=== PATIENT | male | born 1940 | race Caucasian/White ===

== ENCOUNTER 2024-01-15 08:04 | Outpatient (CLI) | payer MEDICARE, SELFPAY ==
--- NOTE | ~2024-01-15 | CT_ITS ---
EXAMINATION: CT abdomen pelvis w con DATE: 01/15/2024 08:12 INDICATION: Weight loss and rectal bleeding TECHNIQUE: Computed tomography (CT) of the abdomen and pelvis was performed without intravenous contr ast. Automated exposure control and iterative reconstruction technique were employed. The dose-length product was 457.35 mGy-cm. COMPARISON: None FINDINGS: Bilateral calcified pleural plaques with peripheral coarse reticular opacities consistent with chroni c interstitial lung disease, likely sequela of chronic asbestos exposure. Mild emphysema at the lung bases. Indeterminate 4 mm nodule at the lingula. Heart size is normal. Atherosclerotic coronary arter y calcification. Aortic valve calcification. No pericardial or pleural effusion. Liver, gallbladder, spleen, pancreas and bilateral adrenal glands are normal. 5.6 cm cyst at the lower pole of the right kidney. Subcentimeter left renal cyst. Bladder is normal. Mild prostatomegaly. Measuring 4.6 x 3.8 cm . Small fat-containing left inguinal hernia. Small bowel and appendix are normal. There is moderate colonic diverticulosis with a sigmoid predomin ance. There is no adjacent inflammatory change to suggest diverticulitis. There is an eccentric int raluminal mass concerning for primary colorectal cancer measuring 5.0 x 3.6 x 4.7 cm along the banquet line cook ior wall of the rectum approximately 4 cm proximal to the anal verge. There are feeding vessels exten ding to the central aspect of the mass where there is associated invagination of the posterior wall o f the rectum and with indistinct peripheral serosal margin suggesting early extra serosal invasion of the perirectal fat. No free intraperitoneal gas or fluid. No pathologically enlarged abdominal or pe lvic lymphadenopathy. Mild degenerative skeletal changes in the spine and pelvis. No suspicious lytic or blastic bone lesions. IMPRESSION: 1. 5.0 x 3.6 x 4.7 cm intraluminal rectal mass concerning for colorectal carcinoma. Recommend proctos copy for further evaluation. Dr. Johns discussed these findings with Dr. Freeman at 9:48 AM. 2. Diverticulosis. 3. Prostatomegaly. 4. Small fat-containing left inguinal hernia. 5. Indeterminate 4 mm nodule at the lingula statistically most likely to represent sequela of old gra nulomatous disease but given the suspected primary colon cancer could consider 3 month follow-up ches t CT as differential would include metastatic disease. Reviewed, dictated and finalized at location A. [facility] IMPRESSION: 1. 5.0 x 3.6 x 4.7 cm intraluminal rectal mass concerning for colorectal carcin meenu. Recommend proctoscopy for further evaluation. Dr. Johns discussed these findings with Dr. Freeman at 9:48 AM. 2. Diverticulosis. 3. Prostatomegaly. 4. Small fat-containing left inguinal hernia. 5. Indeterminate 4 mm nodule at the lingula statistically most likely to repres ent sequela of old granulomatous disease but given the suspected primary colon cancer could consider 3 month follow-up chest CT as differential would include metastatic disease.
[2024-01-15 08:04] LABS: Estimated Glomerular Filt Rate 48
[2024-01-15 09:13] LABS: Basophils Absolute Auto 0.1 K/mm3 (0.0-0.1); Basophils Percent Auto 0.7 % (0.2-1.2); Eosinophils Absolute Auto 0.2 K/mm3 (0-0.3); Eosinophils Percent Auto 1.3 % (0-4.4); Hemoglobin 11.8 g/dL (14.0-18.0); Immature Granulocyte Absolute 0.09 K/mm3 (0.00-0.031); Immature Granulocyte Percent A 0.6 % (0-0.5); Lymphocytes Absolute Auto 2.89 K/mm3 (0.9-3.2); Lymphocytes Percent Auto 19.9 % (18.3-44.2); Mean Corpuscular HGB Conc 31.9 g/dl (32-36); Mean Corpuscular Hemoglobin 31.4 pg (26-34); Mean Corpuscular Volume 98.4 fl (80-100); Mean Platelet Volume 11.1 fl (7.4-10.4); Monocytes Percent Auto 13.7 % (2.6-8.5); Neutrophils Absolute Auto 9.3 K/mm3 (1.3-6.7); Neutrophils Percent Auto 63.8 % (45.5-73.1); Platelet Count Result 324 k/mm3 (150-375); Red Blood Count 3.76 M/mm3 (4.6-6.20); Red Cell Distribution Width 14.5 % (11.5-14.5); White Blood Count 14.5 K/mm3 (4.5-10.0)
[2024-01-15 09:27] LABS: Alanine Aminotransferase 25 U/L (6-50); Albumin Level 3.7 g/dL (3.5-5.1); Alkaline Phosphatase 103 U/L (38-126); Anion Gap 7 mmol/L (4-12); Aspartate Amino Transferase 30 U/L (17-59); Bilirubin,Total 0.6 mg/dL (0.2-1.3); Blood Urea Nitrogen 14 mg/dL (9-20); Calcium 8.9 mg/dL (8.4-10.2); Carbon Dioxide 28 mmol/L (22-30); Chloride 104 mmol/L (98-107); Cholesterol 100 mg/dL (0-200); Estimated Glomerular Filt Rate 58; Glucose 89 mg/dL (65-110); HDL Direct 35 mg/dL; Potassium 4.7 mmol/L (3.4-5.0); Sodium 139 mmol/L (137-145); Triglycerides 112 mg/dL (<150)
[2024-01-15 09:38] LABS: LDL Cholesterol Direct 40 mg/dL
[2024-01-15 10:26] LABS: Creatinine Urine 80.7 mg/dL
[2024-01-15 10:29] LABS: MALB Creatinine Ratio 7.8 mg/g (0-30); Microalbumin Urine Random 6.3 mg/L (0-16.7)
== END 2024-01-15 08:05 | disposition home or self-care (01) ==
PROVIDERS: PCP Family Medicine; Visit Provider Nurse Practitioner Family
DX: K92.1 Melena (principal); R63.4 Abnormal weight loss; E78.5 Hyperlipidemia, unspecified; I10 Essential (primary) hypertension; Z13.1 Encounter for screening for diabetes mellitus
CPT/HCPCS: 36415; 74177; 80053; 80061; 82043; 83036; 85025; Q9967

== ENCOUNTER 2024-01-26 02:02 | Day surgery (SDC) | payer MEDICARE, SELFPAY ==
[2024-01-17 13:17] VITALS: BMI 27.0
--- NOTE | 2024-01-17 13:32 | SUR.PREOP ---
spoke with patient in regards to Eliquis. Pt verbalizes understanding that the last dose is to be taken on 01/23/24 and the Endoscopist will instruct them when to restart after the procedure.
[2024-01-26 11:05] VITALS: BP 120/68; PULSE 102; RESP 20; TEMP 36; O2SAT 99
[2024-01-26] MEDS: LACTATED RINGERS 1,000 ML 150 ML IV CONT (11:21)
[2024-01-26 11:23] VITALS: BP 131/81; PULSE 113
--- NOTE | 2024-01-26 11:26 | P.PNAN_ITS ---
Anes - Initial Pre Proc Eval Procedure: Operation Date: 01/26/24 12:30 Proposed Procedures p Colonoscopy - Carlo Kumar MD Date/Time: 01/26/24 11:26 Surgeon: Carlo Kumar MD Pre Op Diagnosis: acute posthemorrhagic anemia, melena, other spec Patient Data Age: 83 Gender: M Height: 1.75 m Weight: 83 kg Last Vital Signs Temp 96.8 F L 01/26/24 11:05 Pulse 113 H 01/26/24 11:23 Resp 20 01/26/24 11:05 BP 131/81 01/26/24 11:23 Pulse Ox 99 01/26/24 11:05 O2 Del Method Room Air 01/26/24 11:05 Allergies Allergy/AdvReac Type Severity Reaction Status Date / Time No Known Allergies Allergy Verified 01/26/24 11:03 Home Medications Medication Instructions Recorded Confirmed Type atorvastatin 20 mg tablet 20 mg PO DAILY 12/26/23 01/26/24 History metoprolol succinate 50 mg 50 mg PO DAILY 12/26/23 01/26/24 History tablet,extended release 24 hr apixaban 5 mg tablet (Eliquis) 5 mg PO BID 01/01/24 01/26/24 History Patient hx anesthesia problems: none Family hx anesthesia problems: none Results Review: All pre-operative results and documents have been reviewed as part of the pre- operative evaluation. [facility] Family History Family History Mother Patient's mother is , Onset Age: 88 Father Family history of lung cancer, Onset Age: 83 Sibling Family history of malignant neoplasm of ovary Social History Social History Smoking packs per day: 0.75 Smoking cigarettes per day: 15.0 Years smoked: 65 Smoking pack-years: 48.75 Smoking status: Current every day smoker Tobacco type: cigarettes Alcohol intake: current Alcohol use details: Rarely Substance use type: does not use Living arrangements: with family Additional living arrangements comments: With sp Anes - Eval Final PreProcedure Day of Procedure 01/26/24 11:26 Patient weight: overweight Heart: regular rate and rhythm (chr a fib. ) and tachycardia Lungs: clear to auscultation Airway: Mallampati scale class II Neurological: alert and oriented Last oral intake: >/= 8 hours ASA classification: IV Emergent: no Anesthetic plan: proceed Anesthesia type and monitoring: general GIVS and standard monitoring Results Review: All pre-operative results and documents have been reviewed as part of the pre- operative evaluation. Afib by hx and still in a fib, eliquis on hold for 3 days. HTN, hyperlipidemia, PVD. Rectal mass now for eval. Informed Consent: The patient's anesthetic plan and its attendant risks and benefits were discussed with the patient/family/POA. Questions were solicited and answers provided to the satisfaction of the patient/family/POA.
--- NOTE | 2024-01-26 11:31 | WPDHPUPDATE1 ---
History and Physical Update Update Date/Time: 01/26/24 11:31 History and Physical has been reviewed, including an updated exam of the patient. There are NO changes in the patient's condition. Risks, benefits, and alternatives have been discussed and questions answered. Patient agrees to proceed with procedure.
[2024-01-26 11:59] VITALS: BP 120/68; PULSE 107; RESP 25; O2SAT 92
[2024-01-26 12:09] VITALS: BP 129/73; PULSE 106; RESP 23; O2SAT 100
[2024-01-26 12:19] VITALS: BP 158/80; PULSE 108; RESP 22; O2SAT 97
== END 2024-01-26 12:59 | disposition home or self-care (01) ==
PROVIDERS: PCP Family Medicine; Referring Provider Nurse Practitioner Family; Visit Provider Internal Medicine Gastroenterology
PROC: 0DJD8ZZ Inspection of Lower Intestinal Tract, Via Natural or Artificial Opening Endoscopic (ICD-10-PCS; CPT 45378; principal; 2024-01-26 12:30)
DX: R93.3 Abnormal findings on diagnostic imaging of other parts of digestive tract (principal); C18.7 Malignant neoplasm of sigmoid colon; D12.3 Benign neoplasm of transverse colon; K57.30 Diverticulosis of large intestine without perforation or abscess without bleeding; E78.5 Hyperlipidemia, unspecified; I10 Essential (primary) hypertension; I48.91 Unspecified atrial fibrillation; D62 Acute posthemorrhagic anemia; F17.210 Nicotine dependence, cigarettes, uncomplicated; Z79.51 Long term (current) use of inhaled steroids; Z79.01 Long term (current) use of anticoagulants; Z86.79 Personal history of other diseases of the circulatory system; Z80.41 Family history of malignant neoplasm of ovary; Z80.1 Family history of malignant neoplasm of trachea, bronchus and lung
CPT/HCPCS: 45385; 45380; 88305; J2003; J2704; J7120

== ENCOUNTER 2024-02-20 09:41 | Outpatient (CLI) | payer MEDICARE, SELFPAY ==
--- NOTE | ~2024-02-20 | CT_ITS ---
Clinical Indication: Colon cancer CT Scan of the Chest with Contrast: Technique: Contiguous sections were acquired throughout the chest after intravenous administration of 75 cc of Omnipaque 350. Dose reduction technique was used on this scan by utilizing automated exposu re control and iterative reconstruction technique. The dose-length product (DLP) was 191.87 mGy-cm. Findings: There is no evidence of any significant mediastinal, hilar or axillary lymphadenopathy. There is no f illing defect in the pulmonary arterial tree to suggest pulmonary embolus. Probable small saccular an eurysm arising from the inferior aspect of the distal aortic arch (sagittal image [id number]). No aortic d issection. There is no evidence of pleural or pericardial effusion. Bilateral calcified pleural plaques are pres ent. There is a 1 cm smooth nodule in the right middle lobe adjacent to the fissure (axial image 65).. The re is mild to moderate emphysema, probably paraseptal. There is subpleural reticulation and mild klaus pheral interstitial thickening at the lung bases in particular. Images through the upper abdomen reveal no abnormalities. Impression: 1 cm right middle lobe nodule, indeterminate. Consider short-term follow-up exam or PET/CT. Compariso n with any outside prior chest CTs (if available) would be useful to establish chronicity of this les ion. Mild chronic interstitial disease and calcified pleural plaques. [id number] paraseptal emphysema. 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 Reviewed, dictated and finalized at location . [facility] Impression: 1 cm right middle lobe nodule, indeterminate. Consider short-term follow-up exa m or PET/CT. Comparison with any outside prior chest CTs (if available) would b e useful to establish chronicity of this lesion. Mild chronic interstitial disease and calcified pleural plaques. [id number] paraseptal emphysema. 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
[2024-02-20 10:06] LABS: Estimated Glomerular Filt Rate 58
== END 2024-02-20 09:42 | disposition home or self-care (01) ==
PROVIDERS: PCP Family Medicine; Visit Provider Surgery
DX: C19 Malignant neoplasm of rectosigmoid junction (principal)
CPT/HCPCS: 71260; Q9967

== ENCOUNTER 2024-03-19 10:01 | Outpatient (CLI) | payer MEDICARE, SELFPAY ==
--- NOTE | ~2024-03-19 | PE_ITS ---
EXAMINATION: PET skull to mid thigh DATE: 03/19/2024 12:03 INDICATION: Rectal cancer. TECHNIQUE: Blood glucose level was 97 mg/dL. 10.983 mCi of 18-fluorodeoxyglucose (18-FDG) was adminis tered i.v. Low dose computed tomography (CT) images were acquired from the base of the brain to the p roximal thighs for attenuation correction and anatomic localization. Automated exposure control was e mployed. Dose-length product (DLP) was 780 mGy-cm. Positron emission tomography (PET) images were acq uired in the same distribution. COMPARISON: Chest CT 02/20/2024 FINDINGS: Head/neck: There are no pathologically enlarged lymph nodes. Chest: There is mild emphysema. There are calcified pleural plaques bilaterally, which may be seen wi th asbestos exposure. There is a 10 mm nodule in right middle lobe at the minor fissure without incre ased activity. No pleural effusion. There is a long distribution of increased activity in the esophag us, likely esophagitis. There is increased activity in the brachiocephalic trunk, consistent with thr ombosis. Abdomen/pelvis/proximal thighs: The liver, gallbladder, spleen, pancreas, adrenal glands, and left ki dney are normal. There is a 5.6 cm cyst in right kidney. The prostate is mildly enlarged. There is wa ll thickening of the rectosigmoid with maximum SUV of 39.7. There is a left inguinal hernia containin g fat. There are no pathologically enlarged lymph nodes. There is no free intraperitoneal fluid. Ther e is no osseous malignancy. IMPRESSION: 1. 10 mm nodule in right lung middle lobe at the minor fissure without increased activity, probably b enign. Noncontrast low-dose chest CT is recommended in 6 months. 2. Wall thickening of the rectosigmoid with increased activity, consistent with primary malignancy. 3. Increased activity in the esophagus, likely esophagitis. 4. Increased activity in the brachiocephalic trunk, consistent with thrombosis. Reviewed, dictated and finalized at location A. TRONIC COMPONENT PROCESSOR IMPRESSION: 1. 10 mm nodule in right lung middle lobe at the minor fissure without increase d activity, probably benign. Noncontrast low-dose chest CT is recommended in 6 months. 2. Wall thickening of the rectosigmoid with increased activity, consistent with primary malignancy. 3. Increased activity in the esophagus, likely esophagitis. 4. Increased activity in the brachiocephalic trunk, consistent with thrombosis.
[2024-03-19 10:50] LABS: Glucose Point of Care 97 mg/dl (65-105)
--- OUTSIDE RECORDS SUMMARY | 2024-03-19 10:55 | XMS_ITS | Encounter Summary ---
Author Organization [facility] Address Formerly [facility], [facility] [facility] [place] [address] [place] [address] Care Team Providers Care Mold Engraver Name Role Phone Yared Shook MD Primary Care Provider [phone] Ez Rust MD Unavailable [phone] None, Provider Primary Care Provider Unavaila ble Dominique Varghese MD Primary Care Provider [phone] Yared Shook MD Primary Care Provider [phone] Roel Silvestre DO Primary Care Provider [phone] Encounter Details Date Type Department Care Team (Late st Contact Info) Description 03/01/2018 Abstract [facility] CONVERSION [address] [place], [place] [id number] , Generic Conversion, Social History Tobacco Use Types Packs/Day Years Used Date Smoking Tobacco: Every Day Cigarettes Smokeless Tobacco: Never Alcohol Use Standard Drinks/Week Comments Yes 0 (1 standard drink = 0.6 oz pur e alcohol) socially Sex and Gender Information Value Date Recorded Sex Assigned at Not on file Legal Sex Male 10:11 PM CDT Gender Identity Not on file Sexual Orientation Not on file Occupation Industry Job Start Date Job End Date Not on file Not on file Not on file Not on file documented as of this encounter Plan of Treatment Upcoming Encounters Date Type Department Care Team (Late Contact Info) Description 04/24/2024 11:15 AM [employer] Office Visit [facility] [address] [place] [phone] Ez Rust MD [facility] [address] [place] [address] 11/28/2024 12:00 PM CDT Appointment [facility] [address] [place], [place] [id number] Bobby Tiwari MD [facility] [address] [place], [place] [address] 12/04/2024 10:00 AM CDT Office Visit [facility] [address] [place] [phone] Bobby Tiwari MD [facility] [address] [place], [place] [id number] documented as of this encounter Visit Diagnoses Not on filedocumented in this encounter Additional Health Concerns Infection Onset Date Last Indicated Resolved Time COVID-19 Rule Out 05/10/2022 05/10/2022 05/10/2022 11:29 AM CDT documented as of this encounter Care Teams Mold Engraver Relationship Specialty Start Date End Date Yared Shook MD PCP - General INTERNAL MEDICINE 01/20/17 05/04/21 María Iniguez MD PCP - General 05/05/21 10/12/21 [place] [address] [facility] [address] [place], [place] [id number] PCP - General FAMILY PRACTICE 10/13/21 05/23/23 Yared Shook MD [address] [place] [address] PCP - General INTERNAL MEDICINE 05/24/23 12/21/23 Roel Silvestre DO [address] [place] [address] PCP - General FAMILY PRACTICE 12/22/23 Ez Rust MD [facility]. [address] [place] [address] [employer] CARDIOVASCULAR DISEASE 02/20/17 documented as of this encounter
--- OUTSIDE RECORDS SUMMARY | 2024-03-19 10:55 | XMS_ITS | Clinical Summary ---
Author Organization [facility] Address [facility] Formerly [facility] [place] [address] [place] [address] Care Team Providers Care Image Editor Name Role Phone Gianna Rust MD Unavailable [phone] Roel Silvestre DO Primary Care Provider [phone] Allergies No known active allergies Medications albuterol sulfate HFA 108 (90 Base) MCG/ACT inhaler Inhale 2 puffs into the lungs every 4 (four) hours as needed. 7 Active multi vitamin/minera ls tablet Take 1 tablet by mouth daily. Active Multiple Vitamins-Dillingham als (PRESERVISION AREDS 2) CapIndications :Opthalmology Rx's Take 1 tablet by mouth every 12 (twelve) hours. Indications: Opthalmology Rx's Active metoprolol succinate ER (TOPROL-XL) 50 MG 24 hr tabletIndicati ons:Hypertensi on, essential Take 1 tablet (50 mg total) by mouth daily. 90 tablet 3 3 Active Budeson-Glycop yrrol-Formoter ol 160-9-4.8 MCG/ACT Aerosol INHALE 2 PUFFS INHALATION TWICE A DAY DIRECTED FOR COPD (CLEAN INHALER FOLLOWED BY 2 PRIMING PUFFS ONCE WEEKLY) 3 Active apixaban (ELIQUIS) 5 MG tablet Take 1 tablet by mouth twice daily 60 tablet 1 4 Active atorvastatin (LIPITOR) 40 MG tabletIndicati ons:Hypertensi on, essential,Dysl ipidemia,Hyper triglyceridemi a Take 1 tablet (40 mg total) by mouth nightly at bedtime. 90 tablet 5 Active atorvastatin (LIPITOR) 40 MG tabletIndicati ons:Hypertensi on, essential,Dysl ipidemia,Hyper triglyceridemi a take 1 tablet by mouth nightly at bedtime 90 tablet 4 025 Discontin ued(Reord er) Active Problems Problem Noted Date Diagnosed Date Disease of gallbladder, unspecified 11/29/2023 Atrial fibrillation ([facility] [place]) 05/19/2023 Cigarette smoker 05/19/2023 Aortic aneurysm of unspecified site, without rup ture 11/15/2022 Chronic obstructive pulmonar y disease, unspecified ([facility] [place]) 11/15/2022 Contact with and (suspected) exposure to asbesto s 11/15/2022 Helicobacter pylori gastritis 11/15/2022 Tobacco use disorder, continuous 11/15/2022 Age-related incipient cataract of both eyes 10/21 Wears glasses 07/12/2017 Overview (02/28/2018): Description: for reading SOB (shortness of breath) 03/02/2017 PVD (peripheral vascular disease) 03/02/2017 Assessment & Plan (09/05/2018 9:11 AM CDT): Stable at this time, on a daily low-dose aspirin. No change to present treatment. Assessment & Plan (03/05/2018 2:44 PM PROJECTION PRINTER): Stable, on daily aspirin therapy. Continued monitoring by vascular specialist. 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 Continue to monitor. Staunchly declines pneumococcal immunizations. Assessment & Plan (03/05/2018 2:42 PM PROJECTION PRINTER): The current medical regimen is effective; continue present plan and medications. Follow-[facility] and [facility] management per [facility] at [facility]. Hypertriglyceridemia 06/07/2016 Assessment & Plan (09/05/2018 9:11 AM CDT): Continues on moderately dosed atorvastatin without side effects or intolerances. Most recent lipid panel excellent. Repeat in 6 months. No treatment change. Assessment & Plan (03/05/2018 2:45 PM PROJECTION PRINTER): The current medical regimen is effective; continue present plan and medications. Atherosclerosis of right carotid artery 04/27/19 Overview (02/28/2018): Transitioned From: Coronary artery disease Assessment & Plan (03/05/2018 2:44 PM PROJECTION PRINTER): See PVD above. Lung nodules 02/05/2016 Assessment & Plan (09/05/2018 9:09 AM CDT): Most recent PET scan in our records reviewed, with what appears to be a stable nodule, with avidity which does not rule out a low metabolic neoplastic process. The [facility] continues to monitor this. Assessment & Plan (03/05/2018 2:41 PM PROJECTION PRINTER): Stable pulmonary exam. Will order CT scan of the chest for reevaluation of pulmonary nodules on or after 04/14. Encouraged patient to follow-up with the [facility] as scheduled. No change to present therapy. Asbestos exposure 01/21/2016 Calcified pleural plaque on chest x-ray 01/21/20 16 BMI 29.0-29.9,adult 06/05/2015 Medication management 06/05/2015 Overview (02/28/2018): Transitioned From: long term use of drug Assessment & Plan (09/05/2018 9:12 AM CDT): Lab work ordered for next visit, to be drawn prior to visit for review. Assessment & Plan (03/05/2018 2:47 PM PROJECTION PRINTER): Obtain routine lab work at this time for ongoing medication management, including lipid panel, CBC and metabolic profile. PSA for yearly monitoring per patient request. Nicotine dependence 06/05/2015 Assessment & Plan (09/05/2018 9:08 AM CDT): Patient remains pre-contemplative, with no plans to quit in the future. Assessment & Plan (03/05/2018 2:41 PM PROJECTION PRINTER): Pre-contemplative, no desire to stop smoking. Currently smoking approximately 1/2 pack/day, or less. Typically smokes most frequently when driving. Bilateral carotid bruits 02/28/2014 Dyslipidemia Assessment & Plan (03/05/2018 2:45 PM PROJECTION PRINTER): The current medical regimen is effective; continue present plan and medications. Hypertension, essential Assessment & Plan (09/05/2018 9:10 AM CDT): Well controlled. 1. Medication: continue current medication regimen unchanged, encouraged home monitoring, call for persistent elevations at or above 130/85. 2. Maintains a relatively active lifestyle, though no specific schedule exercise. 3. Recheck in 6 months, sooner should new symptoms or problems arise. Assessment & Plan (03/05/2018 2:43 PM PROJECTION PRINTER): For all purposes controlled at this time on current dosing of metoprolol. Continue to monitor. No change to present treatment. Carotid stenosis, asymptomatic, left CAD (coronary artery disease) Assessment & Plan (09/05/2018 9:10 AM CDT): Stable, no chest pain or other anginal equivalent. Continues on metoprolol without difficulty. Yearly follow-up with cardiology. Assessment & Plan (03/05/2018 2:44 PM PROJECTION PRINTER): Stable. Yearly follow-up with cardiology. No signs or symptoms of angina. Continue current treatment. Encounters Date Type Department Care Team Description 03/13/2024 Telephone [facility], [address] [address] Gianna Rust MD Refill Request (ATORVASTATIN) 02/01/2024 Telephone [facility] [address] [address] Kathy Mary, RN Results 01/30/2024 7:44 AM PROJECTION PRINTER - 01/30/2024 11:59 PM PROJECTION PRINTER Hospital Encounter [facility]ound [address] [place] [address] Teagan Cage, LEATHER CURRIER-C Discharge Disposition: Home or Self Care (Routine Discharge) 01/30/2024 Telephone [facility] [address] [address] Kathy Mary RN Results 01/30/2024 Travel 01/17/2024 11:30 AM PROJECTION PRINTER Office Visit [facility] [address] [address] Teagan Cage, LEATHER CURRIER-C Coronary Artery Disease (Follow up); Atrial Fibrillation; Carotid Stenosis 01/17/2024 Abstract [facility] [address] [address] Amy Vera CMA 01/17/2024 Travel 01/10/2024 Telephone [facility] [address] [address] Bri Murillo CMA Prior Authorization (Tier exception) 01/09/2024 Telephone [facility] [address] [address] 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 Medication Information (Eliquis) from Last 3 Months Immunizations Name Administration Dates Next Due Fluzone High Dose - >Age 65 (Prefilled Syringe) 10/02/2019(Deferred: Patient Refused - Per Patient) PFIZER COVID-19 (SHEPPARD CAP), MRNA, LNP-S, PF, 30 MCG/0.3 ML JULISSA-SUCROSE, IM 09/08/2021 PFIZER COVID-19 (ORIGINAL FORMULATION, PURPLE CAP) mRNA, LNP-S, PF, 30 MCG/0.3 ML DOSE 12/09/2020,04/30/2020,04/09/2020 Pneumococcal (Pneumovax 23) 10/07/2021(Deferred: Patient Refused) Td (Generic) 11/05/2011 Td, Adsorbed, Preservative F ree, Adult Use, Lf Unspecified 11/05/2011 Family History Medical History Relation Comments No Known Problems Father No Known Problems Mother no family history of CAD Other Relation Status Comments Father Mother Other Social History Tobacco Use Types Packs/Day Years Used Date Smoking Tobacco: Every Day Cigarettes Smokeless Tobacco: Never Tobacco Cessation:Ready to Q uit: No; Counseling Given: Yes Alcohol Use Standard Drinks/Week Comments Yes 0 (1 standard drink = 0.6 oz pur e alcohol) socially PHQ-2 Answer Date Recorded Patient Health Questionnaire-2 Score 0 05/10/2022 Sex and Gender Information Value Date Recorded Sex Assigned at Not on file Legal Sex Male 10:11 PM CDT Gender Identity Not on file Sexual Orientation Not on file Occupation Industry Job Start Date Job End Date Not on file Not on file Not on file Not on file Last Filed Vital Signs Vital Sign Reading Time Taken Comments Blood Pressure 124/62 01/17/2024 11:21 AM PROJECTION PRINTER Pulse 102 01/17/2024 11:21 AM PROJECTION PRINTER Temperature 36.6 ??C (97.8 ??F) 05/10/2022 11:01 AM C DT Respiratory Rate 12 05/10/2022 11:01 AM CDT Oxygen Saturation 95% 05/30/2023 12:11 PM CDT Inhaled Oxygen Concentration - - Weight 82.6 kg (182 lb) 01/17/2024 11:21 AM PROJECTION PRINTER Height 172.7 cm (5' 8 ) 01/17/2024 11:21 AM PROJECTION PRINTER Body Mass Index 27.67 01/17/2024 11:21 AM PROJECTION PRINTER Plan of Treatment Upcoming Encounters Date Type Department Care Team (Late st Contact Info) Description 04/24/2024 11:15 AM PROJECTION PRINTER Office Visit [facility] [address] [place] [phone] Gianna Rust MD [facility] [address] [place], [place] [address] 11/28/2024 12:00 PM CDT Appointment [facility] [address] [place] [address] Bobby Tiwari MD [facility] [address] [place], [place] [address] 12/04/2024 10:00 AM CDT [facility] [address] [place] [phone] Bobby Tiwari MD [facility] [address], [place] [id number] Health Maintenance Due Date Last Done Comments Pneumococcal Vaccine: 65+ Years (1 of 2 - PCV) 1944 Zoster Vaccines (1 of 2) 1988 Annual Medicare Wellness Visit 12/02/2003 DTaP, Tdap and Td Vaccines (1 - Tdap) 11/06/2011 11/05/2011, 11/05/2011 RSV Immunization or 60+ Years (1 - 1-dose 75+ series) 2013 COVID-19 Vaccine ( season) 2023 09/08/2021, 12/09/2020, 04/30/2020, Additional history exists Influenza Adult (#1) 2023 PHQ-2 (Physician [facility]) 02/21/2024 05/10/2022 Meningococcal B Vaccine Aged Out No l onger eligible based on patient's age to complete this topic Meningococcal Vaccine Aged Out No clemente tahira eligible based on patient's age to complete this topic RSV Immunizations Under 20 Months Aged Out No longer eligible based on patient's age to complete this topic Procedures Procedure Name Priority Date/Time Associated Diagnosis Comments USE ECHOCARDIOGRAM Routine 01/30/2024 8: 31 AM PROJECTION PRINTER SOB (shortness of breath) Nonrheumatic aortic valve insufficiency CBC (OUTSIDE LAB) Routine 01/15/2024 CMP (OUTSIDE LAB) Routine 01/15/2024 HEMOGLOBIN, GLYCOSYLATED Routine 01/15/2024 LIPID PANEL Routine 01/15/2024 from Last 3 Months Results * USE ECHOCARDIOGRAM (01/30/2024 8:31 AM PROJECTION PRINTER) Anatomical Region Laterality Modality Cardiac Ultrasound 01/30/2024 8:02 AM PROJECTION PRINTER Narrative 01/30/2024 6:31 PM PROJECTION PRINTER ?MADHU ? OUTREACH Pat.Name: ??Stephanie Jay ?? Pat.ID: ?[id number] ? St.Date: ?? 01/30/2024 ? Refer.MD: ??Outreach, [facility] Radiology Exam Time: 8:02:00 AM ?Study Type:OUTREACH ? Height: ?69 in ? Weight: ?182 lb ? BSA: ? 1.98 m2 ?Age: ??1940,83Y ? Sex: ? M ? Sonogrphr: Lw ? Pat. Stat.:Outpatient ? Reason for Study:SOB, Aortic Insufficiency Procedures: Study performed at [place], [place] and interpreted by [facility]. 2D, M-mode, Doppler, Color Flow ++++++++++++++++++++++++++++++++++++ SUMMARY: ++++++++++++++++++++++++++++++++++++ The left ventricular size is normal. The left ventricular systolic function is normal. The calculated ejection fraction is 57%. Mild concentric left ventricular hypertrophy. The right ventricular size is normal. Right ventricular systolic function is normal. Right ventricular systolic pressure is 38 mmHg. The peak pulmonary artery systolic pressure is estimated to be approximately 30 mmHg. Moderate aortic regurgitation. Mild mitral regurgitation. Mild tricuspid regurgitation. ++++++++++++++++++++++++++++++++++++ FINDINGS: ++++++++++++++++++++++++++++++++++++ LV: ? The left ventricular size is normal. The left ventricular ?systolic function is normal. The calculated ejection ?fraction is 57%. Mild concentric left ventricular ?hypertrophy. The average E/e' is indeterminate at 9-12 and ?EF is > or equal to 50. RV: ? The right ventricular size is normal. Right ventricular ?systolic function is normal. Right ventricular systolic ?pressure is 38 mmHg. LA: ? The left atrial size is moderately enlarged. RA: ? The right atrial size is normal. AMBERLY: ? No evidence of pericardial effusion. AO: ? Normal aortic root. PA: ? The peak pulmonary artery systolic pressure is estimated to ?be approximately 30 mmHg. SVn: ?Inferior vena cava is normal. AV: ? The aortic valve is trileaflet. No clear spectral or ?echocardiographic evidence of aortic valve stenosis. ?Moderate aortic regurgitation. MV: ? Structurally normal mitral valve. Mild mitral regurgitation. PV: ? Structurally normal pulmonic valve. TV: ? Structurally normal tricuspid valve. Mild tricuspid ?regurgitation. <Electronic Signature> 01/30/2024 06:31 PM Gianna Rust M.D. Procedure Note Gianna Rust MD - 01/30/2024 MADHU GONZALEZ Pat.Name: Stephanie Jay gianna Pat.ID: [id number] .Date: 01/30/2024 Refer.MD: Jayant, [facility] Radiology Exam Time: 8:02:00 AM Study Type:[facility] Height: 69 in Weight: 182 lb BSA: 1.98 m2 Age: 10 1940,83Y Sex: M Sonogrphr: Lw Pat. Stat.:Outpatient Reason for Study:SOB, Aortic Insufficiency Procedures: Study performed at [place], [place] and interpreted by [facility]. 2D, M-mode, Doppler, Color Flow ++++++++++++++++++++++++++++++++++++ SUMMARY: ++++++++++++++++++++++++++++++++++++ The left ventricular size is normal. The left ventricular systolic function is normal. The calculated ejection fraction is 57%. Mild concentric left ventricular hypertrophy. The right ventricular size is normal. Right ventricular systolic function is normal. Right ventricular systolic pressure is 38 mmHg. The peak pulmonary artery systolic pressure is estimated to be approximately 30 mmHg. Moderate aortic regurgitation. Mild mitral regurgitation. Mild tricuspid regurgitation. ++++++++++++++++++++++++++++++++++++ FINDINGS: ++++++++++++++++++++++++++++++++++++ LV: The left ventricular size is normal. The left ventricular systolic function is normal. The calculated ejection fraction is 57%. Mild concentric left ventricular hypertrophy. The average E/e' is indeterminate at 9-12 and EF is > or equal to 50. RV: The right ventricular size is normal. Right ventricular systolic function is normal. Right ventricular systolic pressure is 38 mmHg. LA: The left atrial size is moderately enlarged. RA: The right atrial size is normal. AMBERLY: No evidence of pericardial effusion. AO: Normal aortic root. PA: The peak pulmonary artery systolic pressure is estimated to be approximately 30 mmHg. SVn: Inferior vena cava is normal. AV: The aortic valve is trileaflet. No clear spectral or echocardiographic evidence of aortic valve stenosis. Moderate aortic regurgitation. MV: Structurally normal mitral valve. Mild mitral regurgitation. PV: Structurally normal pulmonic valve. TV: Structurally normal tricuspid valve. Mild tricuspid regurgitation. <Electronic Signature> 01/30/2024 06:31 PM Gianna Rust M.D. Teagan Cage LEATHER CURRIER-C ECHO Final Re sult * (ABNORMAL) CMP (OUTSIDE LAB) (01/15/2024) SODIUM S/P/B 139 137 - 145 POTASSIUM S/P/B 4.7 3.4 - 5.0 CHLORIDE S/P/B 104 98 - 107 CO2 28 22 - 30 BUN 14 9 - 20 CREATININE S/P/B 1.20 0.8 - 1.5 EGFR NON-AFR. AMER. 58(A) 60 - 90 CALCIUM S/P/B 8.9 8.4 - 10.2 GLUCOSE 89 65 - 110 mg/dL TOTAL PROTEIN S/P/B 7.0 6.3 - 8.2 ALBUMIN S/P/B 3.7 3.5 - 5.1 AST 30 17 - 59 ALT 25 6 - 50 ALKALINE PHOSPHATASE S/P/B 103 38 - 126 BILIRUBIN TOTAL S/P/B 0.6 0.2 - 1.3 01/15/2024 us Default History Genericprovider LAB-OUTSIDE/ABST RACTED Final Result * (ABNORMAL) CBC (OUTSIDE LAB) (01/15/2024) WBC 14.5(A) 4.5 - 10.0 HGB 11.8(A) 14.0 - 18.0 HCT 37.0(A) 42.0 - 52.0 PLT 324 150 - 375 RBC 3.76(A) 4.60 - 6.20 01/15/2024 us Default History Genericprovider LAB-OUTSIDE/ABST RACTED Final Result * (ABNORMAL) HEMOGLOBIN, GLYCOSYLATED (01/15/2024) HGB A1C 6.0(A) 4.8 - 5.7 % 01/15/2024 us Default History Genericprovider LABORATORY Final Result * LIPID PANEL (01/15/2024) CHOLESTEROL 100 0 - 200 HDL 35 >40 TRIGLYCERIDES 112 0 - 150 LDL (CALCULATED) 40 0 - 100 01/15/2024 us Default History Genericprovider LABORATORY Final Result from Last 3 Months Insurance [facility] Advance Directives Documents on File Type Date Recorded Patient General Intern Expl anation Advance Directives and Living Will 08/11/2017 1:22 PM 08/09/2017 [place]IVING [place] DECLARATION Advance Directives and Living Will 08/11/2017 1:21 PM 08/09/2017 POA FOR HEALTHCARE * Full Code (Latest Code Status on File) Date Activated Date Inactivated Comments 08/10/2017 10:13 AM 08/10/2017 2:58 PM Care Teams Image Editor Relationship Specialty Start Date End Date Roel Silvestre DO [address] [place] [address] PCP - General FAMILY PRACTICE 12/22/23 Gianna Rust MD [facility]. [address] [place] [address] Ryley Pan Devulcanizer CARDIOVASCULAR DISEASE 02/20/17
--- OUTSIDE RECORDS SUMMARY | 2024-03-19 10:55 | XMS_ITS | Clinical Summary ---
Author Organization [facility] Jaclyn prado Robert Address [address] [place] [address] Care Team Providers Care Assistant Manager/Embalmer Name Role Phone Roel Silvestre DO Primary Care Provider Allergies No known active allergies Medications Eliquis 5 mg tablet Take 5 mg by mouth 2 times daily. 4 Active metoprolol succinate (TOPROL XL) 50 mg Extended Release 24 hour tablet Take 50 mg by mouth daily. 3 Active atorvastatin (LIPITOR) 40 mg tablet TAKE 1 TABLET BY MOUTH NIGHTLY AT BEDTIME 4 Active budesonide 160 mcg-glycopyr 9 mcg-formot 4.8 mcg/actuation HFA inhaler INHALE 2 PUFFS INHALATION TWICE A DAY DIRECTED FOR COPD (CLEAN INHALER FOLLOWED BY 2 PRIMING PUFFS ONCE WEEKLY) 3 Active albuterol sulfate 90 mcg/actuation aero powdr breath act w/sensor Inhale 2 puffs every 4 hours by inhalation route. Active Active Problems No known active problems Encounters Date Type Department Care Team Description 03/14/2024 External Device Data STL ABSTRACTION Provider, Abstract 03/13/2024 External Device Data STL ABSTRACTION Provider, Abstract 03/12/2024 External Device Data STL ABSTRACTION Provider, Abstract 03/12/2024 External Device Data STL ABSTRACTION Provider, Abstract 03/12/2024 Chart Note [facility] Emergency Department - [address] [address] Bob Fletcher MD 03/12/2024 Abstract [facility] Oncology and Hematology - [address] [place] [address] Fred Huizar MD 03/07/2024 10:30 AM ORTHODONTIC TREATMENT COORDINATOR Office Visit [facility] [address] [facility] [address] [place] [address] Fred Huizar MD Rectal cancer (CMS/HCC) (Primary Dx) from Last 3 Months Family History Medical History Relation Name Comments No Known Problems Child No Known Problems Father No Known Problems Mother Ovarian Cancer Sister Relation Name Status Comments Child Alive Father Mother Sister Alive Social History Tobacco Use Types Packs/Day Years Used Date Smoking Tobacco: Every Day Cigarettes 0.5 63 Started: 03/07/1961 Alcohol Use Standard Drinks/Week Comments Yes 0 (1 standard drink = 0.6 oz pur e alcohol) socailly Sex and Gender Information Value Date Recorded Sex Assigned at Not on file Legal Sex Male 8:08 PM ORTHODONTIC TREATMENT COORDINATOR Gender Identity Not on file Sexual Orientation Not on file Last Filed Vital Signs Vital Sign Reading Time Taken Comments Blood Pressure 138/82 03/07/2024 10:35 AM ORTHODONTIC TREATMENT COORDINATOR Pulse 98 03/07/2024 10:32 AM ORTHODONTIC TREATMENT COORDINATOR Temperature 36.7 ??C (98 ??F) 03/07/2024 10:32 AM ORTHODONTIC TREATMENT COORDINATOR Respiratory Rate 16 03/07/2024 10:32 AM ORTHODONTIC TREATMENT COORDINATOR Oxygen Saturation 94% 03/07/2024 10:32 AM ORTHODONTIC TREATMENT COORDINATOR Inhaled Oxygen Concentration - - Weight 83.5 kg (184 lb) 03/07/2024 10:32 AM ORTHODONTIC TREATMENT COORDINATOR Height 175.3 cm (5' 9 ) 03/07/2024 10:32 AM ORTHODONTIC TREATMENT COORDINATOR Body Mass Index 27.17 03/07/2024 10:32 AM ORTHODONTIC TREATMENT COORDINATOR Plan of Treatment Upcoming Encounters Date Type Department Care Team (Late st Contact Info) Description 03/28/2024 11:00 AM ORTHODONTIC TREATMENT COORDINATOR Office Visit [facility]cology [facility] H[facility]ology - [address] [place] [address] Fred Huizar MD [address] [facility] [address] [place] [address] Health Maintenance Due Date Last Done Comments PNEUMOCOCCAL VACCINE 65+ YEA RS (1 of 2 - PCV) 1957 ZOSTER VACCINE (1 of 2) 1988 DTAP/TDAP/TD VACCINES (1 - Tdap) 11/06/2011 11/05/19 12 RSV VACCINE (60+ or ) (1 - 1-dose 75+ series) 2013 INFLUENZA VACCINE (#1) 2023 COVID-19 Vaccine (5 - 2023-2 5 season) 2023 09/08/2021, 12/09/2020, 04/30/2020, Additional history exists Insurance [facility] [id number] Care Teams Assistant Manager/Embalmer Relationship Specialty Start Date End Date Roel Silvestre DO [address] [place] [address] PCP - General Family Practice 03/05/24
--- OUTSIDE RECORDS SUMMARY | 2024-03-19 10:55 | XMS_ITS | Clinical Summary ---
Author Organization [facility] Address [address] [place] [address] Care Team Providers Care Hospital Medical Assistant Name Role Phone Roel Silvestre Primary Care Provider [phone] Source Comments [facility],non-owned Affiliates and Associated Physician Practices is amultiple site organization consisting of ambulatory clinics and hospital sitesin [place], [place], [place] and [place]. This disclosure is being madepursuant to the Care Everywhere program and may not contain all information available regarding this patient. Last updated 17.[facility] Allergies No known active allergies Medications * Be aware that medications may not be up to date on this document. Alwaysverify current medications with the patient. Medication Sig Dispensed Refills Start Date End Date Status metoprolol succinate XL 24hr (Toprol XL) 50 MG tablet Take 1 tablet every day by oral route. 05/19/2023 Active atorvastatin (Lipitor) 40 MG tablet TAKE 1 TABLET BY MOUTH NIGHTLY AT BEDTIME 11/27/2023 Active Eliquis 5 MG tablet Take 1 (one) tablet by mouth 2 times daily 11/16/2023 Active Albuterol Sulfate, sensor, 108 (90 Base) MCG/ACT AEPB Inhale 2 puffs every 4 hours by inhalation route. Active budeson-glycopyrrol- formoterol (Breztri) 160-9-4.8 MCG/ACT inhaler INHALE 2 PUFFS INHALATION TWICE A DAY DIRECTED FOR COPD (CLEAN INHALER FOLLOWED BY 2 PRIMING PUFFS ONCE WEEKLY) 07/01/2023 Active Multiple Vitamins-Minerals (PreserVision AREDS 2) capsule Take 1 (one) capsule by mouth every 12 hours Active Encounters Date Type Department Care Team Description 02/22/2024 8:00 AM INTERNATIONAL MARKETING EXECUTIVE Office Visit [facility] - General Surgery [address] [place] [address], [facility] [place] [address] Michaela Cutler MD Rectal cancer (HCC) (Primary Dx) 02/22/2024 Travel 02/19/2024 2:02 PM INTERNATIONAL MARKETING EXECUTIVE - 02/19/2024 11:59 PM INTERNATIONAL MARKETING EXECUTIVE Hospital Encounter [facility] MRI [address] [place] [address] Michaela Cutler MD Discharge Disposition: Home or Self Care 02/19/2024 Travel 02/06/2024 Orders Only [facility] - General Surgery [address] [place] [address], [place] [address] Michaela Cutler MD Rectal cancer (HCC) from Last 3 Months Social History Tobacco Use Types Packs/Day Years Used Date Smoking Tobacco: Every Day Tobacco Cessation:Ready to Q uit: No; Counseling Given: No Alcohol Use Standard Drinks/Week Comments Yes 0 (1 standard drink = 0.6 oz pur e alcohol) Sex and Gender Information Value Date Recorded Sex Assigned at Not on file Gender Identity Not on file Sexual Orientation Not on file Last Filed Vital Signs Vital Sign Reading Time Taken Comments Blood Pressure 136/75 02/22/2024 8:07 AM INTERNATIONAL MARKETING EXECUTIVE Pulse 113 02/22/2024 8:07 AM INTERNATIONAL MARKETING EXECUTIVE Temperature 36.4 ??C (97.5 ??F) 02/22/2024 8:07 AM CS T Respiratory Rate 18 02/22/2024 8:07 AM INTERNATIONAL MARKETING EXECUTIVE Oxygen Saturation 98% 02/22/2024 8:07 AM INTERNATIONAL MARKETING EXECUTIVE Inhaled Oxygen Concentration - - Weight 83.1 kg (183 lb 3.2 oz) 02/22/2024 8:07 A M INTERNATIONAL MARKETING EXECUTIVE Height 175.3 cm (5' 9 ) 02/22/2024 8:07 AM INTERNATIONAL MARKETING EXECUTIVE Body Mass Index 27.05 02/22/2024 8:07 AM INTERNATIONAL MARKETING EXECUTIVE Plan of Treatment Health Maintenance Due Date Last Done Comments DTAP/TDAP/TD VACCINES (1 - Tdap) 1957 PNEUMOCOCCAL VACCINE 50+ (1 of 2 - PCV) 1957 ZOSTER VACCINE (1 of 2) 1988 Respiratory Syncytial Virus (RSV) Vaccine Pt: or over 60 yrs (1 - 1-dose 75+ series) 2013 COVID-19 VACCINE ( season) 2023 09/08/2021, 12/09/2020, 04/30/2020, Additional history exists INFLUENZA VACCINE (#1) 2023 DEPRESSION SCREENING 02/21/2024 MEDICARE AWV ? CALENDAR YEAR 2024 HEPATITIS B VACCINE Aged Out No longe r eligible based on patient's age to complete this topic HIB VACCINE Aged Out No longer eligi ble based on patient's age to complete this topic HPV VACCINE Aged Out No longer eligi ble based on patient's age to complete this topic MENINGOCOCCAL (Group B) VACCINE Aged Out No longer eligible based on patient's age to complete this topic MENINGOCOCCAL VACCINE Aged Out No clemente tahira eligible based on patient's age to complete this topic Procedures Procedure Name Priority Date/Time Associated Diagnosis Comments LAB RESULTS ORDER 02/22/2024 LAB RESULTS ORDER 02/22/2024 MRI PELVIS WWO CONTRAST Routine 02/19/2024 3:38 PM INTERNATIONAL MARKETING EXECUTIVE Rectal cancer (HCC) from Last 3 Months Results * LAB RESULTS ORDER (02/22/2024) Only the most recent of2 resultswithin the time period is included. 02/22/2024 Narrative 02/22/2024 Ordered by an unspecified provider. Scanned Document LAB - THERAPEUTIC DR HAMMOND MONITORING ORDERABLES * MRI Pelvis Wwo Contrast (02/19/2024 3:38 PM INTERNATIONAL MARKETING EXECUTIVE) Anatomical Region Laterality Modality Pelvis Magnetic Resonan ce 02/19/2024 3:45 PM INTERNATIONAL MARKETING EXECUTIVE Addenda Addendum by Ryanne Kuhn MD on 03/01/2024 11:54 AM INTERNATIONAL MARKETING EXECUTIVE Consider this addendum as the report for the pelvis MRI dated 02/19/2024. PROCEDURE: ??MRI PELVIS WWO CONTRAST, DATE/TIME OF EXAM: ??02/19/2024 3:39 PM, LOCATION ??[facility] INDICATION: C20: Rectal cancer (HCC) COMPARISON: None. Technique: Multiplanar MRI of the pelvis performed without and with intravenous contrast according to the rectal cancer staging protocol. Contrast: GADOBENATE DIMEGLUMINE 529 MG/ML IV SOLN:16 mL Findings: PRIMARY TUMOR: MORPHOLOGY, LOCATION, AND CHARACTERISTICS: Distance to the anal verge: 5 cm Distance to the top of sphincter complex/anorectal junction: 2 cm Tumor location: Mid (5-10 cm) Craniocaudal length: 6 cm Relationship to anterior peritoneal reflection: Straddles Circumferential location:5 o'clock to 10 o'clock. Morphology: Polypoid Mucinous composition: No mucin MR-T CATEGORY: *T3b (tumor penetrates 1- 5 mm beyond muscularis propria) (series 8 image 14, series 10 image 20) EMVI: No LYMPH NODES: Mesorectal/superior rectal suspicious lymph nodes and/or tumor deposits: *N0 (no suspicious regional lymph nodes) Suspicious extra mesorectal lymph nodes: *No There are multiple (9) round shaped mesorectal lymph nodes measuring up to 5 mm at least 5 mm apart from the mesorectal fascia. Left internal iliac lymph node with short axis measuring 6 mm (series 8 image 9) Distant extra mesorectal LN involvement: None. OTHER: Benign prostatic hyperplasia. IMPRESSION: 1.Primary Tumor location: Mid (5-10 cm) 2.MRI Stage: T3B N0 3.MRF Status: Clear (tumor margin >2 mm from MRF) 4.Suspicious node and /or EMVI near CRM: no 5.Sphincter involvement: Absent 6.Suspicious extra mesorectal lymph node:No 7.Benign prostatic hyperplasia. Report dictated by Cristina Elaine MD Primary tumor staging (T) Tx: primary tumor cannot be assessed T0: no evidence of primary tumor Tis: carcinoma in situ: intraepithelial or invasion of lamina propria T1: Tumor invades submucosa T2: Tumor invades muscularis propria T3: Tumor invades through the muscularis propria into the subserosa or into nonperitonealised klaus-rectal tissues ?T3a: Tumor extends <1 mm beyond muscularis propria ?T3b: Tumor extends 1-5 mm beyond muscularis propria ?T3c: Tumor extends 5-15 mm beyond muscularis propria ?T3d: Tumor extends 15 mm beyond muscularis propria ??T4: Tumor invades directly into other organs or structures and/or perforates visceral peritoneum ?T4a: Tumor penetrates to the surface of the visceral peritoneum ?T4b: Tumor directly invades or is adherent to other organs or structures Regional lymph nodes (N) N+ (short axis >= 9 mm)/N+ (short axis 5 - 8.9 mm AND at least 2 suspicious morphologic criteria)/N+ (short axis <5 mm AND all 3 suspicious morphologic criteria) Nx: regional nodes not assessed N0: no regional lymph nodes N1: metastasis in 1-3 regional (klaus-rectal) lymph nodes ?N1a: metastasis in one regional lymph node ?N1b: metastasis in 2-3 regional lymph nodes ?N1c: tumor deposit(s) in the subserosa, mesentery, or nonperitonealized pericolic or perirectal tissues without regional josé metastasis N2: metastasis in 4 or more regional lymph nodes ?N2a: metastasis in 4-6 regional lymph nodes ?N2b: metastasis in 7 or more regional lymph nodes Stage groupings stage 0: Tis N0 M0 stage I: T1-2, N0 M0 stage II ?IIa: T3, N0, M0 ?IIb: T4a, N0, M0 ?IIc: T4b, No, Mo stage III ?IIIa: T1-2, N1, M0 ?IIIb: T3-4, N1, M0 ?IIIc: T3-4b, N2, M0 I, Ryanne Kuhn MD have personally reviewed and interpreted this examination/study. > Interpreting Provider: Ryanne Kuhn MD on 03/01/2024 11:52 AM Impressions 02/22/2024 10:52 AM INTERNATIONAL MARKETING EXECUTIVE IMPRESSION: 1.T1/T2 sessile tumor limited to the anterolateral mid rectum measuring 2 cm in thickness and located 2 cm above the anorectal junction. Few prominent mesorectal lymph nodes measuring up to 7 mm, at least 5 mm apart from the mesorectal fascia. 2.Benign prostatic hyperplasia. Report dictated by Cristina Elaine MD I, Ryanne Kuhn MD have personally reviewed and interpreted this examination/study. > Interpreting Provider: Ryanne Kuhn MD on 02/22/2024 10:52 AM Narrative 02/22/2024 10:52 AM INTERNATIONAL MARKETING EXECUTIVE PROCEDURE: ??MRI PELVIS WWO CONTRAST, DATE/TIME OF EXAM: ??02/19/2024 3:39 PM, LOCATION ??[facility] INDICATION:C20: Rectal cancer (HCC) COMPARISON: None. TECHNIQUE: MRI of the pelvis was performed prior to and following intravenous administration of gadolinium contrast. Glucagon 1 mg intravenous injection was performed prior to imaging. Protocol: Rectal Cancer Staging Pelvis Contrast: MultiHance 16 mL COMPARISON: No prior magnetic resonance imaging is available for comparison. FINDINGS: Rectal Cancer Staging Information: Tumor: Anterolateral wall thickening of the mid rectum involving a solid mass measuring 2 cm in thickness and located 2 cm above the anorectal junction with enhancement and diffusion restriction. T Stage: Tumor limited to the bowel wall. Nodes: Few prominent mesorectal lymph nodes measuring up to 7 mm, at least 5 mm apart from the mesorectal fascia. Bladder: Mild increased trabeculation of the posterior wall. Otherwise normal Reproductive organs: Benign prostatic hyperplasia Other Findings: Fat-containing small left inguinal hernia. Procedure Note Ryanne Kuhn MD - 02/22/2024 PROCEDURE: MRI PELVIS WWO CONTRAST, DATE/TIME OF EXAM: 02/19/2024 3:39 PM, LOCATION [facility] INDICATION:C20: Rectal cancer (HCC) COMPARISON: None. TECHNIQUE: MRI of the pelvis was performed prior to and following intravenous administration of gadolinium contrast. Glucagon 1 mg intravenous injection was performed prior to imaging. Protocol: Rectal Cancer Staging Pelvis Contrast: MultiHance 16 mL COMPARISON: No prior magnetic resonance imaging is available for comparison. FINDINGS: Rectal Cancer Staging Information: Tumor: Anterolateral wall thickening of the mid rectum involving a solid mass measuring 2 cm in thickness and located 2 cm above the anorectal junction with enhancement and diffusion restriction. T Stage: Tumor limited to the bowel wall. Nodes: Few prominent mesorectal lymph nodes measuring up to 7 mm, atleast 5 mm apart from the mesorectal fascia. Bladder: Mild increased trabeculation of the posterior wall. Otherwise normal Reproductive organs: Benign prostatic hyperplasia Other Findings: Fat-containing small left inguinal hernia. IMPRESSION: 1.T1/T2 sessile tumor limited to the anterolateral mid rectum measuring2 cm in thickness and located 2 cm above the anorectal junction. Few prominent mesorectal lymph nodes measuring up to 7 mm, at least 5 mmapart from the mesorectal fascia. 2.Benign prostatic hyperplasia. Report dictated by Cristina Elaine MD I, Ryanne Kuhn MD have personally reviewed and interpreted this examination/study. > Interpreting Provider: Ryanne Kuhn MD on 02/22/2024 10:52 AM Michaela Cutler MD MR ORDERABLES from Last 3 Months Care Teams Hospital Medical Assistant Relationship Specialty Start Date End Date Roel Silvestre DO [address] [place] [phone] PCP - General Family Medicine 02/22/24
--- OUTSIDE RECORDS SUMMARY | 2024-03-19 10:55 | XMS_ITS | Encounter Summary ---
Author Organization [facility] Address [facility] [facility] [place] [address] [place] [address] Care Team Providers Care Bottle Carrier Name Role Phone Yared Shook MD Primary Care Provider [phone] Ez Rust MD Unavailable [phone] None, Provider Primary Care Provider Unavaila ble Dominique Varghese MD Primary Care Provider [phone] Yared Shook MD Primary Care Provider [phone] Roel Silvestre DO Primary Care Provider [phone] Encounter Details Date Type Department Care Team (Late st Contact Info) Description 08/09/2017 Hospital Orders Only [facility], [address] [phone] Ez Rust MD [facility]. [facility] [address] [place], [place] [address] Social History Tobacco Use Types Packs/Day Years Used Date Smoking Tobacco: Every Day Cigarettes Smokeless Tobacco: Never Alcohol Use Standard Drinks/Week Comments Yes 0 (1 standard drink = 0.6 oz pur e alcohol) socially Sex and Gender Information Value Date Recorded Sex Assigned at Not on file Legal Sex Male 10:11 PM CDT Gender Identity Not on file Sexual Orientation Not on file documented as of this encounter Plan of Treatment Upcoming Encounters Date Type Department Care Team (Late st Contact Info) Description 04/24/2024 11:15 AM PANEL MACHINE TENDER Office Visit [facility] [address] [place] [phone] Ez Rust MD [facility] [address] [place], [place] [address] 11/28/2024 12:00 PM CDT Appointment [facility] [address] [place], [place] [phone] Bobby Tiwari MD [facility] [address] [place], [place] [address] 12/04/2024 10:00 AM CDT Office Visit [facility] [address] [place] [phone] Bobby Tiwari MD [facility] [address] [place], [place] [phone] documented as of this encounter Visit Diagnoses Not on filedocumented in this encounter Additional Health Concerns Infection Onset Date Last Indicated Resolved Time COVID-19 Rule Out 05/10/2022 05/10/2022 05/10/2022 11:29 AM CDT documented as of this encounter Care Teams Bottle Carrier Relationship Specialty Start Date End Date Yared Shook MD PCP - General INTERNAL MEDICINE 01/20/17 05/04/21 María Iniguez MD PCP - General 05/05/21 10/12/21 [place] [address] [facility] [address] [place], [place] [id number] PCP - General FAMILY PRACTICE 10/13/21 05/23/23 Yared Shook MD [address] [address] PCP - General INTERNAL MEDICINE 05/24/23 12/21/23 Roel Silvestre DO [address] [place] [address] PCP - General FAMILY PRACTICE 12/22/23 Ez Rust MD [facility]. [address] [address] Ryley Conference Manager CARDIOVASCULAR DISEASE 02/20/17 documented as of this encounter
--- OUTSIDE RECORDS SUMMARY | 2024-03-19 10:55 | XMS_ITS | Patient Health Summary ---
Author Organization [facility] Address [address] [place] [address] Care Team Providers Care Employment Representative Name Role Phone Roel Silvestre Primary Care Provider [phone] Note from [facility],non-owned Affiliates and Associated Physician Practices is amultiple site organization consisting of ambulatory clinics and hospital sitesin [place], [place], [place] and [place]. This disclosure is being madepursuant to the Care Everywhere program and may not contain all information available regarding this patient. Last updated 17.[facility] Allergies No known active allergies Medications * Be aware that medications may not be up to date on this document. Alwaysverify current medications with the patient. * metoprolol succinate XL 24hr (Toprol XL) 50 MG tablet(Started 05/19/2023) Take 1 tablet every day by oral route. * atorvastatin (Lipitor) 40 MG tablet(Started 11/27/2023) TAKE 1 TABLET BY MOUTH NIGHTLY AT BEDTIME * Eliquis 5 MG tablet(Started 11/16/2023) Take 1 (one) tablet by mouth 2 times daily * Albuterol Sulfate, sensor, 108 (90 Base) MCG/ACT AEPB Inhale 2 puffs every 4 hours by inhalation route. * pkpkevf-czflxjoirrh-dcdotshzgg (Breztri) 160-9-4.8 MCG/ACT inhaler(Started 07/01/2023) INHALE 2 PUFFS INHALATION TWICE A DAY DIRECTED FOR COPD (CLEAN INHALER FOLLOWED BY 2 PRIMING PUFFS ONCE WEEKLY) * Multiple Vitamins-Minerals (PreserVision AREDS 2) capsule Take 1 (one) capsule by mouth every 12 hours Social History Tobacco Use Types Packs/Day Years [...] Comments Blood Pressure 136/75 02/22/2024 8:07 AM RECOVERY ADVOCATE Pulse 113 02/22/2024 8:07 AM RECOVERY ADVOCATE Temperature 36.4 ??C (97.5 ??F) 02/22/2024 8:07 AM CS T Respiratory Rate 18 02/22/2024 8:07 AM RECOVERY ADVOCATE Oxygen Saturation 98% 02/22/2024 8:07 AM RECOVERY ADVOCATE Inhaled Oxygen Concentration - - Weight 83.1 kg (183 lb 3.2 oz) 02/22/2024 8:07 A M RECOVERY ADVOCATE Height 175.3 cm (5' 9 ) 02/22/2024 8:07 AM RECOVERY ADVOCATE Body Mass Index 27.05 02/22/2024 8:07 AM RECOVERY ADVOCATE Procedures * LAB RESULTS ORDER(Performed 02/22/2024) * LAB RESULTS ORDER(Performed 02/22/2024) * MRI PELVIS WWO CONTRAST(Performed 02/19/2024) Performed for Rectal cancer (HCC) Results * LAB RESULTS ORDER (02/22/2024) Only the most recent of2 resultswithin the time period is included. 02/22/2024 Narrative 02/22/2024 Ordered by an unspecified provider. Scanned Document LAB - THERAPEUTIC DR HAMMOND MONITORING ORDERABLES * MRI Pelvis Wwo Contrast (02/19/2024 3:38 PM RECOVERY ADVOCATE) Anatomical Region Laterality Modality Pelvis Magnetic Resonan ce 02/19/2024 3:45 PM RECOVERY ADVOCATE Addenda Addendum by Ryanne Kuhn MD on 03/01/2024 11:54 AM RECOVERY ADVOCATE Consider this addendum as the report for the pelvis MRI dated 02/19/2024. PROCEDURE: ??MRI PELVIS WWO CONTRAST, DATE/TIME OF EXAM: ??02/19/2024 3:39 PM, LOCATION ??[facility] INDICATION: C20: Rectal cancer (HCC) COMPARISON: None. [...] 03/01/2024 11:52 AM Impressions 02/22/2024 10:52 AM RECOVERY ADVOCATE IMPRESSION: 1.T1/T2 sessile tumor limited to the [...] 02/22/2024 10:52 AM Narrative 02/22/2024 10:52 AM RECOVERY ADVOCATE PROCEDURE: ??MRI PELVIS WWO CONTRAST, DATE/TIME OF EXAM: ??02/19/2024 3:39 PM, LOCATION ??[facility] INDICATION:C20: Rectal cancer (HCC) COMPARISON: None. TECHNIQUE: [...] DATE/TIME OF EXAM: 02/19/2024 3:39 PM, LOCATION [facility] INDICATION:C20: Rectal cancer (HCC) COMPARISON: None. TECHNIQUE: [...] 10:52 AM Michaela Cutler MD MR ORDERABLES Care Teams Employment Representative Relationship Specialty Start Date End Date Roel Silvestre DO [address] [place] [address] PCP - General Family Medicine 02/22/24
--- OUTSIDE RECORDS SUMMARY | 2024-03-19 10:55 | XMS_ITS | Referral Summary ---
Author Organization [facility] Address [address] [facility] [place] [address] Care Team Providers Care Marketing Senior Recruiter Name Role Phone Roel Silvestre Primary Care Provider [phone] [facility],non-owned Affiliates and Associated Physician Practices is amultiple site organization consisting of ambulatory clinics and hospital sitesin [place], [place], [place] and [place]. This disclosure is being madepursuant to the Care Everywhere program and may not contain all information available regarding this patient. Last updated 17.[facility] Encounters Date Type Department Care Team Description 02/22/2024 Travel 02/22/2024 8:00 AM ELECTRONIC TRANSACTION IMPLEMENTER Office Visit [facility] General [facility] [address] [place] [phone] Michaela Cutler MD Rectal cancer (HCC) (Primary Dx) 02/19/2024 Travel 02/19/2024 2:02 PM ELECTRONIC TRANSACTION IMPLEMENTER - 02/19/2024 11:59 PM [facility] Hospital Encounter [facility] MRI [address] [place] [address] Michaela Cutler MD Discharge Disposition: Home or Self Care 02/06/2024 Orders Only [facility] - General Surgery [address] [place] [phone] Michaela Cutler MD Rectal cancer (HCC) from Last 3 Months Allergies No known active allergies Medications * [...] capsule by mouth every 12 hours Active Social History Tobacco Use Types Packs/Day Years [...] Comments Blood Pressure 136/75 02/22/2024 8:07 AM ELECTRONIC TRANSACTION IMPLEMENTER Pulse 113 02/22/2024 8:07 AM ELECTRONIC TRANSACTION IMPLEMENTER Temperature 36.4 ??C (97.5 ??F) 02/22/2024 8:07 AM CS T Respiratory Rate 18 02/22/2024 8:07 AM ELECTRONIC TRANSACTION IMPLEMENTER Oxygen Saturation 98% 02/22/2024 8:07 AM ELECTRONIC TRANSACTION IMPLEMENTER Inhaled Oxygen Concentration - - Weight 83.1 kg (183 lb 3.2 oz) 02/22/2024 8:07 A M ELECTRONIC TRANSACTION IMPLEMENTER Height 175.3 cm (5' 9 ) 02/22/2024 8:07 AM ELECTRONIC TRANSACTION IMPLEMENTER Body Mass Index 27.05 02/22/2024 8:07 AM ELECTRONIC TRANSACTION IMPLEMENTER Plan of Treatment Not on file Procedures Procedure Name Priority Date/Time Associated Diagnosis Comments LAB RESULTS ORDER 02/22/2024 LAB RESULTS ORDER 02/22/2024 MRI PELVIS WWO CONTRAST Routine 02/19/2024 3:38 PM ELECTRONIC TRANSACTION IMPLEMENTER Rectal cancer (HCC) from Last 3 Months Results * LAB RESULTS ORDER (02/22/2024) Only the most recent of2 resultswithin the time period is included. 02/22/2024 Narrative 02/22/2024 Ordered by an unspecified provider. Scanned Document LAB - THERAPEUTIC DR HAMMOND MONITORING ORDERABLES * MRI Pelvis Wwo Contrast (02/19/2024 3:38 PM ELECTRONIC TRANSACTION IMPLEMENTER) Anatomical Region Laterality Modality Pelvis Magnetic Resonan ce 02/19/2024 3:45 PM ELECTRONIC TRANSACTION IMPLEMENTER Addenda Addendum by Ryanne Kuhn MD on 03/01/2024 11:54 AM ELECTRONIC TRANSACTION IMPLEMENTER Consider this addendum as the report for the pelvis MRI dated 02/19/2024. PROCEDURE: ??MRI PELVIS WWO CONTRAST, DATE/TIME OF EXAM: ??02/19/2024 3:39 PM, LOCATION ??[facility] INDICATION: C20: Rectal cancer (HCC) COMPARISON: None. [...] 03/01/2024 11:52 AM Impressions 02/22/2024 10:52 AM ELECTRONIC TRANSACTION IMPLEMENTER IMPRESSION: 1.T1/T2 sessile tumor limited to the [...] 02/22/2024 10:52 AM Narrative 02/22/2024 10:52 AM ELECTRONIC TRANSACTION IMPLEMENTER PROCEDURE: ??MRI PELVIS WWO CONTRAST, DATE/TIME OF EXAM: ??02/19/2024 3:39 PM, LOCATION ??[facility] INDICATION:C20: Rectal cancer (HCC) COMPARISON: None. TECHNIQUE: [...] DATE/TIME OF EXAM: 02/19/2024 3:39 PM, LOCATION [facility] INDICATION:C20: Rectal cancer (HCC) COMPARISON: None. TECHNIQUE: [...] ORDERABLES from Last 3 Months Care Teams Marketing Senior Recruiter Relationship Specialty Start Date End Date Roel Silvestre DO [address] [place] [address] PCP - General Family Medicine 02/22/24
--- OUTSIDE RECORDS SUMMARY | 2024-03-19 10:55 | XMS_ITS | Encounter Summary ---
Author Organization [facility] Address [facility]6 [facility] [place] [address] [place] [address] Care Team Providers Care Car Chaser Name Role Phone Yared Shook MD Primary Care Provider [phone] Ez Rust MD Unavailable None, Provider Primary Care Provider Unavaila ble Dominique Varghese MD Primary Care Provider [phone] Yared Shook MD Primary Care Provider [phone] Roel Silvestre DO Primary Care Provider [phone] Encounter Details Date Type Department Care Team (Late st Contact Info) Description 02/28/2017 Abstract [facility], [facility] [address] [place], [place] [id number] Patrick Walker MA Social History Tobacco Use Types Packs/Day Years [...] st Contact Info) Description 04/24/2024 11:15 AM 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 [address] [place] [address] 11/28/2024 12:00 PM CDT Appointment [facility] [address] [place] [address] Bobby Tiwari MD [facility]. [address] [place] [address] 12/04/2024 10:00 AM CDT [place] [facility] [address] [place] [address] Bobby Tiwari MD [facility]. [address] [place] [address] documented as of this encounter Procedures Procedure Name Priority Date/Time Associated Diagnosis Comments CBC (OUTSIDE LAB) Routine 07/12/2017 COMPREHENSIVE METABOLIC PANEL Routine 07/12/2017 CBC (OUTSIDE LAB) Routine 01/16/2017 PROSTATE SPECIFIC ANTIGEN,TOTAL Routine 01/16/2017 COMPREHENSIVE METABOLIC PANEL Routine 01/16/2017 LIPID PANEL Routine 01/16/2017 CBC (OUTSIDE LAB) Routine 06/07/2016 COMPREHENSIVE METABOLIC PANEL Routine 06/07/2016 documented in this encounter Results * COMPREHENSIVE METABOLIC PANEL (07/12/2017) SODIUM S/P/B 140 POTASSIUM S/P/B 4.6 CO2 25 CHLORIDE S/P/B 105 GLUCOSE 98 mg/dL CALCIUM S/P/B 9.0 BUN 14 CREATININE S/P/B 1.21 0.7 - 1.3 EGFR AFR. AMER. 66 EGFR NON-AFR. AMER. 57 <=90 ALKALINE PHOSPHATASE S/P/B 59 ALT 16 AST 19 BILIRUBIN TOTAL S/P/B 0.6 ALBUMIN S/P/B 3.9 3.5 - 5.0 TOTAL PROTEIN S/P/B 6.7 GLOBULIN 2.8 07/12/2017 [facility]AT[facility] Final Result * CBC (OUTSIDE LAB) (07/12/2017) WBC 9.4 HGB 14.5 HCT 41.9 PLT 264 07/12/2017 [facility] Abstract LAB-OUTSIDE/ABSTRACTED Final Result * LIPID PANEL (01/16/2017) CHOLESTEROL 162 HDL 36 TRIGLYCERIDES 292 NON HDL CHOLESTEROL 126 LDL (CALCULATED) 88 01/16/2017 [facility] Final Result * PROSTATE SPECIFIC ANTIGEN,TOTAL (01/16/2017) PSA 0.5 01/16/2017 [facility]AT[facility] Final Result * CBC (OUTSIDE LAB) (01/16/2017) WBC 8.4 HGB 15.1 HCT 44.1 PLT 256 01/16/2017 us [facility] Abstract LAB-OUTSIDE/ABSTRACTED Edite d Result - Final * COMPREHENSIVE METABOLIC PANEL (01/16/2017) SODIUM S/P/B 139 POTASSIUM S/P/B 4.9 CO2 26 CHLORIDE S/P/B 105 GLUCOSE 99 mg/dL CALCIUM S/P/B 9.4 BUN 15 CREATININE S/P/B 1.16 0.7 - 1.3 EGFR AFR. AMER. 70 EGFR NON-AFR. AMER. 60 <=90 ALKALINE PHOSPHATASE S/P/B 67 ALT 16 AST 18 BILIRUBIN TOTAL S/P/B 0.6 ALBUMIN S/P/B 4.0 3.5 - 5.0 TOTAL PROTEIN S/P/B 6.8 GLOBULIN 2.8 01/16/2017 us [facility] LABORAT[facility] Edited Resul t - Final * CBC (OUTSIDE LAB) (06/07/2016) WBC 8.6 HGB 14.2 HCT 42.4 PLT 230 06/07/2016 us Doc [facility] Abstract LAB-OUTSIDE/ABSTRACTED Final Result * COMPREHENSIVE METABOLIC PANEL (06/07/2016) SODIUM S/P/B 136 POTASSIUM S/P/B 4.2 CO2 24 CHLORIDE S/P/B 104 GLUCOSE 128 mg/dL CALCIUM S/P/B 9.2 BUN 11 CREATININE S/P/B 1.10 0.7 - 1.3 EGFR AFR. AMER. 75 EGFR NON-AFR. AMER. 64 <=90 ALKALINE PHOSPHATASE S/P/B 68 ALT 20 AST 20 BILIRUBIN TOTAL S/P/B 0.8 ALBUMIN S/P/B 4.0 3.5 - 5.0 TOTAL PROTEIN S/P/B 6.6 GLOBULIN 2.6 06/07/2016 us Doc [facility] LABORAT[facility] Final Result documented in this encounter Visit Diagnoses Not on filedocumented in this encounter Additional Health Concerns Infection Onset Date Last Indicated Resolved Time COVID-19 Rule Out 05/10/2022 05/10/2022 05/10/2022 11:29 AM CDT documented as of this encounter Care Teams Car Chaser Relationship Specialty Start Date End Date Yared Shook MD PCP - General INTERNAL MEDICINE 01/20/17 05/04/21 María Iniguez MD PCP - General 05/05/21 10/12/21 [place] [address] [place], [place] [id number] PCP - General FAMILY PRACTICE 10/13/21 05/23/23 Yared Shook MD [address] [phone] PCP - General INTERNAL MEDICINE 05/24/23 12/21/23 Roel Silvestre DO [address] [place] [address] PCP - General FAMILY PRACTICE 12/22/23 Ez Rust MD Three [facility]. [address] [address] Ryley Rhythmic Gymnastics Coach CARDIOVASCULAR DISEASE 02/20/17 documented as of this encounter
--- OUTSIDE RECORDS SUMMARY | 2024-03-19 10:55 | XMS_ITS | Encounter Summary ---
Author Organization [facility] Address [facility]6 [facility] [place] [address] [place] [address] Care Team Providers Care Appeals Reviewer Veteran Name Role Phone Yared Shook MD Primary Care Provider [phone] Ez Rust MD Unavailable [phone] None, Provider Primary Care Provider Unavaila ble Dominique Varghese MD Primary Care Provider [phone] Yared Shook MD Primary Care Provider [phone] Roel Silvestre DO Primary Care Provider [phone] Encounter Details Date Type Department Care Team (Late st Contact Info) Description 05/20/2015 Abstract [facility] CONVERSION [address] [facility] [place] [id number] , Generic Conversion, Social History Tobacco Use Types Packs/Day Years Used Date Smoking Tobacco: Smoker, Current Status Unknown Sex and Gender Information Value Date Recorded Sex Assigned at Not on file Legal Sex Male 10:11 PM CDT Gender Identity Not on file Sexual Orientation Not on file documented as of this encounter Plan of Treatment Upcoming Encounters Date Type Department Care Team (Late st Contact Info) Description 04/24/2024 11:15 AM 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 [address] [place] [address] 11/28/2024 12:00 PM CDT Appointment [facility] [address] [place] [address] Bobby Tiwari MD Three [facility]. [address] [place], [place] [address] 12/04/2024 10:00 AM CDT [facility] [address] [place] [address] Bobby Tiwari MD Three [facility]. [facility] [address] [place], [place] [address] documented as of this encounter Visit Diagnoses Not on filedocumented in this encounter Additional Health Concerns Infection Onset Date Last Indicated Resolved Time COVID-19 Rule Out 05/10/2022 05/10/2022 05/10/2022 11:29 AM CDT documented as of this encounter Care Teams Appeals Reviewer Veteran Relationship Specialty Start Date End Date Yared Shook MD PCP - General INTERNAL MEDICINE 01/20/17 05/04/21 María Iniguez MD PCP - General 05/05/21 10/12/21 [place] [address] [facility] [place] [address] PCP - General FAMILY PRACTICE 10/13/21 05/23/23 Yared Shook MD [address] [facility] [address] [place] [phone] PCP - General INTERNAL MEDICINE 05/24/23 12/21/23 Roel Silvestre DO [address] [place] [address] PCP - General FAMILY PRACTICE 12/22/23 Ez Rust MD Three [facility]. [address] [address] Winfred Channeler Outsole CARDIOVASCULAR DISEASE 02/20/17 documented as of this encounter
--- OUTSIDE RECORDS SUMMARY | 2024-03-19 10:55 | XMS_ITS ---
Author Organization [facility] Address [address] [place], [place] [id number] Care Team Providers Care Coating Mixer Name Role Phone Answer, Declined Unavailable Unavailable MELINDA VIRK Unavailable [phone] Allergies No Known Allergies REASON FOR VISIT After Thanksgi, the patient developed a red, painful, and swollen left great toe joint. He mad an appointment to be seen. After 4 days, the redness and pain went away like it never happened. He denies any kidney issues, history of gout, accident/injury, or nausea, vomiting, fever, or chills. 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 I stressed the importance of staying hydrated and avoiding food rich in purines. I provided the patient with gout information education sheet and a purine restricted diet. Water: Advised patient to drink plenty of water and stay hydrated. 01/23/2023 Left foot pain (ICD-10 - M79.672) Plan Of Treatment Treatment Notes Assessment Notes Idiopathic gout, left ankle and foot Gout: I educated the patient on the nature and cause of gout. I stressed the importance of staying hydrated and avoiding food rich in purines. I provided the patient with gout information education sheet and a purine restricted diet. Water: Advised patient to drink plenty of water and stay hydrated. Next Appt Details Follow Up: prn, Reason: Progress Notes * Stephanie VLEAS[birth year]DOB:[birth year] (82 yo M)Acc No.[id number]:01/23/2023 Progress Notes Patient:?Stephanie VELASQUEZ Provider:?Melinda Virk DPM :1940???Age:82 Y???Sex:Male Norman e:01/23/2023 Address:[address] [place] [address] Subjective: * Chief Complaints: * ???1. After , th e patient developed a red, painful, and swollen left great toe joint. He mad an appointment to be seen. After 4 days, the redness and pain went away like it never happened. He denies any kidney issues, history of gout, accident/injury, or nausea, vomiting, fever, or chills. He feels fine now. * HPI: ???HPI:?New Complaint?Patient presents for a new patient consultation. ?Patient complains of an issue to left great toe patient states pain stopped 4 days ago, but he is having a tingling sensation ?Patient denies any injury.,, ?MA: MJ, .? * ROS:?General / Constitutional:?Patient denies?chills, fever, weakness, night sweats.?Musculoskeletal:?Patient denies?childhood foot problems, weakness.?Patient complains of?joint pain.?Peripheral Vascular:?Patient denies?ulceration of feet, cold extremities.?Skin:?Patient denies?ulcerations, discoloration.?Neurologic:?Patient denies?balance difficulty, confusion, difficulty speaking, dizziness.? * Medical History:? * Allergies:?N.K.D.A. Objective: * Vitals:?Shoe Size: 9.5, Wt: 190 lbs, Wt-k.18 kg, Ht: 69 in, Ht-cm: 175.26 cm, BMI: 28.06 Index, Body Surface Area: 2.05. * Examination: ???Constitutional: ?Constitutional?The patient is awake, alert, well developed, well groomed and well nourished..?Dermatologic: ?Skin findings:?Skin is warm, dry, supple with no breaks in the skin..?Vascular: ?Dorsalis pedis pulse:?/4, , bilateral.?Posterior tibial pulse:?/4, , bilaterally.?Capillary refill:?less than 3 seconds.?Edema:?No edema, bilateral.?Neurologic: ?Gross sensation?Gross sensation is intact to light touch..?Musculoskeletal: ?Muscle Strength?Muscle strength is 5/5 in regards to dorsiflexion, plantarflexion, inversion, and eversion in bilateral lower extremities..? Assessment: * Assessment: 1.?Idiopathic gout, left ank le and foot - M10.072 (Primary)?2.?Left foot pain - M79.672? Plan: * Treatment: * Follow Up:?prn * Billing Information: * Visit Code:? 65156 Office Visit, New Pt., Level 3. * Procedure Codes:? * R POLLUTION SCIENTIST Sign off status: Completed true * Provider:?Melinda Virk DPM Date:?01/24/20 23 Generated for Venkata finch/Oskar/Alisaitting on:?03/19/2024 10:55 AM WATER POLLUTION SCIENTIST History and Physical Notes * HPI (History of Present Illness) Category Sub-Category Detail Notes Category Not es HPI New Complaint Patient presents for a new patient consultation. Patient complains of an issue to left great toe patient states pain stopped 4 days ago, but he is having a tingling sensation Patient denies any injury.,, MA: MARY, Examination Category Sub-Category Detail Notes Category Not es Dermatologic Skin findings: Skin is warm, dr y, supple with no breaks in the skin. Neurologic Gross sensation Gross sensation is intact to light touch. Vascular Dorsalis pedis pulse: 1/4, , bilateral Edema: No edema, bilateral Capillary refill: less than 3 seconds Posterior tibial pulse: 1/4, , bilateral ly Musculoskeletal Muscle Strength Muscle strength is 5/5 in regards to dorsiflexion, plantarflexion, inversion, and eversion in bilateral lower extremities. Constitutional Constitutional The patient is a wake, alert, well developed, well groomed and well nourished.
--- OUTSIDE RECORDS SUMMARY | 2024-03-19 10:55 | XMS_ITS | Patient Health Record ---
Author Organization [facility] Address [address] [place], [place] [id number] Care Team Providers Care Shaper Set Up Operator Name Role Phone Answer, Declined Unavailable Unavailable Allergies No Known Allergies Reason For Referral No Information Plan Of Treatment No Information Insurance Providers Payer Name Payer Address Payer Phone Subscriber Number Group Number Insured Name Patient Relationship to Insured Coverage Start Date Coverage End Date [facility] [address] [address] [place], [place] [id number] Stephanie Jay Self - patient is the insured
== END 2024-03-19 10:02 | disposition home or self-care (01) ==
PROVIDERS: PCP Family Medicine; Visit Provider Internal Medicine Hematology & Oncology
DX: C20 Malignant neoplasm of rectum (principal); R91.1 Solitary pulmonary nodule
CPT/HCPCS: 78815; A9552

== ENCOUNTER 2024-10-01 08:16 | Inpatient (IN) | payer OTHER, MEDICARE, SELFPAY ==
[2024-10-01] VITALS (7 sets, daily range): BP systolic 104–122; BP diastolic 41–56; PULSE 56–89; RESP 17–20; TEMP 36.4–36.8; O2SAT 95–100; BMI 24.3
--- NOTE | ~2024-10-01 | CT_ITS ---
History: Seizures. Personal history of colon cancer, post XRT now receiving chemotherapy PROCEDURE: CT head without contrast. COMPARISON: None TECHNIQUE: Axial imaging of the head performed from the skull base to the vertex without IV contrast. Sagittal a nd coronal reformations obtained. DLP: 605 mGy-cm FINDINGS: The ventricles are enlarged. The dilatation of the ventricles is proportional to the degree of sulcal prominence, not uncommon in the senescent brain. Decreased attenuation is identified diffusely within the periventricular white matter, likely seconda ry to microvascular ischemic disease, in a patient of this age. There is no mass, mass effect or midline shift. There is no abnormal extra-axial fluid collection or intracranial hemorrhage. Visualized paranasal sinuses are clear. The mastoid air cells are well aerated. No acute displaced fractures within the overlying cranium. Impression: No acute intracranial hemorrhage or suspicious mass effect. Given patient's history, although metastatic disease to the brain is rare with colon cancer, it does occur in up to 5% of cases for which follow-up with contrast-enhanced MRI is recommended, if the richie ent is clinically able. Reviewed, dictated and finalized at location A. Impression: No acute intracranial hemorrhage or suspicious mass effect. Given patient's history, although metastatic disease to the brain is rare with colon cancer, it does occur in up to 5% of cases for which follow-up with contr ast-enhanced MRI is recommended, if the patient is clinically able.
--- NOTE | ~2024-10-01 | XR_ITS ---
Exam: Abdomen 1V HISTORY: ng insertion COMPARISON: None. TECHNIQUE: Supine images of the lower chest and upper abdomen FINDINGS: Nasogastric tube extends into the left upper quadrant, presumably within the stomach. IMPRESSION: Nasogastric tube in good position and ready for immediate use. Reviewed, dictated and finalized at location A.
--- NOTE | ~2024-10-01 | XR_ITS ---
XR chest 1V portable 10/01/2024 08:42 Indication: STEMI Procedure: AP portable chest Comparison: No prior studies for comparison. Findings: Status post median sternotomy. Heart size normal. There is a healed left third rib fracture . Calcified granuloma right midlung. No focal pneumonia, pleural effusion or pneumothorax. Impression: 1: No acute cardiopulmonary disease. Reviewed, dictated and finalized at location A. Impression: 1: No acute cardiopulmonary disease.
--- NOTE | ~2024-10-01 | XR_ITS ---
EXAMINATION: XR chest 1V portable Exam Date/Time: 10/03/2024 17:50 CDT HISTORY: sustained sinus tachycardia, vomiting Comparison: 10/01/2024. RESULT: Lines, tubes, and devices: Sternotomy wires. Fractured inferior sternotomy wire, in stable position. Lungs and pleura: Clear. Cardiomediastinal silhouette: Stable. Other: No acute osseous or upper abdominal finding. IMPRESSION: No acute cardiopulmonary process. Reviewed, dictated and finalized at location K.
--- NOTE | ~2024-10-01 | CT_ITS ---
CLINICAL INDICATION: Epigastric pain with diarrhea. Personal history of colorectal cancer post XRT no w undergoing chemotherapy. COMPARISON: Reference is made to a CT examination of the chest abdomen and pelvis dated 10/04/2024 (ap proximately 3 days earlier) which demonstrated fluid distended colon with mural thickening suggesting enteritis. Reference is also made to CT examination of the chest performed 02/20/[address] examina tion of the abdomen and pelvis performed 01/15/2024. TECHNIQUE: Multiple contiguous axial images of the abdomen and pelvis were performed without the admi nistration of intravenous contrast The dose-length product (DLP) was 733.05 mGy-cm. Automated exposure control and iterative reconstruction technique were employed. FINDINGS/OBSERVATIONS: Visualized lower thorax: Pleural thickening with multiple calcified pleural plaques are identified bilaterally. Redemonstration of a well-circumscribed nodule within the right middle lobe, decreased in size when c ompared to 02/20/2024. The heart is borderline enlarged, without pericardial effusion. Liver: The liver demonstrates homogeneous attenuation and is not enlarged. Gallbladder and biliary system: The gallbladder is distended, without surrounding inflammatory change or calcified stones identified. Pancreas: Limited evaluation of the pancreas secondary to the lack of intravenous contrast. Spleen: The spleen demonstrates homogeneous attenuation and is not enlarged. Kidneys: Redemonstration of a well-circumscribed focus of mixed attenuation within the lower pole of the right kidney. Previous contrast enhanced examination in December 2023 demonstrated simple fluid within this cystic focus. Noncontrast enhanced CT performed approximately 3 days earlier demonstrated a well-circumscribed focu s of mixed attenuation, centrally hyperattenuating suggesting blood products, and measures 33 x 37 x 28 mm (anterior to posterior x medial to lateral x cranial to caudal dimension). On today's study, this focus measures 47 x 42 x 37 mm (anterior to posterior x medial to lateral x cr anial to caudal dimension). Central hyperattenuation persists, and is larger on the current examinati on than on previous study, likely representing blood products. The remainder of the bilateral kidneys are otherwise unremarkable, without hydronephrosis or renal ca lculi. Adrenal glands: Unremarkable. Gastrointestinal tract: Multiple loops of fluid-filled small bowel are identified, an interval change from previous examinati on. Interval decompression of the fluid-filled cecum. Interval removal of the rectal bag, suggesting improved diarrhea. Appendix: The appendix is of normal caliber (axial series, images 113 - 123) Vasculature: Calcified atherosclerotic disease within the abdominal aorta, without aneurysmal dilatation. The inferior vena cava is slit like suggesting hypovolemia. Lymph nodes: Limited evaluation without IV contrast. Pelvic structures: The bladder is decompressed with a Flores catheter. Air is also identified within the bladder, possibly iatrogenic, with surrounding inflammatory change for which cystitis is suspected. Increased attenuation is also noted, to the right of midline, possibly representing blood products fo r which clinical correlation is needed. The prostate gland is not enlarged. Body wall and musculoskeletal: Age-appropriate degenerative disease within the lower thoracic and lumbosacral spine. IMPRESSION: Interval development of multiple loops of fluid-filled prominent small bowel. The cecum is now decompressed. Interval increase in size of the focus of mixed attenuation within the lower pole of the right kidney , for which blood products are suspected. The bladder is decompressed with a Flores catheter with mixed attenuation and air within the lumen of the bladder. Surrounding inflammatory change is also noted for which cystitis is suspected. Reviewed, dictated and finalized at location A. IMPRESSION: Interval development of multiple loops of fluid-filled prominent small bowel. The cecum is now decompressed. Interval increase in size of the focus of mixed attenuation within the lower po le of the right kidney, for which blood products are suspected. The bladder is decompressed with a Flores catheter with mixed attenuation and ai r within the lumen of the bladder. Surrounding inflammatory change is also note d for which cystitis is suspected.
--- NOTE | ~2024-10-01 | US_ITS ---
EXAM: RENAL ULTRASOUND HISTORY: BRITTANIE COMPARISON: None FINDINGS: RIGHT KIDNEY: 10.3 x 5.4 x 4.4 cm. The parenchyma of the right kidney is increased in echogenicity and decreased in caliber. No hydronephrosis or bulky renal calculi. LEFT KIDNEY: 9.9 x 5.3 x 4.6 cm No hydronephrosis or renal calculi. The parenchyma of the left kidney is increased in echogenicity and decreased in caliber. BLADDER: Minimally distended, and otherwise unremarkable.. IMPRESSION: No hydronephrosis or renal calculi. Findings suggesting medical renal disease. Reviewed, dictated and finalized at location A.
--- NOTE | ~2024-10-01 | CT_ITS ---
EXAMINATION: CT chest abdomen pelvis wo con DATE: 10/04/2024 08:13 INDICATION: Diarrhea and vomiting TECHNIQUE: Computed tomography (CT) of the chest, abdomen, and pelvis was performed without intraveno us contrast. Automated exposure control and iterative reconstruction technique were employed. The dos e-length product was 1124.15 mGy-cm. COMPARISON: PET/CT dated 03/19/2024 FINDINGS: CHEST CT: Mild emphysema with scattered bilateral calcified pleural plaques consistent with prior asbestos expo sure. Mild respiratory motion and dependent atelectasis at the bilateral lung bases. Unchanged 9 mm n odule along the minor fissure which was without FDG activity on prior PET CT most likely representing an intrafissural lymph node. No pneumonia, pulmonary edema or pleural effusion. Heart size is normal . Atherosclerotic coronary artery and aortic valve calcifications. Postoperative change of prior medi an sternotomy and coronary artery bypass grafting. No pericardial effusion. There is decreased attenu ation the blood pool consistent with anemia. Thoracic aorta is normal in caliber. No pathologically e nlarged thoracic lymphadenopathy. Moderate lower cervical and mild thoracic spondylosis with minimal likely physiologic anterior wedging at a few lower thoracic vertebral bodies. ABDOMEN/PELVIS CT: Liver, decompressed gallbladder, spleen, pancreas, bilateral adrenal glands and left kidney are paulette l. A prior 5.5 cm exophytic cyst arising from the lower pole the left kidney has decreased in size no w measuring 3.5 cm with an undulating peripheral margin consistent with partial collapse of the cyst. There are new small regions of increased density within the previously simple appearing cyst, both c entrally and layering dependently suggesting some internal hemorrhage. Distended bladder is unremarka ble. Mild prostatomegaly measuring 4.0 x 3.1 cm. A rectal tube is in place. Fluid in the colon most p rominent proximally consistent with nonspecific diarrhea. There are few diverticula along the descend ing and sigmoid colon without adjacent inflammatory stranding to suggest diverticulitis. There is wal l thickening of several loops of ileum in the right abdomen consistent with nonspecific enteritis. No dilated bowel to suggest obstruction. No free intraperitoneal gas or fluid. No pathologically enlarg ed abdominal or pelvic lymphadenopathy. There is calcified atherosclerosis of the aorta and many of t he other arteries. Small fat-containing left inguinal hernia. Mild degenerative skeletal changes in t he lumbar spine and pelvis. IMPRESSION: 1. Fluid in the colon consistent with nonspecific diarrhea with wall thickening of multiple loops of distal ileum consistent with enteritis which could be infectious or inflammatory in etiology. 2. Small region of increased density within a now partially collapsed extremity cyst at the lower ling e the right kidney likely representing some internal hemorrhage. Consider follow-up ultrasound versus pre and postcontrast MRI or CT in a few weeks to document resolution and exclude significantly less likely solid neoplastic component. 3. Mild emphysema and scattered bilateral calcified pleural plaques consistent with prior asbestos ex posure. 4. Unchanged 9 mm nodule along the right intrafissural lymph node without FDG uptake on prior PET/CT most consistent with a benign intrafissural lymph node. 5. Prostatomegaly. 6. Small fat-containing left inguinal hernia. Reviewed, dictated and finalized at location A. IMPRESSION: 1. Fluid in the colon consistent with nonspecific diarrhea with wall thickening of multiple loops of distal ileum consistent with enteritis which could be inf ectious or inflammatory in etiology. 2. Small region of increased density within a now partially collapsed extremity cyst at the lower pole the right kidney likely representing some internal hemo rrhage. Consider follow-up ultrasound versus pre and postcontrast MRI or CT in a few weeks to document resolution and exclude significantly less likely solid neoplastic component. 3. Mild emphysema and scattered bilateral calcified pleural plaques consistent with prior asbestos exposure. 4. Unchanged 9 mm nodule along the right intrafissural lymph node without FDG u ptake on prior PET/CT most consistent with a benign intrafissural lymph node. 5. Prostatomegaly. 6. Small fat-containing left inguinal hernia.
--- NOTE | 2024-10-01 08:20 | ECG_ITS ---
Test Date: 2024-10-01 08:22:36 Measurements Intervals [place] Rate: 73 P: 73 AL: 164 QRS: 27 QRSD: 144 T: 5 QT: 429 QTc: 474 Interpretive Statements SINUS RHYTHM WITH OCCASIONAL VENTRICULAR PREMATURE COMPLEXES RIGHT BUNDLE BRANCH BLOCK BASELINE ARTIFACT- I, II, III, AVR, AVL, AVF ABNORMAL ECG No previous ECG available for comparison Electronically Signed On 10-01-2024 08:37:39 CDT by Cornelio Barnett D.O.
--- OUTSIDE RECORDS SUMMARY | 2024-10-01 08:31 | XMS_ITS | Clinical Summary ---
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 Active Eliquis 5 mg tablet Take 1 tablet (5 mg total) by mouth 2 (two) times a day 4 Active atorvastatin (LIPITOR) 40 mg tablet Take 1 tablet (40 mg total) by mouth nightly 4 Active budesonide-gly copyr-formoter ol (BREZTRI) 160-9-4.8 mcg/actuation inhaler Inhale 2 puffs twice a day by inhalation route. Active metoprolol XL (TOPROL-XL) 50 mg extended release tablet Take 1 tablet every day by oral route. 3 Active ondansetron (ZOFRAN) 4 mg tabletIndicati ons:Cancer Chemotherapy-I nduced Nausea and Vomiting Take 1 tablet (4 mg total) by mouth every 6 (six) hours as needed for nausea 30 tablet [address] (PROTONIX) 40 mg EC tabletIndicati ons:Cancer Chemotherapy-I nduced Nausea and Vomiting Take 1 tablet (40 mg total) by mouth daily 30 tablet 3 5 12/11/19 25 Active capecitabine (XELODA) 500 mg tabletIndicati ons:Rectal cancer (HCC) Take 4 tablets (2,000 mg) by mouth 2 (two) times a day. Take for 14 days on 7 days off, then repeat cycle every 21 days 112 tablet 4 5 Active al & mag hydroxide with simethicone-di phenhydramine- lidocaine (MAGIC MOUTHWASH) suspension [id number] ns:Chemotherap y-Induced Mucositis Swish and swallow 10 mL every 4 (four) hours as needed (mucositis-jorge th sores) 300 mL 2 5 Active sucralfate (CARAFATE) suspension 1 gram/10 mL Take 10 mL (1 g total) by mouth 4 (four) times a day 1200 mL 2 5 Active sucralfate (CARAFATE) 1 gram tablet Take 1 tablet (1 g total) by mouth 4 (four) times a day Dissolve tablet in 30 ml warm water to make slurry mixture then swallow 120 tablet 2 5 10/01/19 25 Discontinu ed(Alterna te therapy) Active Problems Problem Noted Date Diagnosed Date Encounter for person encountering health service s 10/01/2024 Dehydration 09/24/2024 Personal history of radiation therapy 09/16/2024 Rectal cancer 05/23/2024 Cancer Staging:Clinical stage from 05/23/2024:Stage IIA(cT3, cN0, cM0) - Signed by Boris Rowan MD on 05/23/2024 Encounters Date Type Department Care Team Description 09/30/2024 Telephone [facility] Oncology [address] [place] [address] [address] [place] [address] Sil Tripathi CMA 09/27/2024 Telephone [facility] Oncology [facility] [address] [place] [address] Tisha Goldsmith, HOLLI 09/26/2024 Telephone [facility] 2 Radiation Oncology [address] [place] [address] Shahrzad Balderrama PA 09/24/2024 10:45 AM CDT Infusion [address] [place] [address] Rectal cancer (HCC) (Primary Dx); Dehydration 09/24/2024 10:30 AM CDT Office Visit [facility] 2 Radiation Oncology [address] [place] [address] Shahrzad Balderrama, PA Rectal cancer (HCC) (Primary Dx); Personal history of radiation therapy 09/24/2024 10:15 AM CDT Lab [address] [address] Dehydration 09/24/2024 Orders Only [facility] Oncology [address] [place] [phone] Ez Perea, Dehydration (Primary Dx) 09/24/2024 Orders Only [facility] 2 Radiation Oncology [address] [place] [address] Linh Patel, VENUS Rectal cancer (HCC) (Primary Dx) 09/18/2024 Telephone [facility] Oncology [address] [place] [phone] Tisha Goldsmith, [employer] DRIER 09/11/2024 10:30 AM CDT Clinical Support [facility] 2 Radiation Oncology [address] [place] [address] Rectal cancer (HCC) (Primary Dx) 09/11/2024 10:00 AM CDT Infusion [address] [address] Rectal cancer (HCC) (Primary Dx) 09/11/2024 9:30 AM CDT Lab [facility] at [address] [address] Rectal cancer (HCC) 09/06/2024 Orders Only [facility] Oncology [address] [place] [address] [address] [place] [address] Ez Perea DO 09/06/2024 Telephone [facility] Oncology [address] [place] [address] [address] [place] [address] Tisha Goldsmith CMA 08/12/2024 1:00 PM CDT Office Visit [facility] Oncology [address] [place] [address] [address] [place] [address] Ez Perea DO Rectal cancer (HCC) (Primary Dx) 08/09/2024 10:00 AM CDT Treatment [facility] 2 Radiation Oncology [address] [place] [address] Boris Rowan MD 08/09/2024 Completion of Therapy [facility] 2 Radiation Oncology [address] [place] [address] Boris Rowan MD 08/09/2024 OTV [facility] Building 2 Radiation Oncology [address] [place] [address] Boris Rowan MD 08/09/2024 Orders Only RAD ONC TREATMENTS Miscellaneous, Not In File 08/08/2024 10:15 AM CDT Treatment [facility] Building 2 Radiation Oncology [address] [place] [address] 08/08/2024 Orders Only RAD ONC TREATMENTS Miscellaneous, Not In File 08/07/2024 11:30 AM CDT Treatment [facility] Building 2 Radiation Oncology [address] [place] [address] 08/07/2024 Orders Only RAD ONC TREATMENTS Miscellaneous, Not In File 08/06/2024 11:00 AM CDT Treatment [facility] Building 2 Radiation Oncology [address] [place] [address] 08/06/2024 Orders Only RAD ONC TREATMENTS Miscellaneous, Not In File 08/05/2024 2:30 PM CDT Treatment [facility] 2 Radiation Oncology [address] [place] [address] Boris Rowan MD 08/05/2024 2:15 PM CDT Treatment [facility] 2 Radiation Oncology [address] [place] [address] Boris Rowan MD 08/05/2024 Orders Only RAD ONC TREATMENTS Miscellaneous, Not In File 07/29/2024 7:10 PM CDT Treatment [facility] Building 2 Radiation Oncology [address] [place] [address] 07/26/2024 10:30 AM CDT Treatment [facility] Medical Office [facility] 2 Radiation Oncology [address] [place] [address] Boris Rowan MD 07/26/2024 10:00 AM CDT Office Visit [facility] 2 Radiation Oncology [address] [place] [address] Boris Rowan MD Rectal cancer (HCC) (Primary Dx) 07/24/2024 8:30 AM CDT - 07/24/2024 9:00 AM CDT Surgery [facility] [address] [place] [address] Martine López MD SIGMOID BIOPSY 07/24/2024 8:19 AM CDT Anesthesia Event [facility] [address] [place] [address] Alisson Kim MD Becker, Marcia A., CRNA 07/24/2024 6:52 AM CDT - 07/24/2024 10:06 AM CDT Hospital Encounter [facility] [address] [place] [address] Martine López MD Rectal mass Discharge Disposition: Discharge to home or self care 07/24/2024 Orders Only [facility] Oncology [address] [facility] [address] [place] [phone] Zena Jean Rectal cancer (HCC) (Primary Dx) 07/18/2024 1:00 PM CDT Office Visit [facility] Building 2 Radiation Oncology [address] [place] [address] Boris Rowan MD Rectal cancer (HCC) (Primary Dx) 07/18/2024 Telephone [facility] Oncology [address] [place] [address] [address] [place] [address] Sofia Morrissey CMA 07/18/2024 Orders Only [facility]cology [address] [place] [address] [address] [place] [address] Nataliya Lopez RN Rectal cancer (HCC) (Primary Dx) 07/03/2024 Orders Only [facility] Oncology [address] [place] [address] [address] [place] [address] Karen Aquino MD Rectal cancer (HCC) (Primary Dx) 07/02/2024 6:39 PM CDT - 07/02/2024 11:59 PM CDT Hospital Encounter [facility] [address] [place] [address] Diagnosis unknown Discharge Disposition: Discharge to home or self care 07/02/2024 8:30 AM CDT Office Visit [facility] Oncology [address] [place] [address] [address] [place] [address] Karen Aquino MD Rectal cancer (HCC) (Primary Dx) from Last 3 Months Surgical History Surgery Date Site/Laterality Comments [facility] SIGMOIDOS[facility] Medical History Medical History Date Comments Hypercholesteremia Hypertension Macular degeneration bilateral e yes A-fib (HCC) Family History Medical History Relation Name Comments Ovarian cancer Sister Relation Name Status Comments Sister Social History Tobacco Use Types Packs/Day Years Used Date Smoking Tobacco: Every Day Cigarettes 0.3 71.6 Started: 1955 Smokeless Tobacco: Never Tobacco Cessation:Ready to Q uit: Not Asked; Counseling Given: Not Answered AUDIT-C Answer Date Recorded Q1: How often do you have a drink containing alc ohol? Monthly or less 07/24/2024 Q2: How many drinks containi ng alcohol do you have on a typical day when you are drinking? 1 or 2 07/24/2024 Q3: How often do you have si x or more drinks on one occasion? Never 07/24/2024 Personal Safety Answer Date Recorded Have you ever been in or are you currently in a harmful physical or emotional relationship or is someone making you feel afraid or unsafe? Denies 07/24/2024 Sex and Gender Information Value Date Recorded Sex Assigned at Not on file Legal Sex Male 12:46 PM [employer] Gender Identity Not on file Sexual Orientation Not on file Obstetrics History Last Filed Vital Signs Vital Sign Reading Time Taken Comments Blood Pressure 149/67 09/24/2024 11:00 AM CDT Pulse 74 09/24/2024 10:45 AM CDT Temperature 36.6 C (97.8 F) 09/24/2024 10:45 AM CDT Respiratory Rate 16 09/24/2024 10:45 AM CDT Oxygen Saturation 93% 09/24/2024 10:45 AM CDT Inhaled Oxygen Concentration - - Weight 81 kg (178 lb 9.6 oz) 09/24/2024 10:45 AM CDT w/ shoes Height 169.2 cm (5' 6.61) 09/11/2024 10:02 AM C DT Body Mass Index 28.3 09/11/2024 10:02 AM CDT Plan of Treatment Health Maintenance Due Date Last Done Comments Depression Screening 1938 Hepatitis B Screening 1958 Pneumococcal vaccine 65+ (1 of 2 - PCV) 1957 Zoster Vaccine (1 of 2) 1959 Well Visit 65+ 12/02/2003 DTaP/Tdap/Td Vaccine (1 - Tdap) 11/06/2011 2 Covid-19 Vaccine (5 - 2023-2 5 season) 2023 09/08/2021, 12/09/2020, 04/30/2020, Additional history exists Influenza Vaccine (#1) 2024 Fall Risk Assessment 05/23/2025 05/23/2024 Procedures Procedure Name Priority Date/Time Associated Diagnosis Comments EGFR Routine 09/24/2024 10:44 AM CDT Dehydration DIFFERENTIAL AUTO Routine 09/24/2024 10: 44 AM CDT Dehydration CBC WITH AUTO DIFFERENTIAL Routine 09/24/2024 10:44 AM CDT Dehydration COMPREHENSIVE METABOLIC PANEL Routine 09/24/2024 10:44 AM CDT Dehydration EGFR STAT 09/11/2024 9:18 AM CDT Rectal cancer (HCC) DIFFERENTIAL AUTO STAT 09/11/2024 9:1 8 AM CDT Rectal cancer (HCC) CBC WITH AUTO DIFFERENTIAL STAT 09/11/2024 9:18 AM CDT Rectal cancer (HCC) COMPREHENSIVE METABOLIC PANEL STAT 09/11/2024 9:18 AM CDT Rectal cancer (HCC) RAD ONC ARIA SESSION SUMMARY 08/09/2024 10:14 AM CDT RAD ONC ARIA SESSION SUMMARY 08/08/2024 10:23 AM CDT RAD ONC ARIA SESSION SUMMARY 08/07/2024 11:35 AM CDT RAD ONC ARIA SESSION SUMMARY 08/06/2024 11:10 AM CDT RAD ONC ARIA SESSION SUMMARY 08/05/2024 2:20 PM CDT SURGICAL PATHOLOGY Routine 07/24/2024 8: 34 AM CDT Rectal mass FLEXIBLE SIGMOIDOSCOPY 8:20 AM CDT SIGMOID BIOPSY 07/24/2024 8:18 AM CDT rectal mass MR BODY OUTSIDE CONSULT Routine 07/02/2024 6:39 PM CDT Diagnosis unknown from Last 3 Months Results * (ABNORMAL) eGFR (09/24/2024 10:44 AM CDT) eGFR 59(L) >=60 mL/min/1. 73 m2 Comment: Interpretive Data Reference Interval Normal >/= 90 mL/min/1.73m2 Mildly decreased* 60 - 89 mL/min/1.73m2 Mildly to moderately decreased 45 - 59 mL/min/1.73m2 Moderately to severely decreased 30 - 44 mL/min/1.73m2 Severely decreased 15 - 29 mL/min/1.73m2 Kidney Failure < 15 mL/min/1.73m2 *Relative to young adult level Estimated glomerular filtration rate is determined by the 2020 CKD-EPI equation recommended by the National Kidney Foundation (A Unifying Approach to GFR Estimation: Recommendations of the NKF-ASK Task Force on Reassessing the Inclusion of Race in Diagnosing Kidney Disease, JASN 2020). The CKD-EPI equation should not be used for patients with unstable renal function and has not been validated in children and those over 70. Current interpretive data was last reviewed 2020. Testing performed by: [address] [address] Blood 09/24/2024 10:4 4 AM CDT 09/24/2024 10:48 AM CDT us Ez Perea DO LAB BLOOD ORDERABLES Final [facility]ult [facility] [address] [facility] Department of [place] [address] * (ABNORMAL) Differential, auto (09/24/2024 10:44 AM CDT) Neutrophil abs 10.21(H) 1.50 - 6.50 K/cumm Comment:Testing performed by : [address] [address] Imm gran abs 0.05 0.00 - 0.10 K/cumm [facility] Comment:Testing performed by : [address] [address] Lymphocyte abs 1.33 0.80 - 3.30 K/cumm [facility] Comment:Testing performed by : [address] [address] Monocyte abs 0.60 0.20 - 0.80 K/cumm [facility] Comment:Testing performed by : [address] [address] Eosinophil abs 0.08 0.00 - 0.50 K/cumm [facility] Comment:Testing performed by : [address], [place]., [address] Basophil abs 0.02 0.00 - 0.10 K/cumm [facility] Comment:Testing performed by : [address] [address] Neutrophil pct 83.0 % [facility] Comment: Interpretive Data Percent cell count reference ranges are not reported, since discordance with absolute values may lead to misinterpretation of CBC data. Current Interpretive Data was last revised on 2017. Testing performed by: [address] [address] Imm gran pct 0.4 % [facility] Comment: Interpretive Data Percent cell count reference ranges are not reported, since discordance with absolute values may lead to misinterpretation of CBC data. Current Interpretive Data was last revised on 2017. Testing performed by: [address] [address] Lymphocyte pct 10.8 % [facility] Comment: Interpretive Data Percent cell count reference ranges are not reported, since discordance with absolute values may lead to misinterpretation of CBC data. Current Interpretive Data was last revised on 2017. Testing performed by: [address] [address] Monocyte pct 4.9 % [facility] Comment: Interpretive Data Percent cell count reference ranges are not reported, since discordance with absolute values may lead to misinterpretation of CBC data. Current Interpretive Data was last revised on 2017. Testing performed by: [address] [address] Eosinophil pct 0.7 % [facility] Comment: Interpretive Data Percent cell count reference ranges are not reported, since discordance with absolute values may lead to misinterpretation of CBC data. Current Interpretive Data was last revised on 2017. Testing performed by: [address] [address] Basophil pct 0.2 % [facility] Comment: Interpretive Data Percent cell count reference ranges are not reported, since discordance with absolute values may lead to misinterpretation of CBC data. Current Interpretive Data was last revised on 2017. Testing performed by: [address] [address] Blood 09/24/2024 10:4 4 AM CDT 09/24/2024 10:48 AM CDT us Ez Perea DO LAB BLOOD ORDERABLES Final R esult [facility] Department of [place] [address] * (ABNORMAL) CBC with auto differential (09/24/2024 10:44 AM CDT) WBC 12.29(H) 3.80 - 9.90 K/cumm Comment:Testing performed by : [address] [address] Hgb 9.9(L) 13.0 - 17.5 g/dL [facility] Comment:Testing performed by : [address] [address] Hct 30.5(L) 38.9 - 50.3 % [facility] Comment:Testing performed by : [address] [address] Plt 303 150 - 400 K/cumm [facility] Comment:Testing performed by : [address] [address] MPV 9.8 9.1 - 12.3 fL [facility] Comment:Testing performed by : [address] [address] RBC 3.75(L) 4.30 - 5.80 M/cumm [facility] Comment:Testing performed by : [address] [address] MCV 81.3 81.3 - 96.4 fL [facility] Comment:Testing performed by : [address] [address] MCH 26.4(L) 27.1 - 33.3 pg [facility] Comment:Testing performed by : [address] [address] MCHC 32.5 32.3 - 35.7 g/dL [facility] Comment:Testing performed by : [address] [address] RDW CV 18.1(H) 11.1 - 14.9 % [facility] Comment:Testing performed by : [address] [address] RDW SD 52.6(H) 35.7 - 48.1 fL [facility] Comment:Testing performed by : [address] [address] NRBC abs 0.00 0.00 - 0.01 K/cumm [facility] Comment:Testing performed by : [address] [address] ANC Prelim 10.21(H) 1.50 - 6.50 K/cumm [facility] Comment: Interpretive Data The rapid ANC is a preliminary automated count and may vary from the final ANC (Neut Abs) reported in the WBC differential that follows. Current interpretive data was last revised 2024. Testing performed by: [address] [address] Blood 09/24/2024 10:4 4 AM CDT 09/24/2024 10:48 AM CDT us Ez Perea DO LAB BLOOD ORDERABLES Final R esult [facility] [address] [facility] Department of Laboratories [place], [place] [id number] * Comprehensive metabolic panel (09/24/2024 10:44 AM CDT) Sodium 138 135 - 145 mmol/L Comment:Testing performed by : [address] [address] Potassium, pl 4.4 3.3 - 4.9 mmol/L [facility] Comment:Testing performed by : [address], [place]., [address] Chloride 103 97 - 110 mmol/L [facility] Comment:Testing performed by : [address], [place]., [address] CO2 22 22 - 32 mmol/L [facility] Comment:Testing performed by : [address] [address] Anion gap 13 2 - 15 mmol/L [facility] Comment:Testing performed by : [address] [address] BUN 14 6 - 25 mg/dL [facility] Comment:Testing performed by : [address] [address] Creatinine 1.20 0.80 - 1.30 mg/dL [facility] Comment:Testing performed by : [address] [address] Glucose 133 70 - 199 mg/dL [facility] Comment: Interpretive Data Fasting glucose >/= 126 mg/dl is diagnostic for diabetes. Fasting is defined as no caloric intake for at least 8 hours. Fasting glucose between 100 mg/dl to 125 mg/dl is diagnostic of prediabetes. In a patient with classic symptoms of hyperglycemia or hyperglycemic crisis, a random glucose >/= 200 mg/dl is diagnostic for diabetes. In the absence of unequivocal hyperglycemia, results should be confirmed by repeat testing. The classification and Diagnosis of Diabetes Diabetes Care 2021; 46: S19-S40. Current interpretive data was last revised 2022. Testing performed by: [address] [address] Calcium 8.5 8.5 - 10.3 mg/dL [facility] Comment:Testing performed by : [address] [address] Bilirubin, total 0.5 0.1 - 1.2 mg/dL [facility] Comment:Testing performed by : [facility], [address] [place] [address]., [address] Protein, pl 6.7 6.5 - 8.5 g/dL [facility] Comment:Testing performed by : [address] [address] Albumin 3.8 3.5 - 5.0 g/dL [facility] Comment:Testing performed by : [address] [address] Alk phos 62 40 - 130 Units/L [facility] Comment:Testing performed by : [address], [place]., [address] ALT 13 7 - 55 Units/L [facility] Comment:Testing performed by : [address] [address] AST 17 10 - 50 Units/L [facility] Comment:Testing performed by : [address] [address] Blood 09/24/2024 10:4 4 AM CDT 09/24/2024 10:48 AM CDT us Ez Perea DO LAB BLOOD ORDERABLES Final R esult [facility] [address] [facility] Department of Laboratories [place], [place] [id number] * eGFR (09/11/2024 9:18 AM CDT) eGFR 66 >=60 mL/min/1. 73 m2 Comment: Interpretive Data Reference Interval Normal >/= 90 mL/min/1.73m2 Mildly decreased* 60 - 89 mL/min/1.73m2 Mildly to moderately decreased 45 - 59 mL/min/1.73m2 Moderately to severely decreased 30 - 44 mL/min/1.73m2 Severely decreased 15 - 29 mL/min/1.73m2 Kidney Failure < 15 mL/min/1.73m2 *Relative to young adult level Estimated glomerular filtration rate is determined by the 2020 CKD-EPI equation recommended by the National Kidney Foundation (A Unifying Approach to GFR Estimation: Recommendations of the NKF-ASK Task Force on Reassessing the Inclusion of Race in Diagnosing Kidney Disease, JASN 202). The CKD-EPI equation should not be used for patients with unstable renal function and has not been validated in children and those over 70. Current interpretive data was last reviewed 2020. Testing performed by: [facility], [address] [place] [address]., [address] Blood 09/11/2024 9:18 AM CDT 09/11/2024 9:20 AM CDT us Ez Perea DO LAB BLOOD ORDERABLES Final R esult [facility] [address] [facility] Department of Laboratories [place], [place] [id number] * (ABNORMAL) Differential, auto (09/11/2024 9:18 AM CDT) Neutrophil abs 8.12(H) 1.50 - 6.50 K/cumm Comment:Testing performed by : [address] [address] Imm gran abs 0.09 0.00 - 0.10 K/cumm [facility] Comment:Testing performed by : [address] [address] Lymphocyte abs 1.75 0.80 - 3.30 K/cumm [facility] Comment:Testing performed by : [address] [address] Monocyte abs 1.69(H) 0.20 - 0.80 K/cumm [facility] Comment:Testing performed by : [address] [address] Eosinophil abs 0.16 0.00 - 0.50 K/cumm [facility] Comment:Testing performed by : [address] [address] Basophil abs 0.08 0.00 - 0.10 K/cumm [facility] Comment:Testing performed by : [address] [address] Neutrophil pct 68.3 % [facility] Comment: Interpretive Data Percent cell count reference ranges are not reported, since discordance with absolute values may lead to misinterpretation of CBC data. Current Interpretive Data was last revised on 2017. Testing performed by: [address] [address] Imm gran pct 0.8 % [facility] Comment: Interpretive Data Percent cell count reference ranges are not reported, since discordance with absolute values may lead to misinterpretation of CBC data. Current Interpretive Data was last revised on 2017. Testing performed by: [address] [address] Lymphocyte pct 14.7 % [facility] Comment: Interpretive Data Percent cell count reference ranges are not reported, since discordance with absolute values may lead to misinterpretation of CBC data. Current Interpretive Data was last revised on 2017. Testing performed by: [address] [address] Monocyte pct 14.2 % [facility] Comment: Interpretive Data Percent cell count reference ranges are not reported, since discordance with absolute values may lead to misinterpretation of CBC data. Current Interpretive Data was last revised on 2017. Testing performed by: [address] [address] Eosinophil pct 1.3 % [facility] Comment: Interpretive Data Percent cell count reference ranges are not reported, since discordance with absolute values may lead to misinterpretation of CBC data. Current Interpretive Data was last revised on 2017. Testing performed by: [address] [address] Basophil pct 0.7 % [facility] Comment: Interpretive Data Percent cell count reference ranges are not reported, since discordance with absolute values may lead to misinterpretation of CBC data. Current Interpretive Data was last revised on 2017. Testing performed by: [address] [address] Blood 09/11/2024 9:18 AM CDT 09/11/2024 9:20 AM CDT Ez L. Eliazar DO LAB BLOOD ORDERABLES Final R esult [facility] [address] [facility] Department [place] [address] * (ABNORMAL) CBC with auto differential (09/11/2024 9:18 AM CDT) [facility] Signature WBC 11.89(H) 3.80 - 9.90 K/cumm Comment:Testing performed by : [address] [address] Hgb 9.7(L) 13.0 - 17.5 g/dL [facility] Comment:Testing performed by : [address] [address] Hct 30.3(L) 38.9 - 50.3 % [facility]AR Comment:Testing performed by : [address] [address] Plt 270 150 - 400 K/cumm [facility] Comment:Testing performed by : [address] [address] MPV 10.1 9.1 - 12.3 fL [facility] Comment:Testing performed by : [address] [address] RBC 3.68(L) 4.30 - 5.80 M/cumm [facility] Comment:Testing performed by : [address] [address] MCV 82.3 81.3 - 96.4 fL [facility] Comment:Testing performed by : [address] [address] MCH 26.4(L) 27.1 - 33.3 pg [facility] Comment:Testing performed by : [address] [address] MCHC 32.0(L) 32.3 - 35.7 g/dL [facility] Comment:Testing performed by : [address] [address] RDW CV 19.2(H) 11.1 - 14.9 % [facility] Comment:Testing performed by : [address] [address] RDW SD 57.4(H) 35.7 - 48.1 fL [facility] Comment:Testing performed by : [address] [address] NRBC abs 0.00 0.00 - 0.01 K/cumm [facility] AVENDANO Comment:Testing performed by : [address] [address] ANC Prelim 8.12(H) 1.50 - 6.50 K/cumm [facility] Comment: Interpretive Data The rapid ANC is a preliminary automated count and may vary from the final ANC (Neut Abs) reported in the WBC differential that follows. Current interpretive data was last revised 2024. Testing performed by: [address] [address] Blood 09/11/2024 9:18 AM CDT 09/11/2024 9:20 AM CDT Ez Perea DO LAB BLOOD ORDERABLES Final R esult [facility] [address] [facility] Department [place] [address] * Comprehensive metabolic panel (09/11/2024 9:18 AM CDT) Sodium 140 135 - 145 mmol/L Comment:Testing performed by : [address] [address] Potassium, pl 4.9 3.3 - 4.9 mmol/L [facility] Comment:Testing performed by : [address] [address] Chloride 104 97 - 110 mmol/L [facility] Comment:Testing performed by : [address] [address] CO2 25 22 - 32 mmol/L [facility] Comment:Testing performed by : [address] [address] Anion gap 11 2 - 15 mmol/L [facility] Comment:Testing performed by : [address] [address] BUN 10 6 - 25 mg/dL [facility] Comment:Testing performed by : [address] [address] Creatinine 1.10 0.80 - 1.30 mg/dL [facility] Comment:Testing performed by : [address] [address] Glucose 105 70 - 199 mg/dL [facility] Comment: Interpretive Data Fasting glucose >/= 126 mg/dl is diagnostic for diabetes. Fasting is defined as no caloric intake for at least 8 hours. Fasting glucose between 100 mg/dl to 125 mg/dl is diagnostic of prediabetes. In a patient with classic symptoms of hyperglycemia or hyperglycemic crisis, a random glucose >/= 200 mg/dl is diagnostic for diabetes. In the absence of unequivocal hyperglycemia, results should be confirmed by repeat testing. The classification and Diagnosis of Diabetes Diabetes Care 202; 46: S19-S40. Current interpretive data was last revised 2022. Testing performed by: [address] [address] Calcium 9.0 8.5 - 10.3 mg/dL [facility] Comment:Testing performed by : [address] [address] Bilirubin, total 0.3 0.1 - 1.2 mg/dL [facility] Comment:Testing performed by : [address] [address] Protein, pl 6.8 6.5 - 8.5 g/dL [facility] Comment:Testing performed by : [address] [address] Albumin 3.7 3.5 - 5.0 g/dL [facility] Comment:Testing performed by : [address] [address] Alk phos 108 40 - 130 Units/L [facility] Comment:Testing performed by : [address] [address] ALT 20 7 - 55 Units/L [facility] Comment:Testing performed by : [address] [address] AST 22 10 - 50 Units/L [facility] AVENDANO Comment:Testing performed by : [facility], [address] [place] [address], [place]., [address] Blood 09/11/2024 9:18 AM CDT 09/11/2024 9:20 AM CDT us Ez Perea DO LAB BLOOD ORDERABLES Final R esult [facility] [address] [facility] Department of [place] [address] * RAD ONC ARIA SESSION SUMMARY (08/09/2024 10:14 AM CDT) Course Name [id number] 025 ARIA Course Plan Date 07/26/2024 11:00 AM ARIA Elapsed Days 4 ARIA Treatment Start Date 08/05/2024 ARIA Treatment Site PTV_2500 ARIA Dose Given To Date (cGy) 2,500 ARIA Session Dosage Given (cGy) 500 ARIA Plan ID RECTUM ARIA Fractions Treated 5 ARIA Prescribed Dose Per Fraction (cGy) 500 ARIA Prescribed Total Dose (cGy) 2,500 ARIA 08/09/2024 10:1 4 AM CDT us Not In File Miscellaneous RADIATION ONCOLOGY ORD ERABLES Final Result ARIA * RAD ONC ARIA SESSION SUMMARY (08/08/2024 10:23 AM CDT) Course Name [id number]_2 025 ARIA Course Plan Date 07/26/2024 11:00 AM ARIA Elapsed Days 3 ARIA Treatment Start Date 08/05/2024 ARIA Treatment Site PTV_2500 ARIA Dose Given To Date (cGy) 2,000 ARIA Session Dosage Given (cGy) 500 ARIA Plan ID RECTUM ARIA Fractions Treated 4 ARIA Prescribed Dose Per Fraction (cGy) 500 ARIA Prescribed Total Dose (cGy) 2,500 ARIA 08/08/2024 10:2 3 AM CDT us Not In File Miscellaneous RADIATION ONCOLOGY ORD ERABLES Final Result KACY * RAD ONC ARIA SESSION SUMMARY (08/07/2024 11:35 AM CDT) Course Name [id number]_2 025 ARIA Course Plan Date 07/26/2024 11:00 AM ARIA Elapsed Days 2 ARIA Treatment Start Date 08/05/2024 ARIA Treatment Site PTV_2500 ARIA Dose Given To Date (cGy) 1,500 ARIA Session Dosage Given (cGy) 500 ARIA Plan ID RECTUM ARIA Fractions Treated 3 ARIA Prescribed Dose Per Fraction (cGy) 500 ARIA Prescribed Total Dose (cGy) 2,500 ARIA 08/07/2024 11:3 5 AM CDT us Not In File Miscellaneous RADIATION ONCOLOGY ORD ERABLES Final Result Performing Organization Address [facility] Co de Phone Number KACY * RAD ONC ARIA SESSION SUMMARY (08/06/2024 11:10 AM CDT) Course Name [id number]_2 025 ARIA Course Plan Date 07/26/2024 11:00 AM ARIA Elapsed Days 1 ARIA Treatment Start Date 08/05/2024 ARIA Treatment Site PTV_2500 ARIA Dose Given To Date (cGy) 1,000 ARIA Session Dosage Given (cGy) 500 ARIA Plan ID RECTUM ARIA Fractions Treated 2 ARIA Prescribed Dose Per Fraction (cGy) 500 ARIA Prescribed Total Dose (cGy) 2,500 ARIA 08/06/2024 11:1 0 AM CDT us Not In File Miscellaneous RADIATION ONCOLOGY ORD ERABLES Final Result KACY * RAD ONC ARIA SESSION SUMMARY (08/05/2024 2:20 PM CDT) Course Name C1_Rectum_2 025 ARIA Course Plan Date 07/26/2024 11:00 AM ARIA Elapsed Days 0 ARIA Treatment Start Date 08/05/2024 ARIA Treatment Site PTV_2500 ARIA Dose Given To Date (cGy) 500 ARIA Session Dosage Given (cGy) 500 ARIA Plan ID RECTUM ARIA Fractions Treated 1 ARIA Prescribed Dose Per Fraction (cGy) 500 ARIA Prescribed Total Dose (cGy) 2,500 ARIA 08/05/2024 2:20 PM CDT us Not In File Miscellaneous RADIATION ONCOLOGY ORD ERABLES Final Result ARIA * Surgical pathology (07/24/2024 8:34 AM CDT) Tissue (Colon, Biopsy) 07/24/2024 8:34 AM CDT Comment:Cold biopsy Narrative PATHOLOGY [facility] - 07/25/2024 2:11 PM CDT [facility] Department of Pathology [address] [place] [address] Note to Patients: This report may contain a detailed description of human tissue sent by a health care provider to the laboratory for pathologic evaluation. The content of this report is essential for diagnosis and may provide important critical findings. This information may be unfamiliar to patients to review without a medical professional present. It is advised that the patient review this report in the presence of a health care provider who can answer questions and explain the details. Final Report Patient Name: STEPHANIE VELASQUEZ : 1940 (Age: 83) Gender: M Address: [address] [place] [address] [facility] #: [id number] Service: Surgery Location: Patient Type: [facility] OUTPATIENT Taken: 07/24/2024 Received: 07/24/2024 Accessioned: 07/24/2024 Reported: 07/25/2024 Physician(s): Martine López M.D. Diagnosis: Large bowel, rectum, biopsy - Adenocarcinoma, moderately differentiated, in background of high dysplasia Santy Stout M.D. Report Electronically Reviewed and Signed Out By Santy Stout M.D. 07/25/2024 14:11:40 Specimen(s) Received: A: rectal mass biopsy Microscopic Description: Microscopic examination substantiates the above cited diagnosis. Microscopic examination substantiates the above cited diagnosis. Clinical History: The patient is an 83-year-old man with a rectal mass. Operative procedure : Sigmoidoscopy with biopsy. Gross Description Received in formalin, labeled with the patient s identifiers and rectal mass biopsy consists of a steele-pink aggregate of tissue measuring 1.8 x 1.8 x 0.5 cm. Submitted entirely. Labeled A1 to A3. Jar 0. [facility]/07/24/2024 13:33 ALLYN Ramírez, PA (ASCP) Microscopic slide review and interpretation for this case was performed at [facility], Department of Surgical Pathology, [address] [facility] [place], [place] [id number], [place] [address] CLIA # [id number] Martine López MD LAB PATHOLOGY ORDERABLES Final R esult PATHOLOGY [facility] * Flexible Sigmoidoscopy (07/24/2024 8:20 AM CDT) Anatomical Region Laterality Modality Other Narrative Procedure Note Martine López MD - 07/24/2024 8:20 AM CDT [facility] GI ENDOSCOPY Patient Name: Stephanie Velasquez Procedure Date: 07/24/2024 8:20 AM Date of : 1940 Admit Type: Outpatient Age: 83 Gender: Male Attending MD: Martine López M.D. Room: [facility] ENDOSCOPY ROOM 04 Note Status: Finalized Procedure: Flexible Sigmoidoscopy Indications: Rectal mass Referring MD: Providers: Martine López M.D. Medicines: See the Anesthesia note for documentation of the administered medications Complications: No immediate complications. Estimated Blood Loss: Estimated blood loss was minimal. Procedure: The benefits, risks, and alternatives to theprocedure and sedation were discussed and informed consentwas obtained. The CF-H180AL colonoscope was introduced through the anus and advanced to the the rectum.The flexible sigmoidoscopy was accomplished without difficulty. The patient tolerated the procedurewell. The quality of the bowel preparation wasadequate. Findings: The digital rectal exam revealed a rectal mass. It was posteriorbased at 2 cm. Finger could not reach above or around. A mass was found in the rectum. Biopsies were taken with a coldforceps for histology. It was firm, friable, oozing. It was malignantappearing. Multiple biopsies were taken in the same location to try to getdeeper pieces. Despite multiple attempts pediatric colonoscope was unable to pass. Impression: - Rectal mass. - Tumor in the rectum. Biopsied. Recommendation: - Resume Eliquis (apixaban) at prior dose in 2days. Martine López M.D. Martine López M.D. 07/24/2024 8:44:57 AM . Number of Addenda: 0 Note Initiated On: 07/24/2024 8:20 AM Recognized by the [employer] for promoting quality in endoscopy us Martine López MD ENDOSCOPY PROCEDURES Final Resul t * MR Body Outside Consult (07/02/2024 6:39 PM CDT) Anatomical Region Laterality Modality Body N/A Magnetic Resonan ce 07/03/2024 9:32 AM CDT Addenda Addendum by Adithya Toney MD on 09/17/2024 1:08 PM CDT ADDENDUM ISSUED 09/17/2024 The purpose of this addendum is to clarify the type of study: TYPE OF STUDY: Multiple MR images of the pelvis with and without intravenous contrast are provided at the time of this interpretation. Electronically signed by: Adithya Toney M.D. Impressions 07/03/2024 9:32 AM CDT Mid rectal mass best characterized as at least stage T2, with indeterminate, small mesorectal lymph nodes. The findings, conclusions and recommendations within this report do not replace the initial findings, conclusions and recommendations made at the facility where the study was performed based upon the imaging and clinical condition at that time. Comparison with the prior report and clinical history is necessary. The provided images may or may not represent the [place] source data set and thus may contain changes that may lower the accuracy of this second-opinion interpretation. Electronically signed by: Adithya Toney M.D. Narrative 07/03/2024 9:32 AM CDT EXAMINATION: RADIOLOGY CONSULTATION ON OUTSIDE IMAGING STUDY STUDY INITIALLY PERFORMED: 02/19/2024 at [facility]. TYPE OF STUDY: Multiple exam type (CT, MR) images of the pelvis with and without intravenous contrast are provided at the time of this interpretation. CONTRAST ROUTE: Contrast was administered via the intravenous route. The protocol was adequate to address the clinical question. The outside final report was available at the time of this second opinion interpretation. TYPE OF CONSULTATION: Consult on outside imaging study with images submitted through Outside Image Sharing Service DATE OF CONSULTATION: 07/03/2024 9:16 AM HISTORY: Rectal cancer staging COMPARISON: CT 01/15/2024; PET/CT 03/19/2024 FINDINGS: Rectal Cancer Staging Information: Tumor: Approximately 7 cm proximal to the anal verge, a T2 intermediate signal intensity, diffusion restricting, solidly enhancing ulcerated mass spans a maximum craniocaudal length of approximately 4 cm (series 6 image 30). T Stage: T2. There is extension into at least the muscularis propria without definite extra rectal extension, for example on series 8 image 19). Although there is suggestion of extra rectal extension on axial image 8 series 14, this is likely due to out of plane imaging as no extra rectal extension is confirmed on coronal imaging at the same level. Circumferential Resection Margin: No involvement of the mesorectal fascia or anterior peritoneal reflection. Nodes: There are greater than 4 mesorectal/inferior mesenteric chain lymph nodes measuring up to 5 mm in diameter, on series 18, images 2, 6, 13, and 20. These are indeterminate by imaging. No lateral pelvic lymphadenopathy. Bladder: Trabeculated likely due to chronic bladder outlet obstruction from an enlarged prostate gland. Reproductive organs: Prostatomegaly. No suspicious prostate lesions. Other Findings: No suspicious bone lesions. Normal vascularity. No ascites. Procedure Note Adithya Toney MD - 07/03/2024 EXAMINATION: RADIOLOGY CONSULTATION ON OUTSIDE IMAGING STUDY STUDY INITIALLY PERFORMED: 02/19/2024 at [facility]. TYPE OF STUDY: Multiple exam type (CT, MR) images of the pelvis with and without intravenous contrast are provided at the time of this interpretation. CONTRAST ROUTE: Contrast was administered via the intravenous route. The protocol was adequate to address the clinical question. The outside final report was available at the time of this second opinion interpretation. TYPE OF CONSULTATION: Consult on outside imaging study with images submitted through Outside Image Sharing Service DATE OF CONSULTATION: 07/03/2024 9:16 AM HISTORY: Rectal cancer staging COMPARISON: CT 01/15/2024; PET/CT 03/19/2024 FINDINGS: Rectal Cancer Staging Information: Tumor: Approximately 7 cm proximal to the anal verge, a T2 intermediate signal intensity, diffusion restricting, solidly enhancing ulcerated mass spans a maximum craniocaudal length of approximately 4 cm (series 6 image 30). T Stage: T2. There is extension into at least the muscularis propria without definite extra rectal extension, for example on series 8 image 19). Although there is suggestion of extra rectal extension on axial image 8 series 14, this is likely due to out of plane imaging as no extra rectal extension is confirmed on coronal imaging at the same level. Circumferential Resection Margin: No involvement of the mesorectal fascia or anterior peritoneal reflection. Nodes: There are greater than 4 mesorectal/inferior mesenteric chain lymph nodes measuring up to 5 mm in diameter, on series 18, images 2, 6, 13, and 20. These are indeterminate by imaging. No lateral pelvic lymphadenopathy. Bladder: Trabeculated likely due to chronic bladder outlet obstruction from an enlarged prostate gland. Reproductive organs: Prostatomegaly. No suspicious prostate lesions. Other Findings: No suspicious bone lesions. Normal vascularity. No ascites. IMPRESSION: Mid rectal mass best characterized as at least stage T2, with indeterminate, small mesorectal lymph nodes. The findings, conclusions and recommendations within this report do not replace the initial findings, conclusions and recommendations made at the facility where the study was performed based upon the imaging and clinical condition at that time. Comparison with the prior report and clinical history is necessary. The provided images may or may not represent the [place] source data set and thus may contain changes that may lower the accuracy of this second-opinion interpretation. Electronically signed by: Adithya Toney M.D. Karen Aquino MD IMG MRI PROCEDURES E dited Result - Final from Last 3 Months Insurance [employer] MEDICARE ADVANTAGE Care Teams Bicycle Rental Clerk Relationship Specialty Start Date End Date Roel Silvestre DO [address] [place] [address] PCP - General Family Medicine 05/23/24 Martine López MD [address] [place] [address] [phone] Consulting Physician General Surgery 05/17/24 Boris Rowan MD [address] [place] [address] [id number] Radiation Oncologist Radiation Oncology 05/17/24 Ez Rust MD [address] [id number] Referring Physician Internal Medicine 05/23/24 Martine López MD [address] [place] [address] [id number] Surgeon General Surgery 05/23/24 Ez Perea DO [address] [place] [address] [id number] Medical Oncologist/Cpo Hematology and Oncology 07/18/24
--- OUTSIDE RECORDS SUMMARY | 2024-10-01 08:31 | XMS_ITS | Encounter Summary ---
Author Organization [facility] Address [address] [place] [address] Phone Care Team Providers Care Society Reporter Name Role Phone Martine López MD Unavailable Boris Rowan MD Unavailable [phone] Roel Silvestre DO Primary Care Provider [phone] Ez Rust MD Unavailable [phone] Martine López MD Unavailable Ez Perea DO Unavailable [phone] Encounter Details Date Type Department Care Team (Late st Contact Info) Description 09/30/2024 Telephone [facility] Oncology [facility] [facility] [address] [place] [address] Sil Tripathi CMA Social History Tobacco Use Types Packs/Day Years Used Date Smoking Tobacco: Every Day Cigarettes 0.3 71.6 Started: 1955 Smokeless Tobacco: Never AUDIT-C Answer Date Recorded Q1: How often [...] on file 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 Gender Identity Not on file Sexual Orientation Not on file documented as of this encounter Ordered Prescriptions Prescription Sig Dispense Quantity Refills Last Filled Start Date End Date sucralfate (CARAFATE) suspension 1 gram/10 mL Take 10 mL (1 g total) by mouth 4 (four) times a day 1200 mL 2 09/30/2024 documented in this encounter Miscellaneous Notes * Telephone Encounter - Sil Tripathi CMA - 09/30/2024 3:44 PM CDT Called patient spouse, Jacque; informed that if there is need to be evaluated after the fall this morning, patient would need to go to ER or urgent care Informed her that patient needs to increase his fluids, this will help increase his blood pressure;we had a long discuss on encouraging patient to eat and drink; patient doesn't like Ensure but doeslike ice cream so suggested she ask patient if could try to add some Ensure to his ice cream to make a shake; Jacque would like a prescription of carafate liquid send to pharmacy, she has been made aware that his will cost more, advised her to check with pharmacy on the cost Advised patient will be evaluated on Monday and if needs fluids, can administer at that time; advised her again to encourage patient to drink more fluids but it sounds like spouse and daughter aretrying to help patient increase fluids by offering a variety of choices * Telephone Encounter - Diana Meza RN - 09/30/2024 2:41 PM CDT If patient needs to be evaluated by a physician due to fall he should present to ER or urgent care.Carafate can be ordered as a liquid but it will be more expensive on their medication plan it is a tier 4 instead of tier 2. Encourage patient to increase hydration to increase B/P.which may be the cause of his dizziness He has an appointment Monday with Dr. Perea and can be assessed to see if additional IVF are needed. * Telephone Encounter - Sil Tripathi CMA - 09/30/2024 2:13 PM CDT Received call this morning from family member that is not listed on patient communications form; later spoke to spouse, Jacque, regarding patient Patient is not eating or drinking much; per Jacque, patient feels full after eating or drinking very little; he does feel nauseous, ondansetron helps; Jacque had tried to give the patient carafate but hewill not take it; he is taking pantoprazole daily Per Jacque, the mouth sores are much better since patient started taking the Magic mouth wash He fell early this morning while ambulating to the bathroom; Jacque states patient did not get dizzy or lightheaded, family had brought the patient his walker to use and Jacque believes his feet got tangled together Jacque just called back with patient bp as I requested; her granddaughter is a nurse and took the blood pressure which was 102/54 and heartrate 71 documented in this encounter Plan of Treatment Not on file documented as of this encounter Visit Diagnoses Not on filedocumented in this encounter Discontinued Medications Medication Sig Discontinue Reason Start Date End Da te sucralfate (CARAFATE) 1 gram tablet Take 1 tablet (1 g total) by mouth 4 (four) times a day Dissolve tablet in 30 ml warm water to make slurry mixture then swallow Alternate therapy 09/27/2024 09/30/2024 documented as of this encounter Care Teams Society Reporter Relationship Specialty Start Date End Date Roel Silvestre DO [address] [place] [id number] PCP - General Family Medicine 05/23/24 Martine López MD [address] [place] [address] [address] [place] [address] Consulting Physician General Surgery 05/17/24 Boris Rowan MD [address] [place] [address] [address] [place], [place] [phone] Radiation Oncologist Radiation Oncology 05/17/24 Ez Rust MD [address] [address] Referring Physician Internal Medicine 05/23/24 Martine López MD [address] [place] [id number] Surgeon General Surgery 05/23/24 Ez Perea DO [address] [place] [address] [id number] Medical Oncologist/Handhole Machine Operator Hematology and Oncology 07/18/24 documented as of this encounter
--- OUTSIDE RECORDS SUMMARY | 2024-10-01 08:31 | XMS_ITS | Encounter Summary ---
Author Organization [facility] Address [facility] [place] [address] Care Team Providers Care Headliner Installer Name Role Phone Yared Shook MD Primary Care Provider [phone] Ez Rust MD Unavailable [phone] None, Provider Primary Care Provider Unavaila ble Dominique Varghese MD Primary Care Provider [phone] Yared Shook MD Primary Care Provider [phone] Roel Silvestre DO Primary Care Provider [phone] Encounter Details Date Type Department Care Team (Late Contact Info) Description 03/01/2018 Abstract [facility] CONVERSION [address] [place], [place] [id number] , Generic Conversion, Social History Tobacco Use Types Packs/Day Years Used Date Smoking Tobacco: Every Day Cigarettes Smokeless Tobacco: Never Alcohol Use Standard Drinks/Week Comments Yes 0 (1 standard drink = 0.6 oz pur e alcohol) socially Sex and Gender Information Value Date Recorded Sex Assigned at Male 05/03/2024 10:36 AM CDT Legal Sex Male 10:11 PM CDT Gender Identity Not on file Sexual Orientation Not on file Occupation Industry Job Start Date Job End Date Not on file Not on file Not on file Not on file documented as of this encounter Plan of Treatment Upcoming Encounters Date Type Department Care Team (Late Contact Info) Description 10/23/2024 9:15 AM CDT Office Visit [facility] [address] [place] [phone] Teagan Cage, CONCRETE ROD BUSTER-C [facility] [address] [place] [address] 11/28/2024 12:00 PM CDT Appointment [facility] [address] [place] [address] Bobby Tiwari MD [facility] [address] [place], [place] [address] 12/04/2024 10:00 AM CDT Office Visit [facility] [address] [place] [phone] Bobby Tiwari MD [facility] [address] [place], [place] [address] documented as of this encounter Visit Diagnoses Not on filedocumented in this encounter Additional Health Concerns Infection Onset Date Last Indicated Resolved Time COVID-19 Rule Out 05/10/2022 05/10/2022 05/10/2022 11:29 AM CDT documented as of this encounter Care Teams Headliner Installer Relationship Specialty Start Date End Date Yared Shook MD PCP - General INTERNAL MEDICINE 01/20/17 05/04/21 María Iniguez MD PCP - General 05/05/21 10/12/21 [place] [address] [facility] [address] [place] [address] PCP - General FAMILY PRACTICE 10/13/21 05/23/23 Yared Shook MD [address] [place] [address] PCP - General INTERNAL MEDICINE 05/24/23 12/21/23 Roel Silvestre DO [address] [place] [address] PCP - General FAMILY PRACTICE 12/22/23 Ez Rust MD [facility]. [facility] [address] [place] [address] Ryley Chief Minister CARDIOVASCULAR DISEASE 02/20/17 documented as of this encounter
--- OUTSIDE RECORDS SUMMARY | 2024-10-01 08:31 | XMS_ITS | Encounter Summary ---
Author Organization [facility] Address Critical access hospital[address] [place] [address] Care Team Providers Care Sports Management Internship Name Role Phone Yared Shook MD Primary Care Provider [phone] Ez Rust MD Unavailable [phone] None, Provider Primary Care Provider Unavaila [facility] Dominique Varghese MD Primary Care Provider [phone] Yared Shook MD Primary Care Provider [phone] Roel Silvestre DO Primary Care Provider [phone] Encounter Details Date Type Department Care Team (Late st Contact Info) Description 08/09/2017 Hospital Orders Only [facility] at [address] [phone] Ez Rust MD [facility]. [address] [id number] Social History Tobacco Use Types Packs/Day Years [...] Care Team (Late st Contact Info) Description 10/23/2024 9:15 AM CDT Office Visit [facility] [address] [place] [address] Teagan Cage, SUPERVISOR LABORATORY-C [facility] [address] [place], [place] [address] 11/28/2024 12:00 PM CDT Appointment [facility] [address] [place] [address] Bobby Tiwari MD [address] [address] 12/04/2024 10:00 AM CDT Office Visit [facility] [address] [place] [address] Bobby Tiwari MD [address] [address] documented as of this encounter Visit Diagnoses Not on filedocumented in this encounter Additional Health Concerns Infection Onset Date Last Indicated Resolved Time COVID-19 Rule Out 05/10/2022 05/10/2022 05/10/2022 11:29 AM CDT documented as of this encounter Care Teams Sports Management Internship Relationship Specialty Start Date End Date Yared Shook MD PCP - General INTERNAL MEDICINE 01/20/17 05/04/21 María Iniguez MD PCP - General 05/05/21 10/12/21 [place] [address] [facility] [address] [place] [address] PCP - General FAMILY PRACTICE 10/13/21 05/23/23 Yared Shook MD [address] [address] PCP - General INTERNAL MEDICINE 05/24/23 12/21/23 Roel Silvestre DO [address] [place] [address] PCP - General FAMILY PRACTICE 12/22/23 Ez Rust MD Three [facility]. [address] [address] Ryley Bead Wire Insulator CARDIOVASCULAR DISEASE 02/20/17 documented as of this encounter
--- OUTSIDE RECORDS SUMMARY | 2024-10-01 08:31 | XMS_ITS ---
Author Organization [facility] Medical Office Building [address] [place] [address] Care Team Providers Care Fruit Stuffer Name Role Phone Martine López MD Unavailable Boris Rowan MD Unavailable [phone] Roel Silvestre DO Primary Care Provider [phone] Ez Rust MD Unavailable [phone] Martine López MD Unavailable Ez Perea DO Unavailable [phone] Active Problems Problem Noted Date Diagnosed Date Encounter for person encountering health service s 10/01/2024 Dehydration 09/24/2024 Personal history of radiation therapy 09/16/2024 Rectal cancer 05/23/2024 Cancer Staging:Clinical stage from 05/23/2024:Stage IIA(cT3, cN0, cM0) - Signed by Boris Rowan MD on 05/23/2024 Current Treatment and Therapy Plans XELOX: (Capecitabine / OXALIplatin) 21 Day Cycles - Colon/Rectal* Plan Start Date:08/12/2024 Plan Provider:Ez Perea DO Linked Problems Rectal cancer (HCC) Treatment Medications Current Day (Day 1 , Cycle 2 - Planned for 10/02/2024) Next Day (Day 1, Cycle 3 - Planned for 10/23/2024) capecitabine (XELODA)dexAMETHasone (DECADRON)oxaliplatin (ELOXATIN)oxaliplatin (ELOXATIN) IVPB capecitabine (XELODA) 500 mg tabletoxaliplatin (ELOXATIN) 260 mg in dextrose 5% 250 mL IVPB capecitabine (XELODA) 500 mg tabletoxaliplatin (ELOXATIN) 260 mg in dextrose 5% 250 mL IVPB Other Current Plans IV Maintenance Therapy Plan* Plan Start Date:10/01/2024 Plan Provider:Ez Perea DO Linked Problems Encounter for person [facility] Treatment Medications No medications scheduled. Past Treatment and Therapy Plans Oncology Supportive Care Therapy Plan Plan Name Start Date Discontinue Date Treatment Medications Discontinue Reason Plan Provider Hydration Therapy Plan 09/24/2024 10/01/2024 No medications scheduled. Therapy Complete Ez Perea DO Current Radiation Episodes * Radiation Oncology - Radiation Therapy - July 2024Overview* First Treatment Date Latest Treatment Date Treatment Site Technique Goal Episode Provider 08/05/2024 08/09/2024 Treatment Courses* Course [id number]_202408/05/2024 - 08/09/2024 Treatment Period Fraction Dose Fractions Total Dose Plans Planned RECTUM 08/05/2024 - 08/09/2024 500 5 / 2 ,500 Reference Points Delivered PTV_2500 08/05/2024 - 08/09/2024 2,500
--- OUTSIDE RECORDS SUMMARY | 2024-10-01 08:31 | XMS_ITS | Encounter Summary ---
Author Organization [facility] Address [facility] [place] [address] Care Team Providers Care Sales Agent Pest Control Service Name Role Phone Yared Shook MD Primary Care Provider [phone] Ez Rust MD Unavailable [phone] None, Provider Primary Care Provider Unavaila ble Dominique Varghese MD Primary Care Provider [phone] Yared Shook MD Primary Care Provider [phone] Roel Silvestre DO Primary Care Provider [phone] Encounter Details Date Type Department Care Team (Late st Contact Info) Description 02/28/2017 Abstract [facility] at [facility], [address] [address] Patrick Walker MA Social History Tobacco Use [...] Description 10/23/2024 9:15 AM CDT Office Visit [facility] [address] [place] [address] Teagan Cage, RADAR TESTER-C [facility]. [address] [place] [address] 11/28/2024 12:00 PM CDT Appointment [facility] [address] [place] [address] Bobby Tiwari MD [facility]. [address] [place], [place] [address] 12/04/2024 10:00 AM CDT Office Visit [facility] [address] [place] [address] Bobby Tiwari MD [facility]. [facility] [address] [place], [place] [phone] documented as of this encounter Procedures Procedure [...] CHOLESTEROL 126 LDL (CALCULATED) 88 01/16/2017 us [employer] [facility] LABORATORY Final Result * PROSTATE [...] documented as of this encounter Care Teams Sales Agent Pest Control Service Relationship Specialty Start Date End Date Yared Shook MD PCP - General INTERNAL MEDICINE 01/20/17 05/04/21 María Iniguez MD PCP - General 05/05/21 10/12/21 [place] [address] [address] [place] [id number] PCP - General FAMILY PRACTICE 10/13/21 05/23/23 Yared Shook MD [address] [facility] [address] [phone] PCP - General INTERNAL MEDICINE 05/24/23 12/21/23 Roel Silvesrte DO [address] [place] [address] PCP - General FAMILY PRACTICE 12/22/23 Ez Rust MD Three [facility]. [address] [address] Ryley Mud Logger CARDIOVASCULAR DISEASE 02/20/17 documented as of this encounter
--- OUTSIDE RECORDS SUMMARY | 2024-10-01 08:31 | XMS_ITS | Clinical Summary ---
Author Organization [facility] Jaclyn prado [place] Address [address] [address] Care Team Providers Care Neon Electrician Name Role Phone Roel Silvestre DO Primary [...] Encounters Date Type Department Care Team Description 09/25/2024 External Device Data ST[facility] ABSTRACTION Provider, Abstract 09/04/2024 External Device Data [place] ABSTRACTION Provider, Abstract 09/03/2024 External Device Data [place] ABSTRACTION Provider, Abstract 08/06/2024 External Device Data [place] ABSTRACTION Provider, Abstract 07/11/2024 External Device Data [place] ABSTRACTION Provider, Abstract 07/09/2024 External Device Data [place] ABSTRACTION Provider, Abstract from Last 3 Months Family History Medical History Relation Name Comments No Known Problems Child No Known Problems Father No Known Problems Mother Ovarian Cancer Sister Colon Cancer Neg Hx Relation Name Status Comments Child Alive Father Mother Sister Alive Social History Tobacco Use Types Packs/Day Years Used Date Smoking Tobacco: Every Day Cigarettes 0.5 65.6 Started: 03/07/1961 Alcohol Use Standard Drinks/Week Comments Yes 0 (1 standard drink = 0.6 oz pur e alcohol) socailly Sex and Gender Information Value Date Recorded Sex Assigned at Not on file Legal Sex Male 8:08 PM BATTERY HAND Gender Identity Not on file Sexual Orientation Not on file Last Filed Vital Signs Vital Sign Reading Time Taken Comments Blood Pressure 115/64 03/26/2024 12:18 PM BATTERY HAND Pulse 106 03/26/2024 12:18 PM BATTERY HAND Temperature 36.7 C (98 F) 03/26/2024 12:00 PM BATTERY HAND Respiratory Rate 17 03/26/2024 12:18 PM BATTERY HAND Oxygen Saturation 98% 03/26/2024 12:18 PM BATTERY HAND Inhaled Oxygen Concentration - - Weight 83.6 kg (184 lb 6.4 oz) 03/26/2024 11:22 AM BATTERY HAND Height 175.3 cm (5' 9) 03/26/2024 11:22 AM BATTERY HAND Body Mass Index 27.23 03/26/2024 11:22 AM BATTERY HAND Plan of Treatment Health Maintenance Due Date Last Done Comments PNEUMOCOCCAL VACCINE 50+ YEA RS (1 of 2 - PCV) 1957 ZOSTER VACCINE (1 of 2) 1988 DTAP/TDAP/TD VACCINES (1 - Tdap) 11/06/2011 11/05/19 12 RSV VACCINE (60+ or ) (1 - 1-dose 75+ series) 2013 COVID-19 Vaccine (5 - 2023-2 5 season) 2023 09/08/2021, 12/09/2020, 04/30/2020, Additional history exists INFLUENZA VACCINE (#1) 2024 Insurance [facility] [id number] [facility] [id number] Advance Directives For more information, please contact: [phone] * Full Code (Latest Code Status on File) Date Activated Date Inactivated Comments 03/26/2024 11:22 AM 03/26/2024 2:44 PM Care Teams Neon Electrician Relationship Specialty Start Date End Date Roel Silvestre DO [address] [place] [address] PCP - General Family Practice 03/05/24
--- OUTSIDE RECORDS SUMMARY | 2024-10-01 08:32 | XMS_ITS | Encounter Summary ---
Author Organization [facility] Address Counts include 234 beds at the [facility] [place] [address] Care Team Providers Care Pilates Coordinator Name Role Phone Yared Shook MD Primary Care Provider [phone] Ez Rust MD Unavailable [phone] None, Provider Primary Care Provider Unavaila ble Dominique aVrghese MD Primary Care Provider [phone] Yared Shook MD Primary Care Provider [phone] Roel Silvestre DO Primary Care Provider [phone] Encounter Details Date Type Department Care Team (Late st Contact Info) Description 05/20/2015 Abstract [facility] CONVERSION [address] [place], [place] [id number] , Generic Conversion, Social History Tobacco Use [...] Description 10/23/2024 9:15 AM CDT Office Visit [facility] [address] [place] [phone] Teagan Cage DESIGN SALES CONSULTANT-C [facility]. [address] [place] [address] 11/28/2024 12:00 PM CDT Appointment [facility] [address] [facility] [place] [address] Bobby Tiwari MD [facility]. [address] [place] [address] 12/04/2024 10:00 AM CDT [facility] [address] [place] [address] Bobby Tiwari MD [facility]. [address] [place], [place] [address] documented as of this encounter Visit Diagnoses Not on filedocumented in this encounter Additional Health Concerns Infection Onset Date Last Indicated Resolved Time COVID-19 Rule Out 05/10/2022 05/10/2022 05/10/2022 11:29 AM CDT documented as of this encounter Care Teams Pilates Coordinator Relationship Specialty Start Date End Date Yared Shook MD PCP - General INTERNAL MEDICINE 01/20/17 05/04/21 María Iniguez MD PCP - General 05/05/21 10/12/21 [place] [address] [facility]. [address] [place] [address] PCP - General FAMILY PRACTICE 10/13/21 05/23/23 Yared Shook MD [address] [facility] [address] [place] [address] PCP - General INTERNAL MEDICINE 05/24/23 12/21/23 Roel Silvestre DO [address] [place] [address] PCP - General FAMILY PRACTICE 12/22/23 Ez Rust MD [facility]. [address] [address] [place] Filter Tank Tender CARDIOVASCULAR DISEASE 02/20/17 documented as of this encounter
--- OUTSIDE RECORDS SUMMARY | 2024-10-01 08:32 | XMS_ITS | Clinical Summary ---
Author Organization [facility] Address [address] [place] [address] Care Team Providers Care Pet Sitter Name Role Phone Roel Silvestre Primary Care Provider [phone] Source Comments [facility],non-owned Affiliates and Associated Physician Practices is amultiple site organization consisting of ambulatory clinics and hospital sitesin [place], [place], [place] and [place]. This disclosure is being madepursuant to the Care Everywhere program and may not contain all information available regarding this patient. Last updated 17.[facility] Allergies No known active allergies Medications * Be aware that medications may not be up to date on this document. Alwaysverify current medications with the patient. metoprolol succinate XL 24hr (Toprol XL) 50 MG tablet Take 1 tablet every day by oral route. 4 Active atorvastatin (Lipitor) 40 MG tablet TAKE 1 TABLET BY MOUTH NIGHTLY AT BEDTIME 4 Active Eliquis 5 MG tablet Take 1 (one) tablet by mouth 2 times daily 4 Active Albuterol Sulfate, sensor, 108 (90 Base) MCG/ACT AEPB Inhale 2 puffs every 4 hours by inhalation route. Active budeson-glycopy rrol-formoterol (Breztri) 160-9-4.8 MCG/ACT inhaler INHALE 2 PUFFS INHALATION TWICE A DAY DIRECTED FOR COPD (CLEAN INHALER FOLLOWED BY 2 PRIMING PUFFS ONCE WEEKLY) 4 Active Multiple Vitamins-Minera ls (PreserVision AREDS 2) capsule Take 1 (one) [...] at Not on file Legal Sex Male 6:58 PM SKIP PIT WORKER Gender Identity Not on file Sexual Orientation Not on file Last Filed Vital Signs Vital Sign Reading Time Taken Comments Blood Pressure 136/75 02/22/2024 8:07 AM SKIP PIT WORKER Pulse 113 02/22/2024 8:07 AM SKIP PIT WORKER Temperature 36.4 C (97.5 F) 02/22/2024 8:07 AM SKIP PIT WORKER Respiratory Rate 18 02/22/2024 8:07 AM SKIP PIT WORKER Oxygen Saturation 98% 02/22/2024 8:07 AM SKIP PIT WORKER Inhaled Oxygen Concentration - - Weight 83.1 kg (183 lb 3.2 oz) 02/22/2024 8:07 A M SKIP PIT WORKER Height 175.3 cm (5' 9) 02/22/2024 8:07 AM SKIP PIT WORKER Body Mass Index 27.05 02/22/2024 8:07 AM SKIP PIT WORKER Plan of Treatment Health Maintenance Due Date Last Done Comments DTAP/TDAP/TD VACCINES (1 - Tdap) 1957 PNEUMOCOCCAL VACCINE 50+ (1 of 2 - PCV) 1957 ZOSTER VACCINE (1 of 2) 1988 Respiratory Syncytial Virus (RSV) Vaccine Pt: or over 60 yrs (1 - 1-dose 75+ series) 2013 COVID-19 VACCINE ( season) 2023 09/08/2021, 12/09/2020, 04/30/2020, Additional history exists DEPRESSION SCREENING 02/21/2024 MEDICARE AWV CALENDAR YEAR 2024 INFLUENZA VACCINE (#1) 2024 HEPATITIS B VACCINE Aged Out No longe r eligible based on patient's age to complete this topic HIB VACCINE Aged Out No longer eligi ble based on patient's age to complete this topic HPV VACCINE Aged Out No longer eligi ble based on patient's age to complete this topic MENINGOCOCCAL (Group B) VACCINE SHARED DECISION-MAKING Aged Out No longer eligible based on patient's age to complete this topic MENINGOCOCCAL GROUPS A/C/Y/W VACCINE Aged Out No longer eligible based on patient's age to complete this topic Insurance SELF PAY NO INSURANCE Member Subscriber Plan / Payer (Ef fective for All Dates) Name:Julius Velasquez Member ID:Not on file Relation to Subscriber:Not on file Name:JULIUS VELASQUEZ Subscriber ID:Not on file (Home) Address: [address] [place] [address] Payer ID:Not on file Group ID:Not on file Type:Self Pay Address: [place], [place] UHC MANAGED MEDICARE ADV Care Teams Pet Sitter Relationship Specialty Start Date End Date Roel Silvestre DO [address] [place] [phone] PCP - General Family Medicine 02/22/24
--- OUTSIDE RECORDS SUMMARY | 2024-10-01 08:32 | XMS_ITS | Encounter Summary ---
Author Organization [facility] Healthcare Address [address] [place] [address] Care Team Providers Care Leisure Studies Professor Name Role Phone Martine López MD Unavailable Boris Rowan MD Unavailable [phone] Roel Silvestre DO Primary Care Provider [phone] Ez Rust MD Unavailable [phone] Martine López MD Unavailable Karen Aquino MD Unavailable [phone] Ez Perea DO Unavailable [phone] Reason for Visit * Reason Comments Follow-up states pt does not drink water, has been dizzy Encounter Details Date Type Department Care Team (Late st Contact Info) Description 09/24/2024 10:30 AM CDT Office Visit [facility] Medical Office Building 2 Radiation Oncology [address] [place] [address] Shahrzad Balderrama, PA [address] [place] [address] [phone] Rectal cancer (HCC) (Primary Dx); Personal history of radiation therapy Social History Tobacco Use Types Packs/Day Years [...] on file 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 Gender Identity Not on file Sexual Orientation Not on file documented as of this encounter Last Filed Vital Signs Vital Sign Reading Time Taken Comments Blood Pressure 65/43 09/24/2024 9:48 AM CDT Pulse 98 09/24/2024 9:48 AM CDT Temperature - - Respiratory Rate - - Oxygen Saturation 99% 09/24/2024 9:48 AM CDT Inhaled Oxygen Concentration - - Weight 81.6 kg (180 lb) 09/24/2024 9:48 AM CDT Height - - Body Mass Index 28.52 09/11/2024 10:02 AM CDT documented in this encounter Progress Notes * Shahrzad Balderrama PA - 09/24/2024 10:30 AM CDT Radiation Oncologist: Boris Rowan MD Dictating provider: DAO Melara Primary Care Physician: Roel Silvestre DO Medical Oncologist: Karen Aquino MD Visconti, John L., DO Surgeon: Martine López MD Date of Service: 09/24/2024 RADIATION ONCOLOGY FOLLOW UP NOTE IDENTIFYING DATA: Cancer Staging Rectal cancer (HCC) Staging form: Colon and Rectum, AJCC 8th Edition - Clinical stage from 05/23/2024: Stage IIA (cT3, cN0, cM0) - Signed by Boris Rowan MD on 05/23/2024 Diagnosis Plan 1. Rectal cancer (HCC) 2. Personal history of radiation therapy IDENTIFYING DATA: 83 y.o. with history of cT3N0 rectal adenoca 25 Gy in 5 fx, completed 08/09/2024. Currently on CAPOX. Patient returns to the office today for routine follow-up evaluation. HISTORY OF PRESENT ILLNESS: Stephanie Jay is a very nice gentleman who returns accompanied by his for routine follow-up post radiation to rectum. Patient was last seen at completion of his radiation therapy treatments on 08/09/2024. Since completion of radiation therapy treatments patient is started on systemic therapy, tolerating. Patient and 's main complaint today is worsening dizziness and weakness. Patient admits to drinking coffee throughout the day with very little water. Patient has been trying to monitor his nutritional intake closely due to changes with bowel movements.Continues to have fatigue. Denies new lumps or bumps, new arthritic aches or pains, headaches, cough, shortness of breath, or fever/chills. Denies hematuria, dysuria, urinary frequency, urinary urgency, or incontinence. Deniesdark or bloody stools. Patient reports bowel movements are loose, improving. Patient is able to tole rate most foods with no issues. CURRENT MEDICATIONS: Current Outpatient Medications: albuterol (PROAIR DIGIHALER) 90 mcg/actuation inhaler, Inhale 2 puffs every 4 hours by inhalation route., Disp: , Rfl: atorvastatin (LIPITOR) 40 mg tablet, Take 1 tablet (40 mg total) by mouth nightly, Disp: , Rfl: gowhjzjwfu-rebqdsrw-kzxprowfad (BREZTRI) 160-9-4.8 mcg/actuation inhaler, Inhale 2 puffs twice a day by inhalation route., Disp: , Rfl: capecitabine (XELODA) 500 mg tablet, Take 4 tablets (2,000 mg) by mouth 2 (two) times a day. Take for 14 days on 7 days off, then repeat cycle every 21 days, Disp: 112 tablet, Rfl: 4 Eliquis 5 mg tablet, Take 1 tablet (5 mg total) by mouth 2 (two) times a day, Disp: , Rfl: metoprolol XL (TOPROL-XL) 50 mg extended release tablet, Take 1 tablet every day by oral route., Disp: , Rfl: multivitamin with minerals (Multiple Vitamin-Minerals) tablet, Take 1 tablet by mouth daily, Disp: , Rfl: ondansetron (ZOFRAN) 4 mg tablet, Take 1 tablet (4 mg total) by mouth every 6 (six) hours as neededfor nausea, Disp: 30 tablet, Rfl: [address] (PROTONIX) 40 mg EC tablet, Take 1 tablet (40 mg total) by mouth daily, Disp: 30 tablet, Rfl: 3 No current facility-administered medications for this visit. Facility-Administered Medications Ordered in Other Visits: sodium chloride 0.9% bolus 1,000 mL, 1,000 mL, intravenous, Once, Ez Perea DO, Last Rate:667 mL/hr at 09/24/24 1139, 1,000 mL at 09/24/24 1139 ALLERGIES: No Known Allergies REVIEW OF SYSTEMS: Except for the symptoms described above, the remainder of the review of systems is negative. Specifically, except as noted, when asked the patient expressed no complaints relative to constitutional (fever, weight loss), eyes, ears, nose, mouth, throat, neurologic, cardiovascular,pulmonary, breast, GI, , skin, musculoskeletal, endocrine, hematologic/lymphatic, or immunologic systems. All other systems negative. PHYSICAL EXAMINATION: Healthy appearing 83 y.o. White female in no distress. BP (!) 65/43 Pulse 98 Wt 81.6 kg (180 lb) SpO2 99% BMI 28.52 kg/m?? Wt Readings from Last 3 Encounters: 09/24/24 81 kg (178 lb 9.6 oz) 09/24/24 81.6 kg (180 lb) 09/11/24 83.9 kg (185 lb) There were no vitals filed for this visit. Physical Exam Vitals and nursing note reviewed. Exam conducted with a powder blender and pourer present. Constitutional: Appearance: Normal appearance. Cardiovascular: Rate and Rhythm: Normal rate and regular rhythm. Pulses: Normal pulses. Heart sounds: Normal heart sounds. Pulmonary: Effort: Pulmonary effort is normal. Breath sounds: Normal breath sounds. No wheezing, rhonchi or rales. Genitourinary: Rectum: No tenderness. Normal anal tone. Comments: No evidence of open sores Musculoskeletal: General: Normal range of motion. Cervical back: Normal range of motion and neck supple. Skin: General: Skin is warm and dry. Neurological: General: No focal deficit present. Mental Status: He is alert and oriented to person, place, and time. Motor: Weakness present. Gait: Gait abnormal. Psychiatric: Mood and Affect: Mood normal. Judgment: Judgment normal. Core Winder Machine Operator Present - Tamica Monique/medical appointment clerk Karnofsky Score: Normal activity with effort ECOG Score: 1 The Karnofsky performance scale today is 80, Normal activity with effort; some signs or symptoms ofdisease (ECOG equivalent 1). RADIOGRAPHIC DATA REVIEW: No recent imaging. ASSESSMENT: 1. 83 y.o.male 6 week(s) following completion of radiation therapy is stable with no evidence of disease progression. 2. RAD ONC PAIN PLAN: The patient is not currently having any pain that requires changes in pain management. 3. Dehydration PLAN: IV fluids ordered and patient sent to Medical Oncology due to dehydration. Discussed 2-3 days of IVfluids however patient would like to get fluids today and see how he feels. Patient has scheduled follow with Medical Oncology next week. Will contact patient later this week to check on his status and I did encourage patient to monitor his blood pressure at home along with drink fluids. Follow up in this office in 6 month(s) as arranged. Follow-up with imaging as arranged by Medical Oncology. Follow up with Martine López MD and Karen Aquino MD Visconti, John L., DO as previously arranged. Patient and were educated on concerning signs and symptoms and ER precautions. Patient was provided with copy of the After Visit Summary reviewing the recommendations for continued surveillance. Encouraged patient to contact our office with any questions, concerns, or problems that should arise prior to her next appointment. Total encounter time on 09/24/2024 was 32 minutes to include activities documented in note, time spent prior to visit reviewing chart and time in direct contact with patient. This time does not includetime spent in any separate reportable services. Shahrzad Balderrama PA-C Physician Engraver Letter Department of Radiation Oncology Floor Sanding Machine Operator completed using M*Modal Fluency Direct speaking software, therefore, anode adjuster variances may occur. The patient was seen in collaboration with MD Boris Modi MD Radiation Oncologist Department of Radiation Oncology [facility] [place] [employer] Cosigned by Boris Rowan MD at 09/30/2024 12:50 PM CDT documented in this encounter Plan of Treatment Not on file documented as of this encounter Visit Diagnoses Diagnosis Rectal cancer (HCC)- Primary Malignant neoplasm of rectum Personal history of radiation therapy Personal history of irradiation, presenting hazards to health documented in this encounter Care Teams Leisure Studies Professor Relationship Specialty Start Date End Date Roel Silvestre DO [address] [place] [id number] PCP - General Family Medicine 05/23/24 Martine López MD [address] [place] [address] [phone] Consulting Physician General Surgery 05/17/24 Boris Rowan MD [address] [place] [address] [phone] Radiation Oncologist Radiation Oncology 05/17/24 Ez Rust MD [address] [phone] Referring Physician Internal Medicine 05/23/24 Martine López MD [address] [place] [address] [phone] Surgeon General Surgery 05/23/24 Karen Aquino MD [address] [phone] Medical Oncologist/Veterinary Attendant Medical Oncology 05/31/24 09/29/24 Ez Perea DO [address] [place] [address] Medical Oncologist/Veterinary Attendant Hematology and Oncology 07/18/24 documented as of this encounter
--- OUTSIDE RECORDS SUMMARY | 2024-10-01 08:32 | XMS_ITS | Patient Health Record ---
Author Organization [facility] Address [address] [place], [place] [address] Care Team Providers Care Stave Hewer Name Role Phone Answer, Declined Unavailable Unavailable Allergies No Known Allergies Reason For Referral No Information Plan Of Treatment No Information Insurance Providers Payer Name Payer Address Payer Phone Subscriber Number Group Number Insured Name Patient Relationship to Insured Coverage Start Date Coverage End Date [facility] [address] [address] [place], [place] [id number] Stephanie Jay Self - patient is the insured
--- OUTSIDE RECORDS SUMMARY | 2024-10-01 08:32 | XMS_ITS | Clinical Summary ---
Author Organization [facility] Address [address] [place] [address] Care Team Providers Care Cigarette Maker Name Role Phone Ez Rust MD Unavailable Roel Silvestre DO Primary Care Provider [phone] Allergies No known active allergies Medications albuterol sulfate HFA 108 (90 Base) MCG/ACT inhaler Inhale 2 puffs into the lungs every 4 (four) hours as needed. 7 Active multi vitamin/mineral s tablet Take 1 tablet by mouth daily. Active Multiple Vitamins-Minera ls (PRESERVISION AREDS 2) CapIndications: Opthalmology Rx's Take 1 tablet by mouth every 12 (twelve) hours. Indications: Opthalmology Rx's Active metoprolol succinate ER (TOPROL-XL) 50 MG 24 hr tabletIndicatio ns:Hypertension , essential Take 1 tablet (50 mg total) by mouth daily. 90 tablet 3 3 Active Budeson-Glycopy rrol-Formoterol 160-9-4.8 MCG/ACT Aerosol INHALE 2 PUFFS INHALATION TWICE A DAY DIRECTED FOR COPD (CLEAN INHALER FOLLOWED BY 2 PRIMING PUFFS ONCE WEEKLY) 3 Active apixaban (ELIQUIS) 5 MG tablet Take 1 tablet (5 mg total) by mouth 2 (two) times daily. 60 tablet 5 5 Active atorvastatin (LIPITOR) 40 MG tabletIndicatio ns:Hypertension , essential,Dysli pidemia,Hypertr iglyceridemia TAKE 1 TABLET BY MOUTH NIGHTLY AT BEDTIME 90 tablet 1 5 Active Active Problems Problem Noted Date Diagnosed Date Disease of gallbladder, unspecified 11/29/2023 Atrial fibrillation ([facility]) 05/19/2023 Cigarette smoker 05/19/2023 Aortic aneurysm of unspecified site, without rup ture 11/15/2022 Chronic obstructive pulmonar y disease, unspecified ([facility]) 11/15/2022 Contact with and (suspected) exposure to [...] treatment. Assessment & Plan (03/05/2018 2:44 PM PRIVACY DIRECTOR): Stable, on daily aspirin therapy. Continued monitoring by vascular specialist. 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 Continue to monitor. Staunchly declines pneumococcal immunizations. Assessment & Plan (03/05/2018 2:42 PM PRIVACY DIRECTOR): The current medical regimen is effective; continue present plan and medications. [facility]. Hypertriglyceridemia 06/07/2016 Assessment & Plan (09/05/2018 9:11 AM CDT): Continues on moderately dosed atorvastatin without side effects or intolerances. Most recent lipid panel excellent. Repeat in 6 months. No treatment change. Assessment & Plan (03/05/2018 2:45 PM PRIVACY DIRECTOR): The current medical regimen is effective; continue present plan and medications. Atherosclerosis of right carotid artery 04/27/19 17 Overview (02/28/2018): Transitioned From: Coronary artery disease Assessment & Plan (03/05/2018 2:44 PM PRIVACY DIRECTOR): See PVD above. Lung nodules 02/05/2016 Assessment & Plan (09/05/2018 9:09 AM CDT): Most recent PET scan in our records reviewed, with what appears to be a stable nodule, with avidity which does not rule out a low metabolic neoplastic process. [facility] this. Assessment & Plan (03/05/2018 2:41 PM PRIVACY DIRECTOR): Stable pulmonary exam. Will order CT scan of the chest for reevaluation of pulmonary nodules on or after 04/14. Encouraged patient to [facility] with [facility] as [facility]. No change to present therapy. Asbestos exposure 01/21/2016 Calcified pleural plaque on chest x-ray 01/21/20 16 BMI 29.0-29.9,adult 06/05/2015 Medication management 06/05/2015 Overview (02/28/2018): Transitioned From: retirement use of drug Assessment & Plan (09/05/2018 9:12 AM CDT): Lab work ordered for next visit, to be drawn prior to visit for review. Assessment & Plan (03/05/2018 2:47 PM PRIVACY DIRECTOR): Obtain routine lab work at this time for ongoing medication management, including lipid panel, CBC and metabolic profile. PSA for yearly monitoring per patient request. Nicotine dependence 06/05/2015 Assessment & Plan (09/05/2018 9:08 AM CDT): Patient remains pre-contemplative, with no plans to quit in the future. Assessment & Plan (03/05/2018 2:41 PM PRIVACY DIRECTOR): Pre-contemplative, no desire to stop smoking. Currently smoking approximately 1/2 pack/day, or less. Typically smokes most frequently when driving. Bilateral carotid bruits 02/28/2014 Dyslipidemia Assessment & Plan (03/05/2018 2:45 PM PRIVACY DIRECTOR): The current medical regimen is effective; continue [...] arise. Assessment & Plan (03/05/2018 2:43 PM PRIVACY DIRECTOR): For all purposes controlled at this time on current dosing of metoprolol. Continue to monitor. No change to present treatment. Carotid stenosis, asymptomatic, left CAD (coronary artery disease) Assessment & Plan (09/05/2018 9:10 AM CDT): Stable, no chest pain or other anginal equivalent. Continues on metoprolol without difficulty. Yearly follow-up with cardiology. Assessment & Plan (03/05/2018 2:44 PM PRIVACY DIRECTOR): Stable. Yearly follow-up with cardiology. No signs or symptoms of angina. Continue current treatment. Encounters Date Type Department Care Team Description 07/18/2024 Telephone [facility], [address] [address] Ez Rust MD Surgical Clearance from Last 3 Months Immunizations Immunization Administration Dates Next Due Fluzone High Dose [...] Sign Reading Time Taken Comments Blood Pressure 120/60 04/24/2024 11:01 AM PRIVACY DIRECTOR Pulse 88 04/24/2024 11:01 AM PRIVACY DIRECTOR Temperature 36.6 C (97.8 F) 05/10/2022 11:01 AM CDT Respiratory Rate 12 05/10/2022 11:01 AM CDT Oxygen Saturation 95% 05/30/2023 12:11 PM CDT Inhaled Oxygen Concentration - - Weight 83 kg (183 lb) 04/24/2024 11:01 AM PRIVACY DIRECTOR Height 172.7 cm (5' 8) 04/24/2024 11:01 AM PRIVACY DIRECTOR Body Mass Index 27.83 04/24/2024 11:01 AM PRIVACY DIRECTOR Plan of Treatment Upcoming Encounters Date Type Department Care Team (Late st Contact Info) Description 10/23/2024 9:15 AM CDT Office Visit [facility] [address] [place] [address] Teagan Cage, BRUSH FABRICATION SUPERVISOR-C [address] [phone] 11/28/2024 12:00 PM CDT Appointment [facility] [id number] [place] [address] [phone] Bobby Tiwari MD Three [address] [phone] 12/04/2024 10:00 AM CDT Office Visit [facility] [address] [place] [phone] Bobby Tiwari MD [address] [phone] Health Maintenance Due Date Last Done Comments Pneumococcal Vaccine: 50+ Years (1 of 2 - PCV) 1957 Zoster Vaccines (1 of 2) 1988 Annual Medicare Wellness Visit 12/02/2003 DTaP, Tdap and Td Vaccines (1 - Tdap) 11/06/2011 11/05/2011, 11/05/2011 RSV Immunization or 60+ Years (1 - 1-dose 75+ series) 2013 COVID-19 Vaccine ( - season) 2023 09/08/2021, 12/09/2020, 04/30/2020, Additional history exists PHQ-2 (Physician [place]) 02/21/2024 Meningococcal B Vaccine Aged Out No l onger eligible based on patient's age to complete this topic Meningococcal Vaccine Aged Out No clemente tahira eligible based on patient's age to complete this topic RSV Immunizations Under 20 Months Aged Out No longer eligible based on patient's age to complete this topic Insurance [facility] Advance Directives Documents on File Type Date Recorded Patient 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 [address] [place] [address] Ryley Field Sales Specialist CARDIOVASCULAR DISEASE 02/20/17
--- OUTSIDE RECORDS SUMMARY | 2024-10-01 08:32 | XMS_ITS | Encounter Summary ---
Author Organization [facility] Address [address] [place] [address] Phone Care Team Providers Care Crossing Guard Name Role Phone Martine López MD Unavailable Boris Rowan MD Unavailable [phone] Roel Silvestre DO Primary Care Provider [phone] Ez Rust MD Unavailable [phone] Martine López MD Unavailable Karen Aquino MD Unavailable [phone] Ez Perea DO Unavailable [phone] Encounter Details Date Type Department Care Team (Late st Contact Info) Description 05/20/2024 Telephone [facility] Oncology [facility] Floor [address] [place] [address] Dede Yoon Social History Tobacco Use Types Packs/Day Years Used Date Smoking Tobacco: Never Assessed AUDIT-C Answer Date Recorded Q1: How often do you have a drink containing alc ohol? 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 Gender Identity Not on file Sexual Orientation Not on file documented as of this encounter Functional Status documented as of this encounter Plan of Treatment Not on file documented as of this encounter Visit Diagnoses Not on filedocumented in this encounter Care Teams Crossing Guard Relationship Specialty Start Date End Date Roel Silvestre DO [address] [place] [address] PCP - General Family Medicine 05/23/24 Martine López MD [address] [place] [address] [phone] Consulting Physician General Surgery 05/17/24 Boris Rowan MD [facility] [phone] Radiation Oncologist Radiation Oncology 05/17/24 Ez Rust MD [address] [phone] Referring Physician Internal Medicine 05/23/24 Martine López MD [address] [place] [address] [phone] Surgeon General Surgery 05/23/24 Karen Aquino MD [address] [phone] Medical Oncologist/Medical Secretary Receptionist Medical Oncology 05/31/24 09/29/24 Ez Perea DO [facility] [address] [place], [place] [address] Medical Oncologist/Medical Secretary Receptionist Hematology and Oncology 07/18/24 documented as of this encounter
--- NOTE | 2024-10-01 08:34 | ED.CHESTPAIN ---
HPI - Chest Pain General Chief Complaint: Chest Pain Stated Complaint: STEMI History of Present Illness HPI narrative: Pt receiving chemo and radiation for colorectal cancer at [facility] in [place]. Pt called 911 this morning due to weakness and concerns for dehydration. Pt did admit to CP lasting about 5 minutes this moring now pain free. Pt admits to a few episodes of anterior CP lasting 5 minutes r so and resolving on own. Pt says the pain happens when he is lying still and resolves on own. EMS noted some st elevation in inferior leads and called STEMI. Pt CP has resolved now. Related Data Home Medications ?Medication ?Instructions ?Recorded ?Confirmed ?Last Taken ?Type apixaban 5 mg tablet (Eliquis) 5 mg PO BID 01/01/24 10/01/24 03/12/24 History atorvastatin 40 mg tablet 40 mg PO HS 10/01/24 10/01/24 Unknown History budesonide 160 mcg-glycopyr 9 2 inh inhalation BID 10/01/24 10/01/24 Unknown History mcg-formot 4.8 mcg/actuation HFA inhaler ([employer]) ondansetron HCl 4 mg tablet 4 mg PO Q6H PRN nausea and vomiting 10/01/24 10/01/24 Unknown History pantoprazole 40 mg tablet,delayed 40 mg PO DAILY 10/01/24 10/01/24 Unknown History release sucralfate 1 gram tablet 1 g PO QID 10/01/24 10/01/24 Unknown History vit C 250 mg-vit E 90 mg-zinc 40 1 tablet PO BID 10/01/24 10/01/24 Unknown History mg-copper 1 do-[id number] capsule ([facility] AREDS-2) Allergies Allergy/AdvReac Type Severity Reaction Status Date / Time No Known Allergies Allergy Verified 04/30/24 10:53 Review of Systems Review of Systems: All systems reviewed & are unremarkable except as noted in HPI and below PMFSH Past Medical History Medical History (Updated 10/01/24 @ 13:28 by Nimo Santiago APRN) Colorectal cancer Chronic anticoagulation Hypertension Atrial fibrillation Carotid artery stenosis Hyperlipidemia CAD (coronary artery disease) Surgical History Surgical History Hx of CABG 2004 Family History Family History Mother Patient's mother is , Onset Age: 88 Father Family history of lung cancer, Onset Age: 83 Sibling Family history of malignant neoplasm of ovary Social History Social History Smoking packs per day: 0.25 Smoking cigarettes per day: 5.0 Years smoked: 65 Smoking pack-years: 16.25 Smoking status: Current some day smoker Tobacco type: cigarettes Second hand tobacco smoke exposure: Yes Alcohol intake: never Alcohol use details: Social Substance use: never Substance use type: does not use Lack of Transportation: No Lack of Food: Never True Current Housing: I Have Housing Concerned About Future Housing: No Difficulty Paying Gas/Electric Bills: No Difficulty Paying for Meds: No Currently Unemployed: No Education: High School Diploma/GED Difficulty w/ Childcare or Family Care: No Living arrangements: with family Additional living arrangements comments: With sp Spiritual care concerns: No Exam Const: General: healthy appearing and no acute distress Nutritional Appearance: well nourished Orientation/consciousness: patient oriented x3 Limitations: no limitations Eyes: Pupils: Equal, round and reactive pupils present EOM: EOMs intact bilaterally Neck: Neck: normal visual inspection Chest: Chest palpation & inspection: normal inspection of the chest and no tenderness Resp: Effort & Inspection: normal respiratory effort Auscultation: clear to auscultation bilaterally Cardio: Rate: regular rate Rhythm: regular rhythm GI: Auscultation: normal bowel sounds Back/Spine/Pelvis: Back: no CVA tenderness Skin: General skin exam: normal color Rashes: no rashes Wounds: no wounds Neuro: General: patient oriented x3, moves all extremities, no meningeal signs, no focal motor deficits and CN's II-XI intact bilaterally Cranial nerves: Yes Nystagmus not present Speech: normal speech Extrem: General: normal to inspection and no clubbing, cyanosis or edema Psych: Mental Status: mental status grossly normal Affect: normal affect Attitude: cooperative Course Vital Signs Vital signs: Vital Signs Temperature 97.6 F 10/01/24 08:21 Pulse Rate 79 10/01/24 08:21 Respiratory Rate 17 10/01/24 08:21 Blood Pressure 117/52 L 10/01/24 08:21 Pulse Oximetry 97 10/01/24 08:21 Oxygen Delivery Room Air 10/01/24 08:21 Temperature 97.7 F 10/01/24 12:25 Pulse Rate 64 10/01/24 12:25 Respiratory Rate 17 10/01/24 12:25 Blood Pressure 104/56 L 10/01/24 12:25 Pulse Oximetry 97 10/01/24 12:25 Oxygen Delivery Room Air 10/01/24 12:10 MDM - Chest Pain MDM Narrative Medical decision making narrative: Pt presents with weakness and anterior CP now resolved. some concern with stemi on prehospital 12 lead, unable to send. stemi activated but does not appear like stemi here. sent to Dr Walker who agrees and will cancel stemi. will still rule out acs since pt has had some intermittent Cp but will get labs to rule out infection or dehydration given chemo/radiation. will finish IV f luids as pressure is now 117 but was low per ems. pt trop is neg and no cp so not worried about acs. sodium is 130 and bun and cr elevated so pt is dry. discussed with Dr Valentine and will observe and give fluids slowly to correct dehydration and low sodium Lab Data 10/01/24 08:37 10/01/24 08:37 Labs: Lab Results 10/01/24 10/01/24 Range/Units 08:37 08:50 WBC 7.8 (4.5-10.0) K/mm3 RBC 3.81 L (4.6-6.20) M/mm3 Hgb 10.0 L (14.0-18.0) g/dL Hct 32.4 L (42.0-52.0) % MCV 85.0 (80-100) fl MCH 26.2 (26-34) pg MCHC 30.9 L (32-36) g/dl RDW 19.3 H (11.5-14.5) % Plt Count 398 H (150-375) k/mm3 MPV 10.0 (7.4-10.4) fl Immature Gran % (Auto) Not Reportable Neut % (Auto) Not Reportable Lymph % (Auto) Not Reportable [place] % (Auto) Not Reportable Eos % (Auto) Not Reportable Baso % (Auto) Not Reportable Lymph # (Auto) Not Reportable [place] # (Auto) Not Reportable Eos # (Auto) Not Reportable Baso # (Auto) Not Reportable Abs Immat Gran (auto) Not Reportable Absolute Neuts (auto) Not Reportable Absolute Nucleated RBC Not Reportable Total Counted 100 Neutrophils % (Manual) 52 (46-73) % Band Neutrophils % 12 H (0-6) % Lymphocytes % (Manual) 22 (18-44) % Monocytes % (Manual) 11 H (3-9) % Eosinophils % (Manual) 3 (0-4) % Basophils % (Manual) 0 (0-1) % Nucleated RBC % Not Reportable Abs Neuts (Manual) 4.99 (1.3-6.7) K/mm3 Abs Lymphs (Manual) 1.71 (1.1-4.5) K/mm3 Abs Monocytes (Manual) 0.85 (0.1-0.90) K/mm3 Absolute Eos (Manual) 0.23 (0.02-0.50) K/mm3 Abs Basophils (Manual) 0.00 (0.0-0.1) K/mm3 Nucleated RBCs 4 % Atypical Lymphocytes Present Platelet Estimate Increased (Adequate) Large Platelets Present Giant Platelets Present Polychromasia 1+ Hypochromasia 1+ Anisocytosis 1+ Deonna Cells 1+ Acanthocytes (Spur) 1+ Schistocytes Rare PT 18.0 H (11.1-14.7) Seconds INR 1.5 APTT 37.1 H (22.3-36.8) Seconds Sodium 130 L (137-145) mmol/L Potassium 3.7 (3.4-5.0) mmol/L Chloride 100 (98-107) mmol/L Carbon Dioxide 15 L (22-30) mmol/L Anion Gap 15 H (4-12) mmol/L BUN 45 H D (9-20) mg/dL Creatinine 2.89 H (0.7-1.3) mg/dL Estim Creat Clear Calc 17 ml/min Estimated GFR 21 L (59 - ) Glucose 108 (65-110) mg/dL Calcium 8.3 L (8.4-10.2) mg/dL Total Bilirubin 0.5 (0.2-1.3) mg/dL AST 50 (17-59) U/L ALT 27 (6-50) U/L Alkaline Phosphatase 56 (38-126) U/L Troponin I 0.029 (0.000-0.034) ng/mL Total Protein 5.4 L (6.3-8.2) g/dL Albumin 2.7 L (3.5-5.1) g/dL Triglycerides 204 H (<150) mg/dL Cholesterol 83 (0-200) mg/dL LDL Cholesterol Direct < 30 mg/dL HDL Direct 26 mg/dL Blood Type B Positive Antibody Screen Negative ECG Data EKG #1: Interpretation: nsr with occ pvc's, rbbb no acute st changes Discharge Plan Discharge Clinical Impression: Acute hyponatremia, Acute dehydration Patient Disposition: Still a Patient Condition: Stable
[2024-10-01 08:43] LABS: Hematocrit 32.4 % (42.0-52.0); Hemoglobin 10.0 g/dL (14.0-18.0); Mean Corpuscular HGB Conc 30.9 g/dl (32-36); Mean Corpuscular Hemoglobin 26.2 pg (26-34); Mean Corpuscular Volume 85.0 fl (80-100); Platelet Count Result 398 k/mm3 (150-375); Red Blood Count 3.81 M/mm3 (4.6-6.20); White Blood Count 7.8 K/mm3 (4.5-10.0)
[2024-10-01] MEDS: NITROGLYCERIN OINTMENT 1 INCH DOSE 0.5 INCH TRANSDERM (08:44)
[2024-10-01 08:54] LABS: INR 1.5; Prothrombin Time 18.0 Seconds (11.1-14.7)
[2024-10-01 08:55] LABS: Partial Thromboplastin Time 37.1 Seconds (22.3-36.8)
[2024-10-01 08:58] LABS: Alanine Aminotransferase 27 U/L (6-50); Albumin Level 2.7 g/dL (3.5-5.1); Alkaline Phosphatase 56 U/L (38-126); Anion Gap 15 mmol/L (4-12); Aspartate Amino Transferase 50 U/L (17-59); Bilirubin,Total 0.5 mg/dL (0.2-1.3); Blood Urea Nitrogen 45 mg/dL (9-20); Calcium 8.3 mg/dL (8.4-10.2); Carbon Dioxide 15 mmol/L (22-30); Chloride 100 mmol/L (98-107); Cholesterol 83 mg/dL (0-200); Estimated CRCL calculation 17 ml/min; Estimated Glomerular Filt Rate 21; Glucose 108 mg/dL (65-110); HDL Direct 26 mg/dL; Potassium 3.7 mmol/L (3.4-5.0); Sodium 130 mmol/L (137-145); Total Protein 5.4 g/dL (6.3-8.2); Triglycerides 204 mg/dL (<150)
[2024-10-01 09:05] LABS: Troponin I 0.029 ng/mL (0.000-0.034)
[2024-10-01 09:20] LABS: Band Neutrophils Percent 12 % (0-6); Basophils Absolute Manual 0.00 K/mm3 (0.0-0.1); Basophils Percent Manual 0 % (0-1); Eosinophils Absolute Manual 0.23 K/mm3 (0.02-0.50); Eosinophils Percent Manual 3 % (0-4); Giant Platelets Present; Lymphocytes Absolute Manual 1.71 K/mm3 (1.1-4.5); Lymphocytes Percent Manual 22 % (18-44); Monocytes Absolute Manual 0.85 K/mm3 (0.1-0.90); Monocytes Percent Manual 11 % (3-9); Neutrophils Absolute Manual 4.99 K/mm3 (1.3-6.7); Neutrophils Percent Manual 52 % (46-73); Total Cells Counted 100
[2024-10-01 09:21] LABS: Acanthocytes 1+; Anisocytosis 1+; Burr Cells 1+; Hypochromasia 1+; Schistocytes Rare
[2024-10-01 09:22] LABS: Polychromasia 1+
[2024-10-01] MEDS: PANTOPRAZOLE SODIUM IV 40 MG VIAL IV PUSH (09:52)
[2024-10-01] MEDS: SODIUM CHLORIDE 0.9% IV 1,000 ML 150 ML IV CONT (10:00)
--- NOTE | 2024-10-01 11:46 | ECG_ITS ---
Test Date: 2024-10-01 11:52:23 Measurements Intervals [place] Rate: 70 P: 65 PA: 166 QRS: 4 QRSD: 134 T: 0 QT: 425 QTc: 460 Interpretive Statements SINUS RHYTHM WITH OCCASIONAL VENTRICULAR PREMATURE COMPLEXES RIGHT BUNDLE BRANCH BLOCK BORDERLINE ST-T WAVE ABNORMALITY- ANTEROLATERAL LEADS BASELINE ARTIFACT- I, II, III, AVR, AVL, AVF, V4-V6 ABNORMAL ECG Compared to ECG 10/01/2024 08:22:36 NO SIGNIFICANT CHANGE Electronically Signed On 10-01-2024 12:03:21 CDT by Cornelio Barnett D.O.
[2024-10-01 12:14] LABS: Troponin I 0.026 ng/mL (0.000-0.034)
--- NOTE | 2024-10-01 13:06 | PM.IMHP ---
H&P: HPI History of Present Illness Date/Time: 10/01/24 13:06 Chief Complaint: Falls, Weakness Narrative: 83 y/o M with PMH of colorectal cancer (on chemo and radiation) and CABG presents here with falls and generalized weakness. The patient presents here from home via EMS on 10/01 for further evaluation of generalized weakness and multiple falls. He reports worsening generalized weakness for the past week which has resulted in 6-7 falls. Most recent fall was 2 days ago. He denies head strike or loss of consciousness. He is currently on anticoagulation, last dose yesterday. The patient is also reporting chest pain. Pain has been intermittent for the past couple weeks. Episodes tend to last a couple minutes. He describes the chest pain as across his chest, nonradiating, intermittent, and improves with pain medications. Per EMS report to the emergency department the patient was orthostatic. BP initially 90/40 while the patient was lying down and 60/38 upon standing. He was given a 700 mL bolus and arrived with a blood pressure of 117/52. He reports accompanying poor appetite, shortness of breath (ongoing, has hx of asbestos exposure), and diarrhea (ongoing for the past 2-3 months). Denies nausea, vomiting, fever, chills, and body aches. Initial VS at presentation: 97.6? F, HR 79, RR 17, 117/52, and 97% on RA. ED workup showed: No leukocytosis, hemoglobin 10.0 (11.8 in 2023), INR 1.5, sodium 138, creatinine 2.89 and GFR 21 (1.2 and GFR 58 in 2023). CXR showed no acute cardiopulmonary disease. Initial EKG showed sinus rhythm with occasional ventricular premature complexes, right bundle branch block. Review of Systems Review of Systems: All systems reviewed & are unremarkable except as noted in HPI and below [facility] Past Medical History Medical History (Updated 10/01/24 @ 22:39 by Nimo Santiago APRN) Colorectal cancer Chronic anticoagulation Hypertension No longer on medications Atrial fibrillation Carotid artery stenosis Hyperlipidemia CAD (coronary artery disease) Surgical History Surgical History Hx of CABG 2004 Family History Family History Mother Patient's mother is , Onset Age: 88 Father Family history of lung cancer, Onset Age: 83 Sibling Family history of malignant neoplasm of ovary Social History Social History Smoking packs per day: 0.25 Smoking cigarettes per day: 5.0 Years smoked: 65 Smoking pack-years: 16.25 Smoking status: Current some day smoker Tobacco type: cigarettes Second hand tobacco smoke exposure: Yes Alcohol intake: never Alcohol use details: Social Substance use: never Substance use type: does not use Lack of Transportation: No Lack of Food: Never True Current Housing: I Have Housing Concerned About Future Housing: No Difficulty Paying Gas/Electric Bills: No Difficulty Paying for Meds: No Currently Unemployed: No Education: High School Diploma/GED Difficulty w/ Childcare or Family Care: No Living arrangements: with family Additional living arrangements comments: With sp Spiritual care concerns: No Meds Home Medications and Allergies Home Medications ?Medication ?Instructions ?Recorded ?Confirmed ?Type apixaban 5 mg tablet (Eliquis) 5 mg PO BID 01/01/24 10/01/24 History atorvastatin 40 mg tablet 40 mg PO HS 10/01/24 10/01/24 History budesonide 160 mcg-glycopyr 9 2 inh inhalation BID 10/01/24 10/01/24 History mcg-formot 4.8 mcg/actuation HFA inhaler ([employer]) ondansetron HCl 4 mg tablet 4 mg PO Q6H PRN nausea and vomiting 10/01/24 10/01/24 History pantoprazole 40 mg tablet,delayed 40 mg PO DAILY 10/01/24 10/01/24 History release sucralfate 1 gram tablet 1 g PO QID 10/01/24 10/01/24 History vit C 250 mg-vit E 90 mg-zinc 40 1 tablet PO BID 10/01/24 10/01/24 History mg-copper 1 ik-ynfipi-hztdla capsule ([facility] AREDS-2) Allergies Allergy/AdvReac Type Severity Reaction Status Date / Time No Known Allergies Allergy Verified 04/30/24 10:53 Vital Signs Vital Signs - 24 hr 10/01/24 08:21 10/01/24 08:34 10/01/24 08:34 Temperature 97.6 F Pulse Rate 79 70 Respiratory Rate 17 Blood Pressure 117/52 L Pulse Oximetry 97 95 Oxygen Delivery Room Air Room Air 10/01/24 10:05 10/01/24 11:47 10/01/24 12:25 Temperature 97.7 F Pulse Rate 72 70 64 Respiratory Rate 20 20 17 Blood Pressure 122/50 L 106/56 L 104/56 L Pulse Oximetry 100 100 97 Oxygen Delivery Exam Const: General: comfortable and no acute distress Other: , male, elderly, nontoxic appearance HENMT: Face/Nose/Sinus: Normal nares present Mouth: Yes dry mucous membranes Eyes: General: appearance normal, both eyes and all related structures Sclera: sclerae normal Pupils: Equal, round and reactive pupils present EOM: EOMs intact bilaterally Resp: Effort & Inspection: normal respiratory effort Auscultation: clear to auscultation bilaterally Cardio: Rate: regular rate Rhythm: regular rhythm Other: S1-S2 present without murmur, rub, ectopy GI: Other: Mild epigastric tenderness, normoactive bowel sounds in all quadrants, no distension and abdomen is soft Skin: General skin exam: normal color and no rashes or lesions noted Wounds: no wounds Neuro: Speech: normal speech Motor exam (neuro): 5/5 motor strength present throughout Sensory Exam: normal sensation Other: A&O x4 Extrem: General: normal to inspection Psych: Mental Status: mental status grossly normal Affect: normal affect Other: Good insight and judgment, pleasant H&P: Results Labs Labs: Short CBC 10/01/24 Range/Units 08:37 WBC 7.8 (4.5-10.0) K/mm3 Hgb 10.0 L (14.0-18.0) g/dL Hct 32.4 L (42.0-52.0) % Plt Count 398 H (150-375) k/mm3 BMP 10/01/24 08:37 Sodium 130 L Potassium 3.7 Chloride 100 Carbon Dioxide 15 L BUN 45 H D Creatinine 2.89 H Glucose 108 Calcium 8.3 L Cardiac Enzymes 10/01/24 10/01/24 Range/Units 08:37 11:44 Troponin I 0.029 0.026 (0.000-0.034) ng/mL Liver Function 10/01/24 Range/Units 08:37 Total Bilirubin 0.5 (0.2-1.3) mg/dL AST 50 (17-59) U/L ALT 27 (6-50) U/L Alkaline Phosphatase 56 (38-126) U/L Albumin 2.7 L (3.5-5.1) g/dL Assessment and Plan Assessment and plan (1) Acute dehydration: Code(s): E86.0 - Dehydration Status: Acute Assessment and Plan: Acute dehydration as evidenced by positive orthostatics and BRITTANIE. BP 90/40 lying down and 60/38 standing per EMS. Arrived 117/52 on 10/01. Likely precipitated/brought on by poor appetite and diarrhea. - sodium 130, monitor - IV fluids: NS 125 mL/hr x1L -> LR 100 mL/hr x 1L, +700 mL bolus per EMS - trend renal function - grounds and nursery specialist for assistance with increasing caloric intake (2) BRITTANIE (acute kidney injury): Code(s): N17.9 - Acute kidney failure, unspecified Status: Acute Assessment and Plan: - creatinine 2.89, BUN 45, GFR 21. - baseline creatinine in 2023 appears to be 1.2-1.4 - check renal ultrasound, CK, urine sodium, protein/creatinine, urea, and UA - suspected to be secondary to acute dehydration. If no improvement post fluids consider further workup and nephrology consultation (3) Chest pain: Code(s): R07.9 - Chest pain, unspecified Status: Acute Assessment and Plan: - EKG, initial: Sinus rhythm with occasional ventricular premature complexes, right bundle-branch block - EKG, repeat (1): No significant changes when compared to EKG done earlier same day - CXR: No acute cardiopulmonary disease - Troponin: 0.029 -> 0.026, 6 hour ordered - ASA 324 given by EMS - SL nitro PRN - high suspicion for some level of demand ischemia due to dehydration/positive orthostatic blood pressures. Patient was also endorsing epigastric pain, could be more so GERD related verses cardiac in nature. 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 Consider Cardiology consultation if patient continues to have intermittent chest pain despite rehydration and improved blood pressure. 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 Follows with Oncology at [facility]. Plan Diet: regular GI Prophylaxis: n/a DVT Prophylaxis: Eliquis IV fluids: NS 150 mL/hr x1L and LR at 100 mL/hr Lines/Tubes: peripheral IV Code Status: full code Quality VTE Prophylaxis VTE prophylaxis: pharmacologic ordered Hospitalist MIPS Advance Care Plan I have confirmed that the patient's Advanced Care Plan is present, code status is documented, or surrogate decision maker is listed in patient medical record.: Yes Medication Reconciliation I have utilized all available resources to obtain, update and review the patients current medications (includes all prescriptions, OTC, herbals, cannabis, and nutritional supplements).: Yes
[2024-10-01] MEDS: LACTATED RINGERS 1,000 ML 100 ML IV CONT (17:03)
[2024-10-01 21:20] LABS: Urea Random Urine 442 MG/DL
[2024-10-01 21:22] LABS: Total Protein Urine Random 24 mg/dL
[2024-10-01 21:42] LABS: Ur Ttl Prot Creatinine Ratio 0.05 mg/mg (0-0.20)
[2024-10-01] MEDS: CALCIUM CARBONATE (TUMS) 500 MG (200 MG ELEMENTAL) PO (22:48)
[2024-10-02] VITALS (12 sets, daily range): BP systolic 96–122; BP diastolic 41–76; PULSE 78–119; RESP 16–20; TEMP 36.3–36.6; O2SAT 96–100; BMI 24.3
[2024-10-02 04:04] LABS: Toxigenic C. Diff NEGATIVE (NEGATIVE)
--- NOTE | 2024-10-02 05:32 | PC.NURSE ---
Pt on tele. Denies chest pain/SoB overnight. Pt complained about having intermittent abdominal pain. Having loose bowel movements; negative for C-diff. Pt's telemetry strip shared with provider (similar to previous strips) (looks ST elevation); no new order/pt denies any chest symptoms.
[2024-10-02] MEDS: ACETAMINOPHEN 325 MG TABLET 650 MG PO ×2 (06:56→19:59)
[2024-10-02] MEDS: SUCRALFATE 1 GM TABLET PO ×4 (08:19→20:02)
[2024-10-02] MEDS: PANTOPRAZOLE 40 MG TABLET PO (08:20)
[2024-10-02] MEDS: APIXABAN 5 MG TABLET PO ×2 (08:20→17:08)
[2024-10-02] MEDS: OPTI-GEN TAB 1 TABLET PO ×2 (08:20→17:08)
[2024-10-02] MEDS: ACETAMINOPHEN 500 MG TABLET 1000 MG PO (08:21)
[2024-10-02 09:28] LABS: Hematocrit 33.6 % (42.0-52.0); Hemoglobin 10.8 g/dL (14.0-18.0); Mean Corpuscular HGB Conc 32.1 g/dl (32-36); Mean Corpuscular Hemoglobin 26.7 pg (26-34); Mean Corpuscular Volume 83.0 fl (80-100); Platelet Count Result 401 k/mm3 (150-375); Red Blood Count 4.05 M/mm3 (4.6-6.20); White Blood Count 9.8 K/mm3 (4.5-10.0)
[2024-10-02 09:41] LABS: Alanine Aminotransferase 23 U/L (6-50); Albumin Level 2.7 g/dL (3.5-5.1); Alkaline Phosphatase 61 U/L (38-126); Anion Gap 12 mmol/L (4-12); Aspartate Amino Transferase 38 U/L (17-59); Bilirubin,Total 0.8 mg/dL (0.2-1.3); Blood Urea Nitrogen 60 mg/dL (9-20); Calcium 8.5 mg/dL (8.4-10.2); Carbon Dioxide 17 mmol/L (22-30); Chloride 101 mmol/L (98-107); Estimated CRCL calculation 15 ml/min; Estimated Glomerular Filt Rate 18; Glucose 123 mg/dL (65-110); Magnesium 2.2 mg/dL (1.6-2.3); Potassium 4.2 mmol/L (3.4-5.0); Sodium 130 mmol/L (137-145); Total Protein 5.5 g/dL (6.3-8.2)
[2024-10-02 09:43] LABS: Creatine Kinase 144 U/L (55-170)
[2024-10-02 09:53] LABS: Troponin I 0.023 ng/mL (0.000-0.034)
[2024-10-02 09:54] LABS: Band Neutrophils Percent 50 % (0-6); Lymphocytes Absolute Manual 1.07 K/mm3 (1.1-4.5); Lymphocytes Percent Manual 11 % (18-44); Metamyelocytes Percent 1 %; Monocytes Absolute Manual 0.88 K/mm3 (0.1-0.90); Monocytes Percent Manual 9 % (3-9); Neutrophils Absolute Manual 7.74 K/mm3 (1.3-6.7); Neutrophils Percent Manual 29 % (46-73); Smudge Cells PRESENT; Total Cells Counted 100
[2024-10-02 09:55] LABS: Acanthocytes 1+; Anisocytosis 1+; Burr Cells 1+; Giant Platelets Present; Hypochromasia 1+; Ovalocytes 1+; Schistocytes 1+; Tear Drop Cells 1+; Toxic Granulation Present
--- NOTE | 2024-10-02 10:35 | P.PNIM_ITS ---
Progress Note: A&P Assessment and Plan (1) Acute dehydration: Code(s): E86.0 - Dehydration Status: Acute Assessment and Plan: * IV fluids: NS 125 mL/hr x1L -> LR 100 mL/hr x 1L, +700 mL bolus per EMS. * NS @ 100 ml/hr. * Sodium 130. * Trend renal function. * Webmethods Consultant for assistance increasing caloric intake. (2) Acute hyponatremia: Code(s): E87.1 - Hypo-osmolality and hyponatremia Status: Acute Assessment and Plan: * Sodium 130. * NS @ 100 ml/hr. (3) BRITTANIE (acute kidney injury): Code(s): N17.9 - Acute kidney failure, unspecified Status: Acute Assessment and Plan: * creatinine 2.89, BUN 45, GFR 21 on admission. * Creatinine 3.30, BUN 60, GFR 18 today. * baseline creatinine in 2023 appears to be 1.2-1.4. * check renal ultrasound, CK, urine sodium, protein/creatinine, urea, and UA. * Nephrology consult ordered. (4) Chest pain: Code(s): R07.9 - Chest pain, unspecified Status: Acute Assessment and Plan: * EKG, initial: Sinus rhythm with occasional ventricular premature complexes, right bundle-branch block * EKG, repeat (1): No significant changes when compared to EKG done earlier same day * CXR: No acute cardiopulmonary disease * Troponin: 0.029 -> 0.026, 6 hour ordered * ASA 324 given by EMS * SL nitro PRN * high suspicion for some level of demand ischemia due to dehydration/positive orthostatic blood pressures. Patient was also endorsing epigastric pain, could be more so GERD related verses cardiac in nature. 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 Consider Cardiology consultation if patient continues to have intermittent chest pain despite rehydration and improved blood pressure. * telemetry monitoring- SR 95. (5) Atrial fibrillation: Qualifiers: Atrial fibrillation type: unspecified Qualified Code(s): I48.91 - Unspecified atrial fibrillation Code(s): I48.91 - Unspecified atrial fibrillation Status: Chronic Assessment and Plan: * continue home medications: Eliquis * initial EKG showed sinus rhythm with occasional ventricular premature complexes and right bundle branch block. 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 * Follows with Oncology at [facility]. (7) Protein-calorie malnutrition, moderate: Code(s): E44.0 - Moderate protein-calorie malnutrition Status: Acute Assessment and Plan: * Per EMR loss of 21 pounds in 6 months. * Webmethods Consultant consult. * Add Ensure plus High Protein BID. Regular diet. * Add Mirtazapine 15 mg PO QHS. * Encourage oral intake. (8) Diarrhea: Code(s): R19.7 - Diarrhea, unspecified Status: Acute Assessment and Plan: * Stool negative for c diff. * Stool cultures obtained. * Ns@ 100 ml/hr. Subjective Date/time seen: 10/02/24 10:35 Interval history: Patient sitting up on bedside commode with family at bedside. Patient having diarrhea this past week and decreased appetite. Patient denies palpitations, headache, nausea, or vomiting. Reports chest pain for 3-4 months. Family asking for an appetite stimulant. Patient reports feeling a little dizzy when he gets up and down. Review of Systems Review of Systems: All systems reviewed & are unremarkable except as noted in HPI and below Exam Const: General: comfortable and no acute distress Other: , male, elderly, nontoxic appearance Resp: Effort & Inspection: normal respiratory effort Auscultation: clear to auscultation bilaterally Cardio: Rate: regular rate Rhythm: regular rhythm Other: S1-S2 present without murmur, rub, ectopy GI: Other: Mild epigastric tenderness, normoactive bowel sounds in all quadrants, no distension and abdomen is soft Skin: General skin exam: normal color Other: Skin tears bilateral knees and right elbow. No drainage. Areas are dry. Neuro: Speech: normal speech Motor exam (neuro): 5/5 motor strength present throughout Sensory Exam: normal sensation Other: A&O x4 Extrem: General: normal to inspection Psych: Mental Status: mental status grossly normal Affect: normal affect Other: Good insight and judgment, pleasant Objective Data Vital Signs Vital Signs: Vital Signs - 24 hr 10/01/24 11:47 10/01/24 12:10 10/01/24 12:25 Temperature 97.7 F Pulse Rate 70 64 Respiratory Rate 20 17 Blood Pressure 106/56 L 104/56 L Pulse Oximetry 100 97 Oxygen Delivery Room Air 10/01/24 20:10 10/01/24 22:31 10/02/24 00:00 Temperature 98.3 F Pulse Rate 56 L 89 78 Respiratory Rate 18 Blood Pressure 113/41 L Pulse Oximetry 97 Oxygen Delivery 10/02/24 04:00 10/02/24 04:30 Temperature 97.8 F Pulse Rate 83 79 Respiratory Rate 16 Blood Pressure 105/41 L Pulse Oximetry 100 Oxygen Delivery Intake/Output Intake/Output: Intake & Output 09/29/24 09/30/24 10/01/24 10/02/24 23:59 23:59 23:59 23:59 Intake Total 480 475 Balance 480 475 Meds/Results Medications: Active Medications Generic Name Dose Route Start Last Admin Trade Name Freq PRN Reason Stop Dose Admin Acetaminophen 650 mg 10/02/24 06:52 10/02/24 06:56 Acetaminophen 325 Mg Tablet PO 650 mg Q4H PRN Administration Pain or Fever Apixaban 5 mg 10/02/24 09:00 10/02/24 08:20 Apixaban 5 Mg Tablet PO 5 mg BID [facility] Administration Atorvastatin Calcium 40 mg 10/02/24 21:00 Atorvastatin 40 Mg Tablet PO [facility] Calcium Carbonate 200 mg 10/01/24 22:19 10/01/24 22:48 Calcium Carbonate (Tums) 500 Mg (200 Mg Elemental) PO 200 mg Q6H PRN Administration Indigestion Fluticasone/Umeclidinium/Vilanterol 1 puff 10/02/24 08:00 10/02/24 08:00 Fluticasone/Umeclidin/Vilanter 100-62.5-25 Mcg Ellipta INHALATION Not Given DAILYRT [facility] Sodium Chloride 1,000 mls @ 100 mls/hr 10/02/24 09:55 Normal Saline Iv IV CONT .Q10H [facility] Multivitamins/Minerals 1 tablet 10/02/24 09:00 10/02/24 08:20 Opti-Gen Tab PO 1 tablet BID SH[facility]LEY Administration Nitroglycerin 0.4 mg 10/01/24 13:30 Nitroglycerin Sl 0.4 Mg Tablet SUBLINGUAL Q5MIN PRN Chest Pain Ondansetron HCl 4 mg 10/01/24 22:38 Ondansetron Hcl Odt 4 Mg Tablet PO Q6H PRN nausea and vomiting Pantoprazole Sodium 40 mg 10/02/24 09:00 10/02/24 08:20 Pantoprazole 40 Mg Tablet PO 40 mg DAILY [facility] Administration Sucralfate 1 gm 10/02/24 09:00 10/02/24 08:19 Sucralfate 1 Gm Tablet PO 1 gm QID [facility] Administration Radiology Results: ITS Impressions Chest X-Ray 10/01/24 08:49 Impression: 1: No acute cardiopulmonary disease. Renal Ultrasound 10/02/24 00:30 IMPRESSION: No hydronephrosis or renal calculi. Findings suggesting medical renal disease. Labs Labs: Laboratory Results - last 24 hr 10/01/24 10/01/24 10/01/24 09:23 11:44 15:37 WBC RBC Hgb Hct MCV MCH MCHC RDW Plt Count MPV Immature Gran % (Auto) Neut % (Auto) Lymph % (Auto) [place] % (Auto) Eos % (Auto) Baso % (Auto) Lymph # (Auto) [place] # (Auto) Eos # (Auto) Baso # (Auto) Abs Immat Gran (auto) Absolute Neuts (auto) Absolute Nucleated RBC Total Counted Neutrophils % (Manual) Band Neutrophils % Lymphocytes % (Manual) Monocytes % (Manual) Metamyelocytes % Nucleated RBC % Abs Neuts (Manual) Abs Lymphs (Manual) Abs Monocytes (Manual) Nucleated RBCs Atypical Lymphocytes Smudge Cells Toxic Granulation Platelet Estimate Large Platelets Giant Platelets Hypochromasia Anisocytosis Tear Drop Cells Ovalocytes [place] Cells Acanthocytes (Spur) Schistocytes Sodium Potassium Chloride Carbon Dioxide Anion Gap BUN Creatinine Estim Creat Clear Calc Estimated GFR Glucose Calcium Magnesium Total Bilirubin AST ALT Alkaline Phosphatase Total Creatine Kinase 144 Cancelled Troponin I 0.023 D 0.026 Total Protein Albumin U Random Total Protein Ur Random Sodium Ur Random Urea Urine Creatinine Protein/Creat Ratio 2 C. difficile (PCR) 10/01/24 10/02/24 10/02/24 20:24 03:01 09:23 WBC 9.8 RBC 4.05 L Hgb 10.8 L Hct 33.6 L MCV 83.0 MCH 26.7 MCHC 32.1 RDW 19.6 H Plt Count 401 H MPV 9.9 Immature Gran % (Auto) Not Reportable Neut % (Auto) Not Reportable Lymph % (Auto) Not Reportable [place] % (Auto) Not Reportable Eos % (Auto) Not Reportable Baso % (Auto) Not Reportable Lymph # (Auto) Not Reportable [place] # (Auto) Not Reportable Eos # (Auto) Not Reportable Baso # (Auto) Not Reportable Abs Immat Gran (auto) Not Reportable Absolute Neuts (auto) Not Reportable Absolute Nucleated RBC Not Reportable Total Counted 100 Neutrophils % (Manual) 29 L Band Neutrophils % 50 H Lymphocytes % (Manual) 11 L Monocytes % (Manual) 9 Metamyelocytes % 1 Nucleated RBC % Not Reportable Abs Neuts (Manual) 7.74 H Abs Lymphs (Manual) 1.07 L Abs Monocytes (Manual) 0.88 Nucleated RBCs 1 Atypical Lymphocytes Present Smudge Cells Present Toxic Granulation Present Platelet Estimate Increased Large Platelets Present Giant Platelets Present Hypochromasia 1+ Anisocytosis 1+ Tear Drop Cells 1+ Ovalocytes 1+ [place] Cells 1+ Acanthocytes (Spur) 1+ Schistocytes 1+ Sodium 130 L Potassium 4.2 Chloride 101 Carbon Dioxide 17 L Anion Gap 12 BUN 60 H D Creatinine 3.30 H Estim Creat Clear Calc 15 Estimated GFR 18 L Glucose 123 H Calcium 8.5 Magnesium 2.2 Total Bilirubin 0.8 AST 38 ALT 23 Alkaline Phosphatase 61 Total Creatine Kinase Troponin I Total Protein 5.5 L Albumin 2.7 L U Random Total Protein 24 Ur Random Sodium < 5 Ur Random Urea 442 Urine Creatinine 439.5 Protein/Creat Ratio 2 0.05 C. difficile (PCR) Negative Quality VTE Prophylaxis VTE prophylaxis: pharmacologic ordered
[2024-10-02] MEDS: LOPERAMIDE HCL 2 MG CAPSULE 4 MG PO ×2 (10:51→22:46)
[2024-10-02] MEDS: SODIUM CHLORIDE 0.9% IV 1,000 ML 100 ML IV CONT ×2 (10:52→20:03)
--- NOTE | 2024-10-02 15:20 | P.CONNP_ITS ---
Assessment and Plan Assessment and plan (1) Acute kidney injury: Code(s): N17.9 - Acute kidney failure, unspecified Status: Acute Assessment and Plan: * as noted on admission * admission creatinine 2.89mg/dl * suspect multifactorial etiology: * prerenal factors (poor oral intake and diarrhea) * hypotension * chemotherapy * renal hypoperfusion/mild ATN... * failure to thrive(?) * evaluation to date noted: * renal ultrasound with findings of medical renal disease but no obstruction * urine electrolytes prenenal * no proteinuria * urine eosinophils pending * CPK normal * UA pending * agree with IVF hydration * follow trend of repeat labs and UOP (2) Stage 3a chronic kidney disease: Code(s): N18.31 - Chronic kidney disease, stage 3a Status: Chronic Assessment and Plan: * baseline creatinine runs ~ 1.1 - 1.4mg/d (since 2021) * presumably due to previous hypertension, vascular disease (CAD/CABG + hyperlipidemia + carotid stensis), and age-related change (3) Orthostatic hypotension: Code(s): I95.1 - Orthostatic hypotension Status: Acute Assessment and Plan: * as noted by EMS: * BP 90/40 supine * BP 60/38 standing * BP improved to 117/52 with IVF bolus * follow trend of hemodynamics (4) Hyponatremia: Code(s): E87.1 - Hypo-osmolality and hyponatremia Status: Acute Assessment and Plan: * due to BRITTANIE and hypovolemia; malignancy could be playing a role * urine electrolytes consistent with prerenal azotemia * follow trend with IVFs * check TSH and cortisol level (5) Chest pain: Code(s): R07.9 - Chest pain, unspecified Status: Acute Assessment and Plan: * as noted on presentation * EKGs noted -- no ischemic changes * CXR negative * trend of troponins noted * suspect demand ischemia due to hypotension * continue supportive care (6) Anemia: Code(s): D64.9 - Anemia, unspecified Status: Acute Assessment and Plan: * related to BRITTANIE, CKD, malignancy, and acute illness * follow trend of H/H (7) Atrial fibrillation: Qualifiers: Atrial fibrillation type: unspecified Qualified Code(s): I48.91 - Unspecified atrial fibrillation Code(s): I48.91 - Unspecified atrial fibrillation Status: Chronic Assessment and Plan: * rate controlled without medication * on anticoagulation (Eliquis) (8) Colorectal cancer: Code(s): 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 Perea * s/p radiation therapy * currently undergoing chemotherapy I will continue to follow the patient with you while he remains hospitalized and make further recommendations as deemed necessary. Thank you for allowing me to participate in the care of this patient. L History of Present Illness Reason for Consult Consult date: 10/02/24 Reason for consult: acute renal failure (on chronic kidney disease) Chief Complaint Chief complaint: hyponatremia History of Present Illness Narrative: The patient is an 83 year with a past medical history as outlined presented to [facility] with complaints of generalized weakness and multiple falls. The patient reports worsening generalized weakness for the past week if not longer which has resulted in at least 6 - 7 falls. His most recent fall was 2 days ago prior to presentation. He denies head strike or loss of consciousness. The patient is also reporting chest pain. Pain has been intermittent for the past couple weeks. The episodes of chest discomfort tend to last a couple minutes and describes it as pain across his chest, nonradiating, intermittent, and improves with pain medications. After his most recent fall, EMS was called and he was apparently quite orthostatic. He was given IVFs in route to the ER with improvement in systolic BP by the time of his arrival to the ER. Other associated symptoms include poor appetite, mild shortness of breath and diarrhea (ongoing for the past 2 - 3 months apparently) but denies nausea, vomiting, fever, chills, and body aches. Vital signs in the ER noted -- 7.6? F, HR 79, RR 17, 117/52, and 97% on RA Subsequent testing noted no leukocytosis, hemoglobin 10.0, INR 1.5, sodium 138, and a creatinine 2.89. His CXR showed no acute cardiopulmonary disease. Initial EKG showed sinus rhythm with occasional ventricular premature complexes, right bundle branch block. Given his constellation of symptoms along with evidence of BRITTANIE/ARF, he was started on IVFs and admitted to the hospital for further evaluation and therapy. Since his admission, despite IV fluids, his renal function is not significantly improved and the patient still feels sick. Renal consultation was requested due to his acute kidney injury/ acute renal failure on chronic kidney disease. From review his records, his baseline creatinine runs around 1.1-1.2 mg/dL presumably secondary to his history of hypertension vascular disease and age-related change. It is suspected that his acute kidney injury is probably due to a manifestation of this significant hypotension and orthostatic hypotension as noted in conjunction with poor oral intake/prerenal factors worsened by his issues with chronic diarrhea likely leading to a degree ATN and associated renal hypoperfusion. Unfortunately, he still has no appetite according to his at bedside is not eating very much either. This is further complicated by fact that his urine output has been suboptimal as well. Currently, at the time my visit, the patient does not feel very well but is difficult for him to elaborate much more than that. Review of Systems 2 Review of Systems: As per HPI. [facility] Past Medical History Medical History (Updated 10/04/24 @ 08:45 by Brennen Valentine MD) Colorectal cancer Chronic anticoagulation Carotid artery stenosis Atrial fibrillation CAD (coronary artery disease) Hypertension No longer on medications Hyperlipidemia Surgical History Surgical History Hx of CABG 2004 Family History Family History Mother Patient's mother is , Onset Age: 88 Father Family history of lung cancer, Onset Age: 83 Sibling Family history of malignant neoplasm of ovary Social History Social History Smoking packs per day: 0.25 Smoking cigarettes per day: 5.0 Years smoked: 65 Smoking pack-years: 16.25 Smoking status: Current some day smoker Tobacco type: cigarettes Second hand tobacco smoke exposure: Yes Alcohol intake: never Alcohol use details: Social Substance use: never Substance use type: does not use Lack of Transportation: No Lack of Food: Never True Current Housing: I Have Housing Concerned About Future Housing: No Difficulty Paying Gas/Electric Bills: No Difficulty Paying for Meds: No Currently Unemployed: No Education: High School Diploma/GED Difficulty w/ Childcare or Family Care: No Living arrangements: with family Additional living arrangements comments: With sp Spiritual care concerns: No Meds Home Medications and Allergies Home Medications ?Medication ?Instructions ?Recorded ?Confirmed ?Type apixaban 5 mg tablet (Eliquis) 5 mg PO BID 01/01/24 10/01/24 History atorvastatin 40 mg tablet 40 mg PO HS 10/01/24 10/01/24 History budesonide 160 mcg-glycopyr 9 2 inh inhalation BID 10/01/24 10/01/24 History mcg-formot 4.8 mcg/actuation HFA inhaler (Breztri Aerosphere) ondansetron HCl 4 mg tablet 4 mg PO Q6H PRN nausea and vomiting 10/01/24 10/01/24 History pantoprazole 40 mg tablet,delayed 40 mg PO DAILY 10/01/24 10/01/24 History release sucralfate 1 gram tablet 1 g PO QID 10/01/24 10/01/24 History vit C 250 mg-vit E 90 mg-zinc 40 1 tablet PO BID 10/01/24 10/01/24 History mg-copper 1 [id number] capsule ([facility] AREDS-2) Allergies Allergy/AdvReac Type Severity Reaction Status Date / Time No Known Allergies Allergy Verified 04/30/24 10:53 Vital Signs Vital Signs Temp Pulse Resp BP Pulse Ox O2 Del Method 10/02/24 14:00 97.3 F L 99 16 103/53 L 96 10/02/24 12:00 119 H 10/02/24 08:00 Room Air 10/02/24 08:00 95 10/02/24 04:30 97.8 F 79 16 105/41 L 100 10/02/24 04:00 83 10/02/24 00:00 78 10/01/24 22:31 89 10/01/24 20:10 98.3 F 56 L 18 113/41 L 97 Exam 2 Narrative: GENERAL APPEARANCE: elderly but well developed well nourished male in no acute distress HEENT: normocephalic, atraumatic, normal conjunctiva and sclera, nares patient NECK: no lymphadenopathy, thyromegaly, or JVD MOUTH: normal lips, teeth, and gums CARDIOVASCULAR: RRR, normal S1 and S2, no rub RESPIRATORY: clear to auscultation bilaterally ABDOMEN: soft, nontender, nondistended, positive bowel sounds present EXTREMITIES: no evidence of cyanosis, clubbing, or edema NEUROLOGICAL: alert and oriented x 3; CN II - XII intact bilaterally; no focal deficits noted Results Lab Results 10/05/24 04:06 10/05/24 04:06 Lab results: Most recent lab results Calcium 8.5 mg/dL (8.4-10.2) 10/02/24 09:23 Magnesium 2.2 mg/dL (1.6-2.3) 10/02/24 09:23 Urine Creatinine 439.5 mg/dL 10/01/24 20:24
[2024-10-02] MEDS: ATORVASTATIN 40 MG TABLET PO (20:02)
[2024-10-02] MEDS: MIRTAZAPINE 15 MG TABLET PO (20:02)
[2024-10-02] MEDS: CALCIUM CARBONATE (TUMS) 500 MG (200 MG ELEMENTAL) PO (20:02)
--- NOTE | 2024-10-02 22:10 | PC.NURSE ---
Addendum entered by Melina Bravo RN 10/03/24 03:18: 2300: pt received Imodium. BP improving. Neuro assessment unchanged. 0300: Neuro assessment unchanged. Pt agreeable to using bedpan due to risk of fall. Original Note: 2200: Pt with very frequent loose BMs using commode. Pt had assisted fall while getting back to bed from commode with CHURCH ADMINISTRATOR in the room. Per CHURCH ADMINISTRATOR, pt did not hit his head. Vitals taken; Machine BP after fall 78/40 ; manual taken 106/48. Pt stated I am very tired. Contacted provider Nimo. Pt in bed resting; getting IVF. Waiting for new order.
--- NOTE | 2024-10-02 22:49 | PC.NURSE ---
Addendum entered by Melina Bravo RN 10/02/24 23:29: 2300: instructed the pt not to get out of bed and to call us when he wants to use bed nieves for BMs. RN explained to pt that he is at risk of fall due to weakness and low BP and frequent diarrhea causing fluid loss and weakness. RN underlined to pt that he is on anticoagulant and he is at risk for fall/bleeding. Bed alarm on. 2315: Pt found trying to get out of bed by himself; unable to comply with instruction; requiring frequent observation. Original Note: 2249: order received from provider for immodium. Requested provider if pt needs bolus or monitor at this time. Waiting for response.
[2024-10-02 23:30] LABS: Urine Eos QC 2nd Tech Confirmed
[2024-10-03] VITALS (13 sets, daily range): BP systolic 108–145; BP diastolic 38–95; PULSE 92–194; RESP 18–26; TEMP 36.1–36.7; O2SAT 97–100
[2024-10-03 06:02] LABS: Hematocrit 33.0 % (42.0-52.0); Hemoglobin 10.4 g/dL (14.0-18.0); Mean Corpuscular HGB Conc 31.5 g/dl (32-36); Mean Corpuscular Hemoglobin 26.5 pg (26-34); Mean Corpuscular Volume 84.0 fl (80-100); Platelet Count Result 421 k/mm3 (150-375); Red Blood Count 3.93 M/mm3 (4.6-6.20); White Blood Count 14.2 K/mm3 (4.5-10.0)
[2024-10-03 06:23] LABS: Alanine Aminotransferase 19 U/L (6-50); Albumin Level 2.5 g/dL (3.5-5.1); Alkaline Phosphatase 63 U/L (38-126); Anion Gap 13 mmol/L (4-12); Aspartate Amino Transferase 34 U/L (17-59); Bilirubin,Total 1.6 mg/dL (0.2-1.3); Blood Urea Nitrogen 65 mg/dL (9-20); Calcium 8.2 mg/dL (8.4-10.2); Carbon Dioxide 10 mmol/L (22-30); Chloride 102 mmol/L (98-107); Estimated CRCL calculation 14 ml/min; Estimated Glomerular Filt Rate 16; Glucose 108 mg/dL (65-110); Magnesium 2.6 mg/dL (1.6-2.3); Potassium 4.2 mmol/L (3.4-5.0); Sodium 125 mmol/L (137-145); Total Protein 5.1 g/dL (6.3-8.2)
[2024-10-03 06:38] LABS: Band Neutrophils Percent 37 % (0-6); Lymphocytes Absolute Manual 1.56 K/mm3 (1.1-4.5); Lymphocytes Percent Manual 11 % (18-44); Metamyelocytes Percent 1 %; Monocytes Absolute Manual 2.13 K/mm3 (0.1-0.90); Monocytes Percent Manual 15 % (3-9); Neutrophils Absolute Manual 10.36 K/mm3 (1.3-6.7); Neutrophils Percent Manual 36 % (46-73); Total Cells Counted 100
[2024-10-03 06:39] LABS: Acanthocytes 1+; Anisocytosis 1+; Burr Cells 2+; Crenated RBC 1+; Dohle Bodies Present; Giant Platelets Present; Smudge Cells PRESENT; Toxic Granulation Present
[2024-10-03 06:40] LABS: Schistocytes 1+
--- NOTE | 2024-10-03 06:46 | P.CDI_ITS ---
<Statement entered by Mayi Munroe, JARED-Mateus - 10/03/24 07:12> Unknown degree of malnutrition. CDI Query Clarification Request Please clarify severity of malnutrition if known: * Mild * Moderate * Severe * Other/Unknown The medical chart reflects the following: BMI: 24.4 Nutritional assessment documented by steam box operator. Severe protein calorie malnutrition related to chronic colorectal cancer treatment as evidenced by intakes <75% needs >1 month; weight loss 12%/6 months; moderate muscle wasting and fat loss. Hospitalist documented: (7) Protein-calorie malnutrition, moderate: Code(s): E44.0 - Moderate protein-calorie malnutrition Status: Acute Assessment and Plan: * Per EMR loss of 21 pounds in 6 months. * Vat Packer consult. * Add Ensure plus High Protein BID. Regular diet. * Add Mirtazapine 15 mg PO QHS. * Encourage oral intake.
--- NOTE | 2024-10-03 06:46 | WPDCDIQUERY2 ---
CDI Query Clarification Request Please clarify severity of malnutrition if known: Mild Moderate Severe Other/Unknown The medical chart reflects the following: BMI: 24.4 Nutritional assessment documented by community service aide. Severe protein calorie malnutrition related to chronic colorectal cancer treatment as evidenced by intakes <75% needs >1 month; weight loss 12%/6 months; moderate muscle wasting and fat loss. Hospitalist documented: (7) Protein-calorie malnutrition, moderate: Code(s): E44.0 - Moderate protein-calorie malnutrition Status: Acute Assessment and Plan: Per EMR loss of 21 pounds in 6 months. Fitter Up consult. Add Ensure plus High Protein BID. Regular diet. Add Mirtazapine 15 mg PO QHS. Encourage oral intake.
[2024-10-03] MEDS: SODIUM CHLORIDE 0.9% IV 1,000 ML 100 ML IV CONT ×2 (07:19→18:01)
[2024-10-03] MEDS: SUCRALFATE 1 GM TABLET PO (09:17)
[2024-10-03] MEDS: OPTI-GEN TAB 1 TABLET PO (09:17)
[2024-10-03] MEDS: APIXABAN 5 MG TABLET PO (09:17)
[2024-10-03] MEDS: ACETAMINOPHEN 325 MG TABLET 650 MG PO (09:17)
[2024-10-03] MEDS: PANTOPRAZOLE 40 MG TABLET PO (10:52)
--- NOTE | 2024-10-03 12:08 | P.PNIM_ITS ---
Progress Note: A&P Assessment and Plan (1) Acute dehydration: Code(s): E86.0 - Dehydration Status: Acute Assessment and Plan: * IV fluids: NS 125 mL/hr x1L -> LR 100 mL/hr x 1L, +700 mL bolus per EMS. * NS @ 100 ml/hr. * Sodium 130. * Trend renal function. * Gas Station Operator for assistance increasing caloric intake. 10/03/24: * Sodium further declined today to 125. Suspect malignancy is supporting this continued loss. * Start Salt Tabs and continue IVF and continue to monitor. * Nephrology is following. (2) Acute hyponatremia: Code(s): E87.1 - Hypo-osmolality and hyponatremia Status: Acute Assessment and Plan: * Sodium 130. * NS @ 100 ml/hr. 10/03/24: * See #1 (3) BRITTANIE (acute kidney injury): Code(s): N17.9 - Acute kidney failure, unspecified Status: Acute Assessment and Plan: * creatinine 2.89, BUN 45, GFR 21 on admission. * Creatinine 3.30, BUN 60, GFR 18 today. * baseline creatinine in 2023 appears to be 1.2-1.4. * check renal ultrasound, CK, urine sodium, protein/creatinine, urea, and UA. * Nephrology consult ordered. 10/03/24: * Further decline in renal function. * Renal US without any signs of obstruction. * Osmolalities ordered and urine sodium * Nephrology consulting. (4) Chest pain: Code(s): R07.9 - Chest pain, unspecified Status: Acute Assessment and Plan: * EKG, initial: Sinus rhythm with occasional ventricular premature complexes, right bundle-branch block * EKG, repeat (1): No significant changes when compared to EKG done earlier same day * CXR: No acute cardiopulmonary disease * Troponin: 0.029 -> 0.026, 6 hour ordered * ASA 324 given by EMS * SL nitro PRN * high suspicion for some level of demand ischemia due to dehydration/positive orthostatic blood pressures. Patient was also endorsing epigastric pain, could be more so GERD related verses cardiac in nature. 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 Consider Cardiology consultation if patient continues to have intermittent chest pain despite rehydration and improved blood pressure. * telemetry monitoring- SR 95. 10/03/24: * No acute CP today. (5) Atrial fibrillation: Qualifiers: Atrial fibrillation type: unspecified Qualified Code(s): I48.91 - Unspecified atrial fibrillation Code(s): I48.91 - Unspecified atrial fibrillation Status: Chronic Assessment and Plan: * continue home medications: Eliquis * initial EKG showed sinus rhythm with occasional ventricular premature complexes and right bundle branch block. 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 * Follows with Oncology at [facility]. (Dr. Perea) (7) Protein-calorie malnutrition, moderate: Code(s): E44.0 - Moderate protein-calorie malnutrition Status: Acute Assessment and Plan: * Per EMR loss of 21 pounds in 6 months. * Gas Station Operator consult. * Add Ensure plus High Protein BID. Regular diet. * Add Mirtazapine 15 mg PO QHS. * Encourage oral intake. 10/03/24: * Dietary continuing to follow. Pt with poor appetite overall. (8) Diarrhea: Code(s): R19.7 - Diarrhea, unspecified Status: Acute Assessment and Plan: * Stool negative for c diff. * Stool cultures obtained. * Ns@ 100 ml/hr. 10/03/24: * Awaiting stool culture results. Time Spent With Patient Time with patient: 25 - 35 minutes Subjective Date/time seen: 10/03/24 12:08 Interval history: This chronically ill pt is examined at the bedside today in interval assessment. He is admitted for falls and weakness. He is currently undergoing chemotherapy and radiation for his colorectal cancer. Pt continues to complain of pain and his nurse today tells me that he is so weak he could not hold his coffee cup independently this AM. PT and OT will be ordered. He has been evaluated by Nephrology due to BRITTANIE and there is no renal obstruction and his renal function has returned to at or better than his baseline. Concern for developing FTT. Review of Systems Review of Systems: All systems reviewed & are unremarkable except as noted in HPI and below Exam Const: General: no acute distress Other: Chronically ill appearing male pt lying on his right side at the time of my entry into the room sleeping. He did not appear to have acute distress, but does appear to be chronically ill. HENMT: Face/Nose/Sinus: Normal nares present Mouth: Yes dry mucous membranes Eyes: General: appearance normal, both eyes and all related structures EOM: EOMs intact bilaterally Neck: Neck: supple and no JVD Lymphatic: lymphadenopathy not noted Resp: Effort & Inspection: normal respiratory effort Auscultation: clear to auscultation bilaterally Cardio: Rate: regular rate Rhythm: regular rhythm Heart sounds: no gallops, no murmurs and no rubs GI: GI Palp: Yes Soft to palpation and Yes Tenderness to palpation present (GI) (diffuse) Auscultation: normal bowel sounds Skin: General skin exam: No normal color (Mild jaundice noted) Lesions: no lesions noted Rashes: no rashes noted Wounds: no wounds Neuro: Speech: normal speech Motor exam (neuro): 5/5 motor strength present throughout and Normal motor muscle tone present throughout Sensory Exam: normal sensation Extrem: General: normal to inspection, no edema and no pedal edema Psych: Mental Status: mental status grossly normal Affect: normal affect Objective Data Vital Signs Vital Signs: Vital Signs - 24 hr 10/02/24 14:00 10/02/24 16:00 10/02/24 20:03 Temperature 97.3 F L Pulse Rate 99 91 103 H Respiratory Rate 16 Blood Pressure 103/53 L Pulse Oximetry 96 Oxygen Delivery 10/02/24 21:22 10/02/24 21:22 10/02/24 22:03 Temperature 97.3 F L Pulse Rate 104 H 105 H 97 Respiratory Rate 20 18 18 Blood Pressure 96/76 L 106/48 L Pulse Oximetry 98 Oxygen Delivery 10/02/24 22:40 10/02/24 23:22 10/03/24 04:00 Temperature 97.3 F L Pulse Rate 97 98 Respiratory Rate 18 Blood Pressure 106/48 L 122/41 L Pulse Oximetry 98 Oxygen Delivery 10/03/24 06:00 10/03/24 08:00 10/03/24 08:01 Temperature 97.9 F Pulse Rate 98 105 H Respiratory Rate 18 Blood Pressure 108/50 L Pulse Oximetry 97 Oxygen Delivery Room Air Intake/Output Intake/Output: Intake & Output 09/30/24 10/01/24 10/02/24 10/03/24 23:59 23:59 23:59 23:59 Intake Total 480 1690.3 1500 Output Total 100 Balance 480 1590.3 1500 Meds/Results Medications: Active Medications Generic Name Dose Route Start Last Admin Trade Name Freq PRN Reason Stop Dose Admin Acetaminophen 650 mg 10/02/24 06:52 10/03/24 09:17 Acetaminophen 325 Mg Tablet PO 650 mg Q4H PRN Administration Pain or Fever Apixaban 5 mg 10/02/24 09:00 10/03/24 09:17 Apixaban 5 Mg Tablet PO 5 mg BID SHIRLEY Administration Atorvastatin Calcium 40 mg 10/02/24 21:00 10/02/24 20:02 Atorvastatin 40 Mg Tablet PO 40 mg HS SHIRLEY Administration Calcium Carbonate 200 mg 10/01/24 22:19 10/02/24 20:02 Calcium Carbonate (Tums) 500 Mg (200 Mg Elemental) PO 200 mg Q6H PRN Administration Indigestion Fluticasone/Umeclidinium/Vilanterol 1 puff 10/02/24 08:00 10/03/24 07:58 Fluticasone/Umeclidin/Vilanter 100-62.5-25 Mcg Ellipta INHALATION Not Given DAILYRT SHIRLEY Sodium Chloride 1,000 mls @ 100 mls/hr 10/02/24 09:55 10/03/24 07:19 Normal Saline Iv IV CONT 100 mls/hr .Q10H SHIRLEY Administration Loperamide HCl 4 mg 10/02/24 22:25 10/02/24 22:46 Loperamide Hcl 2 Mg Capsule PO 4 mg BID PRN Administration Diarrhea Mirtazapine 15 mg 10/02/24 21:00 10/02/24 20:02 Mirtazapine 15 Mg Tablet PO 15 mg HS SHIRLEY Administration Multivitamins/Minerals 1 tablet 10/02/24 09:00 10/03/24 09:17 Opti-Gen Tab PO 1 tablet BID SHIRLEY Administration Nitroglycerin 0.4 mg 10/01/24 13:30 Nitroglycerin Sl 0.4 Mg Tablet SUBLINGUAL Q5MIN PRN Chest Pain Ondansetron HCl 4 mg 10/01/24 22:38 Ondansetron Hcl Odt 4 Mg Tablet PO Q6H PRN nausea and vomiting Pantoprazole Sodium 40 mg 10/02/24 09:00 10/03/24 10:52 Pantoprazole 40 Mg Tablet PO 40 mg DAILY SHIRLEY Administration Sucralfate 1 gm 10/02/24 09:00 10/03/24 09:17 Sucralfate 1 Gm Tablet PO 1 gm QID SHIRLEY Administration Radiology Results: ITS Impressions Chest X-Ray 10/01/24 08:49 Impression: 1: No acute cardiopulmonary disease. Renal Ultrasound 10/02/24 00:30 IMPRESSION: No hydronephrosis or renal calculi. Findings suggesting medical renal disease. Labs Labs: Laboratory Results - last 24 hr 10/02/24 10/02/24 10/03/24 21:53 23:05 05:38 WBC 14.2 H RBC 3.93 L Hgb 10.4 L Hct 33.0 L MCV 84.0 MCH 26.5 MCHC 31.5 L RDW 19.8 H Plt Count 421 H MPV 10.1 Immature Gran % (Auto) Not Reportable Neut % (Auto) Not Reportable Lymph % (Auto) Not Reportable [place] % (Auto) Not Reportable Eos % (Auto) Not Reportable Baso % (Auto) Not Reportable Lymph # (Auto) Not Reportable [place] # (Auto) Not Reportable Eos # (Auto) Not Reportable Baso # (Auto) Not Reportable Abs Immat Gran (auto) Not Reportable Absolute Neuts (auto) Not Reportable Absolute Nucleated RBC Not Reportable Total Counted 100 Neutrophils % (Manual) 36 L Band Neutrophils % 37 H Lymphocytes % (Manual) 11 L Monocytes % (Manual) 15 H Metamyelocytes % 1 Nucleated RBC % Not Reportable Abs Neuts (Manual) 10.36 H Abs Lymphs (Manual) 1.56 Abs Monocytes (Manual) 2.13 H Atypical Lymphocytes Present Smudge Cells Present Toxic Granulation Present Dohle Bodies Present Platelet Estimate Increased Large Platelets Present Giant Platelets Present Anisocytosis 1+ Deonna Cells 2+ Crenated Cell 1+ Acanthocytes (Spur) 1+ Schistocytes 1+ Sodium Potassium Chloride Carbon Dioxide Anion Gap BUN Creatinine Estim Creat Clear Calc Estimated GFR Glucose POC Capillary Glucose 112 H Calcium Magnesium Total Bilirubin AST ALT Alkaline Phosphatase Total Protein Albumin Urine Eosinophils None seen 10/03/24 05:39 WBC RBC Hgb Hct MCV MCH MCHC RDW Plt Count MPV Immature Gran % (Auto) Neut % (Auto) Lymph % (Auto) [place] % (Auto) Eos % (Auto) Baso % (Auto) Lymph # (Auto) [place] # (Auto) Eos # (Auto) Baso # (Auto) Abs Immat Gran (auto) Absolute Neuts (auto) Absolute Nucleated RBC Total Counted Neutrophils % (Manual) Band Neutrophils % Lymphocytes % (Manual) Monocytes % (Manual) Metamyelocytes % Nucleated RBC % Abs Neuts (Manual) Abs Lymphs (Manual) Abs Monocytes (Manual) Atypical Lymphocytes Smudge Cells Toxic Granulation Dohle Bodies Platelet Estimate Large Platelets Giant Platelets Anisocytosis [place] Cells Crenated Cell Acanthocytes (Spur) Schistocytes Sodium 125 L Potassium 4.2 Chloride 102 Carbon Dioxide 10 L Anion Gap 13 H BUN 65 H Creatinine 3.62 H Estim Creat Clear Calc 14 Estimated GFR 16 L Glucose 108 POC Capillary Glucose Calcium 8.2 L Magnesium 2.6 H Total Bilirubin 1.6 H AST 34 ALT 19 Alkaline Phosphatase 63 Total Protein 5.1 L Albumin 2.5 L Urine Eosinophils Quality VTE Prophylaxis VTE prophylaxis: pharmacologic ordered
--- NOTE | 2024-10-03 13:17 | PM.PNNEP ---
Progress Note: A&P Assessment and Plan (1) Acute kidney injury: Code(s): N17.9 - Acute kidney failure, unspecified Status: Acute Assessment and Plan: worsening as noted on admission admission creatinine 2.89mg/dl suspect multifactorial etiology: prerenal factors (poor oral intake and diarrhea) hypotension chemotherapy(?) renal hypoperfusion/mild ATN... failure to thrive(?) evaluation to date noted: renal ultrasound with findings of medical renal disease but no obstruction urine electrolytes pre-renal no proteinuria urine eosinophils negative CPK normal UA pending agree with IVF hydration follow trend of repeat labs and UOP (2) Stage 3a chronic kidney disease: Code(s): N18.31 - Chronic kidney disease, stage 3a Status: Chronic Assessment and Plan: baseline creatinine runs ~ 1.1 - 1.4mg/d (since 2021) presumably due to previous hypertension, vascular disease (CAD/CABG + hyperlipidemia + carotid stensis), and age-related change (3) Orthostatic hypotension: Code(s): I95.1 - Orthostatic hypotension Status: Acute Assessment and Plan: as noted by EMS: BP 90/40 supine BP 60/38 standing BP improved to 117/52 with IVF bolus follow trend of hemodynamics (4) Hyponatremia: Code(s): E87.1 - Hypo-osmolality and hyponatremia Status: Acute Assessment and Plan: worsening noted due to BRITTANIE and hypovolemia; malignancy could be playing a role urine electrolytes consistent with prerenal azotemia given decline -- check TSH, cortisol, SPEP/UPEP, and serum/urine osmolality follow trend with IVFs (5) Metabolic acidosis: Code(s): E87.20 - Acidosis, unspecified Status: Acute Assessment and Plan: due to a combination of BRITTANIE/ARF, diarrhea, and normal saline IVFs start oral sodium bicarbonate this should help acidosis and low sodium could add bicarb to IVFs but suspect this will cause hypokalemia and hypocalcemia (6) Chest pain: Code(s): R07.9 - Chest pain, unspecified Status: Acute Assessment and Plan: as noted on presentation EKGs noted -- no ischemic changes CXR negative trend of troponins noted suspect demand ischemia due to hypotension continue supportive care (7) Anemia: Code(s): D64.9 - Anemia, unspecified Status: Acute Assessment and Plan: related to BRITTANIE, CKD, malignancy, and acute illness no need for BRUNO as of yet follow trend of H/H (8) Atrial fibrillation: Qualifiers: Atrial fibrillation type: unspecified Qualified Code(s): I48.91 - Unspecified atrial fibrillation Code(s): I48.91 - Unspecified atrial fibrillation Status: Chronic Assessment and Plan: rate controlled without medication on anticoagulation (Eliquis) (9) Protein-calorie malnutrition, moderate: Code(s): E44.0 - Moderate protein-calorie malnutrition Status: Acute Assessment and Plan: suspect possible early signs of failure to thrive liberalize diet as tolerated with supplemental shakes appetite stimulant? 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 Perea s/p radiation therapy currently undergoing chemotherapy Will continue to follow. Subjective Date/time seen: 10/03/24 13:17 Interval history: Follow-up for acute kidney injury/acute renal failure. Renal function/creatinine has not significantly improved despite IVFs; furthermore, he continues to have poor oral intake as well as states the he continues to not feel good in general; his is at bedside and states she has attempted to get him to eat with not much success; nursing reports is quite weak as well. Exam Narrative: General: somewhat ill-appearing and elderly male in NAD Heart: normal S1 and S2; no rub Lungs: clear to auscultation Abdomen: soft, nontender, nondistended, positive bowel sounds Extremities: no cyanosis or clubbing; no edema Skin: warm and dry Objective Data Vital Signs Vital Signs: Vital Signs Temp Pulse Resp BP Pulse Ox O2 Del Method 10/03/24 12:05 129 H 10/03/24 08:01 105 H 10/03/24 08:00 Room Air 10/03/24 06:00 97.9 F 98 18 108/50 L 97 10/03/24 04:00 98 10/02/24 23:22 122/41 L 10/02/24 22:40 97.3 F L 97 18 106/48 L 98 10/02/24 22:03 97 18 106/48 L 10/02/24 21:22 97.3 F L 105 H 18 96/76 L 10/02/24 21:22 104 H 20 98 10/02/24 20:03 103 H Intake/Output Intake/Output: Intake & Output 09/30/24 10/01/24 10/02/24 10/03/24 23:59 23:59 23:59 23:59 Intake Total 480 1690.3 2500 Output Total 100 Balance 480 1590.3 2500 Meds/Results Medications: Active Medications Generic Name Dose Route Start Last Admin Trade Name Freq PRN Reason Stop Dose Admin Acetaminophen 650 mg 10/02/24 06:52 10/03/24 09:17 Acetaminophen 325 Mg Tablet PO 650 mg Q4H PRN Administration Pain or Fever Apixaban 5 mg 10/02/24 09:00 10/03/24 18:03 Apixaban 5 Mg Tablet PO Not Given BID SHIRLEY Atorvastatin Calcium 40 mg 10/02/24 21:00 10/02/24 20:02 Atorvastatin 40 Mg Tablet PO 40 mg HS [facility] Administration Calcium Carbonate 200 mg 10/01/24 22:19 10/02/24 20:02 Calcium Carbonate (Tums) 500 Mg (200 Mg Elemental) PO 200 mg Q6H PRN Administration Indigestion Fluticasone/Umeclidinium/Vilanterol 1 puff 10/02/24 08:00 10/03/24 07:58 Fluticasone/Umeclidin/Vilanter 100-62.5-25 Mcg Ellipta INHALATION Not Given DAILYRT SHIRLEY Sodium Chloride 1,000 mls @ 100 mls/hr 10/02/24 09:55 10/03/24 18:01 Normal Saline Iv IV CONT 100 mls/hr .Q10H SHIRLEY Administration Albumin Human 100 mls @ 60 mls/hr 10/03/24 18:00 10/03/24 18:00 Albutein IVPB 10/04/24 13:39 60 mls/hr Q6HR [facility] Administration Loperamide HCl 4 mg 10/02/24 22:25 10/02/24 22:46 Loperamide Hcl 2 Mg Capsule PO 4 mg BID PRN Administration Diarrhea Mirtazapine 15 mg 10/02/24 21:00 10/02/24 20:02 Mirtazapine 15 Mg Tablet PO 15 mg HS [facility] Administration Multivitamins/Minerals 1 tablet 10/02/24 09:00 10/03/24 18:03 Opti-Gen Tab PO Not Given BID SHIR[facility] Nitroglycerin 0.4 mg 10/01/24 13:30 Nitroglycerin Sl 0.4 Mg Tablet SUBLINGUAL Q5MIN PRN Chest Pain Ondansetron HCl 4 mg 10/01/24 22:38 Ondansetron Hcl Odt 4 Mg Tablet PO Q6H PRN nausea and vomiting Pantoprazole Sodium 40 mg 10/02/24 09:00 10/03/24 10:52 Pantoprazole 40 Mg Tablet PO 40 mg DAILY [facility] Administration Sodium Chloride 1 gm 10/03/24 17:00 10/03/24 17:25 Sodium Chloride 1 Gm Tablet PO 1 gm BID SHIRLEY Administration Sucralfate 1 gm 10/02/24 09:00 10/03/24 18:03 Sucralfate 1 Gm Tablet PO Not Given QID [facility] Radiology Results: ITS Impressions Renal Ultrasound 10/02/24 00:30 IMPRESSION: No hydronephrosis or renal calculi. Findings suggesting medical renal disease. Labs Labs: Laboratory Tests 10/03/24 05:38 10/03/24 05:39 Calcium 8.2 L Magnesium 2.6 H Total Bilirubin 1.6 H AST 34 ALT 19 Alkaline Phosphatase 63 Total Protein 5.1 L Albumin 2.5 L
--- NOTE | 2024-10-03 13:17 | P.PNNP_ITS ---
Progress Note: A&P Assessment and Plan (1) Acute kidney injury: Code(s): N17.9 - Acute kidney failure, unspecified Status: Acute Assessment and Plan: * worsening * as noted on admission * admission creatinine 2.89mg/dl * suspect multifactorial etiology: * prerenal factors (poor oral intake and diarrhea) * hypotension * chemotherapy(?) * renal hypoperfusion/mild ATN... * failure to thrive(?) * evaluation to date noted: * renal ultrasound with findings of medical renal disease but no obstruction * urine electrolytes pre-renal * no proteinuria * urine eosinophils negative * CPK normal * UA pending * agree with IVF hydration * follow trend of repeat labs and UOP (2) Stage 3a chronic kidney disease: Code(s): N18.31 - Chronic kidney disease, stage 3a Status: Chronic Assessment and Plan: * baseline creatinine runs ~ 1.1 - 1.4mg/d (since 2021) * presumably due to previous hypertension, vascular disease (CAD/CABG + hyperlipidemia + carotid stensis), and age-related change (3) Orthostatic hypotension: Code(s): I95.1 - Orthostatic hypotension Status: Acute Assessment and Plan: * as noted by EMS: * BP 90/40 supine * BP 60/38 standing * BP improved to 117/52 with IVF bolus * follow trend of hemodynamics (4) Hyponatremia: Code(s): E87.1 - Hypo-osmolality and hyponatremia Status: Acute Assessment and Plan: * worsening noted * due to BRITTANIE and hypovolemia; malignancy could be playing a role * urine electrolytes consistent with prerenal azotemia * given decline -- check TSH, cortisol, SPEP/UPEP, and serum/urine osmolality * follow trend with IVFs (5) Metabolic acidosis: Code(s): E87.20 - Acidosis, unspecified Status: Acute Assessment and Plan: * due to a combination of BRITTANIE/ARF, diarrhea, and normal saline IVFs * start oral sodium bicarbonate * this should help acidosis and low sodium * could add bicarb to IVFs but suspect this will cause hypokalemia and hypocalcemia (6) Chest pain: Code(s): R07.9 - Chest pain, unspecified Status: Acute Assessment and Plan: * as noted on presentation * EKGs noted -- no ischemic changes * CXR negative * trend of troponins noted * suspect demand ischemia due to hypotension * continue supportive care (7) Anemia: Code(s): D64.9 - Anemia, unspecified Status: Acute Assessment and Plan: * related to BRITTANIE, CKD, malignancy, and acute illness * no need for BRUNO as of yet * follow trend of H/H (8) Atrial fibrillation: Qualifiers: Atrial fibrillation type: unspecified Qualified Code(s): I48.91 - Unspecified atrial fibrillation Code(s): I48.91 - Unspecified atrial fibrillation Status: Chronic Assessment and Plan: * rate controlled without medication * on anticoagulation (Eliquis) (9) Protein-calorie malnutrition, moderate: Code(s): E44.0 - Moderate protein-calorie malnutrition Status: Acute Assessment and Plan: * suspect possible early signs of failure to thrive * liberalize diet as tolerated with supplemental shakes * appetite stimulant? 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 Perea * s/p radiation therapy * currently undergoing chemotherapy Will continue to follow. L Subjective Date/time seen: 10/03/24 13:17 Interval history: Follow-up for acute kidney injury/acute renal failure. Renal function/creatinine has not significantly improved despite IVFs; furthermore, he continues to have poor oral intake as well as states the he continues to not feel good in general; his is at bedside and states she has attempted to get him to eat with not much success; nursing reports is quite weak as well. Exam 2 Narrative: General: somewhat ill-appearing and elderly male in NAD Heart: normal S1 and S2; no rub Lungs: clear to auscultation Abdomen: soft, nontender, nondistended, positive bowel sounds Extremities: no cyanosis or clubbing; no edema Skin: warm and dry Objective Data Vital Signs Vital Signs: Vital Signs Temp Pulse Resp BP Pulse Ox O2 Del Method 10/03/24 12:05 129 H 10/03/24 08:01 105 H 10/03/24 08:00 Room Air 10/03/24 06:00 97.9 F 98 18 108/50 L 97 10/03/24 04:00 98 10/02/24 23:22 122/41 L 10/02/24 22:40 97.3 F L 97 18 106/48 L 98 10/02/24 22:03 97 18 106/48 L 10/02/24 21:22 97.3 F L 105 H 18 96/76 L 10/02/24 21:22 104 H 20 98 10/02/24 20:03 103 H Intake/Output Intake/Output: Intake & Output 09/30/24 10/01/24 10/02/24 10/03/24 23:59 23:59 23:59 23:59 Intake Total 480 1690.3 2500 Output Total 100 Balance 480 1590.3 2500 Meds/Results Medications: Active Medications Generic Name Dose Route Start Last Admin Trade Name Freq PRN Reason Stop Dose Admin Acetaminophen 650 mg 10/02/24 06:52 10/03/24 09:17 Acetaminophen 325 Mg Tablet PO 650 mg Q4H PRN Administration Pain or Fever Apixaban 5 mg 10/02/24 09:00 10/03/24 18:03 Apixaban 5 Mg Tablet PO Not Given BID SHIRLEY Atorvastatin Calcium 40 mg 10/02/24 21:00 10/02/24 20:02 Atorvastatin 40 Mg Tablet PO 40 mg HS SHIRLEY Administration Calcium Carbonate 200 mg 10/01/24 22:19 10/02/24 20:02 Calcium Carbonate (Tums) 500 Mg (200 Mg Elemental) PO 200 mg Q6H PRN Administration Indigestion Fluticasone/Umeclidinium/Vilanterol 1 puff 10/02/24 08:00 10/03/24 07:58 Fluticasone/Umeclidin/Vilanter 100-62.5-25 Mcg Ellipta INHALATION Not Given DAILYRT SHIRLEY Sodium Chloride 1,000 mls @ 100 mls/hr 10/02/24 09:55 10/03/24 18:01 Normal Saline Iv IV CONT 100 mls/hr .Q10H [facility]LEY Administration Albumin Human 100 mls @ 60 mls/hr 10/03/24 18:00 10/03/24 18:00 Albutein IVPB 10/04/24 13:39 60 mls/hr Q6HR [facility] Administration Loperamide HCl 4 mg 10/02/24 22:25 10/02/24 22:46 Loperamide Hcl 2 Mg Capsule PO 4 mg BID PRN Administration Diarrhea Mirtazapine 15 mg 10/02/24 21:00 10/02/24 20:02 Mirtazapine 15 Mg Tablet PO 15 mg HS [facility] Administration Multivitamins/Minerals 1 tablet 10/02/24 09:00 10/03/24 18:03 Opti-Gen Tab PO Not Given BID [facility] Nitroglycerin 0.4 mg 10/01/24 13:30 Nitroglycerin Sl 0.4 Mg Tablet SUBLINGUAL Q5MIN PRN Chest Pain Ondansetron HCl 4 mg 10/01/24 22:38 Ondansetron Hcl Odt 4 Mg Tablet PO Q6H PRN nausea and vomiting Pantoprazole Sodium 40 mg 10/02/24 09:00 10/03/24 10:52 Pantoprazole 40 Mg Tablet PO 40 mg DAILY [facility] Administration Sodium Chloride 1 gm 10/03/24 17:00 10/03/24 17:25 Sodium Chloride 1 Gm Tablet PO 1 gm BID [facility] Administration Sucralfate 1 gm 10/02/24 09:00 10/03/24 18:03 Sucralfate 1 Gm Tablet PO Not Given QID [facility] Radiology Results: ITS Impressions Renal Ultrasound 10/02/24 00:30 IMPRESSION: No hydronephrosis or renal calculi. Findings suggesting medical renal disease. Labs Labs: Laboratory Tests 10/03/24 05:38 10/03/24 05:39 Calcium 8.2 L Magnesium 2.6 H Total Bilirubin 1.6 H AST 34 ALT 19 Alkaline Phosphatase 63 Total Protein 5.1 L Albumin 2.5 L
[2024-10-03] MEDS: SODIUM CHLORIDE 1 GM TABLET PO (17:25)
--- NOTE | 2024-10-03 17:48 | ECG_ITS ---
Test Date: 2024-10-03 17:52:16 Measurements Intervals [place] Rate: 107 P: 67 [place]: 164 QRS: 37 QRSD: 130 T: 15 QT: 359 QTc: 479 Interpretive Statements SINUS TACHYCARDIA POSSIBLE LEFT ATRIAL ENLARGEMENT RIGHT BUNDLE BRANCH BLOCK MINIMAL Q WAVES- INFERIOR LEADS BASELINE WANDER- II, III, AVF, V5 ABNORMAL ECG Compared to ECG 10/01/2024 11:52:23 HEART RATE HAS INCREASED Electronically Signed On 10-03-2024 19:00:22 CDT by Cornelio Barnett D.O.
[2024-10-03] MEDS: ALBUMIN HUMAN 25% 25 GM/100 ML 100 ML IVPB (18:00)
[2024-10-03 18:33] LABS: Hematocrit 35.1 % (42.0-52.0); Hemoglobin 11.1 g/dL (14.0-18.0); Mean Corpuscular HGB Conc 31.6 g/dl (32-36); Mean Corpuscular Hemoglobin 26.9 pg (26-34); Mean Corpuscular Volume 85.0 fl (80-100); Platelet Count Result 409 k/mm3 (150-375); Red Blood Count 4.13 M/mm3 (4.6-6.20); White Blood Count 13.2 K/mm3 (4.5-10.0)
[2024-10-03 18:49] LABS: Alanine Aminotransferase 21 U/L (6-50); Albumin Level 2.7 g/dL (3.5-5.1); Alkaline Phosphatase 69 U/L (38-126); Anion Gap 17 mmol/L (4-12); Aspartate Amino Transferase 32 U/L (17-59); Bilirubin,Total 1.3 mg/dL (0.2-1.3); Blood Urea Nitrogen 71 mg/dL (9-20); Calcium 8.7 mg/dL (8.4-10.2); Carbon Dioxide 8 mmol/L (22-30); Chloride 103 mmol/L (98-107); Estimated CRCL calculation 13 ml/min; Estimated Glomerular Filt Rate 15; Glucose 109 mg/dL (65-110); Magnesium 2.6 mg/dL (1.6-2.3); Potassium 4.3 mmol/L (3.4-5.0); Sodium 128 mmol/L (137-145); Total Protein 5.4 g/dL (6.3-8.2)
--- NOTE | 2024-10-03 19:11 | PC.NURSE ---
Pt transferred to IMU at 1844 into room 203. Report given from VENUS Alfaro.
--- NOTE | 2024-10-03 19:33 | PM.EVENT ---
Event Note Event Note Event Note: A rapid response was called this afternoon for nausea, vomiting, and significant tachycardia. Per bedside RN, patient had attempted to take a sodium bicarb tablet when he began vomiting/choking. Telemetry showed a heart rate of 190, appeared to be SVT on the environmental monitoring technician. Patient pale upon my arrival and ill-appearing. Reassessment of vital signs showed continued tachycardia in the 160s. Metoprolol to be given when the patient's SVT spontaneously resolved. HR in the 90s. EKG was unable to be obtained prior to resolution. Showed sinus tachycardia, possible left atrial enlargement, right bundle branch block, minimal Q-waves inferior leads. When compared to EKG done on 10/01, heart rate has increased. Reviewed telemetry monitoring, patient sustained SVT for approximately 6 minutes. Despite reduction in HR, patient continued to have an ill appearance and pale. Plan to move to IMU for close telemetry/hemodynamic monitoring. Reviewed patient's lab work, worsening sodium and renal function noted. Albumin also depleted at 2.5, albumin 25 q.6 x4 ordered. CBC, CMP, and Mag ordered stat. Reviewed stat lab work and sodium improving from 125-128, renal function continuing decline (3.62 -> 3.75). Given concern for possible choking leading to vomiting, will make patient NPO and order a speech evaluation. Fecal management system also placed as the patient has continued to have excessive diarrhea despite Imodium 4 mg b.i.d. as needed. Critical Care Time: I personally spent 35 minutes of direct patient care including (but not limited to) the physical examination, decision-making, bedside evaluation, review of medical records, review of labs and imaging, discussion with nursing staff and other providers for collaborative, critical care management of this patient.
[2024-10-04] VITALS (31 sets, daily range): BP systolic 63–155; BP diastolic 39–84; PULSE 73–160; RESP 18–22; TEMP 36.5–37.2; O2SAT 94–100
[2024-10-04] MEDS: ALBUMIN HUMAN 25% 25 GM/100 ML 100 ML IVPB ×3 (00:38→11:13)
[2024-10-04 05:51] LABS: Hematocrit 26.9 % (42.0-52.0); Hemoglobin 8.4 g/dL (14.0-18.0); Mean Corpuscular HGB Conc 31.2 g/dl (32-36); Mean Corpuscular Hemoglobin 26.6 pg (26-34); Mean Corpuscular Volume 85.1 fl (80-100); Platelet Count Result 385 k/mm3 (150-375); Red Blood Count 3.16 M/mm3 (4.6-6.20); White Blood Count 9.7 K/mm3 (4.5-10.0)
[2024-10-04 05:58] LABS: Alanine Aminotransferase 15 U/L (6-50); Albumin Level 3.3 g/dL (3.5-5.1); Alkaline Phosphatase 54 U/L (38-126); Anion Gap 17 mmol/L (4-12); Aspartate Amino Transferase 23 U/L (17-59); Bilirubin,Total 1.2 mg/dL (0.2-1.3); Blood Urea Nitrogen 72 mg/dL (9-20); Calcium 8.8 mg/dL (8.4-10.2); Carbon Dioxide 10 mmol/L (22-30); Chloride 105 mmol/L (98-107); Estimated CRCL calculation 16 ml/min; Estimated Glomerular Filt Rate 20; Glucose 87 mg/dL (65-110); Magnesium 2.8 mg/dL (1.6-2.3); Potassium 3.7 mmol/L (3.4-5.0); Sodium 132 mmol/L (137-145); Total Protein 5.4 g/dL (6.3-8.2)
[2024-10-04 06:27] LABS: Thyroid Stimulating Hormone Reflex 1.550 uIU/mL (0.465-4.68)
[2024-10-04 06:41] LABS: Band Neutrophils Percent 18 % (0-6); Lymphocytes Absolute Manual 1.06 K/mm3 (1.1-4.5); Lymphocytes Percent Manual 11 % (18-44); Monocytes Absolute Manual 0.87 K/mm3 (0.1-0.90); Monocytes Percent Manual 9 % (3-9); Neutrophils Absolute Manual 7.76 K/mm3 (1.3-6.7); Neutrophils Percent Manual 62 % (46-73); Smudge Cells PRESENT; Total Cells Counted 100
[2024-10-04 06:42] LABS: Acanthocytes 1+; Anisocytosis 1+; Burr Cells 2+; Giant Platelets Present; Schistocytes 1+
--- NOTE | 2024-10-04 08:41 | PM.IMPN ---
Progress Note: A&P Assessment and Plan (1) Acute dehydration: Code(s): E86.0 - Dehydration Status: Acute Assessment and Plan: Received IV fluid Continue same (2) Acute hyponatremia: Code(s): E87.1 - Hypo-osmolality and hyponatremia Status: Acute Assessment and Plan: Sodium 130 on admission. Nephrology consulted Remains stable continue to monitor (3) BRITTANIE (acute kidney injury): Code(s): N17.9 - Acute kidney failure, unspecified Status: Acute Assessment and Plan: creatinine 2.89, BUN 45, GFR 21 on admission. Creatinine 3.30, BUN 60, GFR 18 today. baseline creatinine in 2023 appears to be 1.2-1.4. Renal ultrasound with no hydronephrosis. Nephrology on board Creatinine trending downward today (4) Chest pain: Code(s): R07.9 - Chest pain, unspecified Status: Acute Assessment and Plan: EKG, initial: Sinus rhythm with occasional ventricular premature complexes, right bundle-branch block EKG, repeat (1): No significant changes when compared to EKG done earlier same day CXR: No acute cardiopulmonary disease Troponin: 0.029 -> 0.026, 6 hour ordered ASA 324 given by EMS SL nitro PRN high suspicion for some level of demand ischemia due to dehydration/positive orthostatic blood pressures. Patient was also endorsing epigastric pain, could be more so GERD related verses cardiac in nature. 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 Consider Cardiology consultation if patient continues to have intermittent chest pain despite rehydration and improved blood pressure. telemetry monitoring- SR 95. (5) Atrial fibrillation: Qualifiers: Atrial fibrillation type: unspecified Qualified Code(s): I48.91 - Unspecified atrial fibrillation Code(s): I48.91 - Unspecified atrial fibrillation Status: Chronic Assessment and Plan: continue home medications: Eliquis initial EKG showed sinus rhythm with occasional ventricular premature complexes and right bundle branch block. 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 Follows with Oncology at [facility]. (Dr. Perea) (7) Protein-calorie malnutrition, moderate: Code(s): E44.0 - Moderate protein-calorie malnutrition Status: Acute Assessment and Plan: Per EMR loss of 21 pounds in 6 months. Lead Shop Operator consult. Add Ensure plus High Protein BID. Regular diet. Add Mirtazapine 15 mg PO QHS. Encourage oral intake. (8) Diarrhea: Code(s): R19.7 - Diarrhea, unspecified Status: Acute Assessment and Plan: Stool negative for c diff. Stool cultures obtained. Ns@ 100 ml/hr. Will order CT abdomen pelvis (9) SVT (supraventricular tachycardia): Code(s): I47.10 - Supraventricular tachycardia, unspecified Status: Acute Assessment and Plan: On 10/03/2024 Self terminated Is still quite acidotic Will switch fluid to IV bicarb Subjective Date/time seen: 10/04/24 08:41 Interval history: Overnight events noted patient had episode of SVT last night for approximately 6 minute. After episode of vomiting. Overnight telemetry reviewed and noted few nsvt otherwise no further SVTs patient also was concern for possible choking leading to vomiting and hence has been kept NPO. Patient reports abdominal pain. Patient also had excessive diarrhea despite Imodium. Review of Systems Review of Systems: All systems reviewed & are unremarkable except as noted in HPI and below Exam Narrative: GENERAL: The patient is thin built ill looking, not in acute distress HEENT: Nonicteric sclerae, PERRLA, EOMI. Dry mucous membrane. Conjunctivae appear well perfused. CHEST: Chest wall is nontender. HEART: Regular rate and rhythm without murmur, rubs, or gallops LUNGS: Coarse breath sound bilaterally. no respiratory distress ABDOMEN: Soft, positive bowel sounds, mild diffuse tenderness, not distended, no organomegaly. SKIN: No rash, no excessive bruising, petechiae, or purpura. NEUROLOGIC: Cranial nerves II-XII intact, alert and oriented x 3, no gross motor deficits EXTREMITIES: no edema, cyanosis or clubbing Objective Data Vital Signs Vital Signs: Vital Signs - 24 hr 10/03/24 12:05 10/03/24 13:58 10/03/24 14:00 Temperature 96.9 F L Pulse Rate 129 H 107 H Respiratory Rate 18 Blood Pressure 118/42 L Pulse Oximetry 100 Oxygen Delivery Room Air Oxygen Flow Rate 10/03/24 16:01 10/03/24 16:15 10/03/24 16:20 Temperature Pulse Rate 100 98 116 H Respiratory Rate Blood Pressure 123/42 L 108/38 L Pulse Oximetry 100 Oxygen Delivery Oxygen Flow Rate 10/03/24 18:03 10/03/24 19:00 10/03/24 20:00 Temperature 97.4 F L 98 F Pulse Rate 194 H 102 H Respiratory Rate 26 H 20 Blood Pressure 111/95 H 143/43 H Pulse Oximetry 100 99 Oxygen Delivery Nasal Cannula Nasal Cannula Oxygen Flow Rate 2 2 10/03/24 20:00 10/03/24 20:10 10/03/24 22:00 Temperature 98.0 F Pulse Rate 92 94 96 Respiratory Rate 20 Blood Pressure 145/45 H Pulse Oximetry 99 Oxygen Delivery Oxygen Flow Rate 10/04/24 00:00 10/04/24 00:00 10/04/24 00:11 Temperature 98.1 F Pulse Rate 94 93 Respiratory Rate 20 Blood Pressure 155/52 H Pulse Oximetry 98 100 Oxygen Delivery Nasal Cannula Oxygen Flow Rate 2 10/04/24 02:00 10/04/24 04:00 10/04/24 04:00 Temperature Pulse Rate 85 85 Respiratory Rate Blood Pressure Pulse Oximetry 99 Oxygen Delivery Nasal Cannula Oxygen Flow Rate 1 10/04/24 05:24 10/04/24 06:00 10/04/24 07:51 Temperature 98.6 F 97.7 F Pulse Rate 86 96 99 Respiratory Rate 18 20 Blood Pressure 135/79 147/40 H Pulse Oximetry 99 98 Oxygen Delivery Oxygen Flow Rate Intake/Output Intake/Output: Intake & Output 10/01/24 10/02/24 10/03/24 10/04/24 23:59 23:59 23:59 23:59 Intake Total 480 1690.3 2600 100 Output Total 100 800 Balance 480 1590.3 2600 -700 Meds/Results Medications: Active Medications Generic Name Dose Route Start Last Admin Trade Name Freq PRN Reason Stop Dose Admin Acetaminophen 650 mg 10/02/24 06:52 10/03/24 09:17 Acetaminophen 325 Mg Tablet PO 650 mg Q4H PRN Administration Pain or Fever Apixaban 5 mg 10/02/24 09:00 10/03/24 18:03 Apixaban 5 Mg Tablet PO Not Given BID SHIRLEY Atorvastatin Calcium 40 mg 10/02/24 21:00 10/03/24 20:30 Atorvastatin 40 Mg Tablet PO Not Given HS SHIRLEY Calcium Carbonate 200 mg 10/01/24 22:19 10/02/24 20:02 Calcium Carbonate (Tums) 500 Mg (200 Mg Elemental) PO 200 mg Q6H PRN Administration Indigestion Fluticasone/Umeclidinium/Vilanterol 1 puff 10/02/24 08:00 10/03/24 07:58 Fluticasone/Umeclidin/Vilanter 100-62.5-25 Mcg Ellipta INHALATION Not Given DAILYRT SHIRLEY Sodium Chloride 1,000 mls @ 100 mls/hr 10/02/24 09:55 10/03/24 18:01 Normal Saline Iv IV CONT 100 mls/hr .Q10H SHIRLEY Administration Albumin Human 100 mls @ 60 mls/hr 10/03/24 18:00 10/04/24 05:58 Albutein IVPB 10/04/24 13:39 60 mls/hr Q6HR SHIRLEY Administration Loperamide HCl 4 mg 10/02/24 22:25 10/02/24 22:46 Loperamide Hcl 2 Mg Capsule PO 4 mg BID PRN Administration Diarrhea Mirtazapine 15 mg 10/02/24 21:00 10/03/24 20:30 Mirtazapine 15 Mg Tablet PO Not Given HS [facility] Multivitamins/Minerals 1 tablet 10/02/24 09:00 10/03/24 18:03 Opti-Gen Tab PO Not Given BID [facility] Nitroglycerin 0.4 mg 10/01/24 13:30 Nitroglycerin Sl 0.4 Mg Tablet SUBLINGUAL Q5MIN PRN Chest Pain Ondansetron HCl 4 mg 10/01/24 22:38 Ondansetron Hcl Odt 4 Mg Tablet PO Q6H PRN nausea and vomiting Pantoprazole Sodium 40 mg 10/02/24 09:00 10/03/24 10:52 Pantoprazole 40 Mg Tablet PO 40 mg DAILY [facility] Administration Sodium Bicarbonate 1,300 mg 10/04/24 09:00 Sodium Bicarbonate Tab 650 Mg Tablet PO BID [facility] Sucralfate 1 gm 10/02/24 09:00 10/03/24 20:30 Sucralfate 1 Gm Tablet PO Not Given QID [facility] Radiology Results: ITS Impressions Renal Ultrasound 10/02/24 00:30 IMPRESSION: No hydronephrosis or renal calculi. Findings suggesting medical renal disease. Chest X-Ray 10/03/24 18:09 IMPRESSION: No acute cardiopulmonary process. Labs Labs: Laboratory Results - last 24 hr 10/03/24 10/03/24 10/04/24 17:40 18:27 04:09 WBC 13.2 H 9.7 RBC 4.13 L 3.16 L Hgb 11.1 L 8.4 L Hct 35.1 L 26.9 L MCV 85.0 85.1 MCH 26.9 26.6 MCHC 31.6 L 31.2 L RDW 20.0 H 19.6 H Plt Count 409 H 385 H MPV 10.0 10.3 Immature Gran % (Auto) Not Reportable Neut % (Auto) Not Reportable Lymph % (Auto) Not Reportable [place] % (Auto) Not Reportable Eos % (Auto) Not Reportable Baso % (Auto) Not Reportable Lymph # (Auto) Not Reportable [place] # (Auto) Not Reportable Eos # (Auto) Not Reportable Baso # (Auto) Not Reportable Abs Immat Gran (auto) Not Reportable Absolute Neuts (auto) Not Reportable Absolute Nucleated RBC Not Reportable Total Counted 100 Neutrophils % (Manual) 62 Band Neutrophils % 18 H Lymphocytes % (Manual) 11 L Monocytes % (Manual) 9 Nucleated RBC % Not Reportable Abs Neuts (Manual) 7.76 H Abs Lymphs (Manual) 1.06 L Abs Monocytes (Manual) 0.87 Smudge Cells Present Platelet Estimate Slightly increased Large Platelets Present Giant Platelets Present Anisocytosis 1+ [place] Cells 2+ Acanthocytes (Spur) 1+ Schistocytes 1+ Sodium 128 L 132 L Potassium 4.3 3.7 Chloride 103 105 Carbon Dioxide 8 L 10 L Anion Gap 17 H 17 H BUN 71 H 72 H Creatinine 3.75 H 3.04 H Estim Creat Clear Calc 13 16 Estimated GFR 15 L 20 L Glucose 109 87 POC Capillary Glucose 100 Calcium 8.7 8.8 Magnesium 2.6 H 2.8 H Total Bilirubin 1.3 1.2 AST 32 23 ALT 21 15 Alkaline Phosphatase 69 54 Total Protein 5.4 L 5.4 L Albumin 2.7 L 3.3 L TSH (Reflex) 1.550 Random Cortisol 33.30
[2024-10-04] MEDS: SODIUM CHLORIDE 0.9% IV 1,000 ML 100 ML IV CONT (08:52)
[2024-10-04 09:00] LABS: Anion Gap 13 mmol/L (4-12); Blood Urea Nitrogen 74 mg/dL (9-20); Calcium 8.9 mg/dL (8.4-10.2); Carbon Dioxide 13 mmol/L (22-30); Chloride 107 mmol/L (98-107); Estimated CRCL calculation 20 ml/min; Estimated Glomerular Filt Rate 24; Glucose 88 mg/dL (65-110); Potassium 4.2 mmol/L (3.4-5.0); Sodium 133 mmol/L (137-145)
--- NOTE | 2024-10-04 09:30 | PC.NURSE ---
Notified Dr Valentine of CAP Ct results at approximately 0920.
[2024-10-04] MEDS: SODIUM BICARBONATE TAB 650 MG TABLET 1300 MG PO ×2 (09:53→17:25)
[2024-10-04] MEDS: OPTI-GEN TAB 1 TABLET PO ×2 (09:53→17:25)
[2024-10-04] MEDS: SODIUM BICARBONATE 8.4% 150 MEQ in DEXTROSE 5% 1,000 ML 950 ML 100 MEQ IV CONT ×2 (09:54→21:53)
[2024-10-04] MEDS: PANTOPRAZOLE 40 MG TABLET PO (09:54)
[2024-10-04] MEDS: SUCRALFATE 1 GM TABLET PO ×4 (09:54→20:51)
[2024-10-04] MEDS: APIXABAN 5 MG TABLET PO ×2 (09:54→17:26)
--- NOTE | 2024-10-04 10:33 | PCOTNOTE ---
Per MD, hold today due to decline in medical status. Will continue to follow for OT evaluation.
--- NOTE | 2024-10-04 12:05 | ECG_ITS ---
Test Date: 2024-10-04 12:08:56 Measurements Intervals [place] Rate: 98 P: 39 TX: 168 QRS: 19 QRSD: 133 T: 20 QT: 371 QTc: 475 Interpretive Statements SINUS RHYTHM WITH OCCASIONAL ATRIAL AND VENTRICULAR PREMATURE COMPLEXES RIGHT BUNDLE BRANCH BLOCK BASELINE ARTIFACT- I, II, III, AVR, AVL, AVF ABNORMAL ECG Compared to ECG 10/03/2024 17:52:16 HEART RATE HAS DECREASED Electronically Signed On 10-04-2024 12:37:03 CDT by Cornelio Barnett D.O.
--- NOTE | 2024-10-04 12:10 | PCSTNOTE ---
Please refer to the Bedside Swallow Evaluation in the EMR. Please note, silent aspiration cannot be ruled out at bedside. Stephanie Jay is a 83 year old male who presents to the hospital with frequent falls and overall weakness. ST was ordered due to a choking event yesterday evening. The RN and pt report the pt attempted to take a regular sized pill with a sip of water and the pill went down the wrong way. This resulted in choking and emesis. Pt reports no other history of dysphagia. An oral mechanism exam was preformed and was remarkable for the pt being edentulous. Trials included thin liquids via tsp, cup edge, and straw (sip, regular drink, 3oz), puree, and hard solids softened in pudding. Pt demonstrated a timely swallow initiation across trials and no oral residue was noted after the initial swallow. Delayed throat clearing was noted x1; however, was outside of presented PO trials. No other clinical and overt signs and symptoms were noted across volumes and consistencies. Of note, the pt reported that his dentures were at home; however, typically ineffective in masticating hard to chew foods due to the age of the dentures. The pt stated that he typically selects softer foods at home and would not be able to chew large bites of tough foods. Recommendations: 1. Level 6: Soft and Bite Sized; Level 0: Thin liquids; Medications should be crushed or cut and in puree when able 2. Upright with all meals and pills 3. PO only when alert and awake Dr. Valentine and VENUS Da Silva made aware of results and recommendations. No further ST services warranted.
--- NOTE | 2024-10-04 12:12 | PC.NURSE ---
Pt lying in bed with at bedside. monitor car operator started alarming, the patient's heart rate had increased from earlier monitoring and the rhythm had changed from sinus to afib. was called and notified. Orders placed via telephone order, EKG, metoprolol 5mg IV push q6 prn, cardiology consult. While in afib RVR highest heart rate whitnessed was 188. Rekha DONOVAN and myself went into the room to complete the EKG and give the ordered medication. While in the room the patient converted back to sinus rhythm/ sinus tach without medication being given. Telemetry monitoring continued.
--- NOTE | 2024-10-04 12:39 | PCPTNOTE ---
PT treatment held today per MD due to change in patient's medical status. PT will continue to follow.
--- NOTE | 2024-10-04 12:51 | PC.NURSE ---
At approximately 1200 PT heart rhythm changed to what appeared to be AFIb. Rate 120's. at approximately 1203 the patients HR was 160-180. Meme notified and received order for metoprolol IVP. Stat EKG obtained but patient converted out of Afib back to Sinus Tach (rate of 103) before EKG was finished or metoprolol was given. Cardiology consulted.
--- NOTE | 2024-10-04 13:10 | P.PNNP_ITS ---
Progress Note: A&P Assessment and Plan (1) Acute kidney injury: Code(s): N17.9 - Acute kidney failure, unspecified Status: Acute Assessment and Plan: * slow improvement * as noted on admission * admission creatinine 2.89mg/dl * suspect multifactorial etiology: * prerenal factors (poor oral intake and diarrhea) * hypotension * chemotherapy(?) * renal hypoperfusion/mild ATN... * failure to thrive(?) * evaluation to date noted: * renal ultrasound with findings of medical renal disease but no obstruction * urine electrolytes pre-renal * no proteinuria * urine eosinophils negative * CPK normal * UA pending * agree with IVF hydration * follow trend of repeat labs and UOP (2) Stage 3a chronic kidney disease: Code(s): N18.31 - Chronic kidney disease, stage 3a Status: Chronic Assessment and Plan: * baseline creatinine runs ~ 1.1 - 1.4mg/d (since 2021) * presumably due to previous hypertension, vascular disease (CAD/CABG + hyperlipidemia + carotid stensis), and age-related change (3) Orthostatic hypotension: Code(s): I95.1 - Orthostatic hypotension Status: Acute Assessment and Plan: * as noted by EMS: * BP 90/40 supine * BP 60/38 standing * BP improved with IVF bolus and maintenance fluids * follow trend of hemodynamics (4) Hyponatremia: Code(s): E87.1 - Hypo-osmolality and hyponatremia Status: Acute Assessment and Plan: * better at this time * due to BRITTANIE and hypovolemia; malignancy could be playing a role * urine electrolytes consistent with prerenal azotemia * evaluaton noted: * prerenal urine electrolytes * TSH okay * cortisol not low * SPEP/UPEP and serum/urine osmolality * follow trend with IVFs (5) Metabolic acidosis: Code(s): E87.20 - Acidosis, unspecified Status: Acute Assessment and Plan: * due to a combination of BRITTANIE/ARF, diarrhea, and normal saline IVFs * initiated on oral sodium bicarbonate * this should help acidosis and low sodium * started on bicarb fluids as well * monitor for hypokalemia and hypocalcemia with use of bicarb fluids (6) Chest pain: Code(s): R07.9 - Chest pain, unspecified Status: Acute Assessment and Plan: * as noted on presentation * EKGs noted -- no ischemic changes * CXR negative * trend of troponins noted * suspect demand ischemia due to hypotension * continue supportive care (7) Anemia: Code(s): D64.9 - Anemia, unspecified Status: Acute Assessment and Plan: * related to BRITTANIE, CKD, malignancy, and acute illness * consider BRUNO/Epogen therapy while hospitalized * check anemia studies * follow trend of H/H (8) Atrial fibrillation: Qualifiers: Atrial fibrillation type: unspecified Qualified Code(s): I48.91 - Unspecified atrial fibrillation Code(s): I48.91 - Unspecified atrial fibrillation Status: Chronic Assessment and Plan: * noted issues this afternoon * complicated by SVT overnight * rate control strategy * resume home metoprolol * on anticoagulation (Eliquis) (9) Protein-calorie malnutrition, moderate: Code(s): E44.0 - Moderate protein-calorie malnutrition Status: Acute Assessment and Plan: * suspect possible early signs of failure to thrive * liberalize diet as tolerated with supplemental shakes * appetite stimulant? 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 Perea * s/p radiation therapy * currently undergoing chemotherapy Will continue to follow. L Subjective Date/time seen: 10/04/24 13:10 Interval history: Follow-up for acute kidney injury/acute renal failure. Events noted overnight -- episode of possible choking along with vomiting when given evening medications with resultant SVT confirmed by telemetry; SVT spontaneous resolved before any intervention done; moved to IMU for closer monitoring; early this afternoon, telemetry noted change in rhythm to atrial fibrilation with RVR around noon but once again, before any intervention, afib converted to sinus tachycardia; continues to have significant diarrhea despite Imodium as well; renal function/creatinine appears to be improving by trend of labs but worsening acidosis noted despite oral sodium bicarbonate so initiated on bicarb gtt; at bedside and we discussed the situation. Exam 2 Narrative: General: somewhat ill-appearing and elderly male in NAD Heart: tachycardic, normal S1 and S2; no rub Lungs: clear to auscultation Abdomen: soft, nontender, nondistended, positive bowel sounds Extremities: no cyanosis or clubbing; no edema Skin: warm and intact Objective Data Vital Signs Vital Signs: Vital Signs Temp Pulse Resp BP Pulse Ox O2 Del Method O2 Flow Rate 10/04/24 12:03 160 H 10/04/24 12:00 126 H 10/04/24 11:36 101 H 119/43 L 94 10/04/24 11:35 97.8 F 93 18 134/43 L 94 10/04/24 11:34 97.8 F 93 18 134/43 L 94 10/04/24 11:23 Room Air 10/04/24 10:00 102 H 10/04/24 08:00 97 10/04/24 08:00 Room Air 10/04/24 07:51 97.7 F 99 20 147/40 H 98 10/04/24 06:00 96 10/04/24 05:24 98.6 F 86 18 135/79 99 10/04/24 04:00 85 10/04/24 04:00 99 Nasal Cannula 1 10/04/24 02:00 85 10/04/24 00:11 98.1 F 93 20 155/52 H 100 10/04/24 00:00 94 10/04/24 00:00 98 Nasal Cannula 2 10/03/24 22:00 96 10/03/24 20:10 98.0 F 94 20 145/45 H 99 10/03/24 20:00 92 10/03/24 20:00 99 Nasal Cannula 2 10/03/24 19:00 98 F 102 H 20 143/43 H 10/03/24 18:03 97.4 F L 194 H 26 H 111/95 H 100 Nasal Cannula 2 Intake/Output Intake/Output: Intake & Output 10/01/24 10/02/24 10/03/24 10/04/24 23:59 23:59 23:59 23:59 Intake Total 480 1690.3 2600 320 Output Total 100 1850 Balance 480 1590.3 2600 -1530 Meds/Results Medications: Active Medications Generic Name Dose Route Start Last Admin Trade Name Freq PRN Reason Stop Dose Admin Acetaminophen 650 mg 10/02/24 06:52 10/03/24 09:17 Acetaminophen 325 Mg Tablet PO 650 mg Q4H PRN Administration Pain or Fever Apixaban 5 mg 10/02/24 09:00 10/04/24 09:54 Apixaban 5 Mg Tablet PO 5 mg BID SHIRLEY Administration Atorvastatin Calcium 40 mg 08/13/25 21:00 10/03/24 20:30 Atorvastatin 40 Mg Tablet PO Not Given HS SHIRLEY Calcium Carbonate 200 mg 10/01/24 22:19 10/02/24 20:02 Calcium Carbonate (Tums) 500 Mg (200 Mg Elemental) PO 200 mg Q6H PRN Administration Indigestion Fluticasone/Umeclidinium/Vilanterol 1 puff 10/02/24 08:00 10/04/24 09:09 Fluticasone/Umeclidin/Vilanter 100-62.5-25 Mcg Ellipta INHALATION Not Given DAILYRT [facility] Sodium Bicarbonate 150 meq/ 1,100 mls @ 100 mls/hr 10/04/24 08:50 10/04/24 09:54 Dextrose IV CONT 100 mls/hr .Q11H SHIRLEY Administration Loperamide HCl 4 mg 10/02/24 22:25 10/02/24 22:46 Loperamide Hcl 2 Mg Capsule PO 4 mg BID PRN Administration Diarrhea Metoprolol Succinate 50 mg 10/05/24 09:00 Metoprolol Succinate Ext Rel 50 Mg Tabcr PO QAM [facility] Metoprolol Tartrate 5 mg 10/04/24 12:04 Metoprolol Tartrate Inj 5 Mg/5 Ml Vial IV PUSH Q6HR PRN heart rate Metoprolol Tartrate 12.5 mg 10/04/24 13:05 10/04/24 13:58 Metoprolol Tartrate 12.5 Mg Tablet PO 10/04/24 23:59 12.5 mg Q12HR [facility] Administration Mirtazapine 15 mg 10/02/24 21:00 10/03/24 20:30 Mirtazapine 15 Mg Tablet PO Not Given HS [facility] Multivitamins/Minerals 1 tablet 10/02/24 09:00 10/04/24 09:53 Opti-Gen Tab PO 1 tablet BID [facility] Administration Nitroglycerin 0.4 mg 10/01/24 13:30 Nitroglycerin Sl 0.4 Mg Tablet SUBLINGUAL Q5MIN PRN Chest Pain Ondansetron HCl 4 mg 10/01/24 22:38 Ondansetron Hcl Odt 4 Mg Tablet PO Q6H PRN nausea and vomiting Pantoprazole Sodium 40 mg 10/02/24 09:00 10/04/24 09:54 Pantoprazole 40 Mg Tablet PO 40 mg DAILY SHIRLEY Administration Sodium Bicarbonate 1,300 mg 10/04/24 09:00 10/04/24 09:53 Sodium Bicarbonate Tab 650 Mg Tablet PO 1,300 mg BID SHIRLEY Administration Sucralfate 1 gm 10/02/24 09:00 10/04/24 13:58 Sucralfate 1 Gm Tablet PO 1 gm QID SHIRLEY Administration Radiology Results: ITS Impressions Renal Ultrasound 10/02/24 00:30 IMPRESSION: No hydronephrosis or renal calculi. Findings suggesting medical renal disease. Chest X-Ray 10/03/24 18:09 IMPRESSION: No acute cardiopulmonary process. Chest/Abdomen/Pelvis CT 10/04/24 08:39 IMPRESSION: 1. Fluid in the colon consistent with nonspecific diarrhea with wall thickening of multiple loops of distal ileum consistent with enteritis which could be infectious or inflammatory in etiology. 2. Small region of increased density within a now partially collapsed extremity cyst at the lower pole the right kidney likely representing some internal hemorrhage. Consider follow-up ultrasound versus pre and postcontrast MRI or CT in a few weeks to document resolution and exclude significantly less likely solid neoplastic component. 3. Mild emphysema and scattered bilateral calcified pleural plaques consistent with prior asbestos exposure. 4. Unchanged 9 mm nodule along the right intrafissural lymph node without FDG uptake on prior PET/CT most consistent with a benign intrafissural lymph node. 5. Prostatomegaly. 6. Small fat-containing left inguinal hernia. Labs Labs: Laboratory Tests 10/04/24 04:09 10/03/24 10/03/24 10/04/24 10/04/24 05:39 18:27 04:09 08:24 Sodium 125 L 128 L 132 L 133 L Potassium 4.2 Chloride 107 Carbon Dioxide 10 L 8 L 10 L 13 L BUN 65 H 71 H 72 H 74 H Creatinine 3.62 H 3.75 H 3.04 H 2.52 H Estimated GFR 15 L 20 L 24 L Glucose 88 Calcium 8.9 Albumin 2.7 L 3.3 L Microbiology 10/02/24 12:18 Stool Salmonella/Shigella Screen - Final 10/02/24 12:18 Stool Shiga Toxin (EIA) - Final
[2024-10-04] MEDS: METOPROLOL TARTRATE 12.5 MG TABLET PO ×2 (13:58→20:50)
--- NOTE | 2024-10-04 13:59 | PC.NURSE ---
Clarified with Karishma Benson, Meme ordered 12.5 po metoprolol q12hr. PT and med list, lists metoprol xr 50mg. Notified provider and received order from Karishma Benson to give the 12.5 of metoprolol now and tonight and start xr in the morning. Received call back from Meme who was ok with all of this.
[2024-10-04 15:51] LABS: Anion Gap 13 mmol/L (4-12); Blood Urea Nitrogen 70 mg/dL (9-20); Calcium 8.7 mg/dL (8.4-10.2); Carbon Dioxide 16 mmol/L (22-30); Chloride 103 mmol/L (98-107); Estimated CRCL calculation 21 ml/min; Estimated Glomerular Filt Rate 27; Glucose 113 mg/dL (65-110); Potassium 3.3 mmol/L (3.4-5.0); Sodium 132 mmol/L (137-145)
--- NOTE | 2024-10-04 17:41 | P.CONCA_ITS ---
Assessment and Plan Assessment and plan (1) Atrial fibrillation: Qualifiers: Atrial fibrillation type: unspecified Qualified Code(s): I48.91 - Unspecified atrial fibrillation Code(s): I48.91 - Unspecified atrial fibrillation Status: Chronic Assessment and Plan: Patient a brief episode of SVT which is likely atrial fibrillation. In IMU, he had a brief run of atrial fibrillation earlier today. Recommend low-dose metoprolol therapy 12.5 mg p.o. b.i.d.. Patient is already on Eliquis although his hemoglobin has dropped. This should be closely monitored and further decrease in hemoglobin, would hold his Eliquis for now until workup is completed. Potassium is low today at 3.3. Will give KCL 40 mEq p.o. x1. No further cardiac workup needed at this point (2) Hypertension: Qualifiers: Hypertension type: primary hypertension Qualified Code(s): I10 - Essential (primary) hypertension Code(s): I10 - Essential (primary) hypertension Status: Chronic Assessment and Plan: Normalized. (3) BRITTANIE (acute kidney injury): Code(s): N17.9 - Acute kidney failure, unspecified Status: Acute Assessment and Plan: Improved. Likely related to dehydration (4) Anemia: Code(s): D64.9 - Anemia, unspecified Status: Acute Assessment and Plan: Trend H&H History of Present Illness History of Present Illness Consult date/time: 10/04/24 17:41 Requesting physician: Brennen Valentine MD Consult reason: atrial fibrillation Reason For Visit: hyponatremia Narrative: Reason for consultation: Atrial fibrillation Date of service: 10/04/[address] Rivero History: History patient is an 83-year-old male who is admitted for generalized fatigue, weakness. Does have a history of coronary artery disease, colorectal cancer. He went into ?SVT ?on the floor and then earlier today had a brief episode of atrial fibrillation with rapid ventricular response. His a history of atrial fibrillation. He has not been receiving his beta-ujnie presumably because of hypotension electrolyte abnormalities. He currently feels okay and is without significant chest pain. Has some baseline shortness of breath. No syncope, presyncope, paroxysmal nocturnal dyspnea, orthopnea, edema or palpitations. [facility] Past Medical History Medical History (Updated 10/04/24 @ 08:45 by Brennen Valentine MD) Colorectal cancer Chronic anticoagulation Hypertension No longer on medications Atrial fibrillation Carotid artery stenosis Hyperlipidemia CAD (coronary artery disease) Surgical History Surgical History Hx of CABG 2004 Family History Family History Mother Patient's mother is , Onset Age: 88 Father Family history of lung cancer, Onset Age: 83 Sibling Family history of malignant neoplasm of ovary Social History Social History Smoking packs per day: 0.25 Smoking cigarettes per day: 5.0 Years smoked: 65 Smoking pack-years: 16.25 Smoking status: Current some day smoker Tobacco type: cigarettes Second hand tobacco smoke exposure: Yes Alcohol intake: never Alcohol use details: Social Substance use: never Substance use type: does not use Lack of Transportation: No Lack of Food: Never True Current Housing: I Have Housing Concerned About Future Housing: No Difficulty Paying Gas/Electric Bills: No Difficulty Paying for Meds: No Currently Unemployed: No Education: High School Diploma/GED Difficulty w/ Childcare or Family Care: No Living arrangements: with family Additional living arrangements comments: With sp Spiritual care concerns: No Meds Home Medications and Allergies Home Medications ?Medication ?Instructions ?Recorded ?Confirmed ?Type apixaban 5 mg tablet (Eliquis) 5 mg PO BID 01/01/24 10/01/24 History atorvastatin 40 mg tablet 40 mg PO HS 10/01/24 10/01/24 History budesonide 160 mcg-glycopyr 9 2 inh inhalation BID 10/01/24 10/01/24 History mcg-formot 4.8 mcg/actuation HFA inhaler (Breztri Aerosphere) ondansetron HCl 4 mg tablet 4 mg PO Q6H PRN nausea and vomiting 10/01/24 10/01/24 History pantoprazole 40 mg tablet,delayed 40 mg PO DAILY 10/01/24 10/01/24 History release sucralfate 1 gram tablet 1 g PO QID 10/01/24 10/01/24 History vit C 250 mg-vit E 90 mg-zinc 40 1 tablet PO BID 10/01/24 10/01/24 History mg-copper 1 [id number] capsule (Eye [facility] AREDS-2) Allergies Allergy/AdvReac Type Severity Reaction Status Date / Time No Known Allergies Allergy Verified 04/30/24 10:53 Vital Signs Vital Signs - 24 hr 10/03/24 18:03 10/03/24 19:00 10/03/24 20:00 Temperature 36.3 C L 36.6 C Pulse Rate 194 H 102 H Respiratory Rate 26 H 20 Blood Pressure 111/95 H 143/43 H Pulse Oximetry 100 99 Oxygen Delivery Nasal Cannula Nasal Cannula Oxygen Flow Rate 2 2 10/03/24 20:00 10/03/24 20:10 10/03/24 22:00 Temperature 36.7 C Pulse Rate 92 94 96 Respiratory Rate 20 Blood Pressure 145/45 H Pulse Oximetry 99 Oxygen Delivery Oxygen Flow Rate 10/04/24 00:00 10/04/24 00:00 10/04/24 00:11 Temperature 36.7 C Pulse Rate 94 93 Respiratory Rate 20 Blood Pressure 155/52 H Pulse Oximetry 98 100 Oxygen Delivery Nasal Cannula Oxygen Flow Rate 2 10/04/24 02:00 10/04/24 04:00 10/04/24 04:00 Temperature Pulse Rate 85 85 Respiratory Rate Blood Pressure Pulse Oximetry 99 Oxygen Delivery Nasal Cannula Oxygen Flow Rate 1 10/04/24 05:24 10/04/24 06:00 10/04/24 07:51 Temperature 37.0 C 36.5 C Pulse Rate 86 96 99 Respiratory Rate 18 20 Blood Pressure 135/79 147/40 H Pulse Oximetry 99 98 Oxygen Delivery Oxygen Flow Rate 10/04/24 08:00 10/04/24 08:00 10/04/24 10:00 Temperature Pulse Rate 97 102 H Respiratory Rate Blood Pressure Pulse Oximetry Oxygen Delivery Room Air Oxygen Flow Rate 10/04/24 11:23 10/04/24 11:34 10/04/24 11:35 Temperature 36.6 C 36.6 C Pulse Rate 93 93 Respiratory Rate 18 18 Blood Pressure 134/43 L 134/43 L Pulse Oximetry 94 94 Oxygen Delivery Room Air Oxygen Flow Rate 10/04/24 11:36 10/04/24 12:00 10/04/24 12:03 Temperature Pulse Rate 101 H 126 H 160 H Respiratory Rate Blood Pressure 119/43 L Pulse Oximetry 94 Oxygen Delivery Oxygen Flow Rate 10/04/24 14:00 10/04/24 15:33 10/04/24 16:00 Temperature Pulse Rate 101 H 91 Respiratory Rate Blood Pressure Pulse Oximetry Oxygen Delivery Room Air Oxygen Flow Rate 10/04/24 16:37 10/04/24 16:39 Temperature 36.7 C Pulse Rate 102 H 106 H Respiratory Rate 22 H Blood Pressure 63/44 L 135/42 L Pulse Oximetry 98 96 Oxygen Delivery Oxygen Flow Rate Exam 2 Narrative: Awake alert. Appears stated age Const: General: comfortable and no acute distress HENMT: Ears: TM's normal bilaterally Face/Nose/Sinus: Normal nares present Eyes: General: appearance normal, both eyes and all related structures S clera: sclerae normal Neck: Neck: supple and no JVD Chest: Other: No reproducible chest wall pain to palpation Resp: Effort & Inspection: normal respiratory effort Auscultation: clear to auscultation bilaterally Cardio: Rate: regular rate Rhythm: regular rhythm GI: GI Palp: Yes Soft to palpation Skin: Wounds: no wounds Other: Appears jaundiced Neuro: Speech: normal speech Sensory Exam: normal sensation Extrem: General: normal to inspection Psych: Mental Status: mental status grossly normal Results Labs and Meds 10/04/24 04:09 10/04/24 15:11 Lab results: Cardiac Enzymes 10/03/24 10/04/24 Range/Units 18:27 04:09 AST 32 23 (17-59) U/L CBC 10/03/24 10/04/24 Range/Units 18:27 04:09 WBC 13.2 H 9.7 (4.5-10.0) K/mm3 RBC 4.13 L 3.16 L (4.6-6.20) M/mm3 Hgb 11.1 L 8.4 L (14.0-18.0) g/dL Hct 35.1 L 26.9 L (42.0-52.0) % Plt Count 409 H 385 H (150-375) k/mm3 Lymph # (Auto) Not Reportable [place] # (Auto) Not Reportable Eos # (Auto) Not Reportable Baso # (Auto) Not Reportable Comprehensive Metabolic Panel 10/03/24 10/04/24 10/04/24 Range/Units 18:27 04:09 08:24 Sodium 128 L 132 L 133 L (137-145) mmol/L Potassium 4.3 3.7 4.2 (3.4-5.0) mmol/L Chloride 103 105 107 (98-107) mmol/L Carbon Dioxide 8 L 10 L 13 L (22-30) mmol/L BUN 71 H 72 H 74 H (9-20) mg/dL Creatinine 3.75 H 3.04 H 2.52 H (0.7-1.3) mg/dL Glucose 109 87 88 (65-110) mg/dL Calcium 8.7 8.8 8.9 (8.4-10.2) mg/dL AST 32 23 (17-59) U/L ALT 21 15 (6-50) U/L Alkaline Phosphatase 69 54 (38-126) U/L Total Protein 5.4 L 5.4 L (6.3-8.2) g/dL Albumin 2.7 L 3.3 L (3.5-5.1) g/dL 10/04/24 Range/Units 15:11 Sodium 132 L (137-145) mmol/L Potassium 3.3 L (3.4-5.0) mmol/L Chloride 103 (98-107) mmol/L Carbon Dioxide 16 L (22-30) mmol/L BUN 70 H (9-20) mg/dL Creatinine 2.33 H (0.7-1.3) mg/dL Glucose 113 H (65-110) mg/dL Calcium 8.7 (8.4-10.2) mg/dL AST (17-59) U/L ALT (6-50) U/L Alkaline Phosphatase (38-126) U/L Total Protein (6.3-8.2) g/dL Albumin (3.5-5.1) g/dL Intake and Output 10/04/24 10/04/24 10/04/24 07:59 15:59 23:59 Intake Total 200 120 100 Output Total 800 1050 150 Balance -600 -930 -50 Intake: IV 200 Albumin Human 25% 25 gm/100 ml 200 100 ml @ 60 mls/hr IVPB Q6HR COUNT INCLUDES THE [facility] Rx#:[id number] Oral 120 100 Output: Catheter Urine 550 150 Urethral Catheter 550 150 Stool 800 500 Other: Number of Bowel Movements Today 1 2 EKG is personally reviewed and independently interpreted showing sinus rhythm with right bundle branch block and PVC.
[2024-10-04] MEDS: METOPROLOL TARTRATE INJ 5 MG/5 ML VIAL IV PUSH ×2 (18:19→22:03)
[2024-10-04] MEDS: POTASSIUM BICARBONATE 25 MEQ TABEF 50 MEQ PO (18:38)
[2024-10-04 19:13] LABS: Hematocrit 25.6 % (42.0-52.0); Hemoglobin 8.1 g/dL (14.0-18.0)
[2024-10-04] MEDS: ATORVASTATIN 40 MG TABLET PO (20:50)
[2024-10-04] MEDS: MIRTAZAPINE 15 MG TABLET PO (20:51)
[2024-10-04 21:44] LABS: Anion Gap 12 mmol/L (4-12); Blood Urea Nitrogen 67 mg/dL (9-20); Calcium 8.9 mg/dL (8.4-10.2); Carbon Dioxide 19 mmol/L (22-30); Chloride 101 mmol/L (98-107); Estimated CRCL calculation 21 ml/min; Estimated Glomerular Filt Rate 27; Glucose 136 mg/dL (65-110); Potassium 3.5 mmol/L (3.4-5.0); Sodium 132 mmol/L (137-145)
[2024-10-05] VITALS (25 sets, daily range): BP systolic 96–132; BP diastolic 30–58; PULSE 65–160; RESP 18–21; TEMP 36.3–36.7; O2SAT 94–100
[2024-10-05 04:11] LABS: Hematocrit 28.7 % (42.0-52.0); Hemoglobin 9.5 g/dL (14.0-18.0); Mean Corpuscular HGB Conc 33.1 g/dl (32-36); Mean Corpuscular Hemoglobin 26.4 pg (26-34); Mean Corpuscular Volume 79.7 fl (80-100); Platelet Count Result 357 k/mm3 (150-375); Red Blood Count 3.60 M/mm3 (4.6-6.20); White Blood Count 10.6 K/mm3 (4.5-10.0)
[2024-10-05 04:32] LABS: Alanine Aminotransferase 18 U/L (6-50); Albumin Level 3.2 g/dL (3.5-5.1); Alkaline Phosphatase 53 U/L (38-126); Anion Gap 12 mmol/L (4-12); Aspartate Amino Transferase 30 U/L (17-59); Bilirubin,Total 1.1 mg/dL (0.2-1.3); Blood Urea Nitrogen 71 mg/dL (9-20); Calcium 8.6 mg/dL (8.4-10.2); Carbon Dioxide 21 mmol/L (22-30); Chloride 98 mmol/L (98-107); Estimated CRCL calculation 21 ml/min; Estimated Glomerular Filt Rate 26; Glucose 136 mg/dL (65-110); Magnesium 2.7 mg/dL (1.6-2.3); Potassium 3.1 mmol/L (3.4-5.0); Sodium 131 mmol/L (137-145); Total Protein 5.3 g/dL (6.3-8.2)
[2024-10-05 04:36] LABS: Band Neutrophils Percent 15 % (0-6); Eosinophils Absolute Manual 0.10 K/mm3 (0.02-0.50); Eosinophils Percent Manual 1 % (0-4); Lymphocytes Absolute Manual 1.59 K/mm3 (1.1-4.5); Lymphocytes Percent Manual 15.0 % (18-44); Monocytes Absolute Manual 0.31 K/mm3 (0.1-0.90); Monocytes Percent Manual 3 % (3-9); Neutrophils Absolute Manual 8.58 K/mm3 (1.3-6.7); Neutrophils Percent Manual 66 % (46-73); Total Cells Counted 100
[2024-10-05 04:37] LABS: Anisocytosis 1+; Hypochromasia 1+; Microcytosis 1+ (NORMAL); Ovalocytes 1+; Schistocytes Rare; Smudge Cells PRESENT
--- NOTE | 2024-10-05 07:44 | P.PNIM_ITS ---
Progress Note: A&P Assessment and Plan (1) Acute dehydration: Code(s): E86.0 - Dehydration Status: Acute Assessment and Plan: Received IV fluid Continue same (2) Acute hyponatremia: Code(s): E87.1 - Hypo-osmolality and hyponatremia Status: Acute Assessment and Plan: Sodium 130 on admission. Nephrology consulted Remains stable continue to monitor (3) BRITTANIE (acute kidney injury): Code(s): N17.9 - Acute kidney failure, unspecified Status: Acute Assessment and Plan: * creatinine 2.89, BUN 45, GFR 21 on admission. * Creatinine 3.30, BUN 60, GFR 18 today. * baseline creatinine in 2023 appears to be 1.2-1.4. * Renal ultrasound with no hydronephrosis. Nephrology on board Creatinine trending downward today (4) Chest pain: Code(s): R07.9 - Chest pain, unspecified Status: Acute Assessment and Plan: * EKG, initial: Sinus rhythm with occasional ventricular premature complexes, right bundle-branch block * EKG, repeat (1): No significant changes when compared to EKG done earlier same day * CXR: No acute cardiopulmonary disease * Troponin: 0.029 -> 0.026, 6 hour ordered * ASA 324 given by EMS * SL nitro PRN * high suspicion for some level of demand ischemia due to dehydration/positive orthostatic blood pressures. Patient was also endorsing epigastric pain, could be more so GERD related verses cardiac in nature. 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 Consider Cardiology consultation if patient continues to have intermittent chest pain despite rehydration and improved blood pressure. * telemetry monitoring- SR 95. (5) Atrial fibrillation: Qualifiers: Atrial fibrillation type: unspecified Qualified Code(s): I48.91 - Unspecified atrial fibrillation Code(s): I48.91 - Unspecified atrial fibrillation Status: Chronic Assessment and Plan: * continue home medications: Eliquis * initial EKG showed sinus rhythm with occasional ventricular premature complexes and right bundle branch block. 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 * Follows with Oncology at [facility]. (Dr. Perea) (7) Protein-calorie malnutrition, moderate: Code(s): E44.0 - Moderate protein-calorie malnutrition Status: Acute Assessment and Plan: * Per EMR loss of 21 pounds in 6 months. * Unmanned Equipment Operator consult. * Add Ensure plus High Protein BID. Regular diet. * Add Mirtazapine 15 mg PO QHS. * Encourage oral intake. (8) Diarrhea: Code(s): R19.7 - Diarrhea, unspecified Status: Acute Assessment and Plan: * Stool negative for c diff. * Stool cultures obtained. * Ns@ 100 ml/hr. Will order CT abdomen pelvis (9) SVT (supraventricular tachycardia): Code(s): I47.10 - Supraventricular tachycardia, unspecified Status: Acute Assessment and Plan: On 10/03/2024 Self terminated Is still quite acidotic Will switch fluid to IV bicarb Subjective Date/time seen: 10/05/24 07:44 Interval history: Will discuss with nephrology about the CT finding cyst at lower pole the right kidney likely representing some internal hemorrhage.Has long discussion with his discussed about aggressive treatment vs hospice and palliative. wants to discuss with her daughter and granddaughter who works as nurse at [employer]. Patient condition is deteriorating and guarded prognosis. Consulted oncology and GI.Patient had multiple bowel movement yesterday night. Started on Imodium and appreciate GI recommendation. Review of Systems Review of Systems: All systems reviewed & are unremarkable except as noted in HPI and below Exam Narrative: GENERAL: The patient is thin built ill looking, not in acute distress HEENT: Nonicteric sclerae, PERRLA, EOMI. Dry mucous membrane. Conjunctivae appear well perfused. CHEST: Chest wall is nontender. HEART: Regular rate and rhythm without murmur, rubs, or gallops LUNGS: Coarse breath sound bilaterally. no respiratory distress ABDOMEN: Soft, positive bowel sounds, mild diffuse tenderness, not distended, no organomegaly. SKIN: No rash, no excessive bruising, petechiae, or purpura. NEUROLOGIC: Cranial nerves II-XII intact, alert and oriented x 3, no gross motor deficits EXTREMITIES: no edema, cyanosis or clubbing Const: General: comfortable and no acute distress Other: Chronically ill appearing male pt lying on his right side at the time of my entry into the room sleeping. He did not appear to have acute distress, but does appear to be chronically ill. HENMT: Face/Nose/Sinus: Normal nares present Mouth: Yes dry mucous membranes Eyes: General: appearance normal, both eyes and all related structures Sclera: sclerae normal Pupils: Equal, round and reactive pupils present EOM: EOMs intact bilaterally Neck: Neck: supple and no JVD Lymphatic: lymphadenopathy not noted Resp: Effort & Inspection: normal respiratory effort Auscultation: clear to auscultation bilaterally Cardio: Rate: regular rate Rhythm: regular rhythm Heart sounds: no gallops, no murmurs and no rubs Other: S1-S2 present without murmur, rub, ectopy GI: Auscultation: normal bowel sounds Other: Mild epigastric tenderness, normoactive bowel sounds in all quadrants, no distension and abdomen is soft Skin: General skin exam: No normal color (Mild jaundice noted), no rashes or lesions noted, No lesion and No rashes Lesions: no lesions noted Rashes: no rashes noted Wounds: no wounds Other: Skin tears bilateral knees and right elbow. No drainage. Areas are dry. Neuro: Cranial nerves: Yes Equal, round and reactive pupils present Speech: normal speech Motor exam (neuro): 5/5 motor strength present throughout and Normal motor muscle tone present throughout Sensory Exam: normal sensation Other: A&O x4 Extrem: General: normal to inspection, no edema and no pedal edema Psych: Mental Status: mental status grossly normal Affect: normal affect Other: Good insight and judgment, pleasant Objective Data Vital Signs Vital Signs: Vital Signs - 24 hr 10/04/24 07:51 10/04/24 08:00 10/04/24 08:00 Temperature 97.7 F Pulse Rate 99 97 Respiratory Rate 20 Blood Pressure 147/40 H Pulse Oximetry 98 Oxygen Delivery Room Air 10/04/24 10:00 10/04/24 11:23 10/04/24 11:34 Temperature 97.8 F Pulse Rate 102 H 93 Respiratory Rate 18 Blood Pressure 134/43 L Pulse Oximetry 94 Oxygen Delivery Room Air 10/04/24 11:35 10/04/24 11:36 10/04/24 12:00 Temperature 97.8 F Pulse Rate 93 101 H 126 H Respiratory Rate 18 Blood Pressure 134/43 L 119/43 L Pulse Oximetry 94 94 Oxygen Delivery 10/04/24 12:03 10/04/24 14:00 10/04/24 15:33 Temperature Pulse Rate 160 H 101 H Respiratory Rate Blood Pressure Pulse Oximetry Oxygen Delivery Room Air 10/04/24 16:00 10/04/24 16:37 10/04/24 16:39 Temperature 98.1 F Pulse Rate 91 102 H 106 H Respiratory Rate 22 H Blood Pressure 63/44 L 135/42 L Pulse Oximetry 98 96 Oxygen Delivery 10/04/24 18:00 10/04/24 18:19 10/04/24 18:26 Temperature Pulse Rate 98 150 H 150 H Respiratory Rate Blood Pressure 121/63 Pulse Oximetry Oxygen Delivery 10/04/24 20:00 10/04/24 20:11 10/04/24 20:31 Temperature 98.9 F Pulse Rate 81 80 80 Respiratory Rate 18 18 Blood Pressure 116/40 L Pulse Oximetry 99 99 Oxygen Delivery Room Air 10/04/24 20:32 10/04/24 20:34 10/04/24 20:41 Temperature 98.9 F 98.9 F 98.9 F Pulse Rate 127 H 80 127 H Respiratory Rate 20 18 20 Blood Pressure 108/39 L 148/84 H 108/39 L Pulse Oximetry 98 99 98 Oxygen Delivery 10/04/24 20:50 10/04/24 22:03 10/04/24 22:30 Temperature Pulse Rate 76 138 H 73 Respiratory Rate Blood Pressure Pulse Oximetry Oxygen Delivery 10/04/24 23:21 10/05/24 00:00 10/05/24 00:33 Temperature 97.7 F Pulse Rate 81 97 Respiratory Rate 20 Blood Pressure 119/30 L Pulse Oximetry 98 99 Oxygen Delivery Room Air 10/05/24 00:34 10/05/24 02:00 10/05/24 04:00 Temperature Pulse Rate 97 83 91 Respiratory Rate 20 Blood Pressure Pulse Oximetry 99 Oxygen Delivery Room Air 10/05/24 04:07 10/05/24 05:50 10/05/24 06:00 Temperature 97.8 F Pulse Rate 84 84 95 Respiratory Rate 21 H 21 H Blood Pressure 114/39 L Pulse Oximetry 99 99 Oxygen Delivery Room Air Intake/Output Intake/Output: Intake & Output 10/02/24 10/03/24 10/04/24 10/05/24 23:59 23:59 23:59 23:59 Intake Total 1690.3 2600 2697 110 Output Total 100 3100 1420 Balance 1590.3 9189 -356 -9203 Meds/Results Medications: Active Medications Generic Name Dose Route Start Last Admin Trade Name Freq PRN Reason Stop Dose Admin Acetaminophen 650 mg 10/02/24 06:52 10/03/24 09:17 Acetaminophen 325 Mg Tablet PO 650 mg Q4H PRN Administration Pain or Fever Apixaban 5 mg 10/02/24 09:00 10/04/24 17:26 Apixaban 5 Mg Tablet PO 5 mg BID SHIRLEY Administration Atorvastatin Calcium 40 mg 10/02/24 21:00 10/04/24 20:50 Atorvastatin 40 Mg Tablet PO 40 mg HS SHIRLEY Administration Calcium Carbonate 200 mg 10/01/24 22:19 10/02/24 20:02 Calcium Carbonate (Tums) 500 Mg (200 Mg Elemental) PO 200 mg Q6H PRN Administration Indigestion Fluticasone/Umeclidinium/Vilanterol 1 puff 10/02/24 08:00 10/04/24 09:09 Fluticasone/Umeclidin/Vilanter 100-62.5-25 Mcg Ellipta INHALATION Not Given DAILYRT [facility] Sodium Bicarbonate 150 meq/ 1,100 mls @ 100 mls/hr 10/04/24 08:50 10/04/24 21:53 Dextrose IV CONT 100 mls/hr .Q11H SHIRLEY Administration Loperamide HCl 4 mg 10/02/24 22:25 10/02/24 22:46 Loperamide Hcl 2 Mg Capsule PO 4 mg BID PRN Administration Diarrhea Metoprolol Succinate 50 mg 10/05/24 09:00 Metoprolol Succinate Ext Rel 50 Mg Tabcr PO QAM SHIRLEY Metoprolol Tartrate 5 mg 10/04/24 12:04 10/04/24 22:03 Metoprolol Tartrate Inj 5 Mg/5 Ml Vial IV PUSH 5 mg Q6HR PRN Administration heart rate Mirtazapine 15 mg 10/02/24 21:00 10/04/24 20:51 Mirtazapine 15 Mg Tablet PO 15 mg HS [facility] Administration Multivitamins/Minerals 1 tablet 10/02/24 09:00 10/04/24 17:25 Opti-Gen Tab PO 1 tablet BID SHIRLEY Administration Nitroglycerin 0.4 mg 10/01/24 13:30 Nitroglycerin Sl 0.4 Mg Tablet SUBLINGUAL Q5MIN PRN Chest Pain Ondansetron HCl 4 mg 10/01/24 22:38 Ondansetron Hcl Odt 4 Mg Tablet PO Q6H PRN nausea and vomiting Pantoprazole Sodium 40 mg 10/02/24 09:00 10/04/24 09:54 Pantoprazole 40 Mg Tablet PO 40 mg DAILY SHIRLEY Administration Sodium Bicarbonate 1,300 mg 10/04/24 09:00 10/04/24 17:25 Sodium Bicarbonate Tab 650 Mg Tablet PO 1,300 mg BID SHIRLEY Administration Sucralfate 1 gm 10/02/24 09:00 10/04/24 20:51 Sucralfate 1 Gm Tablet PO 1 gm QID SHIRLEY Administration Radiology Results: ITS Impressions Renal Ultrasound 10/02/24 00:30 IMPRESSION: No hydronephrosis or renal calculi. Findings suggesting medical renal disease. Chest X-Ray 10/03/24 18:09 IMPRESSION: No acute cardiopulmonary process. Chest/Abdomen/Pelvis CT 10/04/24 08:39 IMPRESSION: 1. Fluid in the colon consistent with nonspecific diarrhea with wall thickening of multiple loops of distal ileum consistent with enteritis which could be infectious or inflammatory in etiology. 2. Small region of increased density within a now partially collapsed extremity cyst at the lower pole the right kidney likely representing some internal hemorrhage. Consider follow-up ultrasound versus pre and postcontrast MRI or CT in a few weeks to document resolution and exclude significantly less likely solid neoplastic component. 3. Mild emphysema and scattered bilateral calcified pleural plaques consistent with prior asbestos exposure. 4. Unchanged 9 mm nodule along the right intrafissural lymph node without FDG uptake on prior PET/CT most consistent with a benign intrafissural lymph node. 5. Prostatomegaly. 6. Small fat-containing left inguinal hernia. Labs Labs: Laboratory Results - last 24 hr 10/04/24 10/04/24 10/04/24 08:24 10:01 15:11 WBC RBC Hgb 8.1 L Hct 25.6 L MCV MCH MCHC RDW Plt Count MPV Immature Gran % (Auto) Neut % (Auto) Lymph % (Auto) [place] % (Auto) Eos % (Auto) Baso % (Auto) Lymph # (Auto) [place] # (Auto) Eos # (Auto) Baso # (Auto) Abs Immat Gran (auto) Absolute Neuts (auto) Absolute Nucleated RBC Total Counted Neutrophils % (Manual) Band Neutrophils % Lymphocytes % (Manual) Monocytes % (Manual) Eosinophils % (Manual) Nucleated RBC % Abs Neuts (Manual) Abs Lymphs (Manual) Abs Monocytes (Manual) Absolute Eos (Manual) Nucleated RBCs Atypical Lymphocytes Smudge Cells Platelet Estimate Clumped Platelets Large Platelets Hypochromasia Anisocytosis Microcytosis Ovalocytes Schistocytes Sodium 133 L 132 L Potassium 4.2 3.3 L Chloride 107 103 Carbon Dioxide 13 L 16 L Anion Gap 13 H 13 H BUN 74 H 70 H Creatinine 2.52 H 2.33 H Estim Creat Clear Calc 20 21 Estimated GFR 24 L 27 L Glucose 88 113 H POC Capillary Glucose Calcium 8.9 8.7 Magnesium Total Bilirubin AST ALT Alkaline Phosphatase Total Protein Albumin Ur Random Sodium < 5 10/04/24 10/04/24 10/05/24 18:05 21:21 00:43 WBC RBC Hgb Hct MCV MCH MCHC RDW Plt Count MPV Immature Gran % (Auto) Neut % (Auto) Lymph % (Auto) [place] % (Auto) Eos % (Auto) Baso % (Auto) Lymph # (Auto) [place] # (Auto) Eos # (Auto) Baso # (Auto) Abs Immat Gran (auto) Absolute Neuts (auto) Absolute Nucleated RBC Total Counted Neutrophils % (Manual) Band Neutrophils % Lymphocytes % (Manual) Monocytes % (Manual) Eosinophils % (Manual) Nucleated RBC % Abs Neuts (Manual) Abs Lymphs (Manual) Abs Monocytes (Manual) Absolute Eos (Manual) Nucleated RBCs Atypical Lymphocytes Smudge Cells Platelet Estimate Clumped Platelets Large Platelets Hypochromasia Anisocytosis Microcytosis Ovalocytes Schistocytes Sodium 132 L Potassium 3.5 Chloride 101 Carbon Dioxide 19 L Anion Gap 12 BUN 67 H Creatinine 2.33 H Estim Creat Clear Calc 21 Estimated GFR 27 L Glucose 136 H POC Capillary Glucose 127 H 137 H Calcium 8.9 Magnesium Total Bilirubin AST ALT Alkaline Phosphatase Total Protein Albumin Ur Random Sodium 10/05/24 04:06 WBC 10.6 H RBC 3.60 L Hgb 9.5 L Hct 28.7 L MCV 79.7 L D MCH 26.4 MCHC 33.1 RDW 20.0 H Plt Count 357 MPV 9.9 Immature Gran % (Auto) Not Reportable Neut % (Auto) Not Reportable Lymph % (Auto) Not Reportable [place] % (Auto) Not Reportable Eos % (Auto) Not Reportable Baso % (Auto) Not Reportable Lymph # (Auto) Not Reportable [place] # (Auto) Not Reportable Eos # (Auto) Not Reportable Baso # (Auto) Not Reportable Abs Immat Gran (auto) Not Reportable Absolute Neuts (auto) Not Reportable Absolute Nucleated RBC Not Reportable Total Counted 100 Neutrophils % (Manual) 66 Band Neutrophils % 15 H Lymphocytes % (Manual) 15.0 L Monocytes % (Manual) 3 Eosinophils % (Manual) 1 Nucleated RBC % Not Reportable Abs Neuts (Manual) 8.58 H Abs Lymphs (Manual) 1.59 Abs Monocytes (Manual) 0.31 Absolute Eos (Manual) 0.10 Nucleated RBCs 1 Atypical Lymphocytes Present Smudge Cells Present Platelet Estimate Increased Clumped Platelets Present Large Platelets Present Hypochromasia 1+ Anisocytosis 1+ Microcytosis 1+ Ovalocytes 1+ Schistocytes Rare Sodium 131 L Potassium 3.1 L Chloride 98 Carbon Dioxide 21 L Anion Gap 12 BUN 71 H Creatinine 2.36 H Estim Creat Clear Calc 21 Estimated GFR 26 L Glucose 136 H POC Capillary Glucose Calcium 8.6 Magnesium 2.7 H Total Bilirubin 1.1 AST 30 ALT 18 Alkaline Phosphatase 53 Total Protein 5.3 L Albumin 3.2 L Ur Random Sodium Quality VTE Prophylaxis VTE prophylaxis: pharmacologic ordered Hospitalist MIPS Advance Care Plan I have confirmed that the patient's Advanced Care Plan is present, code status is documented, or surrogate decision maker is listed in patient medical record.: Yes Medication Reconciliation I have utilized all available resources to obtain, update and review the patients current medications (includes all prescriptions, OTC, herbals, cannabis, and nutritional supplements).: Yes
[2024-10-05] MEDS: METOPROLOL TARTRATE INJ 5 MG/5 ML VIAL IV PUSH (07:59)
[2024-10-05] MEDS: SODIUM BICARBONATE 8.4% 150 MEQ in DEXTROSE 5% 1,000 ML 950 ML IV CONT ×2 (09:01→16:52)
[2024-10-05] MEDS: SODIUM BICARBONATE TAB 650 MG TABLET 1300 MG PO ×2 (10:33→22:06)
[2024-10-05] MEDS: POTASSIUM CHLORIDE INJ 40 MEQ in SODIUM CHLORIDE 0.9% IV 500 ML 130 MEQ IVPB (10:34)
[2024-10-05] MEDS: PANTOPRAZOLE 40 MG TABLET PO (10:34)
[2024-10-05] MEDS: OPTI-GEN TAB 1 TABLET PO ×2 (10:34→22:05)
[2024-10-05] MEDS: METOPROLOL SUCCINATE EXT REL 50 MG TABCR PO (10:34)
[2024-10-05] MEDS: SUCRALFATE 1 GM TABLET PO ×4 (10:34→22:06)
[2024-10-05] MEDS: APIXABAN 5 MG TABLET PO ×2 (10:34→22:05)
--- NOTE | 2024-10-05 11:13 | P.PNNP_ITS ---
Progress Note: A&P Assessment and Plan (1) Acute kidney injury: Code(s): N17.9 - Acute kidney failure, unspecified Status: Acute Assessment and Plan: * Acute kidney injury on top of mild CKD * as noted on admission * admission creatinine 2.89mg/dl but then adrian to a peak of 3.75 and has fallen to 2.3 with minor bouncing around over the last couple of days. * suspect multifactorial etiology: * prerenal factors (poor oral intake and diarrhea) * hypotension * Diarrhea * chemotherapy(?) * renal hypoperfusion/mild ATN... * failure to thrive(?) * evaluation to date noted: * renal ultrasound with findings of medical renal disease but no obstruction * urine electrolytes pre-renal * no proteinuria * urine eosinophils negative * CPK normal * UA pending * He is getting IV fluids but his stool output is higher than his IV fluids. * Overnight no input was recorded but the nurse assures me that he did get the fluid. * Will increase is bicarb drip to 150 an hour. * I worry that the diet we are may be an inflammatory process. Clearly it is a secretory diarrhea since he is not taking anything in. * C diff was negative and urine cultures are negative so far but still some to go. * I wonder if he should have a GI consult this is been going on for weeks he says. * He is getting radiation therapy for rectal cancer and could have some inflammation from that. * No recent antibiotics or recent travel. He is not on any medications that would do this necessarily. * Long talk with nursing and patient. (2) Stage 3a chronic kidney disease: Code(s): N18.31 - Chronic kidney disease, stage 3a Status: Chronic Assessment and Plan: * baseline creatinine runs ~ 1.1 - 1.4mg/d (since 2021) * presumably due to previous hypertension, vascular disease (CAD/CABG + hyperlipidemia + carotid stensis), and age-related change (3) Orthostatic hypotension: Code(s): I95.1 - Orthostatic hypotension Status: Acute Assessment and Plan: * as noted by EMS: * BP 90/40 supine * BP 60/38 standing * Likely due to dehydration * TSH and cortisol level okay * BP improved with IVF bolus and maintenance fluids (4) Hyponatremia: Code(s): E87.1 - Hypo-osmolality and hyponatremia Status: Acute Assessment and Plan: * better at this time * due to BRITTANIE and hypovolemia; malignancy could be playing a role * urine electrolytes consistent with prerenal azotemia * evaluaton noted: * prerenal urine electrolytes * TSH okay * cortisol is high * SPEP/UPEP and serum/urine osmolality all pending * Sodium hanging in there with the fluids. * Check another sodium tomorrow (5) Metabolic acidosis: Code(s): E87.20 - Acidosis, unspecified Status: Acute Assessment and Plan: * due to a combination of BRITTANIE/ARF, diarrhea, and normal saline IVFs * initiated on oral sodium bicarbonate * this should help acidosis and low sodium * started on bicarb fluids as well * Calcium normal * Potassium a little low. He received to supplement this morning. (6) Chest pain: Code(s): R07.9 - Chest pain, unspecified Status: Acute Assessment and Plan: * as noted on presentation * EKGs noted -- no ischemic changes * CXR negative * trend of troponins noted * suspect demand ischemia due to hypotension * continue supportive care (7) Anemia: Code(s): D64.9 - Anemia, unspecified Status: Acute Assessment and Plan: * related to BRITTANIE, CKD, malignancy, and acute illness * consider BRUNO/Epogen therapy while hospitalized * Check stool guaiac and reticulocyte count. On no antibiotics so will check iron studies as well * Hemoglobin up a little bit today (8) Atrial fibrillation: Qualifiers: Atrial fibrillation type: unspecified Qualified Code(s): I48.91 - Un specified atrial fibrillation Code(s): I48.91 - Unspecified atrial fibrillation Status: Chronic Assessment and Plan: * Sinus rhythm currently * rate control strategy * resume home metoprolol * on anticoagulation (Eliquis) (9) Protein-calorie malnutrition, moderate: Code(s): E44.0 - Moderate protein-calorie malnutrition Status: Acute Assessment and Plan: * suspect possible early signs of failure to thrive * liberalize diet as tolerated with supplemental shakes * appetite stimulant? 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 Perea * s/p radiation therapy * Last dose of radiation was in July * currently undergoing chemotherapy Will continue to follow. Subjective Date/time seen: 10/05/24 11:13 Interval history: Patient is lying on his side in bed. Still has FMS in draining lots of fluid He looks weak. He does say he feels better though. He has belly pain if examined and palpated but not otherwise. Exam Narrative: General: somewhat ill-appearing and elderly male in NAD Heart: normal S1 and S2; no rub Lungs: clear to auscultation Abdomen: soft, mildly tender to palpation, nondistended, positive bowel sounds Extremities: no cyanosis or clubbing; no edema Skin: No rash Mouth: Mucous brim brains are dry Objective Data Vital Signs Vital Signs: Vital Signs - 24 hr 10/04/24 11:23 10/04/24 11:34 10/04/24 11:35 Temperature 97.8 F 97.8 F Pulse Rate 93 93 Respiratory Rate 18 18 Blood Pressure 134/43 L 134/43 L Pulse Oximetry 94 94 Oxygen Delivery Room Air 10/04/24 11:36 10/04/24 12:00 10/04/24 12:03 Temperature Pulse Rate 101 H 126 H 160 H Respiratory Rate Blood Pressure 119/43 L Pulse Oximetry 94 Oxygen Delivery 10/04/24 14:00 10/04/24 15:33 10/04/24 16:00 Temperature Pulse Rate 101 H 91 Respiratory Rate Blood Pressure Pulse Oximetry Oxygen Delivery Room Air 10/04/24 16:37 10/04/24 16:39 10/04/24 18:00 Temperature 98.1 F Pulse Rate 102 H 106 H 98 Respiratory Rate 22 H Blood Pressure 63/44 L 135/42 L Pulse Oximetry 98 96 Oxygen Delivery 10/04/24 18:19 10/04/24 18:26 10/04/24 20:00 Temperature Pulse Rate 150 H 150 H 81 Respiratory Rate Blood Pressure 121/63 Pulse Oximetry Oxygen Delivery 10/04/24 20:11 10/04/24 20:31 10/04/24 20:32 Temperature 98.9 F 98.9 F Pulse Rate 80 80 127 H Respiratory Rate 18 18 20 Blood Pressure 116/40 L 108/39 L Pulse Oximetry 99 99 98 Oxygen Delivery Room Air 10/04/24 20:34 10/04/24 20:41 10/04/24 20:50 Temperature 98.9 F 98.9 F Pulse Rate 80 127 H 76 Respiratory Rate 18 20 Blood Pressure 148/84 H 108/39 L Pulse Oximetry 99 98 Oxygen Delivery 10/04/24 22:03 10/04/24 22:30 10/04/24 23:21 Temperature Pulse Rate 138 H 73 Respiratory Rate Blood Pressure Pulse Oximetry 98 Oxygen Delivery Room Air 10/05/24 00:00 10/05/24 00:33 10/05/24 00:34 Temperature 97.7 F Pulse Rate 81 97 97 Respiratory Rate 20 20 Blood Pressure 119/30 L Pulse Oximetry 99 99 Oxygen Delivery Room Air 10/05/24 02:00 10/05/24 04:00 10/05/24 04:07 Temperature Pulse Rate 83 91 84 Respiratory Rate 21 H Blood Pressure Pulse Oximetry 99 Oxygen Delivery Room Air 10/05/24 05:50 10/05/24 06:00 10/05/24 07:58 Temperature 97.8 F Pulse Rate 84 95 160 H Respiratory Rate 21 H 18 Blood Pressure 114/39 L 102/32 L Pulse Oximetry 99 96 Oxygen Delivery 10/05/24 07:59 10/05/24 08:00 10/05/24 08:06 Temperature 97.8 F Pulse Rate 160 H 145 H 91 Respiratory Rate 18 18 Blood Pressure 104/45 L 102/32 L Pulse Oximetry 94 95 Oxygen Delivery 10/05/24 08:13 10/05/24 10:47 Temperature Pulse Rate 90 Respiratory Rate 18 Blood Pressure 104/30 L 102/48 L Pulse Oximetry 96 Oxygen Delivery Room Air Intake/Output Intake/Output: Intake & Output 10/02/24 10/03/24 10/04/24 10/05/24 23:59 23:59 23:59 23:59 Intake Total 1690.3 2600 2697 110 Output Total 100 3100 1420 Balance 1590.3 2337 -155 -3341 Meds/Results Medications: Active Medications Generic Name Dose Route Start Last Admin Trade Name Freq PRN Reason Stop Dose Admin Acetaminophen 650 mg 10/02/24 06:52 10/03/24 09:17 Acetaminophen 325 Mg Tablet PO 650 mg Q4H PRN Administration Pain or Fever Apixaban 5 mg 10/02/24 09:00 10/05/24 10:34 Apixaban 5 Mg Tablet PO 5 mg BID SHIRLEY Administration Atorvastatin Calcium 40 mg 10/02/24 21:00 10/04/24 20:50 Atorvastatin 40 Mg Tablet PO 40 mg HS SHIRLEY Administration Calcium Carbonate 200 mg 10/01/24 22:19 10/02/24 20:02 Calcium Carbonate (Tums) 500 Mg (200 Mg Elemental) PO 200 mg Q6H PRN Administration Indigestion Fluticasone/Umeclidinium/Vilanterol 1 puff 10/02/24 08:00 10/05/24 09:21 Fluticasone/Umeclidin/Vilanter 100-62.5-25 Mcg Ellipta INHALATION Not Given DAILYRT [facility] Sodium Bicarbonate 150 meq/ 1,100 mls @ 150 mls/hr 10/04/24 08:50 10/05/24 07:46 Dextrose IV CONT Not Given .Q7H20M [facility] Potassium Chloride 40 meq/ 520 mls @ 130 mls/hr 10/05/24 09:40 10/05/24 10:34 Sodium Chloride IVPB 10/05/24 13:39 130 mls/hr ONCE ONE Administration Loperamide HCl 4 mg 10/02/24 22:25 10/02/24 22:46 Loperamide Hcl 2 Mg Capsule PO 4 mg BID PRN Administration Diarrhea Metoprolol Succinate 50 mg 10/05/24 09:00 10/05/24 10:34 Metoprolol Succinate Ext Rel 50 Mg Tabcr PO 50 mg QAM [facility] Administration Metoprolol Tartrate 5 mg 10/04/24 12:04 10/05/24 07:59 Metoprolol Tartrate Inj 5 Mg/5 Ml Vial IV PUSH 5 mg Q6HR PRN Administration heart rate Mirtazapine 15 mg 10/02/24 21:00 10/04/24 20:51 Mirtazapine 15 Mg Tablet PO 15 mg HS SHIRLEY Administration Multivitamins/Minerals 1 tablet 10/02/24 09:00 10/05/24 10:34 Opti-Gen Tab PO 1 tablet BID SHIRLEY Administration Nitroglycerin 0.4 mg 10/01/24 13:30 Nitroglycerin Sl 0.4 Mg Tablet SUBLINGUAL Q5MIN PRN Chest Pain Ondansetron HCl 4 mg 10/01/24 22:38 Ondansetron Hcl Odt 4 Mg Tablet PO Q6H PRN nausea and vomiting Pantoprazole Sodium 40 mg 10/02/24 09:00 10/05/24 10:34 Pantoprazole 40 Mg Tablet PO 40 mg DAILY SHIRLEY Administration Sodium Bicarbonate 1,300 mg 10/04/24 09:00 10/05/24 10:33 Sodium Bicarbonate Tab 650 Mg Tablet PO 1,300 mg BID SHIRLEY Administration Sucralfate 1 gm 10/02/24 09:00 10/05/24 10:34 Sucralfate 1 Gm Tablet PO 1 gm QID SHIRLEY Administration Radiology Results: ITS Impressions Renal Ultrasound 10/02/24 00:30 IMPRESSION: No hydronephrosis or renal calculi. Findings suggesting medical renal disease. Chest X-Ray 10/03/24 18:09 IMPRESSION: No acute cardiopulmonary process. Chest/Abdomen/Pelvis CT 10/04/24 08:39 IMPRESSION: 1. Fluid in the colon consistent with nonspecific diarrhea with wall thickening of multiple loops of distal ileum consistent with enteritis which could be infectious or inflammatory in etiology. 2. Small region of increased density within a now partially collapsed extremity cyst at the lower pole the right kidney likely representing some internal hemorrhage. Consider follow-up ultrasound versus pre and postcontrast MRI or CT in a few weeks to document resolution and exclude significantly less likely solid neoplastic component. 3. Mild emphysema and scattered bilateral calcified pleural plaques consistent with prior asbestos exposure. 4. Unchanged 9 mm nodule along the right intrafissural lymph node without FDG uptake on prior PET/CT most consistent with a benign intrafissural lymph node. 5. Prostatomegaly. 6. Small fat-containing left inguinal hernia. Labs Labs: Laboratory Results - last 24 hr 10/04/24 10/04/24 10/04/24 15:11 18:05 21:21 WBC RBC Hgb 8.1 L Hct 25.6 L MCV MCH MCHC RDW Plt Count MPV Immature Gran % (Auto) Neut % (Auto) Lymph % (Auto) [place] % (Auto) Eos % (Auto) Baso % (Auto) Lymph # (Auto) [place] # (Auto) Eos # (Auto) Baso # (Auto) Abs Immat Gran (auto) Absolute Neuts (auto) Absolute Nucleated RBC Total Counted Neutrophils % (Manual) Band Neutrophils % Lymphocytes % (Manual) Monocytes % (Manual) Eosinophils % (Manual) Nucleated RBC % Abs Neuts (Manual) Abs Lymphs (Manual) Abs Monocytes (Manual) Absolute Eos (Manual) Nucleated RBCs Atypical Lymphocytes Smudge Cells Platelet Estimate Clumped Platelets Large Platelets Hypochromasia Anisocytosis Microcytosis Ovalocytes Schistocytes Sodium 132 L 132 L Potassium 3.3 L 3.5 Chloride 103 101 Carbon Dioxide 16 L 19 L Anion Gap 13 H 12 BUN 70 H 67 H Creatinine 2.33 H 2.33 H Estim Creat Clear Calc 21 21 Estimated GFR 27 L 27 L Glucose 113 H 136 H POC Capillary Glucose 127 H Calcium 8.7 8.9 Magnesium Total Bilirubin AST ALT Alkaline Phosphatase Total Protein Albumin 10/05/24 10/05/24 10/05/24 00:43 04:06 07:52 WBC 10.6 H RBC 3.60 L Hgb 9.5 L Hct 28.7 L MCV 79.7 L D MCH 26.4 MCHC 33.1 RDW 20.0 H Plt Count 357 MPV 9.9 Immature Gran % (Auto) Not Reportable Neut % (Auto) Not Reportable Lymph % (Auto) Not Reportable [place] % (Auto) Not Reportable Eos % (Auto) Not Reportable Baso % (Auto) Not Reportable Lymph # (Auto) Not Reportable [place] # (Auto) Not Reportable Eos # (Auto) Not Reportable Baso # (Auto) Not Reportable Abs Immat Gran (auto) Not Reportable Absolute Neuts (auto) Not Reportable Absolute Nucleated RBC Not Reportable Total Counted 100 Neutrophils % (Manual) 66 Band Neutrophils % 15 H Lymphocytes % (Manual) 15.0 L Monocytes % (Manual) 3 Eosinophils % (Manual) 1 Nucleated RBC % Not Reportable Abs Neuts (Manual) 8.58 H Abs Lymphs (Manual) 1.59 Abs Monocytes (Manual) 0.31 Absolute Eos (Manual) 0.10 Nucleated RBCs 1 Atypical Lymphocytes Present Smudge Cells Present Platelet Estimate Increased Clumped Platelets Present Large Platelets Present Hypochromasia 1+ Anisocytosis 1+ Microcytosis 1+ Ovalocytes 1+ Schistocytes Rare Sodium 131 L Potassium 3.1 L Chloride 98 Carbon Dioxide 21 L Anion Gap 12 BUN 71 H Creatinine 2.36 H Estim Creat Clear Calc 21 Estimated GFR 26 L Glucose 136 H POC Capillary Glucose 137 H 144 H Calcium 8.6 Magnesium 2.7 H Total Bilirubin 1.1 AST 30 ALT 18 Alkaline Phosphatase 53 Total Protein 5.3 L Albumin 3.2 L
--- NOTE | 2024-10-05 11:30 | PM.PNCARD ---
Progress Note: A&P Assessment and Plan (1) Atrial fibrillation: Qualifiers: Atrial fibrillation type: unspecified Qualified Code(s): I48.91 - Unspecified atrial fibrillation Code(s): I48.91 - Unspecified atrial fibrillation Status: Chronic Assessment and Plan: Patient a brief episode of SVT which is likely atrial fibrillation. Continue IV metoprolol if unable to take p.o.. Potassium supplement as needed. Will start him on amiodarone drip per standard protocol but without bolus given his frequency of atrial fibrillation with rapid ventricular response. Even though he does not sustain and atrial fibrillation, his heart rate has increased to the 180s at times. (2) Hypertension: Qualifiers: Hypertension type: primary hypertension Qualified Code(s): I10 - Essential (primary) hypertension Code(s): I10 - Essential (primary) hypertension Status: Chronic Assessment and Plan: Normalized. (3) BRITTANIE (acute kidney injury): Code(s): N17.9 - Acute kidney failure, unspecified Status: Acute Assessment and Plan: Improved. Likely related to dehydration. Increasing IV fluid (4) Anemia: Code(s): D64.9 - Anemia, unspecified Status: Acute Assessment and Plan: Trend H&H he but H&H is better than yesterday. Continue anticoagulation for now. (5) Diarrhea: Code(s): R19.7 - Diarrhea, unspecified Status: Acute Assessment and Plan: Copious amounts of diarrhea noted. Workup per hospitalist Subjective Date/time seen: 10/05/24 11:30 Interval history: 83-year-old with consultation for atrial fibrillation. Date of service 10/05/2024: In and out of AFib with RVR. He is having copious amounts of diarrhea. Electrolytes are abnormal. He does not sustain in atrial fibrillation. Overall though feels poorly Review of Systems Review of Systems: All systems reviewed & are unremarkable except as noted in HPI and below Constitutional: Constitutional: Denies body ache(s) Eyes: Eyes: Denies blurry vision ENT: Reports Normal hearing present Cardiovascular: Cardiovascular: Denies chest pain Respiratory: Respiratory: Denies wheezing Gastrointestinal: Gastrointestinal: Reports diarrhea Genitourinary: Genitourinary: Denies hematuria Musculoskeletal: Musculoskeletal: Denies joint swelling Integumentary/Breasts: Skin/Breast: Denies dry skin Neurologic: Denies Abnormal speech present Psychiatric: Psychiatric: Denies anxiety Endocrine: Endocrine: Reports fatigue Hematologic/Lymphatic: Hematologic/Lymphatic: Denies easy bleeding Allergic/Immunologic: Allergic/Immunologic: Denies GI upset with certain foods Exam Narrative: Awake alert. Appears stated age Const: General: comfortable and no acute distress HENMT: Ears: TM's normal bilaterally Face/Nose/Sinus: Normal nares present Eyes: General: appearance normal, both eyes and all related structures Sclera: sclerae normal Neck: Neck: supple and no JVD Chest: Other: No reproducible chest wall pain to palpation Resp: Effort & Inspection: normal respiratory effort Auscultation: clear to auscultation bilaterally Cardio: Rate: regular rate Rhythm: regular rhythm Skin: Wounds: no wounds Other: Appears jaundiced Neuro: Speech: normal speech Sensory Exam: normal sensation Extrem: General: normal to inspection Psych: Mental Status: mental status grossly normal Objective Data Vital Signs Vital Signs: Vital Signs - 24 hr 10/04/24 11:34 10/04/24 11:35 10/04/24 11:36 Temperature 36.6 C 36.6 C Pulse Rate 93 93 101 H Respiratory Rate 18 18 Blood Pressure 134/43 L 134/43 L 119/43 L Pulse Oximetry 94 94 94 Oxygen Delivery 10/04/24 12:00 10/04/24 12:03 10/04/24 14:00 Temperature Pulse Rate 126 H 160 H 101 H Respiratory Rate Blood Pressure Pulse Oximetry Oxygen Delivery 10/04/24 15:33 10/04/24 16:00 10/04/24 16:37 Temperature 36.7 C Pulse Rate 91 102 H Respiratory Rate 22 H Blood Pressure 63/44 L Pulse Oximetry 98 Oxygen Delivery Room Air 10/04/24 16:39 10/04/24 18:00 10/04/24 18:19 Temperature Pulse Rate 106 H 98 150 H Respiratory Rate Blood Pressure 135/42 L Pulse Oximetry 96 Oxygen Delivery 10/04/24 18:26 10/04/24 20:00 10/04/24 20:11 Temperature Pulse Rate 150 H 81 80 Respiratory Rate 18 Blood Pressure 121/63 Pulse Oximetry 99 Oxygen Delivery Room Air 10/04/24 20:31 10/04/24 20:32 10/04/24 20:34 Temperature 37.2 C 37.2 C 37.2 C Pulse Rate 80 127 H 80 Respiratory Rate 18 20 18 Blood Pressure 116/40 L 108/39 L 148/84 H Pulse Oximetry 99 98 99 Oxygen Delivery 10/04/24 20:41 10/04/24 20:50 10/04/24 22:03 Temperature 37.2 C Pulse Rate 127 H 76 138 H Respiratory Rate 20 Blood Pressure 108/39 L Pulse Oximetry 98 Oxygen Delivery 10/04/24 22:30 10/04/24 23:21 10/05/24 00:00 Temperature Pulse Rate 73 81 Respiratory Rate Blood Pressure Pulse Oximetry 98 Oxygen Delivery Room Air 10/05/24 00:33 10/05/24 00:34 10/05/24 02:00 Temperature 36.5 C Pulse Rate 97 97 83 Respiratory Rate 20 20 Blood Pressure 119/30 L Pulse Oximetry 99 99 Oxygen Delivery Room Air 10/05/24 04:00 10/05/24 04:07 10/05/24 05:50 Temperature 36.6 C Pulse Rate 91 84 84 Respiratory Rate 21 H 21 H Blood Pressure 114/39 L Pulse Oximetry 99 99 Oxygen Delivery Room Air 10/05/24 06:00 10/05/24 07:58 10/05/24 07:59 Temperature Pulse Rate 95 160 H 160 H Respiratory Rate 18 Blood Pressure 102/32 L Pulse Oximetry 96 Oxygen Delivery 10/05/24 08:00 10/05/24 08:06 10/05/24 08:13 Temperature 36.6 C Pulse Rate 145 H 91 90 Respiratory Rate 18 18 18 Blood Pressure 104/45 L 102/32 L 104/30 L Pulse Oximetry 94 95 96 Oxygen Delivery Room Air 10/05/24 10:47 Temperature Pulse Rate Respiratory Rate Blood Pressure 102/48 L Pulse Oximetry Oxygen Delivery Intake/Output Intake/Output: Intake & Output 10/02/24 10/03/24 10/04/24 10/05/24 23:59 23:59 23:59 23:59 Intake Total 1690.3 5910 7586 110 Output Total 100 3100 1420 Balance 1590.3 4415 -740 -3127 Meds/Results Medications: Active Medications Generic Name Dose Route Start Last Admin Trade Name Freq PRN Reason Stop Dose Admin Acetaminophen 650 mg 10/02/24 06:52 10/03/24 09:17 Acetaminophen 325 Mg Tablet PO 650 mg Q4H PRN Administration Pain or Fever Apixaban 5 mg 10/02/24 09:00 10/05/24 10:34 Apixaban 5 Mg Tablet PO 5 mg BID SHIRLEY Administration Atorvastatin Calcium 40 mg 10/02/24 21:00 10/04/24 20:50 Atorvastatin 40 Mg Tablet PO 40 mg HS SHIRLEY Administration Calcium Carbonate 200 mg 10/01/24 22:19 10/02/24 20:02 Calcium Carbonate (Tums) 500 Mg (200 Mg Elemental) PO 200 mg Q6H PRN Administration Indigestion Fluticasone/Umeclidinium/Vilanterol 1 puff 10/02/24 08:00 10/05/24 09:21 Fluticasone/Umeclidin/Vilanter 100-62.5-25 Mcg Ellipta INHALATION Not Given DAILYRT [facility] Sodium Bicarbonate 150 meq/ 1,100 mls @ 150 mls/hr 10/04/24 08:50 10/05/24 07:46 Dextrose IV CONT Not Given .Q7H20M [facility] Potassium Chloride 40 meq/ 520 mls @ 130 mls/hr 10/05/24 09:40 10/05/24 10:34 Sodium Chloride IVPB 10/05/24 13:39 130 mls/hr ONCE ONE Administration Loperamide HCl 4 mg 10/02/24 22:25 10/02/24 22:46 Loperamide Hcl 2 Mg Capsule PO 4 mg BID PRN Administration Diarrhea Metoprolol Succinate 50 mg 10/05/24 09:00 10/05/24 10:34 Metoprolol Succinate Ext Rel 50 Mg Tabcr PO 50 mg QAM SHIRLEY Administration Metoprolol Tartrate 5 mg 10/04/24 12:04 10/05/24 07:59 Metoprolol Tartrate Inj 5 Mg/5 Ml Vial IV PUSH 5 mg Q6HR PRN Administration heart rate Mirtazapine 15 mg 10/02/24 21:00 10/04/24 20:51 Mirtazapine 15 Mg Tablet PO 15 mg HS [facility] Administration Multivitamins/Minerals 1 tablet 10/02/24 09:00 10/05/24 10:34 Opti-Gen Tab PO 1 tablet BID SHIRLEY Administration Nitroglycerin 0.4 mg 10/01/24 13:30 Nitroglycerin Sl 0.4 Mg Tablet SUBLINGUAL Q5MIN PRN Chest Pain Ondansetron HCl 4 mg 10/01/24 22:38 Ondansetron Hcl Odt 4 Mg Tablet PO Q6H PRN nausea and vomiting Pantoprazole Sodium 40 mg 10/02/24 09:00 10/05/24 10:34 Pantoprazole 40 Mg Tablet PO 40 mg DAILY SHIRLEY Administration Sodium Bicarbonate 1,300 mg 10/04/24 09:00 10/05/24 10:33 Sodium Bicarbonate Tab 650 Mg Tablet PO 1,300 mg BID SHIRLEY Administration Sucralfate 1 gm 10/02/24 09:00 10/05/24 10:34 Sucralfate 1 Gm Tablet PO 1 gm QID SHIRLEY Administration Radiology Results: ITS Impressions Renal Ultrasound 10/02/24 00:30 IMPRESSION: No hydronephrosis or renal calculi. Findings suggesting medical renal disease. Chest X-Ray 10/03/24 18:09 IMPRESSION: No acute cardiopulmonary process. Chest/Abdomen/Pelvis CT 10/04/24 08:39 IMPRESSION: 1. Fluid in the colon consistent with nonspecific diarrhea with wall thickening of multiple loops of distal ileum consistent with enteritis which could be infectious or inflammatory in etiology. 2. Small region of increased density within a now partially collapsed extremity cyst at the lower pole the right kidney likely representing some internal hemorrhage. Consider follow-up ultrasound versus pre and postcontrast MRI or CT in a few weeks to document resolution and exclude significantly less likely solid neoplastic component. 3. Mild emphysema and scattered bilateral calcified pleural plaques consistent with prior asbestos exposure. 4. Unchanged 9 mm nodule along the right intrafissural lymph node without FDG uptake on prior PET/CT most consistent with a benign intrafissural lymph node. 5. Prostatomegaly. 6. Small fat-containing left inguinal hernia. Labs Labs: Laboratory Results - last 24 hr 10/04/24 10/04/24 10/04/24 15:11 18:05 21:21 WBC RBC Hgb 8.1 L Hct 25.6 L MCV MCH MCHC RDW Plt Count MPV Immature Gran % (Auto) Neut % (Auto) Lymph % (Auto) Victoria % (Auto) Eos % (Auto) Baso % (Auto) Lymph # (Auto) Victoria # (Auto) Eos # (Auto) Baso # (Auto) Abs Immat Gran (auto) Absolute Neuts (auto) Absolute Nucleated RBC Total Counted Neutrophils % (Manual) Band Neutrophils % Lymphocytes % (Manual) Monocytes % (Manual) Eosinophils % (Manual) Nucleated RBC % Abs Neuts (Manual) Abs Lymphs (Manual) Abs Monocytes (Manual) Absolute Eos (Manual) Nucleated RBCs Atypical Lymphocytes Smudge Cells Platelet Estimate Clumped Platelets Large Platelets Hypochromasia Anisocytosis Microcytosis Ovalocytes Schistocytes Sodium 132 L 132 L Potassium 3.3 L 3.5 Chloride 103 101 Carbon Dioxide 16 L 19 L Anion Gap 13 H 12 BUN 70 H 67 H Creatinine 2.33 H 2.33 H Estim Creat Clear Calc 21 21 Estimated GFR 27 L 27 L Glucose 113 H 136 H POC Capillary Glucose 127 H Calcium 8.7 8.9 Magnesium Total Bilirubin AST ALT Alkaline Phosphatase Total Protein Albumin 10/05/24 10/05/24 10/05/24 00:43 04:06 07:52 WBC 10.6 H RBC 3.60 L Hgb 9.5 L Hct 28.7 L MCV 79.7 L D MCH 26.4 MCHC 33.1 RDW 20.0 H Plt Count 357 MPV 9.9 Immature Gran % (Auto) Not Reportable Neut % (Auto) Not Reportable Lymph % (Auto) Not Reportable Victoria % (Auto) Not Reportable Eos % (Auto) Not Reportable Baso % (Auto) Not Reportable Lymph # (Auto) Not Reportable Victoria # (Auto) Not Reportable Eos # (Auto) Not Reportable Baso # (Auto) Not Reportable Abs Immat Gran (auto) Not Reportable Absolute Neuts (auto) Not Reportable Absolute Nucleated RBC Not Reportable Total Counted 100 Neutrophils % (Manual) 66 Band Neutrophils % 15 H Lymphocytes % (Manual) 15.0 L Monocytes % (Manual) 3 Eosinophils % (Manual) 1 Nucleated RBC % Not Reportable Abs Neuts (Manual) 8.58 H Abs Lymphs (Manual) 1.59 Abs Monocytes (Manual) 0.31 Absolute Eos (Manual) 0.10 Nucleated RBCs 1 Atypical Lymphocytes Present Smudge Cells Present Platelet Estimate Increased Clumped Platelets Present Large Platelets Present Hypochromasia 1+ Anisocytosis 1+ Microcytosis 1+ Ovalocytes 1+ Schistocytes Rare Sodium 131 L Potassium 3.1 L Chloride 98 Carbon Dioxide 21 L Anion Gap 12 BUN 71 H Creatinine 2.36 H Estim Creat Clear Calc 21 Estimated GFR 26 L Glucose 136 H POC Capillary Glucose 137 H 144 H Calcium 8.6 Magnesium 2.7 H Total Bilirubin 1.1 AST 30 ALT 18 Alkaline Phosphatase 53 Total Protein 5.3 L Albumin 3.2 L 08/16/25 11:20 WBC RBC Hgb Hct MCV MCH MCHC RDW Plt Count MPV Immature Gran % (Auto) Neut % (Auto) Lymph % (Auto) Victoria % (Auto) Eos % (Auto) Baso % (Auto) Lymph # (Auto) Victoria # (Auto) Eos # (Auto) Baso # (Auto) Abs Immat Gran (auto) Absolute Neuts (auto) Absolute Nucleated RBC Total Counted Neutrophils % (Manual) Band Neutrophils % Lymphocytes % (Manual) Monocytes % (Manual) Eosinophils % (Manual) Nucleated RBC % Abs Neuts (Manual) Abs Lymphs (Manual) Abs Monocytes (Manual) Absolute Eos (Manual) Nucleated RBCs Atypical Lymphocytes Smudge Cells Platelet Estimate Clumped Platelets Large Platelets Hypochromasia Anisocytosis Microcytosis Ovalocytes Schistocytes Sodium Potassium Chloride Carbon Dioxide Anion Gap BUN Creatinine Estim Creat Clear Calc Estimated GFR Glucose POC Capillary Glucose 153 H Calcium Magnesium Total Bilirubin AST ALT Alkaline Phosphatase Total Protein Albumin
[2024-10-05 11:58] LABS: Immature Reticulocyte Fraction 34.2 % (3.0-15.9); Reticulocyte Hemoglobin Conten 29.0 pg (28.2-36.6); Reticulocytes Absolute 0.15 10^6/uL (0.02-0.10)
[2024-10-05 12:19] LABS: Anion Gap 13 mmol/L (4-12); Blood Urea Nitrogen 76 mg/dL (9-20); Calcium 8.2 mg/dL (8.4-10.2); Carbon Dioxide 23 mmol/L (22-30); Chloride 96 mmol/L (98-107); Estimated CRCL calculation 19 ml/min; Estimated Glomerular Filt Rate 23; Glucose 140 mg/dL (65-110); Potassium 3.0 mmol/L (3.4-5.0); Sodium 132 mmol/L (137-145)
[2024-10-05 12:42] LABS: Iron 18 ug/dL (49-181)
[2024-10-05 12:51] LABS: Percent Iron Saturation 11 % (20-50)
[2024-10-05 13:23] LABS: Ferritin 64.10 ng/mL (11.1-264)
[2024-10-05 13:49] LABS: IFOB Positive Control Positive; Immunochemical Fecal Occult Bl Positive (N)
--- NOTE | 2024-10-05 16:01 | PCPTNOTE ---
PT held today. Patient had rapid response called today due to change in medical status. WIll continue PT when medically stable.
[2024-10-05] MEDS: LOPERAMIDE HCL 2 MG CAPSULE 4 MG PO (16:45)
[2024-10-05] MEDS: MIRTAZAPINE 15 MG TABLET PO (22:05)
[2024-10-05] MEDS: ATORVASTATIN 40 MG TABLET PO (22:05)
[2024-10-05] MEDS: PIPERACILLIN/TAZOBACTAM SOD 2.25 GM in SODIUM CHLORIDE 0.9% IV 50 ML 100 ML IVPB (22:05)
[2024-10-06] VITALS (18 sets, daily range): BP systolic 90–139; BP diastolic 39–55; PULSE 66–90; RESP 12–24; TEMP 36.3–36.7; O2SAT 95–100
[2024-10-06] MEDS: SODIUM BICARBONATE 8.4% 150 MEQ in DEXTROSE 5% 1,000 ML 950 ML IV CONT ×2 (00:18→08:37)
[2024-10-06 04:08] LABS: Hematocrit 28.5 % (42.0-52.0); Hemoglobin 9.4 g/dL (14.0-18.0); Mean Corpuscular HGB Conc 33.0 g/dl (32-36); Mean Corpuscular Hemoglobin 26.6 pg (26-34); Mean Corpuscular Volume 80.5 fl (80-100); Platelet Count Result 335 k/mm3 (150-375); Red Blood Count 3.54 M/mm3 (4.6-6.20); White Blood Count 9.9 K/mm3 (4.5-10.0)
[2024-10-06 04:31] LABS: Alanine Aminotransferase 22 U/L (6-50); Albumin Level 2.5 g/dL (3.5-5.1); Alkaline Phosphatase 50 U/L (38-126); Anion Gap 7 mmol/L (4-12); Aspartate Amino Transferase 30 U/L (17-59); Bilirubin,Total 1.1 mg/dL (0.2-1.3); Blood Urea Nitrogen 79 mg/dL (9-20); Calcium 7.5 mg/dL (8.4-10.2); Carbon Dioxide 35 mmol/L (22-30); Chloride 88 mmol/L (98-107); Estimated CRCL calculation 18 ml/min; Estimated Glomerular Filt Rate 22; Glucose 140 mg/dL (65-110); Magnesium 2.5 mg/dL (1.6-2.3); Potassium 2.8 mmol/L (3.4-5.0); Sodium 130 mmol/L (137-145); Total Protein 4.6 g/dL (6.3-8.2)
[2024-10-06 04:36] LABS: Band Neutrophils Percent 8 % (0-6); Lymphocytes Absolute Manual 1.18 K/mm3 (1.1-4.5); Lymphocytes Percent Manual 12.0 % (18-44); Monocytes Absolute Manual 0.89 K/mm3 (0.1-0.90); Monocytes Percent Manual 9 % (3-9); Neutrophils Absolute Manual 7.82 K/mm3 (1.3-6.7); Neutrophils Percent Manual 71 % (46-73); Total Cells Counted 100
[2024-10-06 04:37] LABS: Anisocytosis 1+; Schistocytes None Seen
[2024-10-06] MEDS: PIPERACILLIN/TAZOBACTAM SOD 2.25 GM in SODIUM CHLORIDE 0.9% IV 50 ML 100 ML IVPB ×3 (04:58→21:18)
[2024-10-06] MEDS: SUCRALFATE 1 GM TABLET PO ×2 (06:54→21:35)
[2024-10-06] MEDS: POTASSIUM CHLORIDE 20 MEQ PACKET (FOR LIQUID) 40 MEQ PO (06:55)
[2024-10-06] MEDS: POTASSIUM CHLORIDE INJ 40 MEQ in SODIUM CHLORIDE 0.9% IV 500 ML 130 MEQ IVPB (06:56)
[2024-10-06] MEDS: ONDANSETRON HCL ODT 4 MG TABLET PO (08:36)
[2024-10-06] MEDS: LOPERAMIDE HCL 2 MG CAPSULE 4 MG PO (08:38)
[2024-10-06] MEDS: APIXABAN 5 MG TABLET PO ×2 (08:38→21:35)
[2024-10-06] MEDS: OPTI-GEN TAB 1 TABLET PO ×2 (08:40→21:35)
[2024-10-06] MEDS: PANTOPRAZOLE 40 MG TABLET PO (08:40)
[2024-10-06] MEDS: ACETAMINOPHEN 325 MG TABLET 650 MG PO ×3 (08:40→17:01)
[2024-10-06] MEDS: CALCIUM CARBONATE (TUMS) 500 MG (200 MG ELEMENTAL) PO (08:41)
[2024-10-06] MEDS: METOPROLOL SUCCINATE EXT REL 50 MG TABCR PO (08:41)
[2024-10-06] MEDS: SODIUM BICARBONATE TAB 650 MG TABLET 1300 MG PO (08:41)
[2024-10-06] MEDS: POTASSIUM CHLORIDE 20 MEQ ER TABLET 40 MEQ PO (08:50)
--- NOTE | 2024-10-06 10:00 | PCRCNOTE ---
PT. REFUSED TRELEGY DPI; STATES HIS WILL BRING IN HIS INHALER FROM HOME. DAUGHTER IS IN ROOM AND STATES SHE WILL TALK TO HER MOTHER ABOUT BRINGING IT IN. [id number]. NOTIFIED.
--- NOTE | 2024-10-06 10:31 | P.PNNP_ITS ---
Progress Note: A&P Assessment and Plan (1) Acute kidney injury: Code(s): N17.9 - Acute kidney failure, unspecified Status: Acute Assessment and Plan: * Acute kidney injury on top of mild CKD * as noted on admission * admission creatinine 2.89mg/dl but then adrian to a peak of 3.75 and has fallen to 2.3 with minor bouncing around over the last couple of days. * suspect multifactorial etiology: * prerenal factors (poor oral intake and diarrhea) * hypotension * Diarrhea * chemotherapy(?) * renal hypoperfusion/mild ATN... * failure to thrive(?) * evaluation to date noted: * renal ultrasound with findings of medical renal disease but no obstruction * urine electrolytes pre-renal * no proteinuria * urine eosinophils negative * CPK normal * UA pending * He is getting IV fluids but his stool output is higher than his IV fluids. intake/ output was 3200 in and 4400 out. * His CO2 has risen so we can stop the bicarb in the fluids. * Will increase the saline [id number] an hour in attempts to give him an extra L or 2 of fluid per day. * Will have the nurses call the intake/ output at the end of this shift to see if we are achieving our goal. * I worry that the diet we are may be an inflammatory process. Clearly it is a secretory diarrhea since he is not taking anything in. He does have loops of bowel with fluid in them in both the small intestine and the proximal large intestine. He has has some abdominal pain. He did receive chemotherapy and radiation therapy but family seems to think that the last radiation therapy was in July and that it is to the rectal area not to the small bowel he does have a history of coronary disease and so could have ischemic bowel. GI is going to see the patient. I put a call into him. He is receiving Imodium. * C diff was negative and urine cultures are negative so far but still some to go. * Long talk with nursing , daughter, and granddaughter, and patient. (2) Stage 3a chronic kidney disease: Code(s): N18.31 - Chronic kidney disease, stage 3a Status: Chronic Assessment and Plan: * baseline creatinine runs ~ 1.1 - 1.4mg/d (since 2021) * presumably due to previous hypertension, vascular disease (CAD/CABG + hyperlipidemia + carotid stensis), and age-related change (3) Orthostatic hypotension: Code(s): I95.1 - Orthostatic hypotension Status: Acute Assessment and Plan: * as noted by EMS: * BP 90/40 supine * BP 60/38 standing * Likely due to dehydration * TSH and cortisol level okay * he is basically lying in bed right now. We can recheck this once he is feeling better and is going to get up. (4) Hyponatremia: Code(s): E87.1 - Hypo-osmolality and hyponatremia Status: Acute Assessment and Plan: * better at this time * due to BRITTANIE and hypovolemia; malignancy could be playing a role * urine electrolytes consistent with prerenal azotemia * evaluaton noted: * prerenal urine electrolytes * TSH okay * cortisol is high * SPEP/UPEP and serum/urine osmolality all pending * Sodium hanging in there with the fluids. * Check another sodium tomorrow (5) Metabolic acidosis: Code(s): E87.20 - Acidosis, unspecified Status: Acute Assessment and Plan: * resolved (6) Chest pain: Code(s): R07.9 - Chest pain, unspecified Status: Acute Assessment and Plan: * as noted on presentation * EKGs noted -- no ischemic changes * CXR negative * trend of troponins noted * suspect demand ischemia due to hypotension * continue supportive care * No complaints of this right now (7) Anemia: Code(s): D64.9 - Anemia, unspecified Status: Acute Assessment and Plan: * related to BRITTANIE, CKD, malignancy, and acute illness * consider BRUNO/Epogen therapy while hospitalized * stool guaiac is positive. Understandable with his inflammation. * TSAT is low. Will give iron * Hemoglobin is stable. (8) Atrial fibrillation: Qualifiers: Atrial fibrillation type: unspecified Qualified Code(s): I48.91 - Unspecified atrial fibrillation Code(s): I48.91 - Unspecified atrial fibrillation Status: Chronic Assessment and Plan: * Sinus rhythm currently . He is a bit tachycardic with his dehydration. * rate control strategy * resume home metoprolol * on anticoagulation (Eliquis) (9) Protein-calorie malnutrition, moderate: Code(s): E44.0 - Moderate protein-calorie malnutrition Status: Acute Assessment and Plan: * suspect possible early signs of failure to thrive * liberalize diet as tolerated with supplemental shakes * He isn't eating anything in his condition. 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 Perea * s/p radiation therapy * Last dose of radiation was in July * currently undergoing chemotherapy Will continue to follow. (11) Hypokalemia: Code(s): E87.6 - Hypokalemia Status: Acute Assessment and Plan: his potassium is low, likely from the diarrhea. He received a dose of potassium chloride. We will recheck this this afternoon. Subjective Date/time seen: 10/06/24 10:31 Interval history: patient looks weaker. Still having lots of diarrhea. In fact even with the higher fluid intake the stool output increased even more. he did receive an Imodium a few minutes ago. Exam Narrative: General: somewhat ill-appearing and elderly male in NAD Heart: normal S1 and S2; no rub Or gallop Lungs: clear to auscultation Abdomen: soft, mildly to moderately tender to palpation, nondistended, positive bowel sounds Extremities: no cyanosis or clubbing; no edema Skin: No rash Mouth: Mucous brim brains are dry Objective Data Vital Signs Vital Signs: Vital Signs - 24 hr 10/05/24 10:47 10/05/24 11:46 10/05/24 12:00 Temperature 97.6 F Pulse Rate 77 Respiratory Rate 18 Blood Pressure 102/48 L 96/58 L Pulse Oximetry 94 Oxygen Delivery Room Air 10/05/24 12:00 10/05/24 14:00 10/05/24 15:59 Temperature Pulse Rate 77 84 Respiratory Rate Blood Pressure Pulse Oximetry Oxygen Delivery Room Air 10/05/24 16:00 10/05/24 16:47 10/05/24 17:02 Temperature 97.4 F L Pulse Rate 72 73 Respiratory Rate 18 Blood Pressure 132/42 L 132/42 L Pulse Oximetry 100 Oxygen Delivery 08/16/25 18:00 10/05/24 20:00 10/05/24 20:00 Temperature 98.1 F Pulse Rate 80 65 75 Respiratory Rate 20 Blood Pressure 119/40 L Pulse Oximetry 100 Oxygen Delivery 10/05/24 22:00 10/05/24 22:40 10/06/24 00:00 Temperature Pulse Rate 78 65 66 Respiratory Rate 20 Blood Pressure Pulse Oximetry 100 Oxygen Delivery Room Air 10/06/24 00:27 10/06/24 00:30 10/06/24 02:00 Temperature 97.5 F L Pulse Rate 75 75 73 Respiratory Rate 16 16 Blood Pressure 90/42 L Pulse Oximetry 95 95 Oxygen Delivery Room Air 10/06/24 03:26 10/06/24 04:00 10/06/24 05:13 Temperature 98.0 F Pulse Rate 77 77 77 Respiratory Rate 18 18 Blood Pressure 139/55 L Pulse Oximetry 100 100 Oxygen Delivery Room Air 10/06/24 06:00 10/06/24 08:00 10/06/24 08:41 Temperature 97.5 F L Pulse Rate 79 80 90 Respiratory Rate 16 Blood Pressure 130/40 L Pulse Oximetry 97 Oxygen Delivery Intake/Output Intake/Output: Intake & Output 10/03/24 10/04/24 10/05/24 10/06/24 23:59 23:59 23:59 23:59 Intake Total 2600 2697 3200 2400 Output Total 3100 4470 100 Balance 2604 -474 -8619 2300 Meds/Results Medications: Active Medications Generic Name Dose Route Start Last Admin Trade Name Freq PRN Reason Stop Dose Admin Acetaminophen 650 mg 10/02/24 06:52 10/06/24 08:40 Acetaminophen 325 Mg Tablet PO 650 mg Q4H PRN Administration Pain or Fever Apixaban 5 mg 10/05/24 21:00 10/06/24 08:38 Apixaban 5 Mg Tablet PO 5 mg Q12HR SHIRLEY Administration Atorvastatin Calcium 40 mg 10/02/24 21:00 10/05/24 22:05 Atorvastatin 40 Mg Tablet PO 40 mg HS SHIRLEY Administration Calcium Carbonate 200 mg 10/01/24 22:19 10/06/24 08:41 Calcium Carbonate (Tums) 500 Mg (200 Mg Elemental) PO 200 mg Q6H PRN Administration Indigestion Fluticasone/Umeclidinium/Vilanterol 1 puff 10/02/24 08:00 10/06/24 10:00 Fluticasone/Umeclidin/Vilanter 100-62.5-25 Mcg Ellipta INHALATION Not Given DAILYRT [facility] Sodium Bicarbonate 150 meq/ 1,100 mls @ 150 mls/hr 10/04/24 08:50 10/06/24 08:37 Dextrose IV CONT 150 mls/hr .Q7H20M [facility]LEY Administration Piperacillin Sod/Tazobactam 50 mls @ 100 mls/hr 10/05/24 20:00 10/06/24 05:28 Sod 2.25 gm/ Sodium Chloride IVPB Infused Q8H [facility] Infusion Loperamide HCl 4 mg 10/02/24 22:25 10/06/24 08:38 Loperamide Hcl 2 Mg Capsule PO 4 mg BID PRN Administration Diarrhea Metoprolol Succinate 50 mg 10/05/24 09:00 10/06/24 08:41 Metoprolol Succinate Ext Rel 50 Mg Tabcr PO 50 mg QAM [facility] Administration Metoprolol Tartrate 5 mg 10/04/24 12:04 10/05/24 07:59 Metoprolol Tartrate Inj 5 Mg/5 Ml Vial IV PUSH 5 mg Q6HR PRN Administration heart rate Mirtazapine 15 mg 10/02/24 21:00 10/05/24 22:05 Mirtazapine 15 Mg Tablet PO 15 mg HS SH[facility]LEY Administration Multivitamins/Minerals 1 tablet 10/05/24 21:00 10/06/24 08:40 Opti-Gen Tab PO 1 tablet Q12HR [facility] Administration Nitroglycerin 0.4 mg 10/01/24 13:30 Nitroglycerin Sl 0.4 Mg Tablet SUBLINGUAL Q5MIN PRN Chest Pain Ondansetron HCl 4 mg 10/01/24 22:38 10/06/24 08:36 Ondansetron Hcl Odt 4 Mg Tablet PO 4 mg Q6H PRN Administration nausea and vomiting Pantoprazole Sodium 40 mg 10/02/24 09:00 10/06/24 08:40 Pantoprazole 40 Mg Tablet PO 40 mg DAILY [facility] Administration Sodium Bicarbonate 1,300 mg 10/05/24 21:00 10/06/24 08:41 Sodium Bicarbonate Tab 650 Mg Tablet PO 1,300 mg Q12HR [facility] Administration Sucralfate 1 gm 10/05/24 16:30 10/06/24 06:54 Sucralfate 1 Gm Tablet PO 1 gm ACHS [facility] Administration Radiology Results: ITS Impressions Renal Ultrasound 10/02/24 00:30 IMPRESSION: No hydronephrosis or renal calculi. Findings suggesting medical renal disease. Chest X-Ray 10/03/24 18:09 IMPRESSION: No acute cardiopulmonary process. Chest/Abdomen/Pelvis CT 10/04/24 08:39 IMPRESSION: 1. Fluid in the colon consistent with nonspecific diarrhea with wall thickening of multiple loops of distal ileum consistent with enteritis which could be infectious or inflammatory in etiology. 2. Small region of increased density within a now partially collapsed extremity cyst at the lower pole the right kidney likely representing some internal hemorrhage. Consider follow-up ultrasound versus pre and postcontrast MRI or CT in a few weeks to document resolution and exclude significantly less likely solid neoplastic component. 3. Mild emphysema and scattered bilateral calcified pleural plaques consistent with prior asbestos exposure. 4. Unchanged 9 mm nodule along the right intrafissural lymph node without FDG uptake on prior PET/CT most consistent with a benign intrafissural lymph node. 5. Prostatomegaly. 6. Small fat-containing left inguinal hernia. Labs Labs: Laboratory Results - last 24 hr 10/05/24 10/05/24 10/05/24 11:20 11:52 12:44 WBC RBC Hgb Hct MCV MCH MCHC RDW Plt Count MPV Immature Gran % (Auto) Neut % (Auto) Lymph % (Auto) [place] % (Auto) Eos % (Auto) Baso % (Auto) Lymph # (Auto) [place] # (Auto) Eos # (Auto) Baso # (Auto) Abs Immat Gran (auto) Absolute Neuts (auto) Absolute Nucleated RBC Total Counted Neutrophils % (Manual) Band Neutrophils % Lymphocytes % (Manual) Monocytes % (Manual) Nucleated RBC % Abs Neuts (Manual) Abs Lymphs (Manual) Abs Monocytes (Manual) Platelet Estimate Anisocytosis Schistocytes Absolute Retic 0.15 H Percent Retic 4.00 Immature Retic Fraction 34.2 H Retic Hgb Content 29.0 Sodium 132 L Potassium 3.0 L Chloride 96 L Carbon Dioxide 23 Anion Gap 13 H BUN 76 H Creatinine 2.62 H Estim Creat Clear Calc 19 Estimated GFR 23 L Glucose 140 H POC Capillary Glucose 153 H Calcium 8.2 L Phosphorus Magnesium Iron 18 L TIBC 157 L % Saturation 11 L Ferritin 64.10 Total Bilirubin AST ALT Alkaline Phosphatase Total Protein Albumin Stl Occult Blood (IFOB) Positive H 10/06/24 10/06/24 10/06/24 00:35 03:48 06:58 WBC 9.9 RBC 3.54 L Hgb 9.4 L Hct 28.5 L MCV 80.5 MCH 26.6 MCHC 33.0 RDW 20.2 H Plt Count 335 MPV 10.5 H Immature Gran % (Auto) Not Reportable Neut % (Auto) Not Reportable Lymph % (Auto) Not Reportable [place] % (Auto) Not Reportable Eos % (Auto) Not Reportable Baso % (Auto) Not Reportable Lymph # (Auto) Not Reportable [place] # (Auto) Not Reportable Eos # (Auto) Not Reportable Baso # (Auto) Not Reportable Abs Immat Gran (auto) Not Reportable Absolute Neuts (auto) Not Reportable Absolute Nucleated RBC Not Reportable Total Counted 100 Neutrophils % (Manual) 71 Band Neutrophils % 8 H Lymphocytes % (Manual) 12.0 L Monocytes % (Manual) 9 Nucleated RBC % Not Reportable Abs Neuts (Manual) 7.82 H Abs Lymphs (Manual) 1.18 Abs Monocytes (Manual) 0.89 Platelet Estimate Adequate Anisocytosis 1+ Schistocytes None seen Absolute Retic Percent Retic Immature Retic Fraction Retic Hgb Content Sodium 130 L Potassium 2.8 L* Chloride 88 L Carbon Dioxide 35 H Anion Gap 7 BUN 79 H Creatinine 2.71 H Estim Creat Clear Calc 18 Estimated GFR 22 L Glucose 140 H POC Capillary Glucose 127 H 127 H Calcium 7.5 L Phosphorus 3.9 Magnesium 2.5 H Iron TIBC % Saturation Ferritin Total Bilirubin 1.1 AST 30 ALT 22 Alkaline Phosphatase 50 Total Protein 4.6 L Albumin 2.5 L Stl Occult Blood (IFOB)
[2024-10-06] MEDS: SODIUM CHLORIDE 0.9% IV 1,000 ML 100 ML IV CONT (11:13)
[2024-10-06] MEDS: METOCLOPRAMIDE HCL INJ 10 MG/2 ML VIAL 5 MG IV PUSH ×2 (11:16→17:00)
--- NOTE | 2024-10-06 11:21 | PM.PNCARD ---
Progress Note: A&P Assessment and Plan (1) Atrial fibrillation: Qualifiers: Atrial fibrillation type: unspecified Qualified Code(s): I48.91 - Unspecified atrial fibrillation Code(s): I48.91 - Unspecified atrial fibrillation Status: Chronic Assessment and Plan: Patient a brief episode of SVT which is likely atrial fibrillation. Continue IV metoprolol if unable to take p.o.. Potassium supplement as needed. (2) Hypertension: Qualifiers: Hypertension type: primary hypertension Qualified Code(s): I10 - Essential (primary) hypertension Code(s): I10 - Essential (primary) hypertension Status: Chronic Assessment and Plan: Normalized. (3) BRITTANIE (acute kidney injury): Code(s): N17.9 - Acute kidney failure, unspecified Status: Acute Assessment and Plan: Improved. Likely related to dehydration. Increasing IV fluid (4) Anemia: Code(s): D64.9 - Anemia, unspecified Status: Acute Assessment and Plan: Trend H&H he but H&H is better than yesterday. Continue anticoagulation for now. Occult blood positive in stool. May need to hold anticoagulation (5) Diarrhea: Code(s): R19.7 - Diarrhea, unspecified Status: Acute Assessment and Plan: Copious amounts of diarrhea noted. Workup per hospitalist and now GI consult pending Subjective Date/time seen: 10/06/24 11:21 Interval history: 83-year-old with consultation for atrial fibrillation. Date of service 10/05/2024: In and out of AFib with RVR. He is having copious amounts of diarrhea. Electrolytes are abnormal. He does not sustain in atrial fibrillation. Overall though feels poorly Date of service 10/06/2024: Bursts of atrial fibrillation. Potassium is very low today 2.8. Has had aggressive potassium supplement. Still has severe diarrhea. GI evaluation pending. No chest pain. Review of Systems Review of Systems: All systems reviewed & are unremarkable except as noted in HPI and below Constitutional: Constitutional: Denies body ache(s) and Reports fatigue Eyes: Eyes: Denies blurry vision ENT: Reports Normal hearing present Cardiovascular: Cardiovascular: Denies chest pain Respiratory: Respiratory: Denies wheezing Gastrointestinal: Gastrointestinal: Reports diarrhea Genitourinary: Genitourinary: Denies hematuria Musculoskeletal: Musculoskeletal: Denies joint swelling Integumentary/Breasts: Skin/Breast: Denies dry skin Neurologic: Reports Normal hearing present and Denies Abnormal speech present Psychiatric: Psychiatric: Denies anxiety Endocrine: Endocrine: Reports fatigue Hematologic/Lymphatic: Hematologic/Lymphatic: Denies easy bleeding Allergic/Immunologic: Allergic/Immunologic: Denies GI upset with certain foods and Denies wheezing Exam Narrative: Awake alert. Appears stated age Const: General: comfortable and no acute distress HENMT: Ears: TM's normal bilaterally Face/Nose/Sinus: Normal nares present Eyes: General: appearance normal, both eyes and all related structures Sclera: sclerae normal Neck: Neck: supple and no JVD Chest: Other: No reproducible chest wall pain to palpation Resp: Effort & Inspection: normal respiratory effort Auscultation: clear to auscultation bilaterally Cardio: Rate: regular rate Rhythm: regular rhythm Skin: Wounds: no wounds Other: Appears jaundiced Neuro: Cranial nerves: Yes Normal hearing present Speech: normal speech and No Abnormal speech present Sensory Exam: normal sensation Extrem: General: normal to inspection Psych: Mental Status: mental status grossly normal Objective Data Vital Signs Vital Signs: Vital Signs - 24 hr 10/05/24 11:46 10/05/24 12:00 10/05/24 12:00 Temperature 36.4 C Pulse Rate 77 77 Respiratory Rate 18 Blood Pressure 96/58 L Pulse Oximetry 94 Oxygen Delivery Room Air 10/05/24 14:00 10/05/24 15:59 10/05/24 16:00 Temperature Pulse Rate 84 72 Respiratory Rate Blood Pressure Pulse Oximetry Oxygen Delivery Room Air 10/05/24 16:47 10/05/24 17:02 10/05/24 18:00 Temperature 36.3 C L Pulse Rate 73 80 Respiratory Rate 18 Blood Pressure 132/42 L 132/42 L Pulse Oximetry 100 Oxygen Delivery 10/05/24 20:00 10/05/24 20:00 10/05/24 22:00 Temperature 36.7 C Pulse Rate 65 75 78 Respiratory Rate 20 Blood Pressure 119/40 L Pulse Oximetry 100 Oxygen Delivery 10/05/24 22:40 10/06/24 00:00 10/06/24 00:27 Temperature 36.4 C L Pulse Rate 65 66 75 Respiratory Rate 20 16 Blood Pressure 90/42 L Pulse Oximetry 100 95 Oxygen Delivery Room Air 10/06/24 00:30 10/06/24 02:00 10/06/24 03:26 Temperature Pulse Rate 75 73 77 Respiratory Rate 16 18 Blood Pressure Pulse Oximetry 95 100 Oxygen Delivery Room Air Room Air 10/06/24 04:00 10/06/24 05:13 10/06/24 06:00 Temperature 36.7 C Pulse Rate 77 77 79 Respiratory Rate 18 Blood Pressure 139/55 L Pulse Oximetry 100 Oxygen Delivery 10/06/24 08:00 10/06/24 08:41 Temperature 36.4 C L Pulse Rate 80 90 Respiratory Rate 16 Blood Pressure 130/40 L Pulse Oximetry 97 Oxygen Delivery Intake/Output Intake/Output: Intake & Output 10/03/24 10/04/24 10/05/24 10/06/24 23:59 23:59 23:59 23:59 Intake Total 2600 2697 3200 2400 Output Total 3100 4470 100 Balance 2600 -403 -1270 2300 Meds/Results Medications: Active Medications Generic Name Dose Route Start Last Admin Trade Name Freq PRN Reason Stop Dose Admin Acetaminophen 650 mg 10/02/24 06:52 10/06/24 08:40 Acetaminophen 325 Mg Tablet PO 650 mg Q4H PRN Administration Pain or Fever Apixaban 5 mg 10/05/24 21:00 10/06/24 08:38 Apixaban 5 Mg Tablet PO 5 mg Q12HR [facility]LEY Administration Atorvastatin Calcium 40 mg 10/02/24 21:00 10/05/24 22:05 Atorvastatin 40 Mg Tablet PO 40 mg HS SHIRLEY Administration Calcium Carbonate 200 mg 10/01/24 22:19 10/06/24 08:41 Calcium Carbonate (Tums) 500 Mg (200 Mg Elemental) PO 200 mg Q6H PRN Administration Indigestion Fluticasone/Umeclidinium/Vilanterol 1 puff 10/02/24 08:00 10/06/24 10:00 Fluticasone/Umeclidin/Vilanter 100-62.5-25 Mcg Ellipta INHALATION Not Given DAILYRT [facility] Piperacillin Sod/Tazobactam 50 mls @ 100 mls/hr 10/05/24 20:00 10/06/24 05:28 Sod 2.25 gm/ Sodium Chloride IVPB Infused Q8H [facility]LEY Infusion Sodium Chloride 1,000 mls @ 100 mls/hr 10/06/24 10:40 10/06/24 11:13 Normal Saline Iv IV CONT 100 mls/hr .Q10H SHIRLEY Administration Iron Sucrose 200 mg/ Sodium 110 mls @ 220 mls/hr 10/06/24 10:55 Chloride IVPB 10/10/24 09:29 QAM [facility] Loperamide HCl 4 mg 10/02/24 22:25 10/06/24 08:38 Loperamide Hcl 2 Mg Capsule PO 4 mg BID PRN Administration Diarrhea Metoprolol Succinate 50 mg 10/05/24 09:00 10/06/24 08:41 Metoprolol Succinate Ext Rel 50 Mg Tabcr PO 50 mg QAM [facility] Administration Metoprolol Tartrate 5 mg 10/04/24 12:04 10/05/24 07:59 Metoprolol Tartrate Inj 5 Mg/5 Ml Vial IV PUSH 5 mg Q6HR PRN Administration heart rate Mirtazapine 15 mg 10/02/24 21:00 10/05/24 22:05 Mirtazapine 15 Mg Tablet PO 15 mg HS SHIRLEY Administration Multivitamins/Minerals 1 tablet 10/05/24 21:00 10/06/24 08:40 Opti-Gen Tab PO 1 tablet Q12HR [facility]LEY Administration Nitroglycerin 0.4 mg 10/01/24 13:30 Nitroglycerin Sl 0.4 Mg Tablet SUBLINGUAL Q5MIN PRN Chest Pain Ondansetron HCl 4 mg 10/01/24 22:38 10/06/24 08:36 Ondansetron Hcl Odt 4 Mg Tablet PO 4 mg Q6H PRN Administration nausea and vomiting Pantoprazole Sodium 40 mg 10/02/24 09:00 10/06/24 08:40 Pantoprazole 40 Mg Tablet PO 40 mg DAILY [facility] Administration Sucralfate 1 gm 10/05/24 16:30 10/06/24 06:54 Sucralfate 1 Gm Tablet PO 1 gm ACHS SHIRLEY Administration Radiology Results: ITS Impressions Renal Ultrasound 10/02/24 00:30 IMPRESSION: No hydronephrosis or renal calculi. Findings suggesting medical renal disease. Chest X-Ray 10/03/24 18:09 IMPRESSION: No acute cardiopulmonary process. Chest/Abdomen/Pelvis CT 10/04/24 08:39 IMPRESSION: 1. Fluid in the colon consistent with nonspecific diarrhea with wall thickening of multiple loops of distal ileum consistent with enteritis which could be infectious or inflammatory in etiology. 2. Small region of increased density within a now partially collapsed extremity cyst at the lower pole the right kidney likely representing some internal hemorrhage. Consider follow-up ultrasound versus pre and postcontrast MRI or CT in a few weeks to document resolution and exclude significantly less likely solid neoplastic component. 3. Mild emphysema and scattered bilateral calcified pleural plaques consistent with prior asbestos exposure. 4. Unchanged 9 mm nodule along the right intrafissural lymph node without FDG uptake on prior PET/CT most consistent with a benign intrafissural lymph node. 5. Prostatomegaly. 6. Small fat-containing left inguinal hernia. Labs Labs: Laboratory Results - last 24 hr 10/05/24 10/05/24 10/05/24 11:20 11:52 12:44 WBC RBC Hgb Hct MCV MCH MCHC RDW Plt Count MPV Immature Gran % (Auto) Neut % (Auto) Lymph % (Auto) [place] % (Auto) Eos % (Auto) Baso % (Auto) Lymph # (Auto) [place] # (Auto) Eos # (Auto) Baso # (Auto) Abs Immat Gran (auto) Absolute Neuts (auto) Absolute Nucleated RBC Total Counted Neutrophils % (Manual) Band Neutrophils % Lymphocytes % (Manual) Monocytes % (Manual) Nucleated RBC % Abs Neuts (Manual) Abs Lymphs (Manual) Abs Monocytes (Manual) Platelet Estimate Anisocytosis Schistocytes Absolute Retic 0.15 H Percent Retic 4.00 Immature Retic Fraction 34.2 H Retic Hgb Content 29.0 Sodium 132 L Potassium 3.0 L Chloride 96 L Carbon Dioxide 23 Anion Gap 13 H BUN 76 H Creatinine 2.62 H Estim Creat Clear Calc 19 Estimated GFR 23 L Glucose 140 H POC Capillary Glucose 153 H Calcium 8.2 L Phosphorus Magnesium Iron 18 L TIBC 157 L % Saturation 11 L Ferritin 64.10 Total Bilirubin AST ALT Alkaline Phosphatase Total Protein Albumin Stl Occult Blood (IFOB) Positive H 10/06/24 10/06/24 10/06/24 00:35 03:48 06:58 WBC 9.9 RBC 3.54 L Hgb 9.4 L Hct 28.5 L MCV 80.5 MCH 26.6 MCHC 33.0 RDW 20.2 H Plt Count 335 MPV 10.5 H Immature Gran % (Auto) Not Reportable Neut % (Auto) Not Reportable Lymph % (Auto) Not Reportable [place] % (Auto) Not Reportable Eos % (Auto) Not Reportable Baso % (Auto) Not Reportable Lymph # (Auto) Not Reportable [place] # (Auto) Not Reportable Eos # (Auto) Not Reportable Baso # (Auto) Not Reportable Abs Immat Gran (auto) Not Reportable Absolute Neuts (auto) Not Reportable Absolute Nucleated RBC Not Reportable Total Counted 100 Neutrophils % (Manual) 71 Band Neutrophils % 8 H Lymphocytes % (Manual) 12.0 L Monocytes % (Manual) 9 Nucleated RBC % Not Reportable Abs Neuts (Manual) 7.82 H Abs Lymphs (Manual) 1.18 Abs Monocytes (Manual) 0.89 Platelet Estimate Adequate Anisocytosis 1+ Schistocytes None seen Absolute Retic Percent Retic Immature Retic Fraction Retic Hgb Content Sodium 130 L Potassium 2.8 L* Chloride 88 L Carbon Dioxide 35 H Anion Gap 7 BUN 79 H Creatinine 2.71 H Estim Creat Clear Calc 18 Estimated GFR 22 L Glucose 140 H POC Capillary Glucose 127 H 127 H Calcium 7.5 L Phosphorus 3.9 Magnesium 2.5 H Iron TIBC % Saturation Ferritin Total Bilirubin 1.1 AST 30 ALT 22 Alkaline Phosphatase 50 Total Protein 4.6 L Albumin 2.5 L Stl Occult Blood (IFOB)
[2024-10-06] MEDS: LOPERAMIDE HCL 2 MG CAPSULE PO ×3 (12:50→21:34)
[2024-10-06 12:57] LABS: Hematocrit 29.1 % (42.0-52.0); Hemoglobin 9.4 g/dL (14.0-18.0)
[2024-10-06 13:12] LABS: Potassium 3.5 mmol/L (3.4-5.0)
[2024-10-06] MEDS: IRON SUCROSE COMPLEX 200 MG in SODIUM CHLORIDE 0.9% IV 100 ML 220 MG IVPB (14:51)
--- NOTE | 2024-10-06 15:11 | WPDGICN ---
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 (3) Protein-calorie malnutrition, moderate: Code(s): E44.0 - Moderate protein-calorie malnutrition Status: Acute Assessment and Plan: weight loss and poor appetite consider placement of DHT for nutrition in the meantime (4) Atrial fibrillation: Qualifiers: Atrial fibrillation type: unspecified Qualified Code(s): I48.91 - Unspecified atrial fibrillation Code(s): I48.91 - Unspecified atrial fibrillation Status: Chronic Assessment and Plan: by 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 administrator (5) BRITTANIE (acute kidney injury): Code(s): N17.9 - Acute kidney failure, unspecified Status: Acute Assessment and Plan: by 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 He is sick and did not participate in the conversation, family member who is a RN at bedside. He wasa admitted with generalized weakness and multiple falls. He started having more diarrhea about 2 months ago when he has been treated with chemoradiation, he was supposed to be on imodium prescribed by his doctor. Also had failure to thrive, weakness, chest discomfort. Diagnosed with dehydration, failure to thrive, malnutrition, also noted that he has not been eating much and speech therapist recommended aspiration precautions. Still with diarrhea several times a day and imodium was just resumed again. Also decrease appetite. Family is concerned and requesting to transfer to [facility] where he received recent care for his cancer. Review of Systems Review of Systems: All systems reviewed & are unremarkable except as noted in HPI and below Constitutional: Constitutional: Denies body ache(s) and Reports fatigue Eyes: Eyes: Denies blurry vision ENT: Reports Normal hearing present Cardiovascular: Cardiovascular: Denies chest pain Respiratory: Respiratory: Denies wheezing Gastrointestinal: Gastrointestinal: Reports diarrhea Genitourinary: Genitourinary: Denies hematuria Musculoskeletal: Musculoskeletal: Denies joint swelling Integumentary/Breasts: Skin/Breast: Denies dry skin Neurologic: Reports Normal hearing present Psychiatric: Psychiatric: Denies anxiety Endocrine: Endocrine: Reports fatigue Allergic/Immunologic: Allergic/Immunologic: Denies wheezing [facility] Past Medical History Medical History (Updated 10/06/24 @ 10:40 by Josef Thompson MD) Colorectal cancer Chronic anticoagulation Hypertension No longer on medications Atrial fibrillation Carotid artery stenosis Hyperlipidemia CAD (coronary artery disease) Surgical History Surgical History Hx of CABG 2004 Family History Family History Mother Patient's mother is , Onset Age: 88 Father Family history of lung cancer, Onset Age: 83 Sibling Family history of malignant neoplasm of ovary Social History Social History Smoking packs per day: 0.25 Smoking cigarettes per day: 5.0 Years smoked: 65 Smoking pack-years: 16.25 Smoking status: Current some day smoker Tobacco type: cigarettes Second hand tobacco smoke exposure: Yes Alcohol intake: never Alcohol use details: Social Substance use: never Substance use type: does not use Lack of Transportation: No Lack of Food: Never True Current Housing: I Have Housing Concerned About Future Housing: No Difficulty Paying Gas/Electric Bills: No Difficulty Paying for Meds: No Currently Unemployed: No Education: High School Diploma/GED Difficulty w/ Childcare or Family Care: No Living arrangements: with family Additional living arrangements comments: With sp Spiritual care concerns: No Meds Home Medications and Allergies Home Medications ?Medication ?Instructions ?Recorded ?Confirmed ?Type apixaban 5 mg tablet (Eliquis) 5 mg PO BID 01/01/24 10/01/24 History atorvastatin 40 mg tablet 40 mg PO HS 10/01/24 10/01/24 History budesonide 160 mcg-glycopyr 9 2 inh inhalation BID 10/01/24 10/01/24 History mcg-formot 4.8 mcg/actuation HFA inhaler (Breztri Aerosphere) ondansetron HCl 4 mg tablet 4 mg PO Q6H PRN nausea and vomiting 10/01/24 10/01/24 History pantoprazole 40 mg tablet,delayed 40 mg PO DAILY 10/01/24 10/01/24 History release sucralfate 1 gram tablet 1 g PO QID 10/01/24 10/01/24 History vit C 250 mg-vit E 90 mg-zinc 40 1 tablet PO BID 10/01/24 10/01/24 History mg-copper 1 [id number] capsule (Eye [facility] AREDS-2) Allergies Allergy/AdvReac Type Severity Reaction Status Date / Time No Known Allergies Allergy Verified 04/30/24 10:53 Vital Signs Vital Signs - 24 hr 10/05/24 15:59 10/05/24 16:00 10/05/24 16:47 Temperature 97.4 F L Pulse Rate 72 73 Respiratory Rate 18 Blood Pressure 132/42 L Pulse Oximetry 100 Oxygen Delivery Room Air 10/05/24 17:02 10/05/24 18:00 10/05/24 20:00 Temperature 98.1 F Pulse Rate 80 65 Respiratory Rate 20 Blood Pressure 132/42 L 119/40 L Pulse Oximetry 100 Oxygen Delivery 10/05/24 20:00 10/05/24 22:00 10/05/24 22:40 Temperature Pulse Rate 75 78 65 Respiratory Rate 20 Blood Pressure Pulse Oximetry 100 Oxygen Delivery Room Air 10/06/24 00:00 10/06/24 00:27 10/06/24 00:30 Temperature 97.5 F L Pulse Rate 66 75 75 Respiratory Rate 16 16 Blood Pressure 90/42 L Pulse Oximetry 95 95 Oxygen Delivery Room Air 10/06/24 02:00 10/06/24 03:26 10/06/24 04:00 Temperature Pulse Rate 73 77 77 Respiratory Rate 18 Blood Pressure Pulse Oximetry 100 Oxygen Delivery Room Air 10/06/24 05:13 10/06/24 06:00 10/06/24 08:00 Temperature 98.0 F 97.5 F L Pulse Rate 77 79 80 Respiratory Rate 18 16 Blood Pressure 139/55 L 130/40 L Pulse Oximetry 100 97 Oxygen Delivery 10/06/24 08:41 10/06/24 12:00 Temperature 97.4 F L Pulse Rate 90 78 Respiratory Rate 24 H Blood Pressure 115/40 L Pulse Oximetry 96 Oxygen Delivery Exam Narrative: Awake alert. Chronically ill appearing Const: General: comfortable and no acute distress HENMT: Ears: TM's normal bilaterally Face/Nose/Sinus: Normal nares present Eyes: General: appearance normal, both eyes and all related structures Neck: Neck: supple Chest: Other: No reproducible chest wall pain to palpation Resp: Effort & Inspection: normal respiratory effort Auscultation: clear to auscultation bilaterally Cardio: Rate: regular rate Rhythm: regular rhythm GI: GI Palp: Yes Soft to palpation and Yes Tenderness to palpation present (GI) (mild ttp, no rebound) Skin: Wounds: no wounds Neuro: Cranial nerves: Yes Normal hearing present Speech: normal speech and No Abnormal speech present Extrem: General: normal to inspection Psych: Affect: Anxious affect present Results Labs 10/06/24 12:53 10/06/24 12:53 Labs: Short CBC 10/06/24 10/06/24 Range/Units 03:48 12:53 WBC 9.9 (4.5-10.0) K/mm3 Hgb 9.4 L 9.4 L (14.0-18.0) g/dL Hct 28.5 L 29.1 L (42.0-52.0) % Plt Count 335 (150-375) k/mm3 BMP 10/06/24 10/06/24 03:48 12:53 Sodium 130 L Potassium 2.8 L* 3.5 Chloride 88 L Carbon Dioxide 35 H BUN 79 H Creatinine 2.71 H Glucose 140 H Calcium 7.5 L Liver Function 10/06/24 Range/Units 03:48 Total Bilirubin 1.1 (0.2-1.3) mg/dL AST 30 (17-59) U/L ALT 22 (6-50) U/L Alkaline Phosphatase 50 (38-126) U/L Albumin 2.5 L (3.5-5.1) g/dL
--- NOTE | 2024-10-06 16:43 | P.PNIM_ITS ---
Progress Note: A&P Assessment and Plan (1) Acute dehydration: Code(s): E86.0 - Dehydration Status: Acute Assessment and Plan: Received IV fluid Continue same (2) Acute hyponatremia: Code(s): E87.1 - Hypo-osmolality and hyponatremia Status: Acute Assessment and Plan: Sodium 130 on admission. Nephrology consulted Remains stable continue to monitor (3) BRITTANIE (acute kidney injury): Code(s): N17.9 - Acute kidney failure, unspecified Status: Acute Assessment and Plan: * creatinine 2.89, BUN 45, GFR 21 on admission. * Creatinine 3.30, BUN 60, GFR 18 today. * baseline creatinine in 2023 appears to be 1.2-1.4. * Renal ultrasound with no hydronephrosis. Nephrology on board Creatinine trending downward today (4) Chest pain: Code(s): R07.9 - Chest pain, unspecified Status: Acute Assessment and Plan: * EKG, initial: Sinus rhythm with occasional ventricular premature complexes, right bundle-branch block * EKG, repeat (1): No significant changes when compared to EKG done earlier same day * CXR: No acute cardiopulmonary disease * Troponin: 0.029 -> 0.026, 6 hour ordered * ASA 324 given by EMS * SL nitro PRN * high suspicion for some level of demand ischemia due to dehydration/positive orthostatic blood pressures. Patient was also endorsing epigastric pain, could be more so GERD related verses cardiac in nature. 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 Consider Cardiology consultation if patient continues to have intermittent chest pain despite rehydration and improved blood pressure. * telemetry monitoring- SR 95. (5) Atrial fibrillation: Qualifiers: Atrial fibrillation type: unspecified Qualified Code(s): I48.91 - Unspecified atrial fibrillation Code(s): I48.91 - Unspecified atrial fibrillation Status: Chronic Assessment and Plan: * continue home medications: Eliquis * initial EKG showed sinus rhythm with occasional ventricular premature complexes and right bundle branch block. 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 * Follows with Oncology at [facility]. (Dr. Perea) (7) Protein-calorie malnutrition, moderate: Code(s): E44.0 - Moderate protein-calorie malnutrition Status: Acute Assessment and Plan: * Per EMR loss of 21 pounds in 6 months. * Draw Bench Operator consult. * Add Ensure plus High Protein BID. Regular diet. * Add Mirtazapine 15 mg PO QHS. * Encourage oral intake. (8) Diarrhea: Code(s): R19.7 - Diarrhea, unspecified Status: Acute Assessment and Plan: * Stool negative for c diff. * Stool cultures obtained. * Ns@ 100 ml/hr. Will order CT abdomen pelvis (9) SVT (supraventricular tachycardia): Code(s): I47.10 - Supraventricular tachycardia, unspecified Status: Acute Assessment and Plan: On 10/03/2024 Self terminated Is still quite acidotic Will switch fluid to IV bicarb (10) Enteritis: Code(s): K52.9 - Noninfective gastroenteritis and colitis, unspecified Status: Acute Assessment and Plan: C diff negative Stool culture negative Possibly due to chemo Started on Zosyn Consult GI Subjective Date/time seen: 10/06/24 16:43 Interval history: Had a long discussion with his daughter and granddaughter who works as a nurse at [employer]. Patient underwent colonoscopy last November 2023, and had suspicious for colon cancer. Pt was referred to who advised them to follow up in [facility] due to size of tumor. Later patient's family changed the care to [facility] where he received chemo and radiation.Currently patient condition is deteriorating and explained all the options to the family. Family wants to continue aggressive treatment and also requesting GI ,and Oncology and both of them are already on board. Review of Systems Review of Systems: All systems reviewed & are unremarkable except as noted in HPI and below Exam Narrative: GENERAL: The patient is thin built ill looking, not in acute distress HEENT: Nonicteric sclerae, PERRLA, EOMI. Dry mucous membrane. Conjunctivae appear well perfused. CHEST: Chest wall is nontender. HEART: Regular rate and rhythm without murmur, rubs, or gallops LUNGS: Coarse breath sound bilaterally. no respiratory distress ABDOMEN: Soft, positive bowel sounds, mild diffuse tenderness, not distended, no organomegaly. SKIN: No rash, no excessive bruising, petechiae, or purpura. NEUROLOGIC: Cranial nerves II-XII intact, alert and oriented x 3, no gross motor deficits EXTREMITIES: no edema, cyanosis or clubbing Const: General: comfortable and no acute distress Other: Chronically ill appearing male pt lying on his right side at the time of my entry into the room sleeping. He did not appear to have acute distress, but does appear to be chronically ill. HENMT: Face/Nose/Sinus: Normal nares present Mouth: Yes dry mucous membranes Eyes: General: appearance normal, both eyes and all related structures Sclera: sclerae normal Pupils: Equal, round and reactive pupils present E OM: EOMs intact bilaterally Neck: Neck: supple and no JVD Lymphatic: lymphadenopathy not noted Resp: Effort & Inspection: normal respiratory effort Auscultation: clear to auscultation bilaterally Cardio: Rate: regular rate Rhythm: regular rhythm Heart sounds: no gallops, no murmurs and no rubs Other: S1-S2 present without murmur, rub, ectopy GI: Auscultation: normal bowel sounds Other: Mild epigastric tenderness, normoactive bowel sounds in all quadrants, no distension and abdomen is soft Skin: General skin exam: No normal color (Mild jaundice noted), no rashes or lesions noted, No lesion and No rashes Lesions: no lesions noted Rashes: no rashes noted Wounds: no wounds Other: Skin tears bilateral knees and right elbow. No drainage. Areas are dry. Neuro: Cranial nerves: Yes Equal, round and reactive pupils present Speech: normal speech Motor exam (neuro): 5/5 motor strength present throughout and Normal motor muscle tone present throughout Sensory Exam: normal sensation Other: A&O x4 Extrem: General: normal to inspection, no edema and no pedal edema Psych: Mental Status: mental status grossly normal Affect: normal affect Other: Good insight and judgment, pleasant Objective Data Vital Signs Vital Signs: Vital Signs - 24 hr 10/05/24 16:47 10/05/24 17:02 10/05/24 18:00 Temperature 97.4 F L Pulse Rate 73 80 Respiratory Rate 18 Blood Pressure 132/42 L 132/42 L Pulse Oximetry 100 Oxygen Delivery 10/05/24 20:00 10/05/24 20:00 10/05/24 22:00 Temperature 98.1 F Pulse Rate 65 75 78 Respiratory Rate 20 Blood Pressure 119/40 L Pulse Oximetry 100 Oxygen Delivery 10/05/24 22:40 10/06/24 00:00 10/06/24 00:27 Temperature 97.5 F L Pulse Rate 65 66 75 Respiratory Rate 20 16 Blood Pressure 90/42 L Pulse Oximetry 100 95 Oxygen Delivery Room Air 10/06/24 00:30 10/06/24 02:00 10/06/24 03:26 Temperature Pulse Rate 75 73 77 Respiratory Rate 16 18 Blood Pressure Pulse Oximetry 95 100 Oxygen Delivery Room Air Room Air 10/06/24 04:00 10/06/24 05:13 10/06/24 06:00 Temperature 98.0 F Pulse Rate 77 77 79 Respiratory Rate 18 Blood Pressure 139/55 L Pulse Oximetry 100 Oxygen Delivery 10/06/24 08:00 10/06/24 08:41 10/06/24 12:00 Temperature 97.5 F L 97.4 F L Pulse Rate 80 90 78 Respiratory Rate 16 24 H Blood Pressure 130/40 L 115/40 L Pulse Oximetry 97 96 Oxygen Delivery Intake/Output Intake/Output: Intake & Output 10/03/24 10/04/24 10/05/24 10/06/24 23:59 23:59 23:59 23:59 Intake Total 2600 2697 3200 2450 Output Total 3100 4470 100 Balance 2600 403 -1210 2350 Meds/Results Medications: Active Medications Generic Name Dose Route Start Last Admin Trade Name Freq PRN Reason Stop Dose Admin Acetaminophen 650 mg 10/02/24 06:52 10/06/24 12:50 Acetaminophen 325 Mg Tablet PO 650 mg Q4H PRN Administration Pain or Fever Apixaban 5 mg 10/05/24 21:00 10/06/24 08:38 Apixaban 5 Mg Tablet PO 5 mg Q12HR SHIRLEY Administration Atorvastatin Calcium 40 mg 10/02/24 21:00 10/05/24 22:05 Atorvastatin 40 Mg Tablet PO 40 mg HS SHIRLEY Administration Calcium Carbonate 200 mg 10/01/24 22:19 10/06/24 08:41 Calcium Carbonate (Tums) 500 Mg (200 Mg Elemental) PO 200 mg Q6H PRN Administration Indigestion Fluticasone/Umeclidinium/Vilanterol 1 puff 10/02/24 08:00 10/06/24 10:00 Fluticasone/Umeclidin/Vilanter 100-62.5-25 Mcg Ellipta INHALATION Not Given DAILYRT SHIRLEY Piperacillin Sod/Tazobactam 50 mls @ 100 mls/hr 10/05/24 20:00 10/06/24 13:20 Sod 2.25 gm/ Sodium Chloride IVPB Infused Q8H SHIRLEY Infusion Sodium Chloride 1,000 mls @ 100 mls/hr 10/06/24 10:40 10/06/24 11:13 Normal Saline Iv IV CONT 100 mls/hr .Q10H SHIRLEY Administration Iron Sucrose 200 mg/ Sodium 110 mls @ 220 mls/hr 10/06/24 10:55 10/06/24 14:51 Chloride IVPB 10/10/24 09:29 220 mls/hr QAM [facility] Administration Loperamide HCl 2 mg 10/06/24 13:00 10/06/24 12:50 Loperamide Hcl 2 Mg Capsule PO 2 mg Q4HR SHIRLEY Administration Metoclopramide HCl 5 mg 10/06/24 12:00 10/06/24 11:36 Metoclopramide Hcl Inj 10 Mg/2 Ml Vial IV PUSH Not Given Q6HR SHIRLEY Metoprolol Succinate 50 mg 10/05/24 09:00 10/06/24 08:41 Metoprolol Succinate Ext Rel 50 Mg Tabcr PO 50 mg QAM [facility]1983 Administration Metoprolol Tartrate 5 mg 10/04/24 12:04 10/05/24 07:59 Metoprolol Tartrate Inj 5 Mg/5 Ml Vial IV PUSH 5 mg Q6HR PRN Administration heart rate Mirtazapine 15 mg 10/02/24 21:00 10/05/24 22:05 Mirtazapine 15 Mg Tablet PO 15 mg HS [facility] Administration Multivitamins/Minerals 1 tablet 10/05/24 21:00 10/06/24 08:40 Opti-Gen Tab PO 1 tablet Q12HR [facility] Administration Nitroglycerin 0.4 mg 10/01/24 13:30 Nitroglycerin Sl 0.4 Mg Tablet SUBLINGUAL Q5MIN PRN Chest Pain Pantoprazole Sodium 40 mg 10/02/24 09:00 10/06/24 08:40 Pantoprazole 40 Mg Tablet PO 40 mg DAILY [facility] Administration Sucralfate 1 gm 10/05/24 16:30 10/06/24 11:34 Sucralfate 1 Gm Tablet PO Not Given ACHS [facility] Radiology Results: ITS Impressions Renal Ultrasound 10/02/24 00:30 IMPRESSION: No hydronephrosis or renal calculi. Findings suggesting medical renal disease. Chest X-Ray 10/03/24 18:09 IMPRESSION: No acute cardiopulmonary process. Chest/Abdomen/Pelvis CT 10/04/24 08:39 IMPRESSION: 1. Fluid in the colon consistent with nonspecific diarrhea with wall thickening of multiple loops of distal ileum consistent with enteritis which could be infectious or inflammatory in etiology. 2. Small region of increased density within a now partially collapsed extremity cyst at the lower pole the right kidney likely representing some internal hemorrhage. Consider follow-up ultrasound versus pre and postcontrast MRI or CT in a few weeks to document resolution and exclude significantly less likely solid neoplastic component. 3. Mild emphysema and scattered bilateral calcified pleural plaques consistent with prior asbestos exposure. 4. Unchanged 9 mm nodule along the right intrafissural lymph node without FDG uptake on prior PET/CT most consistent with a benign intrafissural lymph node. 5. Prostatomegaly. 6. Small fat-containing left inguinal hernia. Abdomen X-Ray 10/06/24 15:53 IMPRESSION: Nasogastric tube in good position and ready for immediate use. Labs Labs: Laboratory Results - last 24 hr 10/06/24 10/06/24 10/06/24 00:35 03:48 06:58 WBC 9.9 RBC 3.54 L Hgb 9.4 L Hct 28.5 L MCV 80.5 MCH 26.6 MCHC 33.0 RDW 20.2 H Plt Count 335 MPV 10.5 H Immature Gran % (Auto) Not Reportable Neut % (Auto) Not Reportable Lymph % (Auto) Not Reportable Stanley % (Auto) Not Reportable Eos % (Auto) Not Reportable Baso % (Auto) Not Reportable Lymph # (Auto) Not Reportable Stanley # (Auto) Not Reportable Eos # (Auto) Not Reportable Baso # (Auto) Not Reportable Abs Immat Gran (auto) Not Reportable Absolute Neuts (auto) Not Reportable Absolute Nucleated RBC Not Reportable Total Counted 100 Neutrophils % (Manual) 71 Band Neutrophils % 8 H Lymphocytes % (Manual) 12.0 L Monocytes % (Manual) 9 Nucleated RBC % Not Reportable Abs Neuts (Manual) 7.82 H Abs Lymphs (Manual) 1.18 Abs Monocytes (Manual) 0.89 Platelet Estimate Adequate Anisocytosis 1+ Schistocytes None seen Sodium 130 L Potassium 2.8 L* Chloride 88 L Carbon Dioxide 35 H Anion Gap 7 BUN 79 H Creatinine 2.71 H Estim Creat Clear Calc 18 Estimated GFR 22 L Glucose 140 H POC Capillary Glucose 127 H 127 H Calcium 7.5 L Phosphorus 3.9 Magnesium 2.5 H Total Bilirubin 1.1 AST 30 ALT 22 Alkaline Phosphatase 50 Total Protein 4.6 L Albumin 2.5 L 10/06/24 10/06/24 11:39 12:53 WBC RBC Hgb 9.4 L Hct 29.1 L MCV MCH MCHC RDW Plt Count MPV Immature Gran % (Auto) Neut % (Auto) Lymph % (Auto) Stanley % (Auto) Eos % (Auto) Baso % (Auto) Lymph # (Auto) Stanley # (Auto) Eos # (Auto) Baso # (Auto) Abs Immat Gran (auto) Absolute Neuts (auto) Absolute Nucleated RBC Total Counted Neutrophils % (Manual) Band Neutrophils % Lymphocytes % (Manual) Monocytes % (Manual) Nucleated RBC % Abs Neuts (Manual) Abs Lymphs (Manual) Abs Monocytes (Manual) Platelet Estimate Anisocytosis Schistocytes Sodium Potassium 3.5 Chloride Carbon Dioxide Anion Gap BUN Creatinine Estim Creat Clear Calc Estimated GFR Glucose POC Capillary Glucose 120 H Calcium Phosphorus Magnesium Total Bilirubin AST ALT Alkaline Phosphatase Total Protein Albumin Quality VTE Prophylaxis VTE prophylaxis: pharmacologic ordered Hospitalist MIPS Advance Care Plan I have confirmed that the patient's Advanced Care Plan is present, code status is documented, or surrogate decision maker is listed in patient medical record.: Yes Medication Reconciliation I have utilized all available resources to obtain, update and review the patients current medications (includes all prescriptions, OTC, herbals, cannabis, and nutritional supplements).: Yes
[2024-10-06 18:07] LABS: Osmolality, Urine 562 mOsmol/kg (.)
[2024-10-06 19:06] LABS: Anion Gap 6 mmol/L (4-12); Blood Urea Nitrogen 77 mg/dL (9-20); Calcium 6.9 mg/dL (8.4-10.2); Carbon Dioxide 35 mmol/L (22-30); Chloride 91 mmol/L (98-107); Estimated CRCL calculation 16 ml/min; Estimated Glomerular Filt Rate 19; Glucose 92 mg/dL (65-110); Potassium 3.4 mmol/L (3.4-5.0); Sodium 132 mmol/L (137-145)
[2024-10-06] MEDS: DEXTROSE 5% 1,000 ML 1,000 ML 60 ML IV CONT (19:43)
[2024-10-06] MEDS: DEXTROSE 5%/0.9% SOD CHL 1,000 ML 300 ML IV CONT (19:55)
[2024-10-06] MEDS: MIRTAZAPINE 15 MG TABLET PO (21:35)
[2024-10-06] MEDS: ATORVASTATIN 40 MG TABLET PO (21:35)
[2024-10-07] VITALS (16 sets, daily range): BP systolic 99–135; BP diastolic 40–91; PULSE 58–149; RESP 18–24; TEMP 35.6–36.8; O2SAT 93–100
[2024-10-07] MEDS: DEXTROSE 5%/0.9% SOD CHL 1,000 ML 300 ML IV CONT (00:50)
[2024-10-07] MEDS: METOCLOPRAMIDE HCL INJ 10 MG/2 ML VIAL 5 MG IV PUSH ×4 (00:55→17:51)
[2024-10-07 03:57] LABS: Hematocrit 26.6 % (42.0-52.0); Hemoglobin 8.3 g/dL (14.0-18.0); Immature Granulocyte Percent A 7.9 % (0-0.5); Lymphocytes Absolute Auto 1.76 K/mm3 (0.9-3.2); Mean Corpuscular HGB Conc 31.2 g/dl (32-36); Mean Corpuscular Hemoglobin 26.3 pg (26-34); Mean Corpuscular Volume 84.4 fl (80-100); Nucleated Red Blood Cells Absolute Auto 0.040 K/mm3 (0.0-0.012); Nucleated Red Blood Cells Perc 0.4 % (0.0-0.2); Platelet Count Result 313 k/mm3 (150-375); Red Blood Count 3.15 M/mm3 (4.6-6.20); White Blood Count 9.8 K/mm3 (4.5-10.0)
[2024-10-07 04:13] LABS: Alanine Aminotransferase 24 U/L (6-50); Albumin Level 2.2 g/dL (3.5-5.1); Alkaline Phosphatase 61 U/L (38-126); Anion Gap 4 mmol/L (4-12); Aspartate Amino Transferase 39 U/L (17-59); Bilirubin,Total 1.3 mg/dL (0.2-1.3); Blood Urea Nitrogen 72 mg/dL (9-20); Calcium 7.0 mg/dL (8.4-10.2); Carbon Dioxide 36 mmol/L (22-30); Chloride 95 mmol/L (98-107); Estimated CRCL calculation 16 ml/min; Estimated Glomerular Filt Rate 19; Glucose 90 mg/dL (65-110); Magnesium 2.6 mg/dL (1.6-2.3); Potassium 3.4 mmol/L (3.4-5.0); Sodium 135 mmol/L (137-145); Total Protein 4.2 g/dL (6.3-8.2)
[2024-10-07 04:39] LABS: Anisocytosis 2+; Hypochromasia 1+
[2024-10-07 04:40] LABS: Poikilocytosis 1+; Schistocytes None Seen
[2024-10-07] MEDS: PIPERACILLIN/TAZOBACTAM SOD 2.25 GM in SODIUM CHLORIDE 0.9% IV 50 ML 100 ML IVPB ×2 (07:21→13:02)
[2024-10-07] MEDS: FLUTICASONE/UMECLIDIN/VILANTER 100-62.5-25 MCG ELLIPTA 1 PUFF INHALATION (08:00)
--- NOTE | 2024-10-07 08:30 | ECG_ITS ---
Test Date: 2024-10-07 08:36:09 Measurements Intervals [place] Rate: 112 P: 54 ID: [id number] QRS: 21 QRSD: 114 T: 19 QT: 355 QTc: 486 Interpretive Statements SINUS TACHYCARDIA WITH OCCASIONAL SUPRAVENTRICULAR PREMATURE COMPLEXES RIGHT BUNDLE BRANCH BLOCK BASELINE ARTIFACT- I, III, AVR, AVL, AVF, V1-V6 ABNORMAL ECG Compared to ECG 10/04/2024 12:08:56 HEART RATE HAS INCREASED Electronically Signed On 10-07-2024 10:16:41 CDT by Cornelio Barnett D.O.
[2024-10-07] MEDS: PANTOPRAZOLE SODIUM IV 40 MG VIAL IV PUSH (09:50)
[2024-10-07] MEDS: IRON SUCROSE COMPLEX 200 MG in SODIUM CHLORIDE 0.9% IV 100 ML 220 MG IVPB (09:50)
[2024-10-07] MEDS: MORPHINE SULFATE (*CRX) 2 MG/ML INJ 1 MG IV PUSH ×2 (09:50→14:11)
[2024-10-07] MEDS: DEXTROSE 5%/0.9% SOD CHL 1,000 ML 60 ML IV CONT (10:05)
--- NOTE | 2024-10-07 10:07 | P.PNNP_ITS ---
Progress Note: A&P Assessment and Plan (1) Acute kidney injury: Code(s): N17.9 - Acute kidney failure, unspecified Status: Acute Assessment and Plan: * fluctuating * as noted on admission * admission creatinine 2.89mg/dl but then adrian to a peak of 3.75 and has fallen to 2.3 with minor bouncing around over the last couple of days. * suspect multifactorial etiology: * prerenal factors (poor oral intake and diarrhea) * hypotension * Diarrhea * chemotherapy(?) * renal hypoperfusion/mild ATN... * failure to thrive(?) * evaluation to date noted: * renal ultrasound with findings of medical renal disease but no obstruction * urine electrolytes pre-renal * no proteinuria * urine eosinophils negative * CPK normal * UA pending * follow trend of repeat labs and UOP * continue supportive therapy (2) Stage 3a chronic kidney disease: Code(s): N18.31 - Chronic kidney disease, stage 3a Status: Chronic Assessment and Plan: * baseline creatinine runs ~ 1.1 - 1.4mg/d (since 2021) * presumably due to previous hypertension, vascular disease (CAD/CABG + hyperlipidemia + carotid stensis), and age-related change (3) Orthostatic hypotension: Code(s): I95.1 - Orthostatic hypotension Status: Acute Assessment and Plan: * as noted by EMS: * BP 90/40 supine * BP 60/38 standing * Likely due to dehydration * TSH and cortisol level okay * reassess this once he is feeling better (4) Hyponatremia: Code(s): E87.1 - Hypo-osmolality and hyponatremia Status: Acute Assessment and Plan: * better at this time * due to BRITTANIE and hypovolemia; malignancy could be playing a role * urine electrolytes consistent with prerenal azotemia * evaluaton noted: * prerenal urine electrolytes * TSH okay * cortisol is high * SPEP/UPEP and serum/urine osmolality all pending * sodium stable if not better (5) Metabolic acidosis: Code(s): E87.20 - Acidosis, unspecified Status: Acute Assessment and Plan: * resolved * off bicarb gtt and oral sodium bicarbonate (6) Anemia: Code(s): D64.9 - Anemia, unspecified Status: Acute Assessment and Plan: * related to BRITTANIE, CKD, malignancy, and acute illness * consider BRUNO/Epogen therapy while hospitalized * stool guaiac is positive -- understandable with his inflammation... * low TSAT noted * on IV venofer * follow trend of H/H (7) Chest pain: Code(s): R07.9 - Chest pain, unspecified Status: Acute Assessment and Plan: * as noted on presentation * EKGs noted -- no ischemic changes * CXR negative * trend of troponins noted * suspect demand ischemia due to hypotension * continue supportive care (8) Atrial fibrillation: Qualifiers: Atrial fibrillation type: unspecified Qualified Code(s): I48.91 - Unspecified atrial fibrillation Code(s): I48.91 - Unspecified atrial fibrillation Status: Chronic Assessment and Plan: * rate control strategy * resumed on home metoprolol * on anticoagulation (Eliquis) (9) Protein-calorie malnutrition, moderate: Code(s): E44.0 - Moderate protein-calorie malnutrition Status: Acute Assessment and Plan: * suspect possible early signs of failure to thrive * liberalize diet as tolerated with supplemental shakes * however, his oral intake remains quite poor at this time... 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 Perea * s/p radiation therapy * last dose of radiation was in July * currently undergoing chemotherapy Will continue to follow. L Subjective Date/time seen: 10/07/24 10:07 Interval history: Follow-up for acute kidney injury/acute renal failure on chronic kidney disease. Chart reviewed since last seen -- renal function/creatinine fluctuating but relatively stable in the last 24 hours; continue to have significant diarrhea as well; noted plans for possible transfer to another facility/hospital given his complex history; the patient states that he feels terrible and would rather just go home -- discussed situation with family at bedside and it would seen they contemplating palliative care/comfort measures... Exam 2 Narrative: General: somewhat ill-appearing and elderly male in NAD Mouth: dry mucus membranes Heart: normal S1 and S2; no rub Or gallop Lungs: clear to auscultation Abdomen: soft, mildly to moderately tender to palpation, nondistended, positive bowel sounds Extremities: no cyanosis or clubbing; no edema Skin: no rash Objective Data Vital Signs Vital Signs: Vital Signs Temp Pulse Resp BP Pulse Ox O2 Del Method O2 Flow Rate 10/07/24 10:02 96.0 F L 93 24 H 107/91 H 100 10/07/24 08:28 134 H 22 H 93 Nasal Cannula 3 10/07/24 08:00 149 H 10/07/24 08:00 100 Nasal Cannula 3 10/07/24 08:00 96.7 F L 71 18 105/57 L 100 10/07/24 06:00 64 10/07/24 04:45 97.6 F 73 22 H 99/40 L 100 10/07/24 04:00 85 10/07/24 04:00 100 Nasal Cannula 2 10/07/24 02:00 58 L 10/07/24 00:25 98.2 F 65 22 H 111/41 L 100 10/07/24 00:00 61 10/07/24 00:00 100 Nasal Cannula 2 10/06/24 22:00 72 10/06/24 20:53 98.0 F 67 23 H 100/39 L 100 10/06/24 20:00 68 10/06/24 20:00 100 Nasal Cannula 2 10/06/24 18:00 70 10/06/24 16:00 100 Nasal Cannula 2 10/06/24 16:00 97.9 F 78 12 111/40 L 100 10/06/24 16:00 76 10/06/24 14:00 74 Intake/Output Intake/Output: Intake & Output 10/04/24 10/05/24 10/06/24 10/07/24 23:59 23:59 23:59 23:59 Intake Total 2697 3200 3610 170 Output Total 3100 4470 2100 1350 Balance -403 -1270 1510 -1180 Meds/Results Medications: Active Medications Generic Name Dose Route Start Last Admin Trade Name Freq PRN Reason Stop Dose Admin Acetaminophen 650 mg 10/02/24 06:52 10/06/24 17:01 Acetaminophen 325 Mg Tablet PO 650 mg Q4H PRN Administration Pain or Fever Apixaban 2.5 mg 10/07/24 21:00 Apixaban 2.5 Mg Tablet PO Q12HR SHIRLEY Atorvastatin Calcium 40 mg 10/02/24 21:00 10/06/24 21:35 Atorvastatin 40 Mg Tablet PO 40 mg HS SHIRLEY Administration Calcium Carbonate 200 mg 10/01/24 22:19 10/06/24 08:41 Calcium Carbonate (Tums) 500 Mg (200 Mg Elemental) PO 200 mg Q6H PRN Administration Indigestion Fluticasone/Umeclidinium/Vilanterol 1 puff 10/02/24 08:00 10/07/24 08:00 Fluticasone/Umeclidin/Vilanter 100-62.5-25 Mcg Ellipta INHALATION 1 puff DAILYRT SHIRLEY Administration Piperacillin Sod/Tazobactam 50 mls @ 100 mls/hr 10/05/24 20:00 10/07/24 07:51 Sod 2.25 gm/ Sodium Chloride IVPB Infused Q8H SHIRLEY Infusion Iron Sucrose 200 mg/ Sodium 110 mls @ 220 mls/hr 10/06/24 10:55 10/07/24 09:50 Chloride IVPB 10/10/24 09:29 220 mls/hr QAM SHIRLEY Administration Dextrose/Sodium Chloride 1,000 mls @ 60 mls/hr 10/07/24 08:55 10/07/24 10:05 Dextrose 5% Sodium Chloride 0.9% IV CONT 60 mls/hr .[id number] SHIRLEY Administration Loperamide HCl 2 mg 10/06/24 13:00 10/07/24 11:34 Loperamide Hcl 2 Mg Capsule PO Not Given Q4HR SHIRLEY Metoclopramide HCl 5 mg 10/06/24 12:00 10/07/24 06:25 Metoclopramide Hcl Inj 10 Mg/2 Ml Vial IV PUSH 5 mg Q6HR SHIRLEY Administration Metoprolol Tartrate 5 mg 10/04/24 12:04 10/05/24 07:59 Metoprolol Tartrate Inj 5 Mg/5 Ml Vial IV PUSH 5 mg Q6HR PRN Administration heart rate Metoprolol Tartrate 25 mg 10/07/24 10:15 Metoprolol Tartrate 25 Mg Tablet PO Q8HR SHIRLEY Mirtazapine 15 mg 10/02/24 21:00 10/06/24 21:35 Mirtazapine 15 Mg Tablet PO 15 mg HS SHIRLEY Administration Morphine Sulfate 1 mg 10/07/24 08:47 10/07/24 09:50 Morphine Sulfate (*Crx) 2 Mg/Ml Inj IV PUSH 1 mg Q4H PRN Administration Pain Rated 7-10 Multivitamins/Minerals 1 tablet 10/05/24 21:00 10/07/24 11:34 Opti-Gen Tab PO Not Given Q12HR SHIRLEY Nitroglycerin 0.4 mg 10/01/24 13:30 Nitroglycerin Sl 0.4 Mg Tablet SUBLINGUAL Q5MIN PRN Chest Pain Pantoprazole Sodium 40 mg 10/02/24 09:00 10/07/24 11:36 Pantoprazole 40 Mg Tablet PO Not Given DAILY SHIRLEY Sucralfate 1 gm 10/05/24 16:30 10/06/24 21:35 Sucralfate 1 Gm Tablet PO 1 gm ACHS SHIRLEY Administration Radiology Results: ITS Impressions Renal Ultrasound 10/02/24 00:30 IMPRESSION: No hydronephrosis or renal calculi. Findings suggesting medical renal disease. Chest X-Ray 10/03/24 18:09 IMPRESSION: No acute cardiopulmonary process. Chest/Abdomen/Pelvis CT 10/04/24 08:39 IMPRESSION: 1. Fluid in the colon consistent with nonspecific diarrhea with wall thickening of multiple loops of distal ileum consistent with enteritis which could be infectious or inflammatory in etiology. 2. Small region of increased density within a now partially collapsed extremity cyst at the lower pole the right kidney likely representing some internal hemorrhage. Consider follow-up ultrasound versus pre and postcontrast MRI or CT in a few weeks to document resolution and exclude significantly less likely solid neoplastic component. 3. Mild emphysema and scattered bilateral calcified pleural plaques consistent with prior asbestos exposure. 4. Unchanged 9 mm nodule along the right intrafissural lymph node without FDG uptake on prior PET/CT most consistent with a benign intrafissural lymph node. 5. Prostatomegaly. 6. Small fat-containing left inguinal hernia. Abdomen X-Ray 10/06/24 15:53 IMPRESSION: Nasogastric tube in good position and ready for immediate use. Labs Labs: Laboratory Tests 10/07/24 03:38 10/07/24 03:38 Calcium 7.0 L Magnesium 2.6 H Total Bilirubin 1.3 AST 39 ALT 24 Alkaline Phosphatase 61 Total Protein 4.2 L Albumin 2.2 L Microbiology 10/02/24 12:18 Stool Salmonella/Shigella Screen - Final 10/02/24 12:18 Stool Campylobacter Culture - Final 10/02/24 12:18 Stool Shiga Toxin (EIA) - Final
--- NOTE | 2024-10-07 10:16 | PCRCNOTE ---
Spoke with Radha in pharmacy about Trelogy inhaler. Per her notes pt refusing and to bring in home inhaler.
[2024-10-07 10:19] LABS: Troponin I 0.031 ng/mL (0.000-0.034)
--- NOTE | 2024-10-07 11:25 | PC.NURSE ---
family and patient requesting to speak with care coordination about switching to hospice, pt reports he is in pain and wants to go home today
--- NOTE | 2024-10-07 12:08 | PC.NURSE ---
granddaughter in room, she spoke with pj and care coordination about hospice, will be here after 1300 this afternoon for final decision making, family request barrium swallow be moved to after conference with everyone d/t high risk of aspiration, speech will check with xray and see if he can be moved to 1330 appt
--- NOTE | 2024-10-07 12:46 | P.PNIM_ITS ---
Progress Note: A&P Assessment and Plan (1) Acute dehydration: Code(s): E86.0 - Dehydration Status: Acute Assessment and Plan: Received IV fluid Continue same (2) Acute hyponatremia: Code(s): E87.1 - Hypo-osmolality and hyponatremia Status: Acute Assessment and Plan: Sodium 130 on admission. Nephrology consulted Remains stable continue to monitor (3) BRITTANIE (acute kidney injury): Code(s): N17.9 - Acute kidney failure, unspecified Status: Acute Assessment and Plan: * creatinine 2.89, BUN 45, GFR 21 on admission. * Creatinine 3.30, BUN 60, GFR 18 today. * baseline creatinine in 2023 appears to be 1.2-1.4. * Renal ultrasound with no hydronephrosis. Nephrology on board Creatinine trending downward today (4) Chest pain: Code(s): R07.9 - Chest pain, unspecified Status: Acute Assessment and Plan: * EKG, initial: Sinus rhythm with occasional ventricular premature complexes, right bundle-branch block * EKG, repeat (1): No significant changes when compared to EKG done earlier same day * CXR: No acute cardiopulmonary disease * Troponin: 0.029 -> 0.026, 6 hour ordered * ASA 324 given by EMS * SL nitro PRN * high suspicion for some level of demand ischemia due to dehydration/positive orthostatic blood pressures. Patient was also endorsing epigastric pain, could be more so GERD related verses cardiac in nature. 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 Consider Cardiology consultation if patient continues to have intermittent chest pain despite rehydration and improved blood pressure. * telemetry monitoring- SR 95. (5) Atrial fibrillation: Qualifiers: Atrial fibrillation type: unspecified Qualified Code(s): I48.91 - Unspecified atrial fibrillation Code(s): I48.91 - Unspecified atrial fibrillation Status: Chronic Assessment and Plan: * continue home medications: Eliquis * initial EKG showed sinus rhythm with occasional ventricular premature complexes and right bundle branch block. 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 * Follows with Oncology at [facility]. (Dr. Perea) (7) Protein-calorie malnutrition, moderate: Code(s): E44.0 - Moderate protein-calorie malnutrition Status: Acute Assessment and Plan: * Per EMR loss of 21 pounds in 6 months. * Musical Therapist consult. * Add Ensure plus High Protein BID. Regular diet. * Add Mirtazapine 15 mg PO QHS. * Encourage oral intake. (8) Diarrhea: Code(s): R19.7 - Diarrhea, unspecified Status: Acute Assessment and Plan: * Stool negative for c diff. * Stool cultures obtained. * Ns@ 100 ml/hr. Will order CT abdomen pelvis (9) SVT (supraventricular tachycardia): Code(s): I47.10 - Supraventricular tachycardia, unspecified Status: Acute Assessment and Plan: On 10/03/2024 Self terminated Is still quite acidotic Will switch fluid to IV bicarb (10) Enteritis: Code(s): K52.9 - Noninfective gastroenteritis and colitis, unspecified Status: Acute Assessment and Plan: C diff negative Stool culture negative Possibly due to chemo Started on Zosyn Consult GI Plan Code status: Full code DVT prophylaxis: Eliquis 2.5 mg p.o. b.i.d. Subjective Date/time seen: 10/07/24 12:46 Interval history: Discussion about hospice versus transfer. Family finally decided to go ahead with transferred to [facility]. He is accepted by Dr. Mathis.Patient has episodes of vomiting. Currently NPO. Due for swallow study. Patient condition is guarded. During the transferred to swallow study patient had a brief episode of seizures. Ordered CT scan brain which shows no significant finding. CT abdomen and pelvis shows interval development of multiple loops of fluid filled prominent small bowel and interval increase in the size of focus of mixed attenuation within the lower pole of the right kidney for which blood product is suspected. Prognosis guarded. Continue Zosyn. Review of Systems Review of Systems: All systems reviewed & are unremarkable except as noted in HPI and below Exam Narrative: GENERAL: The patient is thin built ill looking, not in acute distress HEENT: Nonicteric sclerae, PERRLA, EOMI. Dry mucous membrane. Conjunctivae appear well perfused. CHEST: Chest wall is nontender. HEART: Regular rate and rhythm without murmur, rubs, or gallops LUNGS: Coarse breath sound bilaterally. no respiratory distress ABDOMEN: Soft, positive bowel sounds, mild diffuse tenderness, not distended, no organomegaly. SKIN: No rash, no excessive bruising, petechiae, or purpura. NEUROLOGIC: Cranial nerves II-XII intact, alert and oriented x 3, no gross motor deficits EXTREMITIES: no edema, cyanosis or clubbing Const: General: comfortable and no acute distress Other: Chronically ill appearing male pt lying on his right side at the time of my entry into the room sleeping. He did not appear to have acute distress, but does appear to be chronically ill. HENMT: Face/Nose/Sinus: Normal nares present Mouth: Yes dry mucous membranes Eyes: General: appearance normal, both eyes and all related structures Sclera: sclerae normal Pupils: Equal, round and reactive pupils present EOM: EOMs intact bilaterally Neck: Neck: supple and no JVD Lymphatic: lymphadenopathy not noted Resp: Effort & Inspection: normal respiratory effort Auscultation: clear to auscultation bilaterally Cardio: Rate: regular rate Rhythm: regular rhythm Heart sounds: no gallops, no murmurs and no rubs Other: S1-S2 present without murmur, rub, ectopy GI: Auscultation: normal bowel sounds Other: Mild epigastric tenderness, normoactive bowel sounds in all quadrants, no distension and abdomen is soft Skin: General skin exam: No normal color (Mild jaundice noted), no rashes or lesions noted, No lesion and No rashes Lesions: no lesions noted Rashes: no rashes noted Wounds: no wounds Other: Skin tears bilateral knees and right elbow. No drainage. Areas are dry. Neuro: Cranial nerves: Yes Equal, round and reactive pupils present Speech: normal speech Motor exam (neuro): 5/5 motor strength present throughout and Normal motor muscle tone present throughout Sensory Exam: normal sensation Other: A&O x4 Extrem: General: normal to inspection, no edema and no pedal edema Psych: Mental Status: mental status grossly normal Affect: normal affect Other: Good insight and judgment, pleasant Objective Data Vital Signs Vital Signs: Vital Signs - 24 hr 10/06/24 14:00 10/06/24 16:00 10/06/24 16:00 Temperature 97.9 F Pulse Rate 74 76 78 Respiratory Rate 12 Blood Pressure 111/40 L Pulse Oximetry 100 Oxygen Delivery Oxygen Flow Rate 10/06/24 16:00 10/06/24 18:00 10/06/24 20:00 Temperature Pulse Rate 70 Respiratory Rate Blood Pressure Pulse Oximetry 100 100 Oxygen Delivery Nasal Cannula Nasal Cannula Oxygen Flow Rate 2 2 10/06/24 20:00 10/06/24 20:53 10/06/24 22:00 Temperature 98.0 F Pulse Rate 68 67 72 Respiratory Rate 23 H Blood Pressure 100/39 L Pulse Oximetry 100 Oxygen Delivery Oxygen Flow Rate 10/07/24 00:00 10/07/24 00:00 10/07/24 00:25 Temperature 98.2 F Pulse Rate 61 65 Respiratory Rate 22 H Blood Pressure 111/41 L Pulse Oximetry 100 100 Oxygen Delivery Nasal Cannula Oxygen Flow Rate 2 10/07/24 02:00 10/07/24 04:00 10/07/24 04:00 Temperature Pulse Rate 58 L 85 Respiratory Rate Blood Pressure Pulse Oximetry 100 Oxygen Delivery Nasal Cannula Oxygen Flow Rate 2 10/07/24 04:45 10/07/24 06:00 10/07/24 08:00 Temperature 97.6 F 96.7 F L Pulse Rate 73 64 71 Respiratory Rate 22 H 18 Blood Pressure 99/40 L 105/57 L Pulse Oximetry 100 100 Oxygen Delivery Oxygen Flow Rate 10/07/24 08:00 10/07/24 08:00 10/07/24 08:28 Temperature Pulse Rate 149 H 134 H Respiratory Rate 22 H Blood Pressure Pulse Oximetry 100 93 Oxygen Delivery Nasal Cannula Nasal Cannula Oxygen Flow Rate 3 3 10/07/24 11:42 Temperature 96.0 F L Pulse Rate 93 Respiratory Rate 24 H Blood Pressure 107/91 H Pulse Oximetry 100 Oxygen Delivery Oxygen Flow Rate Intake/Output Intake/Output: Intake & Output 10/04/24 10/05/24 10/06/24 10/07/24 23:59 23:59 23:59 23:59 Intake Total 2697 3200 3610 280 Output Total 3100 4470 2100 1350 Balance -403 -1270 1510 -1070 Meds/Results Medications: Active Medications Generic Name Dose Route Start Last Admin Trade Name Freq PRN Reason Stop Dose Admin Acetaminophen 650 mg 10/02/24 06:52 10/06/24 17:01 Acetaminophen 325 Mg Tablet PO 650 mg Q4H PRN Administration Pain or Fever Apixaban 2.5 mg 10/07/24 21:00 Apixaban 2.5 Mg Tablet PO Q12HR [facility] Atorvastatin Calcium 40 mg 10/02/24 21:00 10/06/24 21:35 Atorvastatin 40 Mg Tablet PO 40 mg HS SHIRLEY Administration Calcium Carbonate 200 mg 10/01/24 22:19 10/06/24 08:41 Calcium Carbonate (Tums) 500 Mg (200 Mg Elemental) PO 200 mg Q6H PRN Administration Indigestion Fluticasone/Umeclidinium/Vilanterol 1 puff 10/02/24 08:00 10/07/24 08:00 Fluticasone/Umeclidin/Vilanter 100-62.5-25 Mcg Ellipta INHALATION 1 puff DAILYRT SHIRLEY Administration Piperacillin Sod/Tazobactam 50 mls @ 100 mls/hr 10/05/24 20:00 10/07/24 07:51 Sod 2.25 gm/ Sodium Chloride IVPB Infused Q8H SHIRLEY Infusion Iron Sucrose 200 mg/ Sodium 110 mls @ 220 mls/hr 10/06/24 10:55 10/07/24 10:20 Chloride IVPB 10/10/24 09:29 Infused QAM SHIRLEY Infusion Dextrose/Sodium Chloride 1,000 mls @ 60 mls/hr 10/07/24 08:55 10/07/24 10:05 Dextrose 5% Sodium Chloride 0.9% IV CONT 60 mls/hr .[id number] SHIRLEY Administration Loperamide HCl 2 mg 10/06/24 13:00 10/07/24 11:34 Loperamide Hcl 2 Mg Capsule PO Not Given Q4HR SHIRLEY Metoclopramide HCl 5 mg 10/06/24 12:00 10/07/24 06:25 Metoclopramide Hcl Inj 10 Mg/2 Ml Vial IV PUSH 5 mg Q6HR SHIRLEY Administration Metoprolol Tartrate 5 mg 10/04/24 12:04 10/05/24 07:59 Metoprolol Tartrate Inj 5 Mg/5 Ml Vial IV PUSH 5 mg Q6HR PRN Administration heart rate Metoprolol Tartrate 25 mg 10/07/24 10:15 Metoprolol Tartrate 25 Mg Tablet PO Q8HR SHIRLEY Mirtazapine 15 mg 10/02/24 21:00 10/06/24 21:35 Mirtazapine 15 Mg Tablet PO 15 mg HS SHIRLEY Administration Morphine Sulfate 1 mg 10/07/24 08:47 10/07/24 09:50 Morphine Sulfate (*Crx) 2 Mg/Ml Inj IV PUSH 1 mg Q4H PRN Administration Pain Rated 7-10 Multivitamins/Minerals 1 tablet 10/05/24 21:00 10/07/24 11:34 Opti-Gen Tab PO Not Given Q12HR SHIRLEY Nitroglycerin 0.4 mg 10/01/24 13:30 Nitroglycerin Sl 0.4 Mg Tablet SUBLINGUAL Q5MIN PRN Chest Pain Pantoprazole Sodium 40 mg 10/02/24 09:00 10/07/24 11:36 Pantoprazole 40 Mg Tablet PO Not Given DAILY SHIRLEY Sucralfate 1 gm 10/05/24 16:30 10/07/24 12:25 Sucralfate 1 Gm Tablet PO Not Given ACHS [facility] Radiology Results: ITS Impressions Renal Ultrasound 10/02/24 00:30 IMPRESSION: No hydronephrosis or renal calculi. Findings suggesting medical renal disease. Chest X-Ray 10/03/24 18:09 IMPRESSION: No acute cardiopulmonary process. Chest/Abdomen/Pelvis CT 10/04/24 08:39 IMPRESSION: 1. Fluid in the colon consistent with nonspecific diarrhea with wall thickening of multiple loops of distal ileum consistent with enteritis which could be infectious or inflammatory in etiology. 2. Small region of increased density within a now partially collapsed extremity cyst at the lower pole the right kidney likely representing some internal hemorrhage. Consider follow-up ultrasound versus pre and postcontrast MRI or CT in a few weeks to document resolution and exclude significantly less likely solid neoplastic component. 3. Mild emphysema and scattered bilateral calcified pleural plaques consistent with prior asbestos exposure. 4. Unchanged 9 mm nodule along the right intrafissural lymph node without FDG uptake on prior PET/CT most consistent with a benign intrafissural lymph node. 5. Prostatomegaly. 6. Small fat-containing left inguinal hernia. Abdomen X-Ray 10/06/24 15:53 IMPRESSION: Nasogastric tube in good position and ready for immediate use. Labs Labs: Laboratory Results - last 24 hr 10/04/24 10/06/24 10/06/24 10:01 12:53 17:51 WBC RBC Hgb 9.4 L Hct 29.1 L MCV MCH MCHC RDW Plt Count MPV Immature Gran % (Auto) Neut % (Auto) Lymph % (Auto) Benson % (Auto) Eos % (Auto) Baso % (Auto) Lymph # (Auto) Benson # (Auto) Eos # (Auto) Baso # (Auto) Abs Immat Gran (auto) Absolute Neuts (auto) Absolute Nucleated RBC Band Neutrophils % Nucleated RBC % Platelet Estimate Hypochromasia Poikilocytosis Anisocytosis Schistocytes Sodium Potassium 3.5 Chloride Carbon Dioxide Anion Gap BUN Creatinine Estim Creat Clear Calc Estimated GFR Glucose POC Capillary Glucose 92 Calcium Magnesium Total Bilirubin AST ALT Alkaline Phosphatase Troponin I Total Protein Albumin Urine Osmolality 562 10/06/24 10/07/24 10/07/24 18:16 03:38 09:48 WBC 9.8 RBC 3.15 L Hgb 8.3 L Hct 26.6 L MCV 84.4 MCH 26.3 MCHC 31.2 L RDW 20.4 H Plt Count 313 MPV 10.6 H Immature Gran % (Auto) 7.9 H Neut % (Auto) 57.1 Lymph % (Auto) 18.0 L Benson % (Auto) 15.5 H Eos % (Auto) 0.6 Baso % (Auto) 0.9 Lymph # (Auto) 1.76 Benson # (Auto) 1.5 H Eos # (Auto) 0.1 Baso # (Auto) 0.1 Abs Immat Gran (auto) 0.77 H Absolute Neuts (auto) 5.6 Absolute Nucleated RBC 0.040 H Band Neutrophils % Not Reportable Nucleated RBC % 0.4 H Platelet Estimate Adequate Hypochromasia 1+ Poikilocytosis 1+ Anisocytosis 2+ Schistocytes None seen Sodium 132 L 135 L Potassium 3.4 3.4 Chloride 91 L 95 L Carbon Dioxide 35 H 36 H Anion Gap 6 4 BUN 77 H 72 H Creatinine 3.09 H 3.07 H Estim Creat Clear Calc 16 16 Estimated GFR 19 L 19 L Glucose 92 90 POC Capillary Glucose Calcium 6.9 L 7.0 L Magnesium 2.6 H Total Bilirubin 1.3 AST 39 ALT 24 Alkaline Phosphatase 61 Troponin I 0.031 Total Protein 4.2 L Albumin 2.2 L Urine Osmolality 10/07/24 11:17 WBC RBC Hgb Hct MCV MCH MCHC RDW Plt Count MPV Immature Gran % (Auto) Neut % (Auto) Lymph % (Auto) Benson % (Auto) Eos % (Auto) Baso % (Auto) Lymph # (Auto) Benson # (Auto) Eos # (Auto) Baso # (Auto) Abs Immat Gran (auto) Absolute Neuts (auto) Absolute Nucleated RBC Band Neutrophils % Nucleated RBC % Platelet Estimate Hypochromasia Poikilocytosis Anisocytosis Schistocytes Sodium Potassium Chloride Carbon Dioxide Anion Gap BUN Creatinine Estim Creat Clear Calc Estimated GFR Glucose POC Capillary Glucose 123 H Calcium Magnesium Total Bilirubin AST ALT Alkaline Phosphatase Troponin I Total Protein Albumin Urine Osmolality Quality VTE Prophylaxis VTE prophylaxis: pharmacologic ordered Hospitalist MIPS Advance Care Plan I have confirmed that the patient's Advanced Care Plan is present, code status is documented, or surrogate decision maker is listed in patient medical record.: Yes Medication Reconciliation I have utilized all available resources to obtain, update and review the patients current medications (includes all prescriptions, OTC, herbals, cannabis, and nutritional supplements).: Yes
[2024-10-07 13:08] LABS: Osmolality, Serum 303 mOsmol/kg (280-301)
[2024-10-07 13:08] LABS: Albumin 3.1 g/dL (2.9-4.4); Alpha-1-Globulin 0.4 g/dL (0.0-0.4); Alpha-2-Globulin 0.8 g/dL (0.4-1.0); Gamma Globulin 0.3 g/dL (0.4-1.8)
--- NOTE | 2024-10-07 13:48 | PCNFU ---
Nutrition Follow-Up Complete: Severe protein calorie malnutrition related to chronic colorectal cancer treatment as evidenced by intakes <75% needs >1 month; weight loss 12%/6 months; moderate muscle wasting and fat loss Intakes >50% - Goal is not being met Goal: Pt current nutrition is NPO awaiting [facility] Nutrition recommendation: Diet recommendations per speech. If pt is not able to safely swallow, likely to require NG placement for tube feeds Last recorded weight is 74.8 kg. Bowel Motility: +1 BM today 10/07 per [facility] Labs Reviewed: Hgb 8.3, Hct 26.6, Alb 2.2, Na 135, BUN 72, Cre 3.07, Mag 2.6 Meds Noted: mirtazipine Skin: No skin issues Additional Notes: Pt was made NPO after having episode of tachycardia after eating. To have MBS today, will follow up tomorrow for recommendations. Possible transfer to [place] Monitoring intakes, weights, labs, supplement tolerance, plan of care Follow up in 5 days
--- NOTE | 2024-10-07 13:51 | P.PNCA_ITS ---
<Statement entered by Isaac Platt MD - 10/11/24 10:47> The service was provided by the the nurse practitioner independently. i was available in the hospital in case I was needed Progress Note: A&P Assessment and Plan (1) Atrial fibrillation: Qualifiers: Atrial fibrillation type: unspecified Qualified Code(s): I48.91 - Unspecified atrial fibrillation Code(s): I48.91 - Unspecified atrial fibrillation Status: Chronic Assessment and Plan: Patient a brief episode of SVT which is likely atrial fibrillation. In sinus rhythm now, but some episodes of AF noted on telemetry. Continue IV metoprolol if unable to take p.o.. Potassium supplement as needed. (2) Hypertension: Qualifiers: Hypertension type: primary hypertension Qualified Code(s): I10 - Essential (primary) hypertension Code(s): I10 - Essential (primary) hypertension Status: Chronic Assessment and Plan: Normalized. (3) BRITTANIE (acute kidney injury): Code(s): N17.9 - Acute kidney failure, unspecified Status: Acute Assessment and Plan: Improved. Likely related to dehydration. Increasing IV fluid (4) Anemia: Code(s): D64.9 - Anemia, unspecified Status: Acute Assessment and Plan: Trend H&H , droppped today to 8.3/26.6 (9.4/ 29.1) Continue anticoagulation for now. Occult blood positive in stool. May need to hold anticoagulation. GI following. (5) Diarrhea: Code(s): R19.7 - Diarrhea, unspecified Status: Acute Assessment and Plan: Copious amounts of diarrhea noted. Workup per hospitalist and now GI consult appreciated. Subjective Date/time seen: 10/07/24 13:51 Interval history: 83-year-old with consultation for atrial fibrillation. Date of service 10/05/2024: In and out of AFib with RVR. He is having copious amounts of diarrhea. Electrolytes are abnormal. He does not sustain in atrial fibrillation. Overall though feels poorly Date of service 10/06/2024: Bursts of atrial fibrillation. Potassium is very low today 2.8. Has had aggressive potassium supplement. Still has severe diarrhea. GI evaluation pending. No chest pain. Date of service 10/07/2024: Continues to have episodes of atrial fibrillation. Potassium better today. Complains of abdominal and chest pain which he reports started this morning after he ate some food. He has been NPO since. Review of Systems Review of Systems: All systems reviewed & are unremarkable except as noted in HPI and below Constitutional: Constitutional: Denies body ache(s) and Reports fatigue Eyes: Eyes: Denies blurry vision ENT: Reports Normal hearing present Cardiovascular: Cardiovascular: Denies chest pain Respiratory: Respiratory: Denies wheezing Gastrointestinal: Gastrointestinal: Reports diarrhea Genitourinary: Genitourinary: Denies hematuria Musculoskeletal: Musculoskeletal: Denies joint swelling Integumentary/Breasts: Skin/Breast: Denies dry skin Neurologic: Reports Normal hearing present and Denies Abnormal speech present Psychiatric: Psychiatric: Denies anxiety Endocrine: Endocrine: Reports fatigue Hematologic/Lymphatic: Hematologic/Lymphatic: Denies easy bleeding Allergic/Immunologic: Allergic/Immunologic: Denies GI upset with certain foods and Denies wheezing Exam Narrative: Awake alert. Appears stated age Const: General: comfortable and no acute distress HENMT: Ears: TM's normal bilaterally Face/Nose/Sinus: Normal nares present Eyes: General: appearance normal, both eyes and all related structures Sclera: sclerae normal Neck: Neck: supple and no JVD Chest: Other: No reproducible chest wall pain to palpation Resp: Effort & Inspection: normal respiratory effort Auscultation: clear to auscultation bilaterally Cardio: Rate: regular rate Rhythm: regular rhythm Skin: Wounds: no wounds Other: Appears jaundiced Neuro: Cranial nerves: Yes Normal hearing present Speech: normal speech and No Abnormal speech present Sensory Exam: normal sensation Extrem: General: normal to inspection Psych: Mental Status: mental status grossly normal Objective Data Vital Signs Vital Signs: Vital Signs - 24 hr 10/06/24 14:00 10/06/24 16:00 10/06/24 16:00 Temperature 36.6 C Pulse Rate 74 76 78 Respiratory Rate 12 Blood Pressure 111/40 L Pulse Oximetry 100 Oxygen Delivery Oxygen Flow Rate 10/06/24 16:00 10/06/24 18:00 10/06/24 20:00 Temperature Pulse Rate 70 Respiratory Rate Blood Pressure Pulse Oximetry 100 100 Oxygen Delivery Nasal Cannula Nasal Cannula Oxygen Flow Rate 2 2 10/06/24 20:00 10/06/24 20:53 10/06/24 22:00 Temperature 36.7 C Pulse Rate 68 67 72 Respiratory Rate 23 H Blood Pressure 100/39 L Pulse Oximetry 100 Oxygen Delivery Oxygen Flow Rate 10/07/24 00:00 10/07/24 00:00 10/07/24 00:25 Temperature 36.8 C Pulse Rate 61 65 Respiratory Rate 22 H Blood Pressure 111/41 L Pulse Oximetry 100 100 Oxygen Delivery Nasal Cannula Oxygen Flow Rate 2 10/07/24 02:00 10/07/24 04:00 10/07/24 04:00 Temperature Pulse Rate 58 L 85 Respiratory Rate Blood Pressure Pulse Oximetry 100 Oxygen Delivery Nasal Cannula Oxygen Flow Rate 2 10/07/24 04:45 10/07/24 06:00 10/07/24 08:00 Temperature 36.4 C 35.9 C L Pulse Rate 73 64 71 Respiratory Rate 22 H 18 Blood Pressure 99/40 L 105/57 L Pulse Oximetry 100 100 Oxygen Delivery Oxygen Flow Rate 10/07/24 08:00 10/07/24 08:00 10/07/24 08:28 Temperature Pulse Rate 149 H 134 H Respiratory Rate 22 H Blood Pressure Pulse Oximetry 100 93 Oxygen Delivery Nasal Cannula Nasal Cannula Oxygen Flow Rate 3 3 10/07/24 11:42 Temperature 35.6 C L Pulse Rate 93 Respiratory Rate 24 H Blood Pressure 107/91 H Pulse Oximetry 100 Oxygen Delivery Oxygen Flow Rate Intake/Output Intake/Output: Intake & Output 10/04/24 10/05/24 10/06/24 10/07/24 23:59 23:59 23:59 23:59 Intake Total 2697 3200 3610 280 Output Total 3100 4470 2100 1350 Balance -403 -1270 1510 -1070 Meds/Results Medications: Active Medications Generic Name Dose Route Start Last Admin Trade Name Freq PRN Reason Stop Dose Admin Acetaminophen 650 mg 10/02/24 06:52 10/06/24 17:01 Acetaminophen 325 Mg Tablet PO 650 mg Q4H PRN Administration Pain or Fever Apixaban 2.5 mg 10/07/24 21:00 Apixaban 2.5 Mg Tablet PO Q12HR SHIRLEY Atorvastatin Calcium 40 mg 10/02/24 21:00 10/06/24 21:35 Atorvastatin 40 Mg Tablet PO 40 mg HS SHIRLEY Administration Calcium Carbonate 200 mg 10/01/24 22:19 10/06/24 08:41 Calcium Carbonate (Tums) 500 Mg (200 Mg Elemental) PO 200 mg Q6H PRN Administration Indigestion Fluticasone/Umeclidinium/Vilanterol 1 puff 10/02/24 08:00 10/07/24 08:00 Fluticasone/Umeclidin/Vilanter 100-62.5-25 Mcg Ellipta INHALATION 1 puff DAILYRT SHIRLEY Administration Piperacillin Sod/Tazobactam 50 mls @ 100 mls/hr 10/05/24 20:00 10/07/24 13:02 Sod 2.25 gm/ Sodium Chloride IVPB 100 mls/hr Q8H SHIRLEY Administration Iron Sucrose 200 mg/ Sodium 110 mls @ 220 mls/hr 10/06/24 10:55 10/07/24 10:20 Chloride IVPB 10/10/24 09:29 Infused QAM SHIRLEY Infusion Dextrose/Sodium Chloride 1,000 mls @ 60 mls/hr 10/07/24 08:55 10/07/24 10:05 Dextrose 5% Sodium Chloride 0.9% IV CONT 60 mls/hr .[id number] SHIRLEY Administration Loperamide HCl 2 mg 10/06/24 13:00 10/07/24 11:34 Loperamide Hcl 2 Mg Capsule PO Not Given Q4HR SHIRLEY Lorazepam 2 mg 10/07/24 13:21 Lorazepam Inj (*Crx) 2 Mg/Ml Vial IV PUSH Q4H PRN Seizures Metoclopramide HCl 5 mg 10/06/24 12:00 10/07/24 06:25 Metoclopramide Hcl Inj 10 Mg/2 Ml Vial IV PUSH 5 mg Q6HR SHIRLEY Administration Metoprolol Tartrate 5 mg 10/04/24 12:04 10/05/24 07:59 Metoprolol Tartrate Inj 5 Mg/5 Ml Vial IV PUSH 5 mg Q6HR PRN Administration heart rate Metoprolol Tartrate 25 mg 10/07/24 10:15 Metoprolol Tartrate 25 Mg Tablet PO Q8HR SHIRLEY Mirtazapine 15 mg 10/02/24 21:00 10/06/24 21:35 Mirtazapine 15 Mg Tablet PO 15 mg HS SHIRLEY Administration Morphine Sulfate 1 mg 10/07/24 08:47 10/07/24 09:50 Morphine Sulfate (*Crx) 2 Mg/Ml Inj IV PUSH 1 mg Q4H PRN Administration Pain Rated 7-10 Multivitamins/Minerals 1 tablet 10/05/24 21:00 10/07/24 11:34 Opti-Gen Tab PO Not Given Q12HR SHIRLEY Nitroglycerin 0.4 mg 10/01/24 13:30 Nitroglycerin Sl 0.4 Mg Tablet SUBLINGUAL Q5MIN PRN Chest Pain Pantoprazole Sodium 40 mg 10/02/24 09:00 10/07/24 11:36 Pantoprazole 40 Mg Tablet PO Not Given DAILY SHIRLEY Sucralfate 1 gm 10/05/24 16:30 10/07/24 12:25 Sucralfate 1 Gm Tablet PO Not Given ACHS [facility] Radiology Results: ITS Impressions Renal Ultrasound 10/02/24 00:30 IMPRESSION: No hydronephrosis or renal calculi. Findings suggesting medical renal disease. Chest X-Ray 10/03/24 18:09 IMPRESSION: No acute cardiopulmonary process. Chest/Abdomen/Pelvis CT 10/04/24 08:39 IMPRESSION: 1. Fluid in the colon consistent with nonspecific diarrhea with wall thickening of multiple loops of distal ileum consistent with enteritis which could be infectious or inflammatory in etiology. 2. Small region of increased density within a now partially collapsed extremity cyst at the lower pole the right kidney likely representing some internal hemor rhage. Consider follow-up ultrasound versus pre and postcontrast MRI or CT in a few weeks to document resolution and exclude significantly less likely solid neoplastic component. 3. Mild emphysema and scattered bilateral calcified pleural plaques consistent with prior asbestos exposure. 4. Unchanged 9 mm nodule along the right intrafissural lymph node without FDG uptake on prior PET/CT most consistent with a benign intrafissural lymph node. 5. Prostatomegaly. 6. Small fat-containing left inguinal hernia. Abdomen X-Ray 10/06/24 15:53 IMPRESSION: Nasogastric tube in good position and ready for immediate use. Labs Labs: Laboratory Results - last 24 hr 10/03/24 10/04/24 10/04/24 05:38 04:09 10:01 WBC RBC Hgb Hct MCV MCH MCHC RDW Plt Count MPV Immature Gran % (Auto) Neut % (Auto) Lymph % (Auto) Maries % (Auto) Eos % (Auto) Baso % (Auto) Lymph # (Auto) Maries # (Auto) Eos # (Auto) Baso # (Auto) Abs Immat Gran (auto) Absolute Neuts (auto) Absolute Nucleated RBC Band Neutrophils % Nucleated RBC % Platelet Estimate Hypochromasia Poikilocytosis Anisocytosis Schistocytes Sodium Potassium Chloride Carbon Dioxide Anion Gap BUN Creatinine Estim Creat Clear Calc Estimated GFR Glucose POC Capillary Glucose Serum Osmolality 303 H Calcium Magnesium Total Bilirubin AST ALT Alkaline Phosphatase Troponin I Total Protein Total Protein (PEP) 5.2 L Albumin Albumin (PEP) 3.1 Globulin (PEP) 2.1 L Albumin/Globulin Ratio 1.5 Sqoba-3-Fmigeehzx 0.4 Mqizq-1-Jbvjxqahk 0.8 Beta Globulins 0.5 L Gamma Globulins 0.3 L PEP Comment Comment Urine Osmolality 562 Pr Electrophoresis MSpike Comment: 10/06/24 10/06/24 10/07/24 17:51 18:16 03:38 WBC 9.8 RBC 3.15 L Hgb 8.3 L Hct 26.6 L MCV 84.4 MCH 26.3 MCHC 31.2 L RDW 20.4 H Plt Count 313 MPV 10.6 H Immature Gran % (Auto) 7.9 H Neut % (Auto) 57.1 Lymph % (Auto) 18.0 L Maries % (Auto) 15.5 H Eos % (Auto) 0.6 Baso % (Auto) 0.9 Lymph # (Auto) 1.76 Maries # (Auto) 1.5 H Eos # (Auto) 0.1 Baso # (Auto) 0.1 Abs Immat Gran (auto) 0.77 H Absolute Neuts (auto) 5.6 Absolute Nucleated RBC 0.040 H Band Neutrophils % Not Reportable Nucleated RBC % 0.4 H Platelet Estimate Adequate Hypochromasia 1+ Poikilocytosis 1+ Anisocytosis 2+ Schistocytes None seen Sodium 132 L 135 L Potassium 3.4 3.4 Chloride 91 L 95 L Carbon Dioxide 35 H 36 H Anion Gap 6 4 BUN 77 H 72 H Creatinine 3.09 H 3.07 H Estim Creat Clear Calc 16 16 Estimated GFR 19 L 19 L Glucose 92 90 POC Capillary Glucose 92 Serum Osmolality Calcium 6.9 L 7.0 L Magnesium 2.6 H Total Bilirubin 1.3 AST 39 ALT 24 Alkaline Phosphatase 61 Troponin I Total Protein 4.2 L Total Protein (PEP) Albumin 2.2 L Albumin (PEP) Globulin (PEP) Albumin/Globulin Ratio Hlzon-7-Cnkevrhom Fliwk-3-Uskhrjxto Beta Globulins Gamma Globulins PEP Comment Urine Osmolality Pr Electrophoresis MSpike 10/07/24 10/07/24 09:48 11:17 WBC RBC Hgb Hct MCV MCH MCHC RDW Plt Count MPV Immature Gran % (Auto) Neut % (Auto) Lymph % (Auto) Maries % (Auto) Eos % (Auto) Baso % (Auto) Lymph # (Auto) Maries # (Auto) Eos # (Auto) Baso # (Auto) Abs Immat Gran (auto) Absolute Neuts (auto) Absolute Nucleated RBC Band Neutrophils % Nucleated RBC % Platelet Estimate Hypochromasia Poikilocytosis Anisocytosis Schistocytes Sodium Potassium Chloride Carbon Dioxide Anion Gap BUN Creatinine Estim Creat Clear Calc Estimated GFR Glucose POC Capillary Glucose 123 H Serum Osmolality Calcium Magnesium Total Bilirubin AST ALT Alkaline Phosphatase Troponin I 0.031 Total Protein Total Protein (PEP) Albumin Albumin (PEP) Globulin (PEP) Albumin/Globulin Ratio Cdiri-2-Wadvoesbq Katzs-1-Gjyltukog Beta Globulins Gamma Globulins PEP Comment Urine Osmolality Pr Electrophoresis MSpike Quality VTE Prophylaxis VTE prophylaxis: pharmacologic ordered
--- NOTE | 2024-10-07 15:42 | PC.NURSE ---
care coord. is in with and granddaughter discussing care up to this point, daughter is on her way now, will call hospitalist to speak with family once they are all here, pt is still on waiting list for [facility]
[2024-10-07] MEDS: MORPHINE SULFATE (*CRX) 2 MG/ML INJ IV PUSH (20:04)
[2024-10-07] MEDS: LORazepam INJ (*CRX) 2 MG/ML VIAL IV PUSH (20:05)
[2024-10-08] VITALS: BP 94/42; PULSE 111; RESP 43; TEMP 36.6; O2SAT 99
[2024-10-08] MEDS: MORPHINE SULFATE (*CRX) 2 MG/ML INJ IV PUSH ×2 (00:07→08:21)
[2024-10-08] MEDS: LORazepam INJ (*CRX) 2 MG/ML VIAL IV PUSH ×3 (00:08→13:49)
--- NOTE | 2024-10-08 00:30 | PC.NURSE ---
2240 RN called to let her know patient has had change in breathing and RR. Daughter called RN back, update given. 0000 Patient and her son at bedside. Patient moaning in pain. Patient family requesting more comfort medication.
[2024-10-08 05:57] VITALS: PULSE 110
[2024-10-08] MEDS: METOCLOPRAMIDE HCL INJ 10 MG/2 ML VIAL 5 MG IV PUSH (05:58)
[2024-10-08 07:53] VITALS: O2SAT 99
[2024-10-08 08:00] VITALS: BP 101/33; PULSE 115; RESP 10; TEMP 37.3; O2SAT 80
[2024-10-08] MEDS: PANTOPRAZOLE SODIUM IV 40 MG VIAL IV PUSH (08:19)
--- NOTE | 2024-10-08 08:56 | PCDIET ---
Nutrition note: MBS follow up. Pt on puree diet per speech. Regular diet. Ensure Plus High Protein BID (350 kcal, 20 g protein) ordered. Will continue to monitor every 3 days.
--- NOTE | 2024-10-08 17:14 | P.PNIM_ITS ---
Progress Note: A&P Assessment and Plan (1) Acute dehydration: Code(s): E86.0 - Dehydration Status: Acute Assessment and Plan: Received IV fluid Continue same (2) Acute hyponatremia: Code(s): E87.1 - Hypo-osmolality and hyponatremia Status: Acute Assessment and Plan: Sodium 130 on admission. Nephrology consulted Remains stable continue to monitor (3) BRITTANIE (acute kidney injury): Code(s): N17.9 - Acute kidney failure, unspecified Status: Acute Assessment and Plan: * creatinine 2.89, BUN 45, GFR 21 on admission. * Creatinine 3.30, BUN 60, GFR 18 today. * baseline creatinine in 2023 appears to be 1.2-1.4. * Renal ultrasound with no hydronephrosis. Nephrology on board Creatinine trending downward today (4) Chest pain: Code(s): R07.9 - Chest pain, unspecified Status: Acute Assessment and Plan: * EKG, initial: Sinus rhythm with occasional ventricular premature complexes, right bundle-branch block * EKG, repeat (1): No significant changes when compared to EKG done earlier same day * CXR: No acute cardiopulmonary disease * Troponin: 0.029 -> 0.026, 6 hour ordered * ASA 324 given by EMS * SL nitro PRN * high suspicion for some level of demand ischemia due to dehydration/positive orthostatic blood pressures. Patient was also endorsing epigastric pain, could be more so GERD related verses cardiac in nature. 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 Consider Cardiology consultation if patient continues to have intermittent chest pain despite rehydration and improved blood pressure. * telemetry monitoring- SR 95. (5) Atrial fibrillation: Qualifiers: Atrial fibrillation type: unspecified Qualified Code(s): I48.91 - Unspecified atrial fibrillation Code(s): I48.91 - Unspecified atrial fibrillation Status: Chronic Assessment and Plan: * continue home medications: Eliquis * initial EKG showed sinus rhythm with occasional ventricular premature complexes and right bundle branch block. 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 * Follows with Oncology at [facility]. (Dr. Perea) (7) Protein-calorie malnutrition, moderate: Code(s): E44.0 - Moderate protein-calorie malnutrition Status: Acute Assessment and Plan: * Per EMR loss of 21 pounds in 6 months. * News Analyst consult. * Add Ensure plus High Protein BID. Regular diet. * Add Mirtazapine 15 mg PO QHS. * Encourage oral intake. (8) Diarrhea: Code(s): R19.7 - Diarrhea, unspecified Status: Acute Assessment and Plan: * Stool negative for c diff. * Stool cultures obtained. * Ns@ 100 ml/hr. Will order CT abdomen pelvis (9) SVT (supraventricular tachycardia): Code(s): I47.10 - Supraventricular tachycardia, unspecified Status: Acute Assessment and Plan: On 10/03/2024 Self terminated Is still quite acidotic Will switch fluid to IV bicarb (10) Enteritis: Code(s): K52.9 - Noninfective gastroenteritis and colitis, unspecified Status: Acute Assessment and Plan: C diff negative Stool culture negative Possibly due to chemo Started on Zosyn Consult GI Plan patient currently on comfort care awaiting hospice discharge Code status: Full code DVT prophylaxis: Eliquis 2.5 mg p.o. b.i.d. Subjective Date/time seen: 10/08/24 17:14 Interval history: Comfortabel at bedside Review of Systems Review of Systems: All systems reviewed & are unremarkable except as noted in HPI and below Exam Narrative: GENERAL: Comfortable HEENT: Nonicteric sclerae, PERRLA, EOMI. Dry mucous membrane. Conjunctivae appear well perfused. CHEST: Chest wall is nontender. HEART: Regular rate and rhythm without murmur, rubs, or gallops LUNGS: Coarse breath sound bilaterally. no respiratory distress ABDOMEN: Soft, positive bowel sounds, mild diffuse tenderness, not distended, no organomegaly. SKIN: No rash, no excessive bruising, petechiae, or purpura. NEUROLOGIC: Cranial nerves II-XII intact, alert and oriented x 3, no gross motor deficits EXTREMITIES: no edema, cyanosis or clubbing Const: General: comfortable and no acute distress Other: Chronically ill appearing male pt lying on his right side at the time of my entry into the room sleeping. He did not appear to have acute distress, but does appear to be chronically ill. HENMT: Face/Nose/Sinus: Normal nares present Mouth: Yes dry mucous membranes Eyes: General: appearance normal, both eyes and all related structures Sclera: sclerae normal Pupils: Equal, round and reactive pupils present EOM: EOMs intact bilaterally Neck: Neck: supple and no JVD Lymphatic: lymphadenopathy not noted Resp: Effort & Inspection: normal respiratory effort Auscultation: clear to auscultation bilaterally Cardio: Rate: regular rate Rhythm: regular rhythm Heart sounds: no gallops, no murmurs and no rubs Other: S1-S2 present without murmur, rub, ectopy GI: Auscultation: normal bowel sounds Other: Mild epigastric tenderness, normoactive bowel sounds in all quadrants, no distension and abdomen is soft Skin: General skin exam: No normal color (Mild jaundice noted), no rashes or lesions noted, No lesion and No rashes Lesions: no lesions noted Rashes: no rashes noted Wounds: no wounds Other: Skin tears bilateral knees and right elbow. No drainage. Areas are dry. Neuro: Cranial nerves: Yes Equal, round and reactive pupils present Speech: normal speech Motor exam (neuro): 5/5 motor strength present throughout and Normal motor muscle tone present throughout Sensory Exam: normal sensation Other: A&O x4 Extrem: General: normal to inspection, no edema and no pedal edema Psych: Mental Status: mental status grossly normal Affect: normal affect Other: Good insight and judgment, pleasant Objective Data Vital Signs Vital Signs: Vital Signs - 24 hr 10/07/24 20:00 10/07/24 20:11 10/08/24 00:00 Temperature 97.8 F Pulse Rate 60 111 H Respiratory Rate 43 H Blood Pressure 94/42 L Pulse Oximetry 98 99 Oxygen Delivery Nasal Cannula Oxygen Flow Rate 3 10/08/24 05:57 10/08/24 07:53 10/08/24 08:00 Temperature 99.1 F Pulse Rate 110 H 115 H Respiratory Rate 10 L Blood Pressure 101/33 L Pulse Oximetry 99 80 L Oxygen Delivery Nasal Cannula Oxygen Flow Rate 2 Intake/Output Intake/Output: Intake & Output 10/05/24 10/06/24 10/07/24 10/08/24 23:59 23:59 23:59 23:59 Intake Total 3200 3610 1330 0 Output Total 4470 2100 1500 80 Balance -1270 1510 -170 -80 Meds/Results Medications: Active Medications Generic Name Dose Route Start Last Admin Trade Name Freq PRN Reason Stop Dose Admin Apixaban 2.5 mg 10/07/24 21:00 10/08/24 09:08 Apixaban 2.5 Mg Tablet PO Not Given Q12HR SHIRLEY Atorvastatin Calcium 40 mg 10/07/24 21:00 10/07/24 20:11 Atorvastatin 40 Mg Tablet PO Not Given HS SIHRLEY Loperamide HCl 2 mg 10/07/24 17:19 Loperamide Hcl 2 Mg Capsule PO PRN PRN Diarrhea Lorazepam 2 mg 10/07/24 13:21 10/08/24 13:49 Lorazepam Inj (*Crx) 2 Mg/Ml Vial IV PUSH 2 mg Q4H PRN Administration Anxiety Metoclopramide HCl 5 mg 10/06/24 12:00 10/08/24 14:05 Metoclopramide Hcl Inj 10 Mg/2 Ml Vial IV PUSH Not Given Q6HR SHIRLEY Metoprolol Tartrate 25 mg 10/07/24 22:00 10/08/24 14:05 Metoprolol Tartrate 25 Mg Tablet PO Not Given Q8HR SHIRLEY Mirtazapine 15 mg 10/07/24 21:00 10/07/24 20:11 Mirtazapine 15 Mg Tablet PO Not Given HS SHIRLEY Morphine Sulfate 2 mg 10/07/24 22:25 10/08/24 08:21 Morphine Sulfate (*Crx) 2 Mg/Ml Inj IV PUSH 2 mg Q2H PRN Administration pain or discomfort Pantoprazole Sodium 40 mg 10/08/24 09:00 10/08/24 08:19 Pantoprazole Sodium Iv 40 Mg Vial IV PUSH 40 mg DAILY SHIRLEY Administration Sucralfate 1,000 mg 10/07/24 21:00 10/08/24 14:05 Sucralfate Susp 100 Mg/Ml 10 Ml Udc PO Not Given ACHS [facility] Radiology Results: ITS Impressions Renal Ultrasound 10/02/24 00:30 IMPRESSION: No hydronephrosis or renal calculi. Findings suggesting medical renal disease. Chest X-Ray 10/03/24 18:09 IMPRESSION: No acute cardiopulmonary process. Chest/Abdomen/Pelvis CT 10/04/24 08:39 IMPRESSION: 1. Fluid in the colon consistent with nonspecific diarrhea with wall thickening of multiple loops of distal ileum consistent with enteritis which could be infectious or inflammatory in etiology. 2. Small region of increased density within a now partially collapsed extremity cyst at the lower pole the right kidney likely representing some internal hemorrhage. Consider follow-up ultrasound versus pre and postcontrast MRI or CT in a few weeks to document resolution and exclude significantly less likely solid neoplastic component. 3. Mild emphysema and scattered bilateral calcified pleural plaques consistent with prior asbestos exposure. 4. Unchanged 9 mm nodule along the right intrafissural lymph node without FDG uptake on prior PET/CT most consistent with a benign intrafissural lymph node. 5. Prostatomegaly. 6. Small fat-containing left inguinal hernia. Abdomen X-Ray 10/06/24 15:53 IMPRESSION: Nasogastric tube in good position and ready for immediate use. Head CT 10/07/24 13:46 Impression: No acute intracranial hemorrhage or suspicious mass effect. Given patient's history, although metastatic disease to the brain is rare with colon cancer, it does occur in up to 5% of cases for which follow-up with contrast-enhanced MRI is recommended, if the patient is clinically able. Abdomen/Pelvis CT 10/07/24 13:55 IMPRESSION: Interval development of multiple loops of fluid-filled prominent small bowel. The cecum is now decompressed. Interval increase in size of the focus of mixed attenuation within the lower pole of the right kidney, for which blood products are suspected. The bladder is decompressed with a Flores catheter with mixed attenuation and air within the lumen of the bladder. Surrounding inflammatory change is also noted for which cystitis is suspected. Quality VTE Prophylaxis VTE prophylaxis: pharmacologic ordered
--- NOTE | 2024-10-08 18:00 | PC.NURSE ---
Speaking with family at bedside. Pt noted to have apneic breathing. After large breath breathing ceased. No pulse felt or heart beat auscultated. Nunu, Charge Nurse and Dr. Crenshaw made aware.
--- NOTE | 2024-10-09 07:20 | P.DN_ITS ---
Discharge Summary Date and Time Date of : 10/08/24 Time of : 17:57 Provider Pronounced By: 2 RNs Name of First RN That Pronounced: Nunu Coon RN Name of Second RN That Pronounced: Dahlia Rubio RN Probable Cause of Probable Cause of : * Progressive multi-organ dysfunction in the setting of advanced colorectal c ancer, BRITTANIE, severe dehydration, and malnutrition. Summary Hospital Course: Admission Diagnosis * Acute kidney injury (BRITTANIE) on chronic kidney disease * Dehydration * Hyponatremia * Colorectal cancer (on chemotherapy and radiation) * Atrial fibrillation * Chest pain * Protein-calorie malnutrition * Diarrhea Hospital Course Mr. Jay was an 83-year-old male with a history of colorectal cancer (on chemotherapy and radiation), coronary artery disease (s/p CABG), atrial fibrilla tion, hypertension, and chronic kidney disease. He presented from home via EMS on 10/01/24 with generalized weakness and multiple falls over the preceding week, the most recent two days prior to admission. He also reported intermittent chest pain, poor appetite, chronic diarrhea, and shortness of breath. On arrival, he was found to be profoundly orthostatic (BP 90/40 supine, 60/38 standing), with improvement after IV fluid bolus. Initial labs revealed BRITTANIE (creatinine 2.89, baseline 1.2?1.4), hyponatremia (Na 130), anemia (Hgb 10.0), and no leukocytosis. Imaging showed no acute cardiopulmonary disease. EKG demonstrated sinus rhythm with occasional ventricular premature complexes and right bundle branch block. During hospitalization, his renal function fluctuated, peaking at creatinine 3.75 before partial improvement. The etiology was multifactorial: prerenal azotemia from dehydration and diarrhea, hypotension, and possible chemotherapy effect. He continued to have copious diarrhea, poor oral intake, and weight loss, with evidence of moderate protein-calorie malnutrition. Despite supportive care, including IV fluids, electrolyte repletion, nutritional support, and management of atrial fibrillation, his condition deteriorated. He experienced intermittent episodes of atrial fibrillation and supraventricular tachycardia, managed with metoprolol and anticoagulation (Eliquis), which was held at times due to anemia and GI blood loss. He remained hemodynamically labile, with persistent orthostatic hypotension and ongoing diarrhea. GI and nephrology were consulted for management of diarrhea and BRITTANIE, respectively. Given his poor prognosis, ongoing clinical decline, and underlying advanced malignancy, the patient and family elected for comfort-focused care. He was transitioned to comfort measures only and peacefully at 17:57 on 10/08/2024. Events Leading to * Progressive multi-organ dysfunction in the setting of advanced colorectal cancer, BRITTANIE, severe dehydration, and malnutrition. * Persistent hypotension and worsening renal function despite aggressive supportive measures. * Transitioned to comfort care per family wishes; peacefully in the presence of family. Cause of * Immediate Cause:?Multi-organ failure (renal, cardiovascular) * Underlying Cause:?Advanced colorectal cancer with complications of dehydration, BRITTANIE, and malnutrition * Contributing Conditions:?Chronic kidney disease, atrial fibrillation, chemotherapy-related toxicity, chronic diarrhea Additional Data Confirmation of as documented by pronouncing clinician: Pupillary Reflex, Palpable Pulses, Response to Stimuli, Heart Tones and Breath Sounds Name of Provider Notified: Dr. Crenshaw Time Provider Notified: 18:00 Provider Requests Autopsy: No Family Requests Autopsy: No Maintenance Shop Manager Notified: Yes Date [facility] Notified of : 10/08/24 Time [facility] Notified of : 18:08
[2024-10-09 15:09] LABS: Albumin, U 20.9 % (.); Alpha-1-Globulin, U 23.9 % (.); Alpha-2-Globulin, U 7.3 % (.); Beta Globulin, U 32.5 % (.); Gamma Globulin, U 15.4 % (.)
== END 2024-10-08 20:30 | disposition expired | DRG 683 ==
LOC: ANHED 10:42 → ANH3MEDSUR 11:26 → ANHIMU 10-03 18:53
PROVIDERS: General Practice; Internal Medicine; Internal Medicine Nephrology; Nurse Practitioner; Nurse Practitioner Adult Health; Nurse Practitioner Family; Nurse Practitioner Gerontology; Student in an Organized Health Care Education/Training Program; Admitting Provider Internal Medicine; Emergency Provider Emergency Medicine; Visit Provider Internal Medicine
DX: N17.9 Acute kidney failure, unspecified (principal); C19 Malignant neoplasm of rectosigmoid junction; E87.1 Hypo-osmolality and hyponatremia; I48.20 Chronic atrial fibrillation, unspecified; E44.0 Moderate protein-calorie malnutrition; E87.21 Acute metabolic acidosis; I47.10 Supraventricular tachycardia, unspecified; I24.89 Other forms of acute ischemic heart disease; K52.1 Toxic gastroenteritis and colitis; T45.1X5A Adverse effect of antineoplastic and immunosuppressive drugs, initial encounter; I95.1 Orthostatic hypotension; E86.0 Dehydration; I12.9 Hypertensive chronic kidney disease with stage 1 through stage 4 chronic kidney disease, or unspecified chronic kidney disease; N18.31 Chronic kidney disease, stage 3a; K21.9 Gastro-esophageal reflux disease without esophagitis; D63.1 Anemia in chronic kidney disease; D63.0 Anemia in neoplastic disease; E83.51 Hypocalcemia; E87.6 Hypokalemia; I45.10 Unspecified right bundle-branch block; I25.10 Atherosclerotic heart disease of native coronary artery without angina pectoris; R62.7 Adult failure to thrive; I65.29 Occlusion and stenosis of unspecified carotid artery; E78.5 Hyperlipidemia, unspecified; F17.210 Nicotine dependence, cigarettes, uncomplicated; R29.6 Repeated falls; Z95.1 Presence of aortocoronary bypass graft; Z79.01 Long term (current) use of anticoagulants; Z68.24 Body mass index [BMI] 24.0-24.9, adult; Z51.5 Encounter for palliative care
CPT/HCPCS: 36415; 70450; 71045; 71250; 74176; 76775; 80048; 80053; 80061; 82274; 82533; 82550; 82570; 82728; 82948; 83540; 83550; 83735; 83930; 83935; 84100; 84132; 84155; 84156; 84165; 84166; 84300; 84443; 84484; 84540; 85014; 85018; 85025; 85027; 85046; 85610; 85730; 85999; 86850; 86900; 86901; 87045; 87046; 87427; 87493; 92610; 93005; 96361; 96374; 97162; 99285; A9270; G0378; J0616; J1756; J2060; J2270; J2470; J2543; J2765; J3480; J7030; J7040; J7042; J7070; J7120; P9047